=== PATIENT | female | born 1995 | race Caucasian/White ===

== ENCOUNTER 2016-07-05 01:04 | Emergency (ER) | payer BC, OTHER ==
[~2016-07-05] VITALS: Ht 160 cm; Wt 64.4 kg
[~2016-07-05 01:04] MED LIST: AMOX-355 PO; AZIT-21 PO; NITR-65 PO; PHEN-639 PO; VALA10004 PO
--- OUTSIDE RECORDS SUMMARY | 2016-07-05 01:12 | XMS REPORT | Continuity of Care Document ---
Author Author [facility] Organization [facility] Address Unknown Phone Unavailable Care Team Providers Care Testing Manager Name Role Phone No Pcp, Na PCP Unavailable Source Comments Some departments are not documenting in the electronic medical record. 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 Failed. Subtotal left Most Recent Encounters Date Type Specialty Providers Description 07/01/2016 Telephone Otolaryngology Newton Ramos MD Appointment Request Social History Tobacco Use Types Packs/Day Years Used Date Never Smoker Smokeless Tobacco: Never Used Alcohol Use Drinks/Week oz/Week Comments No Last Filed Vital Signs Vital Sign Reading Time Taken Blood Pressure 118/68 02/26/2016 8:59 AM CDT Pulse 69 02/26/2016 8:59 AM CDT Temperature 36.8 C (98.2 F) 10/04/2015 4:30 PM CDT Respiratory Rate - - Height 1.588 m (5' 2.5") 02/26/2016 8:59 AM CDT Weight 67.223 kg (148 lb 3.2 oz) 02/26/2016 8:59 AM CDT Body Mass Index 26.66 02/26/2016 8:59 AM CDT Oxygen Saturation 97% 10/04/2015 4:30 PM CDT Plan of Care Date Type Specialty Providers Description 07/08/2016 Appointment Otolaryngology Newton Ramos MD [address] [facility] [address] [place] [address] [phone] (Fax) Health Maintenance Due Date Last Done Comments Physical (Comprehensive) 12/09/2002 Exam Hpv Vaccines (#1) 12/09/2006 Pertussis Vaccine 12/09/2006 Tetanus Vaccine 12/09/2012 Influenza Vaccine 01/10/2016 Results from Last 3 Months Not on file
[2016-07-05] MEDS ORDERED: DEXAMETHASONE PF 10 MG/ML (DECADRON) VIAL IM STA (02:37)
[2016-07-05] MEDS ORDERED: OXYMETAZOLINE (AFRIN) 0.05% NA 15 ML BTL SCH (02:45)
--- NOTE | 2016-07-05 02:46 | ED Cough/URI ---
General Chief Complaint: Cough/Cold/Flu Symptoms Stated Complaint: SOB Nursing Triage Note: PT TO ED 5 W/ C/O TROUBLE BREATHING X1 WK. NO DISTRESS NOTED AT THIS TIME. PT REPORTS SHE IS "FORGETTING HOW TO LEARN HOW TO BREATHE". PT STATES HER MOUTH IS REALLY DRY WHEN SHE SLEEPS AND WAS UNABLE TO GO TO WORK TONIGHT BECAUSE OF HER BREATHING. Source: patient Exam Limitations: no limitations History of Present Illness Time seen by provider: 02:05 Initial Comments Here with cough and congestion with stuffy nose and ear fullness for the last week. Worse tonight. Feels like she is having difficulty breathing when trying to go to sleep. Presents for persistence of symptoms. Denies current fever, vomiting or diarrhea. Denies rashes. Does have mild dry throat. Timing/Duration: constant, week Severity/Quality: moderate, dry cough Prior Episodes/Possible Cause: occasional episodes Associated Symptoms: cough, earache, nasal congestion, nasal drainage, shortness of breath, sore throat Allergies and Home Medications Allergies Coded Allergies: No Known Drug Allergies (Unverified , 01/19/16) Home Medications Nitrofurantoin Monohyd/M-Cryst 100 Mg Capsule #14 1 TAB PO BID Prescribed by: ALINE RIVERA on 01/19/16 2221 Phenazopyridine HCl 100 Mg Tablet #14 100 MG PO Q8H PRN PRN PAIN Prescribed by: ALINE RIVERA on 01/19/16 2221 Valacyclovir HCl 1,000 Mg Tablet #20 1,000 MG PO BID Prescribed by: ALINE RIVERA on 01/19/167 Constitutional: see HPINo chills, No fever EENTM: see HPI Respiratory: see HPI Cardiovascular: no symptoms reported Gastrointestinal: no symptoms reportedNo nausea, No vomiting Genitourinary: no symptoms reportedNo dysuria, No pain Musculoskeletal: no symptoms reported Skin: see HPINo lesions, No rash Past Mhqnbrn-Ueehxh-Nhkhse Hx Patient Social History Alcohol Use: Denies Use Recreational Drug Use: No Smoking Status: Current Everyday Smoker Type Used: Cigarettes Recent Foreign Travel: No Contact w/Someone Who Travel: No Recent Infectious Disease Expo: No Recent Hopitalizations: No Immunizations Up To Date Tetanus Booster (TDap): More than 5yrs PED Vaccines UTD: Yes Seasonal Allergies Seasonal Allergies: Yes Surgeries HX Surgeries: Yes Surgeries: Ear Surgery Respiratory Hx Respiratory Disorders: No Cardiovascular Hx Cardiac Disorders: No Neurological Hx Neurological Disorders: No Reproductive System Hx Reproductive Disorders: No Female Reproductive Disorders: Denies Genitourinary Hx Genitourinary Disorders: No Gastrointestinal Hx Gastrointestinal Disorders: No Musculoskeletal Hx Musculoskeletal Disorders: No Endocrine Hx Endocrine Disorders: No HEENT HX ENT Disorders: No Cancer Hx Cancer: No Psychosocial Hx Psychiatric Problems: No Integumentary HX Skin/Integumentary Disorder: No Blood Transfusions Hx Blood Disorders: No Reviewed Nursing Assessment Reviewed/Agree w Nursing PMH: Yes Family Medical History Significant Family History: No Pertinent Family Hx Physical Exam Vital Signs Vital Sign - Last 12Hours 07/05/16 01:24 Temp 97.1 Pulse 78 Resp 20 B/P 111/73 Pulse Ox 97 O2 Delivery Room Air Capillary Refill : Less Than 3 Seconds General Appearance: WD/WN no apparent distress HEENT: PERRL/EOMI pharynx normal other (moderate bilateral nasal congestion with clear rhinorrhea. Bilateral bulging TMs without purulence or opacity.) Neck: full range of motion supple Respiratory: lungs clear normal breath sounds Cardiovascular: regular rate, rhythm Gastrointestinal: non tender soft Extremities: non-tender normal inspection Neurologic/Psychiatric: alert oriented x 3 Skin: normal color warm/dry Progress/Results/Core Measures Results/Orders My Orders Orders-ELVIN OTERO MD Dexamethasone Pf Injection (Decadron Pf (07/05/16 02:37) Oxymetazoline 0.05% Nasal [place] (Afrin 0. (07/05/16 02:45) Vital Signs/I&O Vital Sign - Last 12Hours 07/05/16 07/05/16 01:24 01:24 Temp 97.1 Pulse 78 Resp 20 B/P 111/73 Pulse Ox 97 O2 Delivery Room Air Room Air Blood Pressure Mean: 86 Progress Note : Progress Note Seen and evaluated. Decadron 10 mg IM. Afrin nasal spray 2 sprays to each nostril. Discharged home with return precautions. Patient verbalize understanding instructions and agreement with plan. Departure Impression Impression: Primary Impression: Upper respiratory infection Qualified Code: J06.9 - Acute upper respiratory infection, unspecified Disposition: 01 HOME, SELF-CARE Condition: Stable Departure-Patient Inst. Decision time for Depature: 02:46 Referrals: [facility] (PCP/Family) Primary Care Physician Patient Instructions: Viral Upper Respiratory Infection, Adult (DC) Add. Discharge Instructions: All discharge instructions reviewed with patient and/or family. Voiced understanding. You may take ibuprofen 600 mg every 8 hours as needed for pain. Use the Afrin nasal spray 2 sprays to each nostril twice daily for 3 days only and then stop. Drink plenty of fluids. Follow-up with your Dr. in a few days for recheck. Return for worse pain, fever, vomiting, breathing problems or other concerns as needed. ELVIN OTERO MD Jul 05, 2016 02:46
[2016-07-05 02:55] VITALS: BP 109/78
== END 2016-07-05 02:55 | disposition home or self-care (01) ==
LOC: EDUNIT# 01:04 → ER 01:08
DX: J06.9 Acute upper respiratory infection, unspecified (principal); F17.210 Nicotine dependence, cigarettes, uncomplicated
CPT/HCPCS: 96372; 99282

== ENCOUNTER 2016-10-10 13:47 | Emergency (ER) | payer BC, OTHER ==
[~2016-10-10] VITALS: Ht 162.6 cm; Wt 59.0 kg
--- NOTE | 2016-10-10 14:10 | ED EENT ---
History of Present Illness General Stated Complaint: SORE THROAT Source: patient Exam Limitations: no limitations History of Present Illness Time seen by provider: 14:06 Initial Comments To ER with 5 day history of sore throat, fever yesterday, absence of cough, tender lymph nodes in her neck. Also states she is late on her menstrual period may be . Timing/Duration: other (5days) Severity: moderate Location: throat Associated Symptoms: No cough, fever, sore throat Allergies and Home Medications Allergies Coded Allergies: No Known Drug Allergies (Unverified , 01/19/16) Home Medications Nitrofurantoin Monohyd/M-Cryst 100 Mg Capsule, 1 TAB PO BID, #14 Ref 0 Prescribed by: ALINE RIVERA on 01/19/16 2221 Phenazopyridine HCl 100 Mg Tablet, 100 MG PO Q8H PRN for PAIN, #14 Ref 1 Prescribed by: ALINE RIVERA on 01/19/16 2221 Valacyclovir HCl 1,000 Mg Tablet, 1,000 MG PO BID, #20 Ref 0 Prescribed by: ALINE RIVERA on 01/19/16 2217 Review of Systems Constitutional: see HPI Eyes: No Symptoms Reported Ears: No Symptoms Reported Nose: no symptoms reported Mouth: no symptoms reported Throat: see HPI Respiratory: no symptoms reported Cardiovascular: no symptoms reported Musculoskeletal: no symptoms reported Skin: no symptoms reported Neurological: No Symptoms Reported Hematologic/Lymphatic: No Symptoms Reported Immunological/Allergic: no symptoms reported Past Gfxozyc-Kfngsk-Xyiyor Hx Patient Social History Type Used: Cigarettes Recent Foreign Travel: No Contact w/Someone Who Travel: No Recent Hopitalizations: No Immunizations Up To Date Tetanus Booster (TDap): More than 5yrs PED Vaccines UTD: Yes Seasonal Allergies Seasonal Allergies: Yes Surgeries HX Surgeries: Yes Surgeries: Ear Surgery Respiratory Hx Respiratory Disorders: No Cardiovascular Hx Cardiac Disorders: No Neurological Hx Neurological Disorders: No Reproductive System Hx Reproductive Disorders: No Female Reproductive Disorders: Denies Genitourinary Hx Genitourinary Disorders: No Gastrointestinal Hx Gastrointestinal Disorders: No Musculoskeletal Hx Musculoskeletal Disorders: No Endocrine Hx Endocrine Disorders: No HEENT HX ENT Disorders: No Cancer Hx Cancer: No Psychosocial Hx Psychiatric Problems: No Integumentary HX Skin/Integumentary Disorder: No Blood Transfusions Hx Blood Disorders: No Family Medical History Significant Family History: No Pertinent Family Hx Physical Exam Vital Signs Vital Sign - Last 12Hours 10/10/16 14:00 Temp 98.9 Pulse 82 Resp 16 B/P (MAP) 110/75 Pulse Ox 98 O2 Delivery Room Air General Appearance: WD/WN, no apparent distress Eyes: bilateral eye EOMI, bilateral eye PERRL, bilateral eye normal inspection Ears: bilateral ear TM normal, bilateral ear auricle normal, bilateral ear canal normal Mouth/Throat: other (pharyngeal erythema, no tonsillar exudate, no uvular deviation or suggestion of peritonsillar abscess. ) Neck: non-tender, full range of motion, lymphadenopathy (R), lymphadenopathy (L ) Respiratory: no respiratory distress, no accessory muscle use Gastrointestinal: normal bowel sounds, non tender, soft Neurologic/Psychiatric: alert, normal mood/affect, oriented x 3 Skin: normal color, warm/dry (I will be here) Progress/Results/Core Measures Results/Orders Lab Results Laboratory Tests Test 10/10/16 14:00 10/10/16 14:15 Range/Units Group A Streptococcus Screen POSITIVE H NEGATIVE White Blood Count 15.6 H 4.3-11.0 10^3/uL Red Blood Count 4.40 4.35-5.85 10^6/uL Hemoglobin 12.8 11.5-16.0 G/DL Hematocrit 40 35-52 % Mean Corpuscular Volume 91 80-99 FL Mean Corpuscular Hemoglobin 29 25-34 PG Mean Corpuscular Hemoglobin Concent 32 32-36 G/DL Red Cell Distribution Width 12.9 10.0-14.5 % Platelet Count 211 130-400 10^3/uL Mean Platelet Volume 10.7 H 7.4-10.4 FL Neutrophils (%) (Auto) 84 H 42-75 % Lymphocytes (%) (Auto) 10 L 12-44 % Monocytes (%) (Auto) 5 0-12 % Eosinophils (%) (Auto) 1 0-10 % Basophils (%) (Auto) 0 0-10 % Neutrophils # (Auto) 13.1 H 1.8-7.8 X 10^3 Lymphocytes # (Auto) 1.5 1.0-4.0 X 10^3 Monocytes # (Auto) 0.8 0.0-1.0 X 10^3 Eosinophils # (Auto) 0.1 0.0-0.3 10^3/uL Basophils # (Auto) 0.0 0.0-0.1 10^3/uL Monoscreen NEGATIVE NEGATIVE My Orders Orders - CHIVO BECKFORD APRN Cbc With Automated Diff (10/10/16 14:05) Monotest (10/10/16 14:05) Hcg,Qualitative Serum (10/10/16 14:06) Manual Differential (10/10/16 14:15) Dexamethasone Pf Injection (Decadron Pf (10/10/16 14:45) Amoxicillin Capsule (Polymox Capsule) (10/10/16 14:45) Amoxicillin Capsule (Polymox Capsule) (10/10/16 14:38) Vital Signs/I&O Vital Sign - Last 12Hours 10/10/16 14:00 Temp 98.9 Pulse 82 Resp 16 B/P (MAP) 110/75 Pulse Ox 98 O2 Delivery Room Air Departure Impression Impression: Primary Impression: Streptococcal sore throat Disposition: 01 HOME, SELF-CARE Condition: Stable Departure-Patient Inst. Decision time for Depature: 14:38 Referrals: [facility] (PCP/Family) Primary Care Physician Patient Instructions: Strep Throat (DC) Add. Discharge Instructions: 1. Return to ER for any concerns 2. See your doctor next week 3. Tylenol and Motrin for pain and fevers Scripts Amoxicillin (Amoxicillin) 500 Mg Capsule 500 MG PO TID, #21 CAP Prov: CHIVO BECKFORD APRN 10/10/16 CHIVO BECKFORD APRN Oct 10, 2016 14:10
[2016-10-10 14:23] LABS: BASOPHILS % (AUTO) 0 % (0-10); EOSINOPHILS # (AUTO) 0.1 10^3/uL (0.0-0.3); EOSINOPHILS % (AUTO) 1 % (0-10); LYMPHOCYTES # (AUTO) 1.5 X 10^3 (1.0-4.0); LYMPHOCYTES % (AUTO) 10 % (12-44); MEAN CORPUSCULAR HEMOGLOBIN 29 PG (25-34); MEAN CORPUSCULAR HGB CONC 32 G/DL (32-36); MEAN CORPUSCULAR VOLUME 91 FL (80-99); MEAN PLATELET VOLUME 10.7 FL (7.4-10.4); MONOCYTES # (AUTO) 0.8 X 10^3 (0.0-1.0); MONOCYTES % (AUTO) 5 % (0-12); NEUTROPHILS # (AUTO) 13.1 X 10^3 (1.8-7.8); NEUTROPHILS % (AUTO) 84 % (42-75); PLATELET COUNT 211 10^3/uL (130-400); RED CELL DISTRIBUTION WIDTH 12.9 % (10.0-14.5); WHITE BLOOD COUNT 15.6 10^3/uL (4.3-11.0)
[2016-10-10] MEDS ORDERED: AMOX500C2 PO (14:45)
[2016-10-10 14:46] LABS: BAND NEUTROPHILS 3 %; BASOPHILS % (MANUAL) 0 %; EOSINOPHILS % (MANUAL) 0 %; LYMPHOCYTES % (MANUAL) 8 %; NEUTROPHILS % (MANUAL) 81 %
[2016-10-10] MEDS: AMOXICILLIN 250 MG (POLYMOX) CAP PO SCH (14:50)
[2016-10-10] MEDS: AMOXICILLIN 500 MG (POLYMOX) CAP PO ONE ×2 (14:50→14:51)
[2016-10-10] MEDS: DEXAMETHASONE PF 10 MG/ML (DECADRON) VIAL IM ONE (14:51)
[2016-10-10 15:00] VITALS: BP 112/72
== END 2016-10-10 14:59 | disposition home or self-care (01) ==
LOC: EDUNIT# 13:47 → ER 13:49
DX: J02.0 Streptococcal pharyngitis (principal)
CPT/HCPCS: 36415; 84703; 85007; 85027; 86308; 87430; 99282

== ENCOUNTER 2017-05-18 17:48 | Emergency (ER) | payer BC ==
[~2017-05-18] VITALS: Ht 160 cm; Wt 63.5 kg
[~2017-05-18 17:48] MED LIST changes: +AMOX500C2 PO
--- OUTSIDE RECORDS SUMMARY | 2017-05-18 17:59 | XMS REPORT ---
Author Author JACKLYN CROWDER Organization [facility] Address [address] [place] [address] Care Team Providers Care Documentation Analyst Name Role Phone JACKLYN CROWDER Unavailable PROBLEMS Type Condition ICD9-CM Code NZG44-HS Code Onset Dates Condition Status SNOMED Code Problem Dysuria 788.1 Active 10905298 Problem Herpes simplex vulvovaginitis A60.04 Active 60654756 Problem Otitis externa of both ears H60.93 Active 5986800 Problem Other chronic serous otitis media 381.19 Active 92769174 Problem Urinary tract infection, site not specified 599.0 Active 23164319 Problem Bipolar disorder, unspecified 296.80 Active 71618679 Problem Acute serous otitis media 381.01 Active [id number] ALLERGIES No Known Allergies SOCIAL HISTORY Never Assessed PLAN OF CARE Activity Details Follow Up prn Reason: VITAL SIGNS Height 64 in 2016-09-25 Weight 143.6 lbs 2016-09-25 Temperature 98.3 degrees Fahrenheit 2016-09-25 Heart Rate 86 bpm 2016-09-25 Respiratory Rate 18 2016-09-25 BMI 24.65 kg/m2 2016-09-25 Blood pressure systolic 116 mmHg 2016-09-25 Blood pressure diastolic 68 mmHg 2016-09-25 MEDICATIONS Medication Instructions Dosage Frequency Start Date End Date Duration Status Acyclovir 400 MG Orally Three times a day 1 tablet 8h September, 10 day(s) Active RESULTS Name Result Date Reference Range TRICHOMONAS (IN HOUSE) 2016-09-25 TRICHOMONAS negative Control + Lot # [id number] Exp date 2016 11 UA LONG DIP (IN HOUSE) 2016-09-25 Lot # [id number] Exp date 2017 09 31 Clarity clear Color yellow Odor none GLU negative NELIDA negative KET negative SG 1.020 BLO trace pH 7.0 Protein negative URO 0.2 NIT negative AUDELIA 1+ Lot # [id number] Exp date 2017 06 BACTERIAL VAGINOSIS (IN HOUSE) 2016-09-25 RESULTS negative Control + Lot # [id number] Exp date 2016 11 CULTURE, VIRAL (HSV W/ TYPING) 2016-09-25 HSV Culture/Type GC/CHLAM PROBE (STATE) 2016-09-25 CHLAMYDIA negative GC negative PROCEDURES Procedure Date Ordered Result Body Site URINALYSIS, AUTO, W/O SCOPE September 25, 2016 MARTÍNEZ VAG, DNA, DIR PROBE September 25, 2016 TRICHOMONAS ASSAY W/OPTIC September 25, 2016 MYA VIRUS ISOLATE, HSV September 25, 2016 No Charge September 25, 2016 IMMUNIZATIONS No Known Immunizations MEDICAL (GENERAL) HISTORY Type Description Date Surgical History right ear surgery x2 2013
--- OUTSIDE RECORDS SUMMARY | 2017-05-18 17:59 | XMS REPORT | Clinical Summary ---
Author Author [facility] Organization [facility] Address Unknown Phone Unavailable Care Team Providers Care Polysomnographic Technician Name Role Phone PCP Unavailable Source Comments Some departments are not documenting in the electronic medical record. If you do not see the information that you expected, contact Release of Information in the Health Information Management department at [phone] for further assistance in locating additional records.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 Failed. Subtotal left Family History Medical History Relation Name Comments Hearing Loss Father High Cholesterol Father Relation Name Status Comments Father Alive Social History Tobacco Use Types Packs/Day Years Used Date Never Smoker Smokeless Tobacco: Never Used Alcohol Use Drinks/Week oz/Week Comments No Sex Assigned at Date Recorded Not on file Last Filed Vital Signs Vital Sign Reading Time Taken Blood Pressure 118/68 02/26/2016 8:59 AM CDT Pulse 69 02/26/2016 8:59 AM CDT Temperature 36.8 C (98.2 F) 10/04/2015 4:30 PM CDT Respiratory Rate - - Oxygen Saturation 97% 10/04/2015 4:30 PM CDT Inhaled Oxygen - - Concentration Weight 67.2 kg (148 lb 3.2 oz) 02/26/2016 8:59 AM CDT Height 158.8 cm (5' 2.5") 02/26/2016 8:59 AM CDT Body Mass Index 26.67 02/26/2016 8:59 AM CDT Plan of Treatment Health Maintenance Due Date Last Done Comments PHYSICAL (COMPREHENSIVE) 12/09/2002 EXAM HPV VACCINES (1 of 3 - 12/09/2006 Female 3 Dose Series) PERTUSSIS VACCINE 12/09/2006 TETANUS VACCINE 12/09/2012 CERVICAL CANCER SCREENING 12/09/2016 INFLUENZA VACCINE 12/09/2016 Results Not on filefrom Last 3 Months
--- OUTSIDE RECORDS SUMMARY | 2017-05-18 18:00 | XMS REPORT | Continuity of Care Document ---
Author Author [facility] Address Unknown Phone Unavailable Allergies There is no data. Medications There is no data. Problems Date Dx Coded Attending Type Code Diagnosis Diagnosed By 02/22/2008 380.10 OTITIS EXTERNA UNSPECIFIED 02/22/2008 382.00 Otitis Media Acute Without Spontaneous Rupture Eardrum 02/22/2008 388.70 Ear Ache 02/22/2008 LOS OH APRN 380.10 OTITIS EXTERNA UNSPECIFIED 02/22/2008 LOS OH APRN 382.00 Otitis Media Acute Without Spontaneous Rupture Eardrum 02/22/2008 LOS OH APRN 388.70 Ear Ache 02/22/2008 CABA DO, SEBASTIÁN K 380.10 OTITIS EXTERNA UNSPECIFIED 02/22/2008 CABA DO, SEBASTIÁN K 382.00 Otitis Media Acute Without Spontaneous Rupture Eardrum 02/22/2008 CABA DO, SEBASTIÁN K 388.70 Ear Ache 02/22/2008 CABA DO, SEBASTIÁN K 380.10 OTITIS EXTERNA UNSPECIFIED 02/22/2008 CABA DO, SEBASTIÁN K 382.00 Otitis Media Acute Without Spontaneous Rupture Eardrum 02/22/2008 CABA DO, SEBASTIÁN K 388.70 Ear Ache 02/22/2008 CABA DO, SEBASTIÁN K 380.10 OTITIS EXTERNA UNSPECIFIED 02/22/2008 CABA DO, SEBASTIÁN K 382.00 Otitis Media Acute Without Spontaneous Rupture Eardrum 02/22/2008 CABA DO, SEBASTIÁN K 388.70 Ear Ache 12/26/2008 V05.8 Need For Prophylactic Vaccination And Inoculation Against Other Specified Disease 12/26/2008 V06.5 Dt, Tetanus- diphtheria [td] ,tdap 12/26/2008 V20.2 Preventive Medicine Establ. Patient Checkup Adolescent 12-17 12/26/2008 LOS OH APRN V05.8 Need For Prophylactic Vaccination And Inoculation Against Other Specified Disease 12/26/2008 LOS [place] APRN V06.5 Dt, Tetanus-diphtheria [td] ,tdap 12/26/2008 ALTHEA BUITRAGO [place] V20.2 Preventive Medicine Establ. Patient Checkup Adolescent 12-17 12/26/2008 CARRI CABA DOA K V05.8 Need For Prophylactic Vaccination And Inoculation Against Other Specified Disease 12/26/2008 ROSALES DIAZ SEBASTIÁN K V06.5 Dt, Tetanus-diphtheria [td] ,tdap 12/26/2008 ROSALES DIAZ SEBASTIÁN K V20.2 Preventive Medicine Establ. Patient Checkup Adolescent 12-17 12/26/2008 ROSALES DIAZ SEBASTIÁN K V05.8 Need For Prophylactic Vaccination And Inoculation Against Other Specified Disease 12/26/2008 CABA DO SEBASTIÁN K V06.5 Dt, Tetanus-diphtheria [td] ,tdap 12/26/2008 ROSALES DIAZ SEBASTIÁN K V20.2 Preventive Medicine Establ. Patient Checkup Adolescent 12-17 12/26/2008 CARRI CABA DOA K V05.8 Need For Prophylactic Vaccination And Inoculation Against Other Specified Disease 12/26/2008 ROSALES DIAZ SEBASTIÁN K V06.5 Dt, Tetanus-diphtheria [td] ,tdap 12/26/2008 ROSALES DIAZ SEBASTIÁN K V20.2 Preventive Medicine Establ. Patient Checkup Adolescent 12-17 03/08/2009 110.4 Dermatophytosis Tinea Pedis 03/08/2009 691.8 ATOPIC DERMATITIS 03/08/2009 845.00 Ankle Sprain Right 03/08/2009 ALTHEA BUITRAGO [place] 110.4 Dermatophytosis Tinea Pedis 03/08/2009 ALTHEA BUITRAGO [place] 691.8 ATOPIC DERMATITIS 03/08/2009 ALTHEA BUITRAGO [place] 845.00 Ankle Sprain Right 03/08/2009 CABA DO SEBASTIÁN K 110.4 Dermatophytosis Tinea Pedis 03/08/2009 CABA DO SEBASTIÁN K 691.8 ATOPIC DERMATITIS 03/08/2009 CABA DO, SEBASTIÁN K 845.00 Ankle Sprain Right 03/08/2009 CABA DO SEBASTIÁN K 110.4 Dermatophytosis Tinea Pedis 03/08/2009 CABA DO SEBASTIÁN K 691.8 ATOPIC DERMATITIS 03/08/2009 CABA DO SEBASTIÁN K 845.00 Ankle Sprain Right 03/08/2009 CABA DO, SEBASTIÁN K 110.4 Dermatophytosis Tinea Pedis 03/08/2009 CABA DO, SEBASTIÁN K 691.8 ATOPIC DERMATITIS 03/08/2009 CABA DO, SEBASTIÁN K 845.00 Ankle Sprain Right 02/01/2010 296.90 MO MOOD DIS NOS 02/01/2010 313.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 02/01/2010 314.01 ADHD COMBINED 02/01/2010 OH IFTIKHAR [place] 296.90 MO MOOD DIS NOS 02/01/2010 OH IFTIKHAR [place] 313.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 02/01/2010 OH IFTIKHAR [place] 314.01 ADHD COMBINED 02/01/2010 CABA DO, SEBASTIÁN K 296.90 MO MOOD DIS NOS 02/01/2010 CABA DO, SEBASTIÁN K 313.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 02/01/2010 CABA DO, SEBASTIÁN K 314.01 ADHD COMBINED 02/01/2010 CABA DO, SEBASTIÁN K 296.90 MO MOOD DIS NOS 02/01/2010 CABA DO, SEBASTIÁN K 313.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 02/01/2010 CABA DO, SEBASTIÁN K 314.01 ADHD COMBINED 02/01/2010 CABA DO, SEBASTIÁN K 296.90 MO MOOD DIS NOS 02/01/2010 CABA DO, SEBASTIÁN K 313.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 02/01/2010 CABA DO, SEBASTIÁN K 314.01 ADHD COMBINED 04/21/2011 V25.9 CONTRACEPTION MANAGEMENT 04/21/2011 ALTHEA BUITRAGO [place] V25.9 CONTRACEPTION MANAGEMENT 04/21/2011 CABA DO, SEBASTIÁN K V25.9 CONTRACEPTION MANAGEMENT 04/21/2011 CABA DO, SEBASTIÁN K V25.9 CONTRACEPTION MANAGEMENT 04/21/2011 CABA DO, SEBASTIÁN K V25.9 CONTRACEPTION MANAGEMENT 12/01/2012 296.80 MO BIPOLAR NOS 12/01/2012 381.19 OTHER CHRONIC SEROUS OTITIS MEDIA 12/01/2012 ALTHEA BUITRAGO [place] 296.80 MO BIPOLAR NOS 12/01/2012 ALTHEA BUITRAGO [place] 381.19 OTHER CHRONIC SEROUS OTITIS MEDIA 12/01/2012 CABA DO SEBASTIÁN K 296.80 MO BIPOLAR NOS 12/01/2012 CABA DO, SEBASTIÁN K 381.19 OTHER CHRONIC SEROUS OTITIS MEDIA 12/01/2012 CABA DO, SEBASTIÁN K 296.80 MO BIPOLAR NOS 12/01/2012 CABA DO, SEBASTIÁN K 381.19 OTHER CHRONIC SEROUS OTITIS MEDIA 12/01/2012 CABA DO, SEBASTIÁN K 296.80 MO BIPOLAR NOS 12/01/2012 CABA DO, SEBASTIÁN K 381.19 OTHER CHRONIC SEROUS OTITIS MEDIA 09/14/2013 CABA DO, SEBASTIÁN K 381.01 ACUTE SEROUS OTITIS MEDIA 09/14/2013 CABA DO, SEBASTIÁN K 599.0 URINARY TRACT INFECTION 09/14/2013 CABA DO, SEBASTIÁN K 788.1 DYSURIA 09/14/2013 CABA DO, SEBASTIÁN K 381.01 ACUTE SEROUS OTITIS MEDIA 09/14/2013 CABA DO, SEBASTIÁN K 599.0 URINARY TRACT INFECTION 09/14/2013 CABA DO, SEBASTIÁN K 788.1 DYSURIA 09/14/2013 CABA DO, SEBASTIÁN K 381.01 ACUTE SEROUS OTITIS MEDIA 09/14/2013 CABA DO, SEBASTIÁN K 599.0 URINARY TRACT INFECTION 09/14/2013 CABA DO, SEBASTIÁN K 788.1 DYSURIA 08/16/2014 CABA DO, SEBASTIÁN K V74.1 TB SCREENING 08/16/2014 CABA DO, SEBASTIÁN K V74.1 TB SCREENING Procedures Code Description [place] [address] CULTURE URINE 09/14/2013 46664 UA W/ CULTURE IF INDICATED 09/14/2013 67098 TB TEST INTRADERMAL 08/16/2014 07147 TB TEST INTRADERMAL 08/25/2014 Results There is no data. Encounters ACCT No. Visit Date/Time Discharge Status Pt. Type Provider Facility Loc./Unit Complaint [id number] 08/25/2014 14:15:00 08/25/2014 23:59:59 CLS Outpatient SEBASTIÁN CABA DO Hernán [id number] 08/16/2014 09:37:00 08/16/2014 23:59:59 CLS Outpatient ROSALES DIAZ [place]BA[place]N K [id number] 09/14/2013 11:53:00 09/14/2013 23:59:59 CLS Outpatient CARRI CABA DOParish Jim [id number] 08/11/2013 18:20:00 08/11/2013 23:59:59 CLS Outpatient ALTHEA KAHNNLOS [id number] 12/01/2012 15:15:00 Document Registration
--- NOTE | 2017-05-18 19:28 | ED General ---
General Stated Complaint: POSS Source of Information: Patient Exam Limitations: No Limitations History of Present Illness Time Seen by Provider: 19:26 Initial Comments To ER with reports of possible . She was late on her menstrual period started having abdominal cramping and bleeding yesterday. She took a test, in fact she took 9 of them and brought them all to ER with her. . A few were positive and a few were negative. Bleeding continues and she is used 4 pads today. Cramping has improved. Timing/Duration: 1-2 Days Severity: Moderate Allergies and Home Medications Allergies Coded Allergies: No Known Drug Allergies (Unverified , 01/19/16) Home Medications Amoxicillin 500 Mg Capsule, 500 MG PO TID, #21 Prescribed by: CHIVO BECKFORD on 10/10/16 1445 Nitrofurantoin Monohyd/M-Cryst 100 Mg Capsule, 1 TAB PO BID, #14 Ref 0 Prescribed by: ALINE RIVERA on 01/19/16 2221 Phenazopyridine HCl 100 Mg Tablet, 100 MG PO Q8H PRN for PAIN, #14 Ref 1 Prescribed by: ALINE RIVERA on 01/19/16 2221 Valacyclovir HCl 1,000 Mg Tablet, 1,000 MG PO BID, #20 Ref 0 Prescribed by: ALINE RIVERA on 01/19/16 2217 Constitutional: see HPI EENTM: see HPI Respiratory: no symptoms reported Cardiovascular: no symptoms reported Genitourinary: no symptoms reported Musculoskeletal: no symptoms reported Skin: no symptoms reported Past Mlmfpoi-Qpkahj-Kjgdoy Hx Patient Social History Type Used: Cigarettes Recent Foreign Travel: No Contact w/Someone Who Travel: No Recent Hopitalizations: No Immunizations Up To Date Tetanus Booster (TDap): More than 5yrs PED Vaccines UTD: Yes Seasonal Allergies Seasonal Allergies: Yes Surgeries History of Surgeries: Yes Surgeries: Ear Surgery Respiratory History of Respiratory Disorde: No Cardiovascular History of Cardiac Disorders: No Neurological History of Neurological Disord: No Reproductive System Hx Reproductive Disorders: No Female Reproductive Disorders: Denies Gastrointestinal History of Gastrointestinal Di: No Musculoskeletal History of Musculoskeletal Dis: No Endocrine History of Endocrine Disorders: No Cancer History of Cancer: No Psychosocial History of Psychiatric Problem: No Integumentary History of Skin or Integumenta: No Blood Transfusions History of Blood Disorders: No Family Medical History Significant Family History: No Pertinent Family Hx Physical Exam Vital Signs Vital Sign - Last 12Hours 05/18/17 19:20 Temp 97.1 Pulse 71 Resp 18 B/P (MAP) 124/71 (88) Pulse Ox 99 O2 Delivery Room Air Capillary Refill : General Appearance: No Apparent Distress, WD/WN Eyes: Bilateral Eye Normal Inspection, Bilateral Eye PERRL, Bilateral Eye EOMI HEENT: PERRL/EOMI, TMs Normal Neck: Full Range of Motion, Normal Inspection Respiratory: No Accessory Muscle Use, No Respiratory Distress Cardiovascular: Regular Rate, Rhythm, Normal Peripheral Pulses Gastrointestinal: Normal Bowel Sounds, Non Tender, Soft Extremity: Normal Capillary Refill, Normal Inspection Neurologic/Psychiatric: Alert, Oriented x3, No Motor/Sensory Deficits Skin: Normal Color, Warm/Dry Progress/Results/Core Measures Suspected Sepsis SIRS Temperature: Pulse: Respiratory Rate: Blood Pressure / Mean: Results/Orders Lab Results Laboratory Tests Test 05/18/17 20:29 Range/Units Human Chorionic Gonadotropin, Quant < 5 <5 MIU/ML My Orders Orders - CHIVO BECKFORD APRN Hcg,Quantitative (05/18/17 19:24) Abo Rh Type (05/18/17 19:24) Us Ob<14 Wks Sngle W/Transvag (05/18/17 19:24) Ua Culture If Indicated (05/18/17 19:37) Vital Signs/I&O Vital Sign - Last 12Hours 05/18/17 19:20 Temp 97.1 Pulse 71 Resp 18 B/P (MAP) 124/71 (88) Pulse Ox 99 O2 Delivery Room Air Capillary Refill : Diagnostic Imaging Diagonstic Imaging: Ultrasound Comments NAME: MIKE MORROW [facility] REC#: [id number] PT STATUS: REG ER : 1995 PHYSICIAN: CHIVO BECKFORD APRN ADMIT DATE: 05/18/17/ER Draft Date of Exam:05/18/17 US OB<14 WKS SNGLE W/TRANSVAG INDICATION: Bleeding. Possible . FINDINGS: There is no sonographic demonstration of a gestational sac within the uterus. The endometrium measures up to 3 mm. There is no fluid in the endometrial canal. The right ovary is normal in size and demonstrates a small simple cyst. The left ovary could not be visualized. There is a small degree of free fluid within the cul-de-sac IMPRESSION: 1. An intrauterine gestation could not be identified. If the patient has a positive quantitative beta hCG, considerations would include early gestation, missed spontaneous or even possibly an ectopic . That cannot be excluded at this time. Continued correlation with beta hCGs is recommended. Sonographic imaging could also be performed, as clinically indicated. Dictated on workstation # [id number] Dict: 05/18/172022 Trans: 05/18/172027 [facility] [id number] Interpreted by: MOIZ SCOTT MD Electronically signed by: Departure Communication (Admissions) Progress Notes As mentioned patient did bring some of the tests to the emergency room with her and a few of them are in fact positive. Impression Impression: Primary Impression: Complete miscarriage Disposition: 01 HOME, SELF-CARE Condition: Stable Departure-Patient Inst. Decision time for Depature: 21:08 Referrals: [facility]/K (PCP/Family) Primary Care Physician Patient Instructions: Miscarriage Add. Discharge Instructions: 1. Cramping and bleeding may persist for another few days. Return to ER for any concerns. Follow-up with your doctor otherwise. CHIVO BECKFORD APRN May 18, 2017 19:28
--- NOTE | 2017-05-18 20:29 | Diagnostic Imaging Report ---
INDICATION: Bleeding. Possible . FINDINGS: There is no sonographic demonstration of a gestational sac within the uterus. The endometrium measures up to 3 mm. There is no fluid in the endometrial canal. The right ovary is normal in size and demonstrates a small simple cyst. The left ovary could not be visualized. There is a small degree of free fluid within the cul-de-sac IMPRESSION: 1. An intrauterine gestation could not be identified. If the patient has a positive quantitative beta hCG, considerations would include early gestation, missed spontaneous or even possibly an ectopic . That cannot be excluded at this time. Continued correlation with beta hCGs is recommended. Sonographic imaging could also be performed, as clinically indicated. Dictated by: Dictated on workstation # [id number]
[2017-05-18 21:17] LABS: BILIRUBIN,URINE NEGATIVE (NEGATIVE); CLARITY,URINE CLEAR; COLOR,URINE YELLOW; GLUCOSE, URINE (UA) NEGATIVE (NEGATIVE); KETONES,URINE NEGATIVE (NEGATIVE); LEUKOCYTE ESTERASE ,URINE NEGATIVE (NEGATIVE); NITRITE,URINE NEGATIVE (NEGATIVE); PH,URINE 7 (5-9); PROTEIN,URINE NEGATIVE (NEGATIVE); UROBILINOGEN,URINE 4 MG/DL (NORMAL)
[2017-05-18 21:29] LABS: RBC,URINE 25-50 /HPF; WBC,URINE 0-2 /HPF
[2017-05-18 21:30] LABS: BACTERIA,URINE TRACE /HPF
[2017-05-18 21:36] VITALS: BP 119/71
== END 2017-05-18 21:36 | disposition home or self-care (01) ==
LOC: EDUNIT# 17:48 → ER 17:52
DX: O03.9 Complete or unspecified spontaneous abortion without complication (principal); Z3A.00 Weeks of gestation of pregnancy not specified
CPT/HCPCS: 36415; 76801; 76817; 81000; 84702; 86900; 86901; 99282

== ENCOUNTER 2017-05-29 22:26 | Emergency (ER) | payer BC ==
[~2017-05-29] VITALS: Ht 160 cm; Wt 63.5 kg
--- OUTSIDE RECORDS SUMMARY | 2017-05-29 22:30 | XMS REPORT | Clinical Summary ---
Author Author [facility] Organization [facility] Address Unknown Phone Unavailable Care Team Providers Care Advertising Dispatch Clerk Name Role Phone PCP Unavailable Source Comments Some departments are not documenting in the electronic medical record. If you do not see the information that you expected, contact Release of Information in the Health Information Management department at [phone] for further assistance in locating additional records.[facility] Allergies No Known Allergies Current Medications [...]
--- OUTSIDE RECORDS SUMMARY | 2017-05-29 22:31 | XMS REPORT | Continuity of Care Document ---
Author Author [facility] Address Unknown Phone Unavailable Allergies There is [...] Procedures Code [place] [address] CULTURE URINE 09/14/2013 00547 UA W/ CULTURE IF INDICATED 09/14/2013 20726 TB TEST INTRADERMAL 08/16/2014 29498 TB TEST INTRADERMAL 08/25/2014 Results There is no data. Encounters ACCT No. Visit Date/Time Discharge Status Pt. Type Provider Facility Loc./Unit Complaint [id number] 08/25/2014 14:15:00 08/25/2014 23:59:59 CLS Outpatient SEBASTIÁN CABA DO Hernán [id number] 08/16/2014 09:37:00 08/16/2014 23:59:59 CLS Outpatient ROSALES DIAZ SEBASTIÁN K [id number] 09/14/2013 11:53:00 09/14/2013 23:59:59 CLS Outpatient CARRI CABA DOParish Jim [id number] 08/11/2013 18:20:00 08/11/2013 23:59:59 CLS Outpatient ALTHEA KAHNNLOS [id number] 12/01/2012 15:15:00 Document Registration
[2017-05-29 23:51] LABS: BILIRUBIN,URINE NEGATIVE (NEGATIVE); COLOR,URINE YELLOW; GLUCOSE, URINE (UA) NEGATIVE (NEGATIVE); KETONES,URINE NEGATIVE (NEGATIVE); LEUKOCYTE ESTERASE ,URINE 1+ (NEGATIVE); NITRITE,URINE NEGATIVE (NEGATIVE); PH,URINE 6.5 (5-9); PROTEIN,URINE 1+ (NEGATIVE); UROBILINOGEN,URINE NORMAL (NORMAL)
[2017-05-29 23:59] LABS: BACTERIA,URINE TRACE /HPF; CLARITY,URINE CLEAR; RBC,URINE RARE /HPF; WBC,URINE RARE /HPF
[2017-05-30 00:03] LABS: BASOPHILS % (AUTO) 0 % (0-10); EOSINOPHILS # (AUTO) 0.3 10^3/uL (0.0-0.3); EOSINOPHILS % (AUTO) 2 % (0-10); HEMATOCRIT 41 % (35-52); HEMOGLOBIN 13.6 G/DL (11.5-16.0); LYMPHOCYTES # (AUTO) 1.5 X 10^3 (1.0-4.0); LYMPHOCYTES % (AUTO) 13 % (12-44); MEAN CORPUSCULAR HEMOGLOBIN 30 PG (25-34); MEAN CORPUSCULAR HGB CONC 34 G/DL (32-36); MEAN CORPUSCULAR VOLUME 88 FL (80-99); MEAN PLATELET VOLUME 10.2 FL (7.4-10.4); MONOCYTES # (AUTO) 0.7 X 10^3 (0.0-1.0); MONOCYTES % (AUTO) 6 % (0-12); NEUTROPHILS # (AUTO) 9.1 X 10^3 (1.8-7.8); NEUTROPHILS % (AUTO) 78 % (42-75); PLATELET COUNT 257 10^3/uL (130-400); RED BLOOD COUNT 4.61 10^6/uL (4.35-5.85); RED CELL DISTRIBUTION WIDTH 12.9 % (10.0-14.5); WHITE BLOOD COUNT 11.6 10^3/uL (4.3-11.0)
--- NOTE | 2017-05-30 00:03 | ED GU-Female ---
General Chief Complaint: -Female Stated Complaint: MISCARRIAGE/ABD PAIN Nursing Triage Note: PT TO ED 9 FOR C/O INTERMITTENT ABD PAIN SINCE BEING TOLD SHE HAD A MISCARRIAGE X2 WKS AGO. REPORTS SHE WAS TO F/U AFTER ED VISIT BUT DOESN'T KNOW WHY. STATES X1WK AGO HAD "LIGHTNING BOLT PAIN" TO LOWER ABD THAT LASTED X7 MINUTES BUT WENT AWAY. ALSO C/O INTERMITTENT PAIN TO HER "OVARIES AND SHIT". PT DENIES VAGINAL BLEEDING AT THIS TIME. Nursing Sepsis Screen: No Definite Risk Source: patient Exam Limitations: no limitations History of Present Illness Date Seen by Provider: May 29, 2017 Time Seen by Provider: 23:20 Initial Comments Here with report of lower abdominal pain and vaginal discharge. Was seen on the eighth for concerns of positive test and vaginal bleeding. Quantitative hCG at that time was less than 5 and ultrasound was negative for intrauterine . She did get miscarriage instructions as she had 9 test with her that had some of them that were positive. She is concerned today about continued miscarriage. Parents arrived and are concerned about the need for D&C. She reports stable partner and the relationship and they do not use condoms or control but she states she is not actively trying to get . Complains of yellow-white discharge. Timing/Duration: other (2 weeks) Severity/Quality: moderate, cramping, sharp Location: suprapubic Radiation: none Activities at Onset: none Sexual [place] History: less than 2 months ago, single partner Associated Symptoms: abdominal pain, No dysuria, No fever/chills, No lower back pain, No nausea/vomiting, No urinary frequency Allergies and Home Medications Allergies Coded Allergies: No Known Drug Allergies (Unverified , 01/19/16) Home Medications Amoxicillin 500 Mg Capsule, 500 MG PO TID, #21 Prescribed by: CHIVO BECKFORD on 10/10/16 1445 Metronidazole 500 Mg Tablet, 500 MG PO BID, #14 Ref 0 Prescribed by: ELVIN OTERO on 05/30/17 0122 Nitrofurantoin Monohyd/M-Cryst 100 Mg Capsule, 1 TAB PO BID, #14 Ref 0 Prescribed by: ALINE RIVERA on 01/19/16 2221 Phenazopyridine HCl 100 Mg Tablet, 100 MG PO Q8H PRN for PAIN, #14 Ref 1 Prescribed by: ALINE RIVERA on 9/10/16 2221 Valacyclovir HCl 1,000 Mg Tablet, 1,000 MG PO BID, #20 Ref 0 Prescribed by: ALINE RIVERA on 01/19/162216 Constitutional: see HPI, No chills, No fever EENTM: ear pain, No nose congestion Respiratory: no symptoms reported Cardiovascular: no symptoms reported Gastrointestinal: see HPI, abdominal pain, No diarrhea, No nausea, No vomiting Genitourinary: discharge, pain : No Musculoskeletal: no symptoms reported Skin: no symptoms reported All Other Systemes Reviewed Negative Unless Noted: Yes Past Cajiiap-Niuxzo-Jziqap Hx Patient Social History Alcohol Use: Denies Use Recreational Drug Use: No Smoking Status: Current Everyday Smoker Type Used: Cigarettes Recent Foreign Travel: No Contact w/Someone Who Travel: No Recent Infectious Disease Expo: No Recent Hopitalizations: No Immunizations Up To Date Tetanus Booster (TDap): More than 5yrs PED Vaccines UTD: Yes Seasonal Allergies Seasonal Allergies: Yes Surgeries History of Surgeries: Yes Surgeries: Ear Surgery Respiratory History of Respiratory Disorde: No Cardiovascular History of Cardiac Disorders: No Neurological History of Neurological Disord: No Reproductive System Hx Reproductive Disorders: No Female Reproductive Disorders: Denies Gastrointestinal History of Gastrointestinal Di: No Musculoskeletal History of Musculoskeletal Dis: No Endocrine History of Endocrine Disorders: No Cancer History of Cancer: No Psychosocial History of Psychiatric Problem: No Integumentary History of Skin or Integumenta: No Blood Transfusions History of Blood Disorders: No Reviewed Nursing Assessment Reviewed/Agree w Nursing PMH: Yes Family Medical History Significant Family History: No Pertinent Family Hx Physical Exam Vital Signs Vital Sign - Last 12Hours 05/29/17 22:55 Temp 99.2 Pulse 88 Resp 20 B/P (MAP) 115/67 (83) Pulse Ox 99 O2 Delivery Room Air Capillary Refill : Less Than 3 Seconds General Appearance: WD/WN, no apparent distress HEENT: PERRL/EOMI, pharynx normal, other (left external ear canal with erythema and some drainage) Neck: full range of motion, supple Cardiovascular: regular rate, rhythm, no murmur Respiratory: lungs clear, normal breath sounds Gastrointestinal: non tender, soft Pelvic: normal external exam, discharge (yellow eye discharge), tender w/ cervical motion, No vaginal bleeding Back: normal inspection, no CVA tenderness, no vertebral tenderness Extremities: non-tender, normal inspection Neurologic/Psychiatric: alert, oriented x 3 Skin: normal color, warm/dry Progress/Results/Core Measures Suspected Sepsis Recent Fever Within 48 Hours: No Infection Criteria Present: None New/Unexplained Altered Menta: No Sepsis Screen: No Definite Risk Sepsis Diagnosis: SIRS Temperature:99.2 Pulse: 88 Respiratory Rate: 20 Laboratory Tests 05/29/17 23:50: White Blood Count 11.6H Blood Pressure 115 /67 Mean: 83 Laboratory Tests 05/29/17 23:50: Creatinine 0.74, Platelet Count 257 Results/Orders Lab Results Laboratory Tests Test 05/29/17 23:39 05/29/17 23:50 05/30/17 00:40 Range/Units Urine Color YELLOW Urine Clarity CLEAR Urine pH 6.5 5-9 Urine Specific [place] 1.020 1.016-1.022 Urine Protein 1+ H NEGATIVE Urine Glucose (UA) NEGATIVE NEGATIVE Urine Ketones NEGATIVE NEGATIVE Urine Nitrite NEGATIVE NEGATIVE Urine Bilirubin NEGATIVE NEGATIVE Urine Urobilinogen NORMAL NORMAL MG/DL Urine Leukocyte Esterase 1+ H NEGATIVE Urine RBC (Auto) NEGATIVE NEGATIVE Urine RBC RARE /HPF Urine WBC RARE /HPF Urine Squamous Epithelial Cells 10-25 H /HPF Urine Crystals NONE /LPF Urine Bacteria TRACE /HPF Urine Casts NONE /LPF Urine Mucus SMALL H /LPF Urine Culture Indicated NO White Blood Count 11.6 H 4.3-11.0 10^3/uL Red Blood Count 4.61 4.35-5.85 10^6/uL Hemoglobin 13.6 11.5-16.0 G/DL Hematocrit 41 35-52 % Mean Corpuscular Volume 88 80-99 FL Mean Corpuscular Hemoglobin 30 25-34 PG Mean Corpuscular Hemoglobin Concent 34 32-36 G/DL Red Cell Distribution Width 12.9 10.0-14.5 % Platelet Count 257 130-400 10^3/uL Mean Platelet Volume 10.2 7.4-10.4 FL Neutrophils (%) (Auto) 78 H 42-75 % Lymphocytes (%) (Auto) 13 12-44 % Monocytes (%) (Auto) 6 0-12 % Eosinophils (%) (Auto) 2 0-10 % Basophils (%) (Auto) 0 0-10 % Neutrophils # (Auto) 9.1 H 1.8-7.8 X 10^3 Lymphocytes # (Auto) 1.5 1.0-4.0 X 10^3 Monocytes # (Auto) 0.7 0.0-1.0 X 10^3 Eosinophils # (Auto) 0.3 0.0-0.3 10^3/uL Basophils # (Auto) 0.0 0.0-0.1 10^3/uL Sodium Level 136 135-145 MMOL/L Potassium Level 4.0 3.6-5.0 MMOL/L Chloride Level 101 98-107 MMOL/L Carbon Dioxide Level 23 21-32 MMOL/L Anion Gap 12 5-14 MMOL/L Blood Urea Nitrogen 14 7-18 MG/DL Creatinine 0.74 0.60-1.30 MG/DL Estimat Glomerular Filtration Rate > 60 BUN/Creatinine Ratio 19 Glucose Level 91 70-105 MG/DL Calcium Level 9.8 8.5-10.1 MG/DL Human Chorionic Gonadotropin, Quant < 5 <5 MIU/ML My Orders Orders - ELVIN OTERO MD Cbc With Automated Diff (05/29/17 23:24) Hcg,Quantitative (05/29/17 23:24) Basic Metabolic Panel (05/29/17 23:40) Ua Culture If Indicated (05/29/17 23:40) Wet Prep (05/30/17 00:05) Neisseria Gonorrhea Dna (05/30/17 00:05) Chlamydia Dna (05/30/17 00:05) Genital Culture (05/30/17 00:05) Rx-Ciprofloxacin Ophth Soln (Rx-Ciloxan (05/30/17 00:52) Ceftriaxone Injection (Rocephin Injectio (05/30/17 01:15) Azithromycin Tablet (Zithromax Tablet) (05/30/17 01:01) Metronidazole Tablet (Flagyl Tablet) (05/30/17 01:01) Lidocaine 1% Injection (Xylocaine 1% Inj (05/30/17 01:15) Lidocaine 1% (Xylocaine 1%) (05/30/17 02:04) Medications Given in ED Current Medications Medications Dose Ordered Sig/Ana Route Start Time Stop Time Status Last Admin Dose Admin Ceftriaxone Sodium 250 mg ONCE ONCE IM 05/30/17 01:15 05/30/17 01:16 DC 05/30/17 02:11 250 MG Lidocaine HCl 50 ml STK-MED ONCE .ROUTE 05/30/17 02:04 05/30/17 02:05 DC 05/30/17 02:11 50 ML Vital Signs/I&O Vital Sign - Last 12Hours 05/29/17 22:55 Temp 99.2 Pulse 88 Resp 20 B/P (MAP) 115/67 (83) Pulse Ox 99 O2 Delivery Room Air Capillary Refill : Less Than 3 Seconds Blood Pressure Mean: 83 Progress Note : Progress Note Seen and evaluated. Labs and UA ordered. We will evaluate hCG quantitative level as recheck from previous visit. Pelvic exam indicated. Patient will decide. 0002: Patient decided that pelvic exam is okay. We will set her up for that. 0045: Pelvic complete. Pelvic labs sent. Monitor patient. 0115: Patient has finding out what prep of bacterial vaginosis. There is also white cells. We will go ahead and subjectively treat for STI. Rocephin 250 mg IM and Zithromax 1 g by mouth. Flagyl 500 mg by mouth ordered. Discharged home after with return precautions. Patient verbalize understanding instructions and agreement with plan. Patient's hCG quantitative level remains negative so i do not believe is a concern. Departure Impression Impression: Primary Impression: Bacterial vaginosis Additional Impressions: Cervicitis Otitis externa, left Qualified Codes: H60.502 - Unspecified acute noninfective otitis externa, left ear Disposition: 01 HOME, SELF-CARE Condition: Improved Departure-Patient Inst. Decision time for Depature: 01:19 Referrals: [facility]/K (PCP/Family) Primary Care Physician Patient Instructions: Bacterial Vaginosis (DC), Sexually-Transmitted Diseases ( DC) Add. Discharge Instructions: All discharge instructions reviewed with patient and/or family. Voiced understanding. Take medications as directed. Follow up with your DrZohra in a few days for recheck. Return for worsening, fever, vomiting, weakness, breathing problems or other concerns as needed. Your quantitative hCG level ( hormone) was negative today and there is no indication of . Scripts Metronidazole (Metronidazole) 500 Mg Tablet 500 MG PO BID, #14 TAB 0 Refills Prov: ELVIN OTERO MD 05/30/17 ELVIN OTERO MD May 30, 2017 00:03
[2017-05-30 00:20] LABS: BUN/CREATININE RATIO 19; CALCIUM 9.8 MG/DL (8.5-10.1); CARBON DIOXIDE 23 MMOL/L (21-32); CHLORIDE 101 MMOL/L (98-107); CREATININE SERUM 0.74 MG/DL (0.60-1.30); GFR ESTIMATED > 60; GLUCOSE 91 MG/DL (70-105); SODIUM 136 MMOL/L (135-145)
[2017-05-30] MEDS ORDERED: RX-CIPROFLOXACIN (CILOXAN) 0.3% OP SOLN 2.5 ML OP STA (00:52)
[2017-05-30] MEDS ORDERED: AZITHROMYCIN 250 MG TAB (ZITHROMAX) PO STA (01:01)
[2017-05-30] MEDS ORDERED: metroNIDAZOLE 500 MG (FLAGYL) TAB PO STA (01:01)
[2017-05-30] MEDS ORDERED: LIDOCAINE 1% INJ 20 ML (XYLOCAINE) VIAL INJ ONE (01:15)
[2017-05-30] MEDS ORDERED: cefTRIAXone 250 MG (ROCEPHIN) VIAL IM ONE (01:15)
[2017-05-30] MEDS ORDERED: METR500T21 PO (01:22)
[2017-05-30] MEDS ORDERED: LIDOCAINE 1% INJ 50 ML (XYLOCAINE) VIAL ONE (02:04)
[2017-05-30 02:39] VITALS: BP 0/0
[2017-05-31] MEDS ORDERED: OSLT75C PO (12:54)
[2017-05-31] MEDS ORDERED: ONDA8TAB9 PO (12:54)
== END 2017-05-30 02:39 | disposition home or self-care (01) ==
LOC: EDUNIT# 22:26 → ER 22:27
DX: N76.0 Acute vaginitis (principal); N72 Inflammatory disease of cervix uteri; H60.92 Unspecified otitis externa, left ear; F17.210 Nicotine dependence, cigarettes, uncomplicated
CPT/HCPCS: 36415; 80048; 81000; 84702; 85025; 96372; 99282; 99284

== ENCOUNTER 2017-05-31 11:14 | Emergency (ER) | payer BC ==
[~2017-05-31] VITALS: Ht 160 cm; Wt 63.5 kg
[~2017-05-31 11:14] MED LIST changes: +METR500T21 PO
--- OUTSIDE RECORDS SUMMARY | 2017-05-31 11:19 | XMS REPORT | Clinical Summary ---
Author Author [facility] Organization [facility] Address Unknown Phone Unavailable Care Team Providers Care Manager Government Name Role Phone PCP Unavailable Source Comments Some departments are not documenting in the electronic medical record. If you do not see the information that you expected, contact Release of Information in the Health Information Management department at [phone] for further assistance in locating additional records.[facility] Allergies No Known Allergies Current Medications No [...]
--- OUTSIDE RECORDS SUMMARY | 2017-05-31 11:19 | XMS REPORT | Continuity of Care Document ---
Author Author [facility] Address Unknown Phone Unavailable Allergies There is [...] Procedures Code Description [place] [address] CULTURE URINE 09/14/2013 05823 UA W/ CULTURE IF INDICATED 09/14/2013 47425 TB TEST INTRADERMAL 08/16/2014 90338 TB TEST INTRADERMAL 08/25/2014 Results There is no data. Encounters ACCT No. Visit Date/Time Discharge Status Pt. Type Provider Facility Loc./Unit Complaint [id number] 08/25/2014 14:15:00 08/25/2014 23:59:59 CLS Outpatient SEBASTIÁN CABA DO Hernán [id number] 08/16/2014 09:37:00 08/16/2014 23:59:59 CLS Outpatient ROSALES DIAZ SEBASTIÁN K [id number] 09/14/2013 11:53:00 09/14/2013 23:59:59 CLS Outpatient CARRI CABA DOParish Jim [id number] 08/11/2013 18:20:00 08/11/2013 23:59:59 CLS Outpatient ALTHEA KAHNNLOS [id number] 12/01/2012 15:15:00 Document Registration
--- NOTE | 2017-05-31 12:53 | ED Cough/URI ---
General Chief Complaint: Cough/Cold/Flu Symptoms Stated Complaint: NOT TAKING RX/COLD CHILLS/VOMITING Nursing Triage Note: c/o cough/fever/vomiting. Onset 2 days ago. Source: patient Exam Limitations: no limitations History of Present Illness Date Seen by Provider: May 31, 2017 Time Seen by Provider: 12:48 Initial Comments To ER with reports of cough, fever, vomiting, chills. She was seen here 2 days ago with chills and complaints of vaginal discharge. test was negative , pelvic exam revealed white cells and clue cells. She was treated empirically for STI with Rocephin and Zithromax as she did have some cervical motion tenderness. Culture showed Gardnerella vaginalis from cervix. She is on Flagyl but has been unable to take this because of the nausea. She slept all day yesterday. Timing/Duration: just prior to arrival Severity/Quality: moderate Associated Symptoms: cough, fever/chills, nasal congestion Allergies and Home Medications Allergies Coded Allergies: No Known Drug Allergies (Unverified , 01/19/16) Home Medications Amoxicillin 500 Mg Capsule, 500 MG PO TID, #21 Prescribed by: CHIVO BECKFORD on 10/10/16 1445 Metronidazole 500 Mg Tablet, 500 MG PO BID, #14 Ref 0 Prescribed by: ELVIN OTERO on 05/30/17 0122 Nitrofurantoin Monohyd/M-Cryst 100 Mg Capsule, 1 TAB PO BID, #14 Ref 0 Prescribed by: ALINE RIVERA on 01/19/16 2221 Phenazopyridine HCl 100 Mg Tablet, 100 MG PO Q8H PRN for PAIN, #14 Ref 1 Prescribed by: ALINE RIVERA on 01/19/16 2221 Valacyclovir HCl 1,000 Mg Tablet, 1,000 MG PO BID, #20 Ref 0 Prescribed by: ALINE RIVERA on 01/19/16 2217 Constitutional: see HPI, chills, fever, malaise, weakness EENTM: see HPI, ear pain Respiratory: see HPI, cough Cardiovascular: no symptoms reported Genitourinary: no symptoms reported Musculoskeletal: no symptoms reported Skin: no symptoms reported Psychiatric/Neurological: No Symptoms Reported Hematologic/Lymphatic: No Symptoms Reported Immunological/Allergic: no symptoms reported Past Fgznlmj-Rtmsbs-Eqnzux Hx Patient Social History Alcohol Use: Denies Use Recreational Drug Use: No Smoking Status: Unknown if Ever Smoked Type Used: Cigarettes Recent Foreign Travel: No Contact w/Someone Who Travel: No Recent Infectious Disease Expo: No Recent Hopitalizations: No Immunizations Up To Date Tetanus Booster (TDap): More than 5yrs PED Vaccines UTD: Yes Seasonal Allergies Seasonal Allergies: Yes Surgeries History of Surgeries: Yes Surgeries: Ear Surgery Respiratory History of Respiratory Disorde: No Cardiovascular History of Cardiac Disorders: No Neurological History of Neurological Disord: No Reproductive System Hx Reproductive Disorders: No Female Reproductive Disorders: Denies Gastrointestinal History of Gastrointestinal Di: No Musculoskeletal History of Musculoskeletal Dis: No Endocrine History of Endocrine Disorders: No Cancer History of Cancer: No Psychosocial History of Psychiatric Problem: No Integumentary History of Skin or Integumenta: No Blood Transfusions History of Blood Disorders: No Family Medical History Significant Family History: No Pertinent Family Hx Physical Exam Vital Signs Vital Sign - Last 12Hours 05/31/17 12:32 Temp 103.1 Pulse 101 Resp 18 B/P (MAP) 115/69 (84) Pulse Ox 98 O2 Delivery Room Air Capillary Refill : Less Than 3 Seconds General Appearance: WD/WN, no apparent distress Eyes: Bilateral Eye Normal Inspection, Bilateral Eye PERRL, Bilateral Eye EOMI HEENT: PERRL/EOMI, normal ENT inspection, pharynx normal, other (left external ear canal is erythematous with some purulent drainage in it. She denies pain in the ear and has been using her prescribed eardrops from her visit 2 days ago as directed.) Neck: non-tender Respiratory: lungs clear, normal breath sounds, no respiratory distress, no accessory muscle use Cardiovascular: regular rate, rhythm, no murmur Gastrointestinal: normal bowel sounds, non tender, soft Extremities: normal range of motion, non-tender Neurologic/Psychiatric: alert, normal mood/affect, oriented x 3 Skin: normal color, warm/dry Progress/Results/Core Measures Suspected Sepsis Recent Fever Within 48 Hours: Yes Infection Criteria Present: None New/Unexplained Altered Menta: No Sepsis Screen: No Definite Risk Sepsis Diagnosis: SIRS Temperature:103.1 Pulse: 101 Respiratory Rate: 18 Blood Pressure 115 /69 Mean: 84 Results/Orders Micro Results Microbiology 05/31/17 Influenza Types A,B Antigen (ELIO) - Final, Complete My Orders Orders - CHIVO BECKFORD APRN Ua Culture If Indicated (05/31/17 12:28) Cbc With Automated Diff (05/31/17 12:28) Comprehensive Metabolic Panel (05/31/17 12:28) Hcg,Quantitative (05/31/17 12:28) Influenza A And B Antigens (05/31/17 12:28) Vital Signs/I&O Vital Sign - Last 12Hours 05/31/17 12:32 Temp 103.1 Pulse 101 Resp 18 B/P (MAP) 115/69 (84) Pulse Ox 98 O2 Delivery Room Air Capillary Refill : Less Than 3 Seconds Blood Pressure Mean: 84 Departure Impression Impression: Primary Impression: Influenza A Disposition: HOME, SELF-CARE Condition: Stable Departure-Patient Inst. Decision time for Depature: 12:52 Referrals: [facility] (PCP/Family) Primary Care Physician Patient Instructions: Flu, Adult (DC) Add. Discharge Instructions: 1. Drink plenty of fluids 2. Tylenol and Motrin for fevers or chills which will persist for 2-3 days. If the Tamiflu makes her nauseous then stopped taking it and simply just use the Zofran to control nausea. You will feel poorly for about the next 5 days. Continue using the eardrops. Continue using the metronidazole prescribed during her last visit as this will help with the vaginal discharge. All discharge instructions reviewed with patient and/or family. Voiced understanding. Scripts Oseltamivir Phosphate (Tamiflu) 75 Mg Cap 75 MG PO BID, #10 CAP Prov: CHIVO BECKFORD [employer] 05/31/17 Ondansetron (Zofran Odt) 8 Mg Tab.rapdis 8 MG PO Q6H Y for NAUSEA/VOMITING-1ST LINE, #10 TAB Prov: CHIVO BECKFORD [employer] 05/31/17 CHIVO BECKFORD [employer] May 31, 2017 12:53
[2017-05-31] MEDS ORDERED: OSLT75C PO (12:54)
[2017-05-31] MEDS ORDERED: ONDA8TAB9 PO (12:54)
[2017-05-31] MEDS ORDERED: ONDANSETRON 4 MG (ZOFRAN) ORAL DISSOLVE TAB ONE (13:04)
[2017-05-31] MEDS ORDERED: ONDANSETRON 4 MG (ZOFRAN) ORAL DISSOLVE TAB PO ONE (13:15)
[2017-05-31] MEDS ORDERED: IBUPROFEN 800 MG (MOTRIN) TAB PO ONE (13:15)
[2017-05-31 13:50] VITALS: BP 115/69
== END 2017-05-31 13:50 | disposition home or self-care (01) ==
LOC: EDUNIT# 11:14 → ER 11:15
DX: J10.1 Influenza due to other identified influenza virus with other respiratory manifestations (principal); Z87.891 Personal history of nicotine dependence
CPT/HCPCS: 87804; 99282

== ENCOUNTER 2017-07-05 18:48 | Emergency (ER) | payer BC ==
[~2017-07-05] VITALS: Ht 160 cm; Wt 63.5 kg
[~2017-07-05 18:48] MED LIST changes: +ONDA8TAB9 PO; +OSLT75C PO
--- OUTSIDE RECORDS SUMMARY | 2017-07-05 18:53 | XMS REPORT | Continuity of Care Document ---
Author Author [facility] Address Unknown Phone Unavailable Allergies There [...] 03/08/2009 845.00 Ankle Sprain Right 03/08/2009 ALTHEA BUITRAOG LOS JOSEY 110.4 Dermatophytosis Tinea Pedis 03/08/2009 [...] K 691.8 ATOPIC DERMATITIS 03/08/2009 CABA DO, SEBSATIÁN K 845.00 Ankle Sprain Right 02/01/2010 296.90 MO MOOD DIS NOS 02/01/2010 313.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 02/01/2010 314.01 ADHD COMBINED 02/01/2010 [place] IFTIKHAR [place]OWL[place] 296.90 MO MOOD DIS NOS 02/01/2010 OH IFTIKHAR [place] 313.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 02/01/2010 OH IFTIKHAR LSO DOWLING 314.01 ADHD COMBINED 02/01/2010 CABA DO, [...] 296.80 MO BIPOLAR NOS 12/01/2012 CABA DO, SEBASTINÁ K 381.19 OTHER CHRONIC SEROUS OTITIS MEDIA [...] Procedures Code [place] [address] CULTURE URINE 09/14/2013 35256 UA W/ CULTURE IF INDICATED 09/14/2013 80735 TB TEST INTRADERMAL 08/16/2014 29624 TB TEST INTRADERMAL 08/25/2014 Results There is no data. Encounters ACCT No. Visit Date/Time Discharge Status Pt. Type Provider Facility Loc./Unit Complaint [id number] 08/25/2014 14:15:00 08/25/2014 23:59:59 CLS Outpatient SEBASTIÁN CABA DO Hernán [id number] 08/16/2014 09:37:00 08/16/2014 23:59:59 CLS Outpatient ROSALES DIAZ SEBASTIÁN K [id number] 09/14/2013 11:53:00 09/14/2013 23:59:59 CLS Outpatient CARRI CABA DOParish Jim [id number] 08/11/2013 18:20:00 08/11/2013 23:59:59 CLS Outpatient ALTHEA KAHNNLOS [id number] 12/01/2012 15:15:00 Document Registration
--- OUTSIDE RECORDS SUMMARY | 2017-07-05 18:53 | XMS REPORT | Clinical Summary ---
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 If you do not see the information that you expected, contact Release of Information in the Health Information Management department at [phone] for further assistance in locating additional records.[facility] Allergies No Known Allergies Current Medications [...]
--- NOTE | 2017-07-05 19:11 | ED EENT ---
History of Present Illness General Chief Complaint: Ear Problems Stated Complaint: L EAR DRAINAGE/PAIN Nursing Triage Note: C/O pain to left ear with drainage-yeloow to dark green. States she was seen for same issue at beginning of May and was given Cipro drops- has used them all but the ear has never improved Source: patient, family Exam Limitations: no limitations History of Present Illness Date Seen by Provider: Jul 05, 2017 Time Seen by Provider: 19:11 Initial Comments 21-year-old female patient presents to the emergency department with complaints of intermittent yellow to dark green drainage from the left ear. Reports waking up this a.m. with drainage on the pillow. Patient was given Cipro otic drops in May and has been using them intermittently without improvement in symptoms. Denies following up with her PCP. 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 States she has not seen Dr. Ty at in approximately 2 years. Denies pain or fever. Denies known injury. Timing/Duration: intermittent, other (2 month onset) Location: ear (L) Prearrival Treatment: prescription meds (intermittent use of Cipro otic drops) Modifying Factors: Worse With Other (no improvement with Cipro otic drops) Allergies and Home Medications Allergies Coded Allergies: No Known Drug Allergies (Unverified , 07/05/17) Home Medications Amoxicillin 500 Mg Capsule, 500 MG PO TID Prescribed by: CHIVO BECKFORD on 10/10/16 1445 Cefdinir 300 Mg Capsule, 300 MG PO BID Prescribed by: ALINE RIVERA on 07/05/171953 Metronidazole 500 Mg Tablet, 500 MG PO BID Prescribed by: ELVIN OTERO on 05/30/17 0122 Nitrofurantoin Monohyd/M-Cryst 100 Mg Capsule, 1 TAB PO BID Prescribed by: ALINE RIVERA on 01/19/16 2221 Ofloxacin 5 Ml Drops, 10 DROPS OT BID Prescribed by: ALINE RIVERA on 07/05/171953 Ondansetron 8 Mg Tab.rapdis, 8 MG PO Q6H PRN for NAUSEA/VOMITING-1ST LINE Prescribed by: CHIVO BECKFORD on 05/31/17 1254 Oseltamivir Phosphate 75 Mg Cap, 75 MG PO BID Prescribed by: CHIOV BECKFORD on 05/31/17 1254 Phenazopyridine HCl 100 Mg Tablet, 100 MG PO Q8H PRN for PAIN Prescribed by: ALINE RIVERA on 01/19/162220 Valacyclovir HCl 1,000 Mg Tablet, 1,000 MG PO BID Prescribed by: ALINE RIVERA on 01/19/162216 Review of Systems Constitutional: No dizziness, No fever, No malaise Eyes: No Symptoms Reported Ears: See HPI, Denies Dizziness, Denies Pain, Denies Tinnitus, Denies Bloody Discharge, Denies Clear Discharge, Purulent Discharge Nose: no symptoms reported Mouth: no symptoms reported Throat: no symptoms reported Respiratory: no symptoms reported Cardiovascular: no symptoms reported Gastrointestinal: no symptoms reported Musculoskeletal: no symptoms reported Skin: no symptoms reported Neurological: No Symptoms Reported All Other Systems Reviewed Negative Unless Noted: Yes (Negative excepted noted.) Past Mzfimjt-Ajzsfx-Zahruw Hx Patient Social History Alcohol Use: Rarely Uses Recreational Drug Use: No Type Used: Cigarettes Recent Foreign Travel: No Contact w/Someone Who Travel: No Recent Infectious Disease Expo: No Recent Hopitalizations: No Physical Abuse: No Sexual Abuse: No Mistreated: No Fear: No Immunizations Up To Date Tetanus Booster (TDap): More than 5yrs PED Vaccines UTD: Yes Seasonal Allergies Seasonal Allergies: Yes Surgeries History of Surgeries: Yes Surgeries: Ear Surgery (right mastoidectomy) Respiratory History of Respiratory Disorde: No Cardiovascular History of Cardiac Disorders: No Neurological History of Neurological Disord: No Reproductive System Hx Reproductive Disorders: No Female Reproductive Disorders: Denies Gastrointestinal History of Gastrointestinal Di: No Musculoskeletal History of Musculoskeletal Dis: No Endocrine History of Endocrine Disorders: No HEENT History of HEENT Disorders: Yes (right mastoiditis as a teenager) HEENT Disorders: Chronic Ear Infection Cancer History of Cancer: No Psychosocial History of Psychiatric Problem: No Suicide Risk Score: 0 Integumentary History of Skin or Integumenta: No Blood Transfusions History of Blood Disorders: No Reviewed Nursing Assessment Reviewed/Agree w Nursing PMH: Yes Family Medical History Significant Family History: No Pertinent Family Hx Physical Exam Vital Signs Vital Signs - First Documented 07/05/17 18:53 Temp 97.8 Pulse 74 Resp 18 B/P (MAP) 124/86 (99) General Appearance: WD/WN, no apparent distress Eyes: bilateral eye normal inspection, bilateral eye PERRL, bilateral eye EOMI Ears: right ear TM normal, left ear TM red, left ear TM bulging, left ear other (no evidence of left TM perforation appreciated on exam. No drainage noted in the external ear canal.), bilateral ear auricle normal, bilateral ear canal normal Nose: normal inspection Mouth/Throat: normal mouth inspection, pharynx normal Neck: non-tender, full range of motion, supple, No lymphadenopathy (R), lymphadenopathy (L) Cardiovascular: normal peripheral pulses, regular rate, rhythm, no murmur Respiratory: lungs clear, normal breath sounds, no respiratory distress, no accessory muscle use Neurologic/Psychiatric: alert, normal mood/affect, oriented x 3 Skin: normal color, warm/dry Progress/Results/Core Measures Results/Orders My Orders Orders - ALINE RIVERA Acetaminophen Tablet (Tylenol Tablet) (07/05/17 19:38) Ceftriaxone Injection (Rocephin Injectio (07/05/17 19:45) Lidocaine 1% Injection (Xylocaine 1% Inj (07/05/17 19:45) Lidocaine 1% (Xylocaine 1%) (07/05/17 20:01) Medications Given in ED Current Medications Medications Dose Ordered Sig/Ana Route Start Time Stop Time Status Last Admin Dose Admin Ceftriaxone Sodium 1,000 mg ONCE ONCE IM 07/05/17 19:45 07/05/17 19:46 DC 07/05/17 20:06 1,000 MG Lidocaine HCl 50 ml STK-MED ONCE .ROUTE 07/05/17 20:01 07/05/17 20:05 DC 07/05/17 20:06 50 ML Vital Signs/I&O Vital Sign - Last 12Hours 07/05/17 18:53 Temp 97.8 Pulse 74 Resp 18 B/P (MAP) 124/86 (99) Blood Pressure Mean: 99 Departure Communication (Admissions) Progress Notes Patient seen and evaluated. We'll give patient 1 g Rocephin IM 1 dose and 1 g of Tylenol by mouth 1 dose. Plan for discharge to home with patient to follow- up as an outpatient with her PCP at [facility], Dr. gonzalez, or Dr. Ramos at [facility]. Impression Impression: Primary Impression: Otitis media of left ear Qualified Codes: H65.05 - Acute serous otitis media, recurrent, left ear Disposition: HOME, SELF-CARE Condition: Improved Departure-Patient Inst. Decision time for Depature: 19:47 Referrals: RITA GONZALEZ MD [facility] (PCP/Family) Primary Care Physician Patient Instructions: Ear Infections (Otitis Media) (DC) Add. Discharge Instructions: All discharge instructions reviewed with patient and/or family. Voiced understanding. Medications as instructed. Tylenol Extra Strength over-the- counter as directed for pain. Ibuprofen 600 mg by mouth every 6-8 hours as needed for pain. Avoid water in the left ear. Do not use Q-tips or foreign objects in the left ear. Follow-up with your primary care provider, Dr. Gonzalez, or your specialist at for recheck as an outpatient. Call for appointment time. Return to the emergency department for worsened symptoms or any other concerns. Scripts Ofloxacin (Ofloxacin) 5 Ml Drops 10 DROPS OT BID for 10 Days, #1 DROPS 0 Refills Prov: ALINE RIVERA 07/05/17 Cefdinir (Cefdinir) 300 Mg Capsule 300 MG PO BID, #20 CAP 0 Refills Prov: ALINE RIVERA 07/05/17 Work/School Note: Work Release Form Date Seen in the Emergency Department: Jul 05, 2017 Return to Work: Jul 07, 2017 Restrictions: No Restrictions ALINE RIVERA Jul 05, 2017 19:11
[2017-07-05] MEDS ORDERED: ACETAMINOPHEN 500 MG TAB (TYLENOL) PO STA (19:38)
[2017-07-05] MEDS ORDERED: LIDOCAINE 1% INJ 20 ML (XYLOCAINE) VIAL INJ ONE (19:45)
[2017-07-05] MEDS ORDERED: cefTRIAXone 1 GM (ROCEPHIN) VIAL IM ONE (19:45)
[2017-07-05] MEDS ORDERED: CEFD300C3 PO (19:54)
[2017-07-05] MEDS ORDERED: OFLO5DRO7 OT (19:54)
[2017-07-05] MEDS ORDERED: LIDOCAINE 1% INJ 50 ML (XYLOCAINE) VIAL ONE (20:01)
[2017-07-05 20:37] VITALS: BP 118/63
== END 2017-07-05 20:25 | disposition home or self-care (01) ==
LOC: EDUNIT# 18:48 → ER 18:50
DX: H66.92 Otitis media, unspecified, left ear (principal); Z90.89 Acquired absence of other organs
CPT/HCPCS: 96372; 99284

== ENCOUNTER 2018-03-02 11:50 | Emergency (ER) | payer BC ==
[~2018-03-02] VITALS: Ht 160 cm; Wt 54.4 kg
[~2018-03-02 11:50] MED LIST changes: +CEFD300C3 PO; +OFLO5DRO7 OT
--- NOTE | 2018-03-02 12:23 | ED GU-Female ---
General Stated Complaint: VAGINAL BLEEDING; Source: patient Exam Limitations: no limitations History of Present Illness Date Seen by Provider: Mar 02, 2018 Time Seen by Provider: 12:11 Initial Comments Here with report of vaginal bleeding today. States it was bright red and a small amount. She is approximately 4 weeks and 4 days . The patient as she had several home positive test and went to the clinic yesterday and had verified by UA there. This is her second . Her in May resulted in miscarriage early on. She states that she was at work and caught a 30 pound bag of dog food and then started having the bleeding afterwards. She has been sexually active over the last few days. No pain with sexual activity. Denies vaginal discharge. Timing/Duration: just prior to arrival Severity/Quality: mild, cramping Location: suprapubic Radiation: none Activities at Onset: none Sexual Lesage History: less than 2 months ago, single partner Modifying Factors: Improves With Resting Associated Symptoms: No dysuria, No fever/chills, No nausea/vomiting, No urinary frequency Allergies and Home Medications Allergies Coded Allergies: No Known Drug Allergies (Unverified , 07/05/17) Home Medications Amoxicillin 500 Mg Capsule, 500 MG PO TID Prescribed by: CHIVO BECKFORD on 10/10/16 1445 Cefdinir 300 Mg Capsule, 300 MG PO BID Prescribed by: ALINE RIVERA on 07/05/171953 Metronidazole 500 Mg Tablet, 500 MG PO BID Prescribed by: ELVIN OTERO on 05/30/17 012 Nitrofurantoin Monohyd/M-Cryst 100 Mg Capsule, 1 TAB PO BID Prescribed by: ALINE RIVERA on 01/19/162220 Ofloxacin 5 Ml Drops, 10 DROPS OT BID Prescribed by: ALINE RIVERA on 07/05/171953 Ondansetron 8 Mg Tab.rapdis, 8 MG PO Q6H PRN for NAUSEA/VOMITING-1ST LINE Prescribed by: CHIVO BECKFORD on 05/31/17 1254 Oseltamivir Phosphate 75 Mg Cap, 75 MG PO BID Prescribed by: CHIVO BECKFORD on 05/31/17 1254 Phenazopyridine HCl 100 Mg Tablet, 100 MG PO Q8H PRN for PAIN Prescribed by: ALINE RIVERA on 01/19/162220 Valacyclovir HCl 1,000 Mg Tablet, 1,000 MG PO BID Prescribed by: ALINE RIVERA on 01/19/16 2217 Patient Home Medication List Home Medication List Reviewed: Yes Review of Systems Review of Systems Constitutional: see HPI; No chills, No fever Respiratory: no symptoms reported Cardiovascular: no symptoms reported Gastrointestinal: no symptoms reported Genitourinary: denies dysuria; hematuria; denies pain Musculoskeletal: no symptoms reported Skin: no symptoms reported Past [place] Hx Past Med/Social Hx: Reviewed Nursing Past Med/Soc Hx Patient Social History Alcohol Use: Denies Use Recreational Drug Use: No Smoking Status: Current Everyday Smoker Type Used: Cigarettes Recent Hopitalizations: No Immunizations Up To Date Tetanus Booster (TDap): More than 5yrs PED Vaccines UTD: Yes Seasonal Allergies Seasonal Allergies: Yes Past Medical History Surgeries: Yes Ear Surgery Respiratory: No Cardiac: No Neurological: No Reproductive Disorders: No Female Reproductive Disorders: Denies Gastrointestinal: No Musculoskeletal: No Endocrine: No HEENT: Yes (right mastoiditis as a teenager) Chronic Ear Infection Cancer: No Psychosocial: No Integumentary: No Blood Disorders: No Family Medical History Reviewed Nursing Family Hx No Pertinent Family Hx Physical Exam Vital Signs Vital Signs - First Documented 03/02/18 12:07 Temp 98.7 Pulse 85 Resp 16 B/P (MAP) 114/86 (95) Pulse Ox 100 O2 Delivery Room Air Capillary Refill : Height, Weight, BMI Height: 5'3.00" Weight: 140lbs. oz. 63.327030sd; BMI Method:Estimated General Appearance: WD/WN, no apparent distress Cardiovascular: regular rate, rhythm, no murmur Respiratory: lungs clear, normal breath sounds Gastrointestinal: normal bowel sounds, non tender, soft Back: normal inspection, no CVA tenderness, no vertebral tenderness Neurologic/Psychiatric: alert, oriented x 3 Skin: normal color, warm/dry Progress/Results/Core Measures Suspected Sepsis SIRS Temperature: Pulse: Respiratory Rate: Laboratory Tests 03/02/18 12:25: White Blood Count 10.9 Blood Pressure / Mean: Laboratory Tests 03/02/18 12:25: Platelet Count 227 Results/Orders Lab Results Laboratory Tests Test 03/02/18 12:25 03/02/18 12:30 Range/Units White Blood Count 10.9 4.3-11.0 10^3/uL Red Blood Count 4.10 L 4.35-5.85 10^6/uL Hemoglobin 11.7 11.5-16.0 G/DL Hematocrit 36 35-52 % Mean Corpuscular Volume 87 80-99 FL Mean Corpuscular Hemoglobin 29 25-34 PG Mean Corpuscular Hemoglobin Concent 33 32-36 G/DL Red Cell Distribution Width 13.0 10.0-14.5 % Platelet Count 227 130-400 10^3/uL Mean Platelet Volume 10.7 H 7.4-10.4 FL Neutrophils (%) (Auto) 71 42-75 % Lymphocytes (%) (Auto) 21 12-44 % Monocytes (%) (Auto) 7 0-12 % Eosinophils (%) (Auto) 2 0-10 % Basophils (%) (Auto) 0 0-10 % Neutrophils # (Auto) 7.7 1.8-7.8 X 10^3 Lymphocytes # (Auto) 2.2 1.0-4.0 X 10^3 Monocytes # (Auto) 0.7 0.0-1.0 X 10^3 Eosinophils # (Auto) 0.2 0.0-0.3 10^3/uL Basophils # (Auto) 0.0 0.0-0.1 10^3/uL Human Chorionic Gonadotropin, Quant 7814 H <5 MIU/ML Urine Color YELLOW Urine Clarity CLEAR Urine pH 6 5-9 Urine Specific [place] 1.015 L 1.016-1.022 Urine Protein NEGATIVE NEGATIVE Urine Glucose (UA) NEGATIVE NEGATIVE Urine Ketones 2+ H NEGATIVE Urine Nitrite NEGATIVE NEGATIVE Urine Bilirubin NEGATIVE NEGATIVE Urine Urobilinogen NORMAL NORMAL MG/DL Urine Leukocyte Esterase 1+ H NEGATIVE Urine RBC (Auto) 5+ H NEGATIVE Urine RBC 5-10 H /HPF Urine WBC 2-5 /HPF Urine Squamous Epithelial Cells 5-10 /HPF Urine Crystals NONE /LPF Urine Bacteria FEW H /HPF Urine Casts NONE /LPF Urine Mucus MODERATE H /LPF Urine Culture Indicated YES My Orders Orders - ELVIN OTERO MD Cbc With Automated Diff (03/02/18 12:18) Hcg,Quantitative (03/02/18 12:18) Ua Culture If Indicated (03/02/18 12:30) Urine Culture (03/02/18 12:30) Us Ob Transvaginal [id number] (03/02/18 13:19) Vital Signs/I&O 03/02/18 12:07 Temp 98.7 Pulse 85 Resp 16 B/P (MAP) 114/86 (95) Pulse Ox 100 O2 Delivery Room Air Capillary Refill : Progress Note : Progress Note Seen and evaluated. Labs, UA ordered. We will consider ultrasound based on Quant level. Patient's blood type is O+. 1350: Ultrasound has been ordered and is pending. 1440: Ultrasound complete and results reviewed with the patient. At this time concerns for threatened miscarriage. She will need repeat beta hCG and her ultrasound and 2-3 days. I will send a copy of the chart about Dr. fox and to the [facility]. Patient was instructed to follow-up with one or the other for recheck. Discharged home with return precautions. Patient verbalize understanding instructions and agreement with plan. Diagnostic Imaging Diagonstic Imaging: Ultrasound Plain Films/CT/US/NM/MRI: pelvis Comments VIA [facility] [place], [place] NAME: MIKE MROROW [facility] REC#: [id number] PT STATUS: REG ER : 1995 PHYSICIAN: ELVIN OTERO MD ADMIT DATE: 03/02/18/ER Draft Date of Exam:03/02/18 US OB TRANSVAGINAL [id number] INDICATION: Vaginal bleeding. FINDINGS: There is a cystic structure in the fundal endometrium resembling a gestational sac. The dimensions are consistent with approximately 5 weeks 4 days. No definite pole is seen at this time. There appears to be a very small yolk sac present. There is a subchorionic hemorrhage measuring 2.5 x 1.2 x 3.3 cm. The right ovary measures 3.3 x 2.4 x 3.1 cm and the left ovary measures 3.9 x 1.7 x 1.7 cm. Both ovaries demonstrate blood flow. A corpus luteal cyst on the right measures approximately 2.3 cm. No other adnexal mass or free fluid is seen. IMPRESSION: Intrauterine gestational sac of approximately 5 weeks 4 days. No definite pole is seen at this time. There is a moderate-sized subchorionic hemorrhage present. No adnexal mass or free fluid is seen. Followup ultrasound and/or correlation with serial beta hCG levels could be performed to confirm viability. Dictated on workstation # [id number] Dict: 03/02/18 1439 Trans: 03/02/18 1443 [id number] Interpreted by: FARHEEN WATSON MD Electronically signed by: Departure Impression Primary Impression: Threatened miscarriage in early Disposition: ADMITTED INPATIENT Condition: Improved Departure-Patient Inst. Decision time for Depature: 14:54 Referrals: [facility] (PCP/Family) Primary Care Physician Patient Instructions: Threatened Miscarriage (DC) ELVIN OTERO MD Mar 02, 2018 12:22
[2018-03-02 12:36] LABS: BILIRUBIN,URINE NEGATIVE (NEGATIVE); CLARITY,URINE CLEAR; COLOR,URINE YELLOW; GLUCOSE, URINE (UA) NEGATIVE (NEGATIVE); KETONES,URINE 2+ (NEGATIVE); LEUKOCYTE ESTERASE ,URINE 1+ (NEGATIVE); NITRITE,URINE NEGATIVE (NEGATIVE); PH,URINE 6 (5-9); PROTEIN,URINE NEGATIVE (NEGATIVE); UROBILINOGEN,URINE NORMAL (NORMAL)
[2018-03-02 12:36] LABS: BASOPHILS % (AUTO) 0 % (0-10); EOSINOPHILS # (AUTO) 0.2 10^3/uL (0.0-0.3); EOSINOPHILS % (AUTO) 2 % (0-10); HEMATOCRIT 36 % (35-52); HEMOGLOBIN 11.7 G/DL (11.5-16.0); LYMPHOCYTES # (AUTO) 2.2 X 10^3 (1.0-4.0); LYMPHOCYTES % (AUTO) 21 % (12-44); MEAN CORPUSCULAR HEMOGLOBIN 29 PG (25-34); MEAN CORPUSCULAR HGB CONC 33 G/DL (32-36); MEAN CORPUSCULAR VOLUME 87 FL (80-99); MEAN PLATELET VOLUME 10.7 FL (7.4-10.4); MONOCYTES # (AUTO) 0.7 X 10^3 (0.0-1.0); MONOCYTES % (AUTO) 7 % (0-12); NEUTROPHILS # (AUTO) 7.7 X 10^3 (1.8-7.8); NEUTROPHILS % (AUTO) 71 % (42-75); PLATELET COUNT 227 10^3/uL (130-400); WHITE BLOOD COUNT 10.9 10^3/uL (4.3-11.0)
[2018-03-02 12:47] LABS: BACTERIA,URINE FEW /HPF
--- NOTE | 2018-03-02 14:44 | Diagnostic Imaging Report ---
INDICATION: Vaginal bleeding. FINDINGS: There is a cystic structure in the fundal endometrium resembling a gestational sac. The dimensions are consistent with approximately 5 weeks 4 days. No definite pole is seen at this time. There appears to be a very small yolk sac present. There is a subchorionic hemorrhage measuring 2.5 x 1.2 x 3.3 cm. The right ovary measures 3.3 x 2.4 x 3.1 cm and the left ovary measures 3.9 x 1.7 x 1.7 cm. Both ovaries demonstrate blood flow. A corpus luteal cyst on the right measures approximately 2.3 cm. No other adnexal mass or free fluid is seen. IMPRESSION: Intrauterine gestational sac of approximately 5 weeks 4 days. No definite pole is seen at this time. There is a moderate-sized subchorionic hemorrhage present. No adnexal mass or free fluid is seen. Followup ultrasound and/or correlation with serial beta hCG levels could be performed to confirm viability. Dictated by: Dictated on workstation # [id number]
[2018-03-02 15:00] VITALS: BP 119/86
== END 2018-03-02 15:00 | disposition other institution (70) ==
LOC: EDUNIT# 11:50 → ER 11:52
DX: O20.0 Threatened abortion (principal); O99.331 Smoking (tobacco) complicating pregnancy, first trimester; F17.210 Nicotine dependence, cigarettes, uncomplicated; Z3A.01 Less than 8 weeks gestation of pregnancy
CPT/HCPCS: 36415; 76817; 81000; 84702; 85025; 87088

== ENCOUNTER 2018-04-30 14:49 | Emergency (ER) | payer BC, MEDICAID ==
[~2018-04-30] VITALS: Ht 160 cm; Wt 59.0 kg
[~2018-04-30 14:49] MED LIST changes: +METR-197 PO; -METR500T21 PO
--- OUTSIDE RECORDS SUMMARY | 2018-04-30 15:02 | XMS REPORT | Clinical Summary ---
Author Author [facility] Organization [facility] Address Unknown Phone Unavailable Care Team Providers Care Terra Cotta Setter Name Role Phone No Pcp, Na PCP Unavailable Salome Roblero Unavailable Unavailable Newton Ramos MD Unavailable Karlee Tirado RN Unavailable Unavailable Deirdre Baker RN Unavailable Unavailable Source Comments Some departments are not documenting in the electronic medical record. 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 Failed. Subtotal left Family History Medical History Relation Name Comments Hearing Loss Father High Cholesterol Father Relation Name Status Comments Father Alive Social History Date Tobacco Use Types Packs/Day Years Used Never Smoker Smokeless Tobacco: Never Used Alcohol Use Drinks/Week oz/Week Comments No Sex Assigned at Date Recorded Not on file Industry Job Start Date Occupation Not on file Not on file Not on file Travel End Travel History Travel Start No recent travel history available. Last Filed Vital Signs Time Taken Vital Sign Reading 02/26/2016 8:59 AM CDT Blood Pressure 118/68 02/26/2016 8:59 AM CDT Pulse 69 10/04/2015 4:30 PM CDT Temperature 36.8 C (98.2 F) - Respiratory Rate - 10/04/2015 4:30 PM CDT Oxygen Saturation 97% - Inhaled Oxygen - Concentration 02/26/2016 8:59 AM CDT Weight 67.2 kg (148 lb 3.2 oz) 02/26/2016 8:59 AM CDT Height 158.8 cm (5' 2.5") 02/26/2016 8:59 AM CDT Body Mass Index 26.67 Plan of Treatment Health Maintenance Due Date Last Done Comments PHYSICAL (COMPREHENSIVE) 12/09/2002 EXAM HPV VACCINES (1 of 3 - 12/09/2006 Female 3-dose series) HIV SCREENING 12/09/2010 DTAP/TDAP VACCINES (1 - 12/09/2013 Tdap) CERVICAL CANCER SCREENING 12/09/2016 INFLUENZA VACCINE 12/09/2017 MENINGOCOCCAL VACCINE Aged Out No longer eligible based (ACWOscar,Lexus) on patient's age to complete this topic Results Not on filefrom Last 3 Months Insurance Payer Benefit Subscriber ID Type Phone Address Plan / Group [facility] x[facility]xxx [facility] Advance Directives Patient has advance care planning documents on file. For more information, please contact: [facility] [address] [place] [address]
--- OUTSIDE RECORDS SUMMARY | 2018-04-30 15:03 | XMS REPORT ---
Author Author SIMONE DUFFY [facility] Address [address] [place] [address] Care Team Providers Care Tugboat Captain Name Role Phone CLIVESIMONE Unavailable PROBLEMS Type Condition ICD9-CM Code [id number] Code Onset Dates Condition Status SNOMED Code Problem Urinary tract infection, site not specified 599.0 Active 03970639 Problem Acute serous otitis media 381.01 Active 181490099 Problem Other chronic serous otitis media 381.19 Active 54255194 Problem Dysuria 788.1 Active 25043826 Problem Unspecified mood [affective] disorder F39 Active 71613466 Problem ADHD (attention deficit hyperactivity disorder), combined type F90.2 Active 23567382 Problem Otitis externa of both ears H60.93 Active 7940586 Problem Bipolar disorder, unspecified 296.80 Active 61750230 Problem Bipolar disorder, current episode mixed, moderate F31.62 Active 578748328 Problem Herpes simplex vulvovaginitis A60.04 Active 08824329 ALLERGIES No Known Allergies ENCOUNTERS Encounter Location Date Diagnosis [facility] [address] [address] Dec, Unspecified mood [affective] disorder F39 and ADHD ( attention deficit hyperactivity disorder), combined type F90.2 [facility] [id number] [place] [address] Nov, Bipolar disorder, current episode mixed, moderate F31.62 [facility] [id number] [place] [address] 17 Aug, 2017 Acute otitis externa of right ear, unspecified type H60.501 and Acute suppurative otitis media of left ear without spontaneous rupture of tympanic membrane, recurrence not specified H66.002 [facility] [id number] [place] [address] Mar, Pharyngitis due to other organism J02.8 [place] [id number] [place] [address] Feb, [facility] [place] [id number] [place] [address] Feb, [facility] [place] [id number] [place] [address] Jan, Vaginal itching L29.8 ; Acute cystitis without hematuria N30.00 and Acute otitis externa of right ear, unspecified type H60.501 [place] [id number] [place] [address] Nov, Acute serous otitis media of left ear, recurrence not specified H65.02 [facility] [place] [id number] [place] [address] Nov, Acute serous otitis media of left ear, recurrence not specified H65.02 [facility] [place] [id number] [place] [address] Oct, [facility] [place] [id number] [place] [address] September, Vaginal itching L29.8 and Herpes simplex vulvovaginitis A60.04 [place] [id number] [place] [address] Aug, [place] [id number] [place] [address] Aug, High-risk sexual behavior Z72.51 [facility] [place] [id number] [place] [address] 15 Jan, 2016 High risk sexual behavior Z72.51 [place] [id number] [place] [address] 07 Jan, 2016 Well woman exam with routine gynecological exam Z01.419 ; Screening for STD sexually transmitted disease Z11.3 ; High risk sexual behavior Z72.51 and Encounter for immunization Z23 [facility] [address] [place] [address] Oct, Nausea and vomiting, unspecified intactability, vomiting of unspecified type R11.2 [facility] [id number] [place] [address]697 [address] May, Recurrent acute suppurative otitis media without spontaneous rupture of tympanic membrane of both sides H66.006 [facility] [id number] [place] [address] May, [facility] [id number] [place] [address] Mar, Otitis media follow-up, infection resolved Z09 [facility] [id number] [place] [address] Mar, Otitis externa of both ears H60.93 [facility] [id number] [place] [address] Feb, Acute swimmers ear of both sides H60.333 [facility] [id number] [place] [address] 39385- [address] Aug, [facility] [id number] [place] [address] Aug, [facility] [id number] [place] [address] 97[address] Mar, [facility] [id number] [place] [address] 48344- [address] Mar, [facility] [id number] [place] [address]11[address] September, [facility] [id number] [place] [address]10[address] September, [facility] [id number] [place] [address]148[address] September, [facility] [address] [id number] [place] [address] Aug, [facility] [place] [facility] [address] [id number] [place] [address] Aug, [facility] [place] [facility] [address] [id number] [place] [address] Jan, [facility] [place] [facility] [address] [id number] [place] [address] Jan, [facility] [place] [facility] [address] [id number] [place] [address] Dec, [facility] [place] [facility] [address] [id number] [place] [address] Nov, [facility] [address] [id number] [place] [address] Nov, [facility] [address] [id number] [place] [address] Apr, [facility] [place] [facility] [address] [id number] [place] [address] Apr, [facility] [place] [facility] [address] [id number] [place] [address] Mar, [facility] [place] [facility] [address] [id number] [place] [address] Feb, [facility] [place] [facility] [address] [id number], [place] [address] Feb, [facility] [place] [facility] [address] [id number] [place] [address] Feb, [facility] [place] [facility] [address] [id number] [place] Feb, [facility] [place] [facility] [address] [id number] [place] [address] Apr, [facility] [place] [facility] [address] [id number][place] [address] Mar, [facility] [address] [facility] [id number] [address] Feb, [facility] [address] [facility] [id number] [address] Feb, [facility] [address] [facility] [id number] [address] Dec, [facility] [address] [facility] [address] [id number] Feb, IMMUNIZATIONS No Known Immunizations SOCIAL HISTORY Never Assessed REASON FOR VISIT intake Rebecca PLAN OF CARE Activity Details Follow Up 4 Weeks Reason: Follow-up VITAL SIGNS Height 64 in 2017-12-21 Weight 133.2 lbs 2017-12-21 Heart Rate 82 bpm 2017-12-21 Respiratory Rate 20 2017-12-21 BMI 22.86 kg/m2 2017-12-21 Blood pressure systolic 110 mmHg 2017-12-21 Blood pressure diastolic 72 mmHg 2017-12-21 MEDICATIONS Medication Instructions Dosage Frequency Start Date End Date Duration Status Ciprodex 0.3-0.1 % Otic Twice a day 4 drops into left ear 12h Nov, 07 days Not-Taking Depo-Provera 150 MG/ML 1 ml Not-Taking Ciprodex 0.3-0.1 % Otic Twice a day 4 drops into affected ear 12h Jan, 7 days Not-Taking Cipro HC 0.2-1 % Otic Twice a day 3 drops into affected ear 12h Jan, 7 day(s) Not-Taking Acyclovir 400 MG Orally Three times a day 1 tablet 8h September, 10 day(s) Not-Taking Abilify 5 mg Orally Once a day 1 tablet 24h Dec, 30 day(s) Active RESULTS Name Result Date Reference Range URINE DRUG SCREEN (IN HOUSE) 2017-12-21 Lot # [id number] Exp date 02/2019 Control + COCAINE Negative AMPH Negative MTD Negative THC Negative OPIATE Negative BENZO Negative PCP Negative BAR Negative OXY Negative MAMP Negative BUP Negative MDMA Negative TCA PROCEDURES Procedure Date Ordered Result Body Site DRUG TEST PRSMV DIR OPT OBS Dec 21, 2017 INSTRUCTIONS MEDICATIONS ADMINISTERED No Known Medications MEDICAL (GENERAL) HISTORY Type Description Date Surgical History right ear surgery x2 2014 Hospitalization History No Hospitalization history information
--- OUTSIDE RECORDS SUMMARY | 2018-04-30 15:03 | XMS REPORT ---
Author Author SEBASTIÁN CABA [facility] Address [address] [place] [address] Care Team Providers Care Under Seal Operator Name Role Phone ROSALES SEBASTIÁN Unavailable PROBLEMS Type Condition ICD9-CM Code XEV30-YE Code Onset Dates Condition Status SNOMED Code Problem Urinary tract infection, site not specified 599.0 Active 99026669 Problem Acute serous otitis media 381.01 Active 688178954 Problem Other chronic serous otitis media 381.19 Active 60316684 Problem Dysuria 788.1 Active 53306841 Problem Unspecified mood [affective] disorder F39 Active 04182750 Problem ADHD (attention deficit hyperactivity disorder), combined type F90.2 Active 35368740 Problem Otitis externa of both ears H60.93 Active 2336893 Problem Bipolar disorder, unspecified 296.80 Active 57231554 Problem Bipolar disorder, current episode mixed, moderate F31.62 Active 430464919 Problem Herpes simplex vulvovaginitis A60.04 Active 17547577 ALLERGIES No Information ENCOUNTERS Encounter Location Date Diagnosis [facility] [id number] [place] [address] 23394- 5551 Feb, [facility] [id number] [place] [address] 27735- 1529 Feb, Encounter for test, result unknown Z32.00 [facility] [id number] [place] [address] 12749- 8140 Dec, Unspecified mood [affective] disorder F39 and ADHD ( attention deficit hyperactivity disorder), combined type F90.2 [facility] [id number] [place] [address] 61496- 1843 Nov, Bipolar disorder, current episode mixed, moderate F31.62 [facility] [id number] [place] [address] 29676 -2613 Aug, Acute otitis externa of right ear, unspecified type H60.501 and Acute suppurative otitis media of left ear without spontaneous rupture of tympanic membrane, recurrence not specified H66.002 [facility] [id number] [place] [address] 97061 -1921 Mar, Pharyngitis due to other organism J02.8 [place] [address] 23712- 3651 Feb, [facility] [address] 88548 -7139 Feb, [facility] [place] [address] 36065 -7315 Jan, Vaginal itching L29.8 ; Acute cystitis without hematuria N30.00 and Acute otitis externa of right ear, unspecified type H60.501 [place] [address] 97532- 1733 Nov, Acute serous otitis media of left ear, recurrence not specified H65.02 [facility] [place] [address] 56701 -0262 Nov, Acute serous otitis media of left ear, recurrence not specified H65.02 [facility] [place] [id number] [place] [address] 84238 -2091 Oct, [facility] [place] [id number] [place] [address] 98537 -0430 September, Vaginal itching L29.8 and Herpes simplex vulvovaginitis A60.04 [place] [address] 80885- 7281 Aug, [place] [address] 28052- 6268 Aug, High-risk sexual behavior Z72.51 [facility] [place] [address] 72294 -9679 15 Jan, 2016 High risk sexual behavior Z72.51 [facility] [id number] [place] [address] 46404- 4749 07 Jan, 2016 Well woman exam with routine gynecological exam Z01.419 ; Screening for STD sexually transmitted disease Z11.3 ; High risk sexual behavior Z72.51 and Encounter for immunization Z23 [facility] [address] 72849- 0442 Oct, Nausea and vomiting, unspecified intactability, vomiting of unspecified type R11.2 [facility] [id number] [place] [address] 89439 -9944 May, Recurrent acute suppurative otitis media without spontaneous rupture of tympanic membrane of both sides H66.006 [place] [address] 00017- 8987 May, [place] [address] 67875- 1264 Mar, Otitis media follow-up, infection resolved Z09 [place] [id number] [place] [address] 11258- 1118 Mar, Otitis externa of both ears H60.93 [place] [id number] [place] [address] 75109- 3983 Feb, Acute swimmers ear of both sides H60.333 [place] [id number] [place] [address] 68032- 0410 Aug, [place] [id number] [place] [address] 94702- 2118 Aug, [place] [address] 87791- 9899 Mar, [facility] [id number] [place] [address] 01341- 2900 Mar, [place] [address] 45441- 3829 September, [facility] [address] [id number] [place] [address]- 5066 September, [facility] [place] [facility] [address] [id number] [place] [address]- 7936 September, [facility] [place] [facility] [address] [id number] [place] [address] 2540 Aug, [facility] [place] [facility] [address] [id number] [place] [address]- 9759 Aug, [facility] [place] [facility] [address] [id number] [place] [address]- 7955 Jan, [facility] [place] [facility] [address] [id number] [place] [address]- 0253 Jan, [facility] [place] [facility] [address] [id number] [place] [address]- 3467 Dec, [facility] [place] [facility] [address] [id number] [place] [address]- 5412 Nov, [facility] [place] [facility] [address] [id number] [place] [address]- 9458 Nov, [facility] [place] [facility] [address] [id number] [place] [address]- 7260 Apr, [facility] [place] [facility] [address] [id number] [place] [address]- 3482 Apr, [facility] [place] [facility] [address] [id number] [place] [address]- 6851 Mar, [facility] [place] [facility] [address] [id number] [place] [address]- 5142 Feb, [facility] [place] [facility] [address] [id number] [place] [address]- 5805 Feb, [facility] [place] [facility] [address] [id number] [place] [address]- 7537 Feb, [facility] [place] [facility] [address] [id number] [place] [address]- 8279 Feb, [facility] [address] [id number] [place] [address]- 1176 Apr, [facility] [address] [place] [address]- 1808 Mar, [facility] [address] [id number] [place] [address]- 6920 Feb, [facility] [address] [id number] [place] [address]- 9170 Feb, [facility] [address] [id number] [place] [address]- 6695 Dec, [facility] [address] [id number] [place] [address]- 1299 Feb, IMMUNIZATIONS No Known Immunizations SOCIAL HISTORY Never Assessed REASON FOR VISIT test (walk-in) PLAN OF CARE VITAL SIGNS MEDICATIONS Unknown Medications RESULTS Name Result Date Reference Range TEST, URINE (IN HOUSE) 2018-02-16 RESULTS POSITIVE Lot # [id number] Control + Exp date 08/2019 PROCEDURES Procedure Date Ordered Result Body Site URINE TEST Feb 16, 2018 INSTRUCTIONS MEDICATIONS ADMINISTERED No Known Medications MEDICAL (GENERAL) HISTORY Type Description Date Surgical History right ear surgery x2 2014 Hospitalization History No Hospitalization history information
--- OUTSIDE RECORDS SUMMARY | 2018-04-30 15:03 | XMS REPORT ---
Author Author CALLIE CASTRO Organization [facility] Address [address] [place] [address] Care Team Providers Care Professor Of History Name Role Phone CALLIE CASTRO Unavailable PROBLEMS Type Condition ICD9-CM Code MBJ14-AA Code Onset Dates Condition Status SNOMED Code Problem Urinary tract infection, site not specified 599.0 Active 94226587 Problem Acute serous otitis media 381.01 Active 129328995 Problem Other chronic serous otitis media 381.19 Active 23736590 Problem Dysuria 788.1 Active 57254261 Problem Unspecified mood [affective] disorder F39 Active 20135250 Problem ADHD (attention deficit hyperactivity disorder), combined type F90.2 Active 40890003 Problem Otitis externa of both ears H60.93 Active 5909826 Problem Bipolar disorder, unspecified 296.80 Active 00906367 Problem Bipolar disorder, current episode mixed, moderate F31.62 Active 921910050 Problem Herpes simplex vulvovaginitis A60.04 Active 42981958 ALLERGIES No Information ENCOUNTERS Encounter Location Date Diagnosis [place] [address] [address] [id number] [place] [address] 50916- 2154 Mar, [facility] [id number] [place] [address] 00805- 2700 Mar, [facility] [id number] [place] [address] 98181- 7297 Mar, Unspecified mood [affective] disorder F39 [facility] [id number] [place] [address] 65356- 1989 Feb, [place] [id number] [place] [address] 57969- 9480 Feb, Encounter for test, result unknown Z32.00 [facility] [address] 92324- 4025 Dec, Unspecified mood [affective] disorder F39 and ADHD ( attention deficit hyperactivity disorder), combined type F90.2 [place] [id number] [place] [address] 59732- 4199 Nov, Bipolar disorder, current episode mixed, moderate F31.62 [facility] [address] 36277 -3059 Aug, Acute otitis externa of right ear, unspecified type H60.501 and Acute suppurative otitis media of left ear without spontaneous rupture of tympanic membrane, recurrence not specified H66.002 [facility] [address] 68330 -9791 Mar, Pharyngitis due to other organism J02.8 [place] [address] 32884- 6028 Feb, [facility] [address] 62128 -9479 Feb, [facility] [address] 29924 -7795 Jan, Vaginal itching L29.8 ; Acute cystitis without hematuria N30.00 and Acute otitis externa of right ear, unspecified type H60.501 [place] [id number] [place] [address] 99043- 6541 Nov, Acute serous otitis media of left ear, recurrence not specified H65.[address] [facility] [id number] [place] [address] 22870 -0096 Nov, Acute serous otitis media of left ear, recurrence not specified H65.[address] [facility] [address] 38621 -8026 Oct, [facility] [address] 13345 -3138 September, Vaginal itching L29.8 and Herpes simplex vulvovaginitis A60.04 [place] [address] [place] [address] 18645- 9850 Aug, [place] [id number] [place] [address] 67555- 8930 Aug, High-risk sexual behavior Z72.51 [facility] [id number] [place] [address] 37667 -1540 15 Jan, 2016 High risk sexual behavior Z72.51 [place] [id number] [place] [address] 44844- 6156 07 Jan, 2016 Well woman exam with routine gynecological exam Z01.419 ; Screening for STD sexually transmitted disease Z11.3 ; High risk sexual behavior Z72.51 and Encounter for immunization Z23 [place] [id number] [place] [address] 79474- 7406 Oct, Nausea and vomiting, unspecified intactability, vomiting of unspecified type R11.2 [facility] [id number] [place] [address] 76809 -2325 May, Recurrent acute suppurative otitis media without spontaneous rupture of tympanic membrane of both sides H66.006 [place] [id number] [place] [address] 12360- 7050 May, [place] [id number] [place] [address] 63527- 6936 Mar, Otitis media follow-up, infection resolved Z09 [place] [id number] [place] [address] 99609- 5845 Mar, Otitis externa of both ears H60.93 [place] [id number] [place] [address] 07443- 7877 Feb, Acute swimmers ear of both sides H60.333 [place] [id number] [place] [address] 15977- 1829 Aug, [place] [address] [place] [address]- 0787 Aug, [facility] [address] [id number] [place] [address]- 4898 Mar, [facility] [place] [facility] [address] [id number] [place] [address]- 7872 Mar, [facility] [place] [facility] [address] [id number] [place] [address]- 0394 September, [facility] [place] [facility] [address] [id number] [place] [address]- 1953 September, [facility] [place] [facility] [address] [id number] [place] 4212 September, [facility] [place] [facility] [address] [id number] [place] [address]- 3375 Aug, [facility] [place] [facility] [address] [id number] [place] [address]- 0555 Aug, [facility] [place] [facility] [address] [id number] [place] [address]- 9061 Jan, [facility] [place] [facility] [address] [id number] [place] [address]- 1096 Jan, [facility] [place] [facility] [address] [id number] [place] [address]- 9133 Dec, [facility] [place] [facility] [address] [id number] [place] [address]- 7556 Nov, [facility] [place] [facility] [address] [id number] [place] [address]- 3984 Nov, [facility] [place] [facility] [address] [id number] [place] [address]- 4952 Apr, [facility] [place] [facility] [address] [id number] [place] 2074 Apr, [facility] [place] [facility] [address] [id number] [place] 7459 Mar, [facility] [place] [facility] [address] [facility] [id number], [place] [address]- 5139 Feb, [facility] [address] [facility] [id number], [place] [address]- 9030 Feb, [facility] [address] [facility] [id number], [place] [address]- 4343 Feb, [facility] [address] [facility] [id number], [place] [address]- 4294 Feb, [facility] [address] [facility] [id number], [place] [address]- 2468 Apr, [facility] [address] [facility] [id number], [place] [address]- 2560 Mar, [facility] [address]65[address], [place] [address]- 8913 Feb, [facility] [address]65[place], [place] [address]- 7165 Feb, [facility] [address]65[address], [place] [address]- 6657 Dec, [facility] [address]65[address], [place] [address]- 8093 Feb, IMMUNIZATIONS No Known Immunizations SOCIAL HISTORY Never Assessed REASON FOR VISIT f/u PLAN OF CARE Activity Details Follow Up Next available Reason:depression VITAL SIGNS MEDICATIONS Unknown Medications RESULTS No Results PROCEDURES Procedure Date Ordered Result Body Site Psychotherapy, patient &/family, 30 minutes, established patient Mar 11, 2018 INSTRUCTIONS MEDICATIONS ADMINISTERED No Known Medications MEDICAL (GENERAL) HISTORY Type Description Date Surgical History right ear surgery x2 2013 Hospitalization History No Hospitalization history information
--- OUTSIDE RECORDS SUMMARY | 2018-04-30 15:03 | XMS REPORT ---
Author Author CALLIE CASTRO Organization [facility] Address [address] [place] [address] Care Team Providers Care Heating Unit Installer Name Role Phone CALLIE CASTRO Unavailable PROBLEMS Type Condition ICD9-CM Code WQJ44-LT Code Onset Dates Condition Status SNOMED Code Problem Urinary tract infection, site not specified 599.0 Active 64521261 Problem Acute serous otitis media 381.01 Active 305565029 Problem Other chronic serous otitis media 381.19 Active 10067017 Problem Dysuria 788.1 Active 78699443 Problem Unspecified mood [affective] disorder F39 Active 34141372 Problem ADHD (attention deficit hyperactivity disorder), combined type F90.2 Active 96735239 Problem Otitis externa of both ears H60.93 Active 7745616 Problem Bipolar disorder, unspecified 296.80 Active 13280510 Problem Bipolar disorder, current episode mixed, moderate F31.62 Active 169320897 Problem Herpes simplex vulvovaginitis A60.04 Active 68840148 ALLERGIES No Information ENCOUNTERS Encounter Location Date Diagnosis [place] [address] [place] [id number] [place] [address] 16310- 2982 Mar, [facility] [id number] [place] [address] 33370- 0977 Feb, [place] [address] 98912- 9367 Feb, Encounter for test, result unknown Z32.00 [place] [address] 00575- 3838 Dec, Unspecified mood [affective] disorder F39 and ADHD ( attention deficit hyperactivity disorder), combined type F90.2 [facility] [id number] [place] [address] 24041- 7816 Nov, Bipolar disorder, current episode mixed, moderate F31.62 [facility] [place] [address] [place] [address] 22895 -9862 Aug, Acute otitis externa of right ear, unspecified type H60.501 and Acute suppurative otitis media of left ear without spontaneous rupture of tympanic membrane, recurrence not specified H66.002 [facility] [place] [id number] [place] [address] 03078 -5271 Mar, Pharyngitis due to other organism J02.8 [place] [id number] [place] [address] 43995- 2952 Feb, [facility] [place] [address] 57005 -2620 Feb, [facility] [place] [address] [id number] [place] [address] 17030 -0571 Jan, Vaginal itching L29.8 ; Acute cystitis without hematuria N30.00 and Acute otitis externa of right ear, unspecified type H60.501 [place] [id number] [place] [address] 20781- 0126 Nov, Acute serous otitis media of left ear, recurrence not specified H65.02 [facility] [place] [id number] [place] [address] 42788 -5250 Nov, Acute serous otitis media of left ear, recurrence not specified H65.02 [facility] [place] [address] [id number] [place] [address] 63178 -6994 Oct, [facility] [place] [address] [id number] [place] [address] 94379 -6260 September, Vaginal itching L29.8 and Herpes simplex vulvovaginitis A60.04 [place] [id number] [place] [address] 68595- 1598 Aug, [place] [address] [id number] [place] [address] 83605- 9299 Aug, High-risk sexual behavior Z72.51 [facility] [id number] [place] [address] 39273 -2590 15 Jan, 2016 High risk sexual behavior Z72.51 [facility] [address] [place] [id number] [place] [address] 08370- 1668 07 Jan, 2016 Well woman exam with routine gynecological exam Z01.419 ; Screening for STD sexually transmitted disease Z11.3 ; High risk sexual behavior Z72.51 and Encounter for immunization Z23 [place] [address] 39107- 5479 Oct, Nausea and vomiting, unspecified intactability, vomiting of unspecified type R11.2 [facility] [address] 58778 -1081 May, Recurrent acute suppurative otitis media without spontaneous rupture of tympanic membrane of both sides H66.006 [place] [address] 00076- 4986 May, [place] [address] 81156- 5031 Mar, Otitis media follow-up, infection resolved Z09 [place] [address] 66561- 0344 Mar, Otitis externa of both ears H60.93 [place] [address] 57752- 4930 Feb, Acute swimmers ear of both sides H60.333 [place] [address] [id number] [place] [address] 32642- 3839 Aug, [place] [address] 88356- 4572 Aug, [place] [address] [place] [id number] [place] [address] 12193- 8672 Mar, [place] [address] 16771- 2259 Mar, [facility] [address] [id number] [place] [address]- 4837 September, [facility] [place] [facility] [address] [id number] [place] [address]- 9306 September, [facility] [place] [facility] [address] [id number] [place] [address]- 6656 September, [facility] [place] [facility] [address] [id number] [place] [address]- 7197 Aug, [facility] [place] [facility] [address] [id number] [place] [address]- 2462 Aug, [facility] [place] [facility] [address] [id number] [place] [address]- 3062 Jan, [facility] [place] [facility] [address] [id number] [place] [address]- 2055 Jan, [facility] [place] [facility] [address] [id number] [address]- 2254 Dec, [facility] [place] [facility] [address] [id number] [place] [address]- 1821 Nov, [facility] [place] [facility] [address] [id number] [place] [address]- 6697 Nov, [facility] [place] [facility] [address] [id number] [address]- 8805 Apr, [facility] [place] [facility] [address] [id number], [place] [address]- 7881 Apr, [facility] [place] [facility] [address] [id number] [place] [address]- 4588 Mar, [facility] [place] [facility] [address] [id number], [place] [address]- 1170 Feb, [facility] [place] [facility] [address] [id number] [place] [address]- 8769 Feb, [facility] [place] [facility] [address]65[address] [address]- 4851 Feb, [facility] [address]65[address], [place] [address]- 8169 Feb, [facility] [address]65[address], [place] [address]- 1745 Apr, [facility] [address]65[address] [address] Mar, [facility] [id number] [address] Feb, [facility] [id number] [address] Feb, [facility] [id number] [address] Dec, [facility] [id number] [address] Feb, IMMUNIZATIONS No Known Immunizations SOCIAL HISTORY Never Assessed REASON FOR VISIT No Show Follow Up PLAN OF CARE VITAL SIGNS MEDICATIONS Unknown Medications RESULTS No Results PROCEDURES No Known procedures INSTRUCTIONS MEDICATIONS ADMINISTERED No Known Medications MEDICAL (GENERAL) HISTORY Type Description Date Surgical History right ear surgery x2 2013 Hospitalization History No Hospitalization history information
--- OUTSIDE RECORDS SUMMARY | 2018-04-30 15:03 | XMS REPORT ---
Author Author CALLIE CASTRO Organization [facility] Address [address] [place] [address] Care Team Providers Care Packaging Machine Operator Name Role Phone CALLIE CASTRO Unavailable PROBLEMS Type Condition ICD9-CM Code [id number] Code Onset Dates Condition Status SNOMED Code Problem Urinary tract infection, site not specified 599.0 Active 26116982 Problem Acute serous otitis media 381.01 Active 457710012 Problem Other chronic serous otitis media 381.19 Active 25179415 Problem Dysuria 788.1 Active 70313170 Problem Unspecified mood [affective] disorder F39 Active 36506662 Problem ADHD (attention deficit hyperactivity disorder), combined type F90.2 Active 08050704 Problem Otitis externa of both ears H60.93 Active 9470248 Problem Bipolar disorder, unspecified 296.80 Active 72214225 Problem Bipolar disorder, current episode mixed, moderate F31.62 Active 293197652 Problem Herpes simplex vulvovaginitis A60.04 Active 67995873 ALLERGIES No Information ENCOUNTERS Encounter Location Date Diagnosis [facility] [id number] [place] [address] 96422- 1248 Dec, Unspecified mood [affective] disorder F39 and ADHD ( attention deficit hyperactivity disorder), combined type F90.2 [facility] [id number] [place] [address] 66376- 1191 Nov, Bipolar disorder, current episode mixed, moderate F31.62 [facility] [id number] [place] [address] 30494 -7800 17 Aug, 2017 Acute otitis externa of right ear, unspecified type H60.501 and Acute suppurative otitis media of left ear without spontaneous rupture of tympanic membrane, recurrence not specified H66.002 [facility] [id number] [place] [address] 14399 -9915 Mar, Pharyngitis due to other organism J02.8 [place] [address] [address] Feb, [facility] [place] [id number] [place] [address] 61094 -3547 Feb, [facility] [place] [id number] [place] [address] 88391 -4016 Jan, Vaginal itching L29.8 ; Acute cystitis without hematuria N30.00 and Acute otitis externa of right ear, unspecified type H60.501 [place] [id number] [place] [address] 22337- 2213 Nov, Acute serous otitis media of left ear, recurrence not specified H65.02 [facility] [place] [id number] [place] [address] 58554 -9516 Nov, Acute serous otitis media of left ear, recurrence not specified H65.02 [facility] [place] [id number] [place] [address] 54305 -2386 Oct, [facility] [place] [id number] [place] [address] 63789 -2296 September, Vaginal itching L29.8 and Herpes simplex vulvovaginitis A60.04 [place] [id number] [place] [address] 99966- 0839 Aug, [place] [id number] [place] [address] 48858- 5301 Aug, High-risk sexual behavior Z72.51 [facility] [place] [id number] [place] [address] 58284 -6332 15 Jan, 2016 High risk sexual behavior Z72.51 [place] [id number] [place] [address] 43311- 3661 07 Jan, 2016 Well woman exam with routine gynecological exam Z01.419 ; Screening for STD sexually transmitted disease Z11.3 ; High risk sexual behavior Z72.51 and Encounter for immunization Z23 [facility] [id number] [place] [address] 91303- 5009 Oct, Nausea and vomiting, unspecified intactability, vomiting of unspecified type R11.2 [facility] [id number] [place] [address] 29061 -8732 May, Recurrent acute suppurative otitis media without spontaneous rupture of tympanic membrane of both sides H66.006 [facility] [id number] [place] [address] 81068- 4344 May, [facility] [id number] [place] [address] 61659- 7573 Mar, Otitis media follow-up, infection resolved Z09 [facility] [id number] [place] [address] 65634- 6990 Mar, Otitis externa of both ears H60.93 [facility] [id number] [place] [address] 75349- 9856 Feb, Acute swimmers ear of both sides H60.333 [facility] [id number] [place] [address] 58235- 0351 Aug, [facility] [id number] [place] [address] 54001- 3109 Aug, [facility] [id number] [place] [address] 70884- 0118 Mar, [facility] [id number] [place] [address] 44627- 2934 Mar, [facility] [id number] [place] [address] 05272- 8468 September, [facility] [id number] [place] [address] 46128- 8602 September, [facility] [id number] [place] [address] 43760- 3119 September, [facility] [place] [facility] [address] [id number] [place] [address] 3237 Aug, [facility] [place] [facility] [address] [id number] [place] [address]- 0453 Aug, [facility] [place] [facility] [address] [id number] [place] [address]- 3286 17 Jan, 2013 [facility] [place] [facility] [address] [id number] [place] [address]- 3498 04 Jan, 2013 [facility] [place] [facility] [address] [id number] [place] [address]- 5133 Dec, [facility] [place] [facility] [address] [id number] [place] [address]- 6692 Nov, [facility] [place] [facility] [address] [id number] [place] [address]- 0833 Nov, [facility] [place] [facility] [address] [id number] [place] [address]- 1775 Apr, [facility] [place] [facility] [address] [id number] [place] [address]- 4333 Apr, [facility] [place] [facility] [address] [id number] [place] [address]- 0425 Mar, [facility] [place] [facility] [address] [id number] [place] [address]- 3341 Feb, [facility] [place] [facility] [address] [id number] [place] [address]- 8072 Feb, [facility] [place] [facility] [address] [id number] [place] [address]- 4016 Feb, [facility] [place] [facility] [address] [id number] [place] [address]- 5893 Feb, [facility] [place] [facility] [address] [id number] [place] [address]- 2009 Apr, [facility] [place] [facility] [address] [id number] [place] [address]- 5854 Mar, [facility] [address] [facility] [id number] [address] 2545 Feb, [facility] [id number] [address]- 7786 Feb, [facility] [id number] [address] 5153 Dec, [facility] [address], [place] [address] 4031 Feb, IMMUNIZATIONS No Known Immunizations SOCIAL HISTORY Never Assessed REASON FOR VISIT intake PLAN OF CARE Activity Details Follow Up next available Reason:mood VITAL SIGNS MEDICATIONS No Known Medications RESULTS No Results PROCEDURES Procedure Date Ordered Result Body Site Psych diagnostic evaluation, established patient November 17, 2017 INSTRUCTIONS MEDICATIONS ADMINISTERED No Known Medications MEDICAL (GENERAL) HISTORY Type Description Date Surgical History right ear surgery x2 2013
--- OUTSIDE RECORDS SUMMARY | 2018-04-30 15:04 | XMS REPORT ---
Author Author MELTONFLORESITA Moore Organization [facility] Address [address] [place] [address] Care Team Providers Care Welt Beater Name Role Phone FLORESITA MELTON Unavailable PROBLEMS Type Condition ICD9-CM Code GKP20-VE Code Onset Dates Condition Status SNOMED Code Problem Dysuria 788.1 Active 40180097 Problem Herpes simplex vulvovaginitis A60.04 Active 16372614 Problem Otitis externa of both ears H60.93 Active 9561791 Problem Other chronic serous otitis media 381.19 Active 99440872 Problem Urinary tract infection, site not specified 599.0 Active 01398513 Problem Bipolar disorder, unspecified 296.80 Active 27267549 Problem Acute serous otitis media 381.01 Active 710557102 ALLERGIES No Known Allergies ENCOUNTERS Encounter Location Date Diagnosis [facility] [id number] [place] [address] 71912 -9031 Mar, Pharyngitis due to other organism J02.8 [facility] [address] [address] 24 Feb, 2017 [facility] [id number] [place] [address] 98423 -3864 Feb, [facility] [address] 70727 -6060 Jan, Vaginal itching L29.8 ; Acute cystitis without hematuria N30.00 and Acute otitis externa of right ear, unspecified type H60.501 [facility] [address] [address]- [address]44 11 Nov, 2016 Acute serous otitis media of left ear, recurrence not specified H65.02 [facility] [id number] [place] [address] 40986 -8170 Nov, Acute serous otitis media of left ear, recurrence not specified H65.02 [facility] [place] [id number] [place] [address] 55813 -1119 Oct, [facility] [place] [id number] [place] [address] 48057 -3670 September, Vaginal itching L29.8 and Herpes simplex vulvovaginitis A60.04 [place] [id number] [place] [address] 58731- 9154 Aug, [place] [id number] [place] [address] 09530- 6738 Aug, High-risk sexual behavior Z72.51 [facility] [place] [id number] [place] [address] 00972 -9378 15 Jan, 2016 High risk sexual behavior Z72.[address] [address]- [address]89 07 Jan, 2016 Well woman exam with routine gynecological exam Z01.419 ; Screening for STD (sexually transmitted disease) Z11.3 ; High risk sexual behavior Z72.51 and Encounter for immunization Z23 [place] [id number] [place] [address] 44346- 6660 Oct, Nausea and vomiting, unspecified intactability, vomiting of unspecified type R11.2 [facility] [address] [place] [id number] [place] [address] 19613 -2268 May, Recurrent acute suppurative otitis media without spontaneous rupture of tympanic membrane of both sides H66.006 [place] [id number] [place] [address] 04037- 1339 May, [place] [id number] [place] [address] 03889- 8864 Mar, Otitis media follow-up, infection resolved Z09 [place] [id number] [place] [address] 06896- 5242 Mar, Otitis externa of both ears H60.93 [facility] [address] [facility] [id number], [place] [address]- 6143 Feb, Acute swimmers ear of both sides H60.333 [facility] [address] [id number] [place] [address]- 5714 Aug, [facility] [address] [facility] [id number] [place] [address] 74300- 9128 Aug, [facility] [id number] [place] [address] 38474- 7898 Mar, [facility] [address] [facility] [id number] [place] [address] 986266- 2878 Mar, [facility] [address] [facility] [id number] [place] [address] 83574- 2129 September, [facility] [id number] [place] [address] 04397- 0418 September, [facility] [address] [facility] [id number] [place] [address] 57368- 9831 September, [facility] [id number] [place] [address] 46147- 7504 Aug, [facility] [address] [facility] [id number], [place] [address]- 0197 Aug, [facility] [id number], [place] [address]- 2911 Jan, [facility] [address] [facility] [id number], [place] [address]- 3451 Jan, [facility] [id number] [place] [address] 882730- 5824 Dec, [facility] [address] [facility] [id number] 1825 Nov, [facility] [id number] [address] Nov, [facility] [address] [facility] [id number], [place] [address]- 3667 Apr, [facility] [address], [place] [address]- 1376 Apr, [facility] [address] [facility] [id number], [place] [address]- 5806 Mar, [facility] [address] [facility] [id number], [place] [address] 2546 Feb, [facility] [address] [facility] [id number], [place] [address]- 6955 Feb, [facility] [address] [facility] [id number], [place] [address]- 3136 Feb, [facility] [address], [place] [address] 2546 Feb, [facility] [address], [place] [address]- 5073 Apr, [facility] [address], [place] [address]- 3991 Mar, [facility] [address], [place] [address]- 5256 Feb, [facility] [id number], [place] [address] 2546 Feb, [facility] [id number], [place] [address] 2546 Dec, [facility] [id number], [place] [address]- 7488 Feb, IMMUNIZATIONS No Known Immunizations SOCIAL HISTORY Never Assessed REASON FOR VISIT left earache for 3 days. started draining a yellow-green tinged liquid thday am also. [email or web address] PLAN OF CARE Activity Details Follow Up prn Reason: VITAL SIGNS Height 64 in 2016-11-15 Weight 136.6 lbs 2016-11-15 Temperature 98.3 degrees Fahrenheit 2016-11-15 Heart Rate 84 bpm 2016-11-15 Respiratory Rate 18 2016-11-15 BMI 23.44 kg/m2 2016-11-15 Blood pressure systolic 116 mmHg 2016-11-15 Blood pressure diastolic 66 mmHg 2016-11-15 MEDICATIONS Medication Instructions Dosage Frequency Start Date End Date Duration Status Ciprodex 0.3-0.1 % Otic Twice a day 4 drops into left ear 12h Nov, 07 days Active Amoxicillin 500 mg Orally every 12 hrs 1 capsule 12Nov, Nov, 10 day(s) Active RESULTS No Results PROCEDURES No Known procedures INSTRUCTIONS MEDICATIONS ADMINISTERED No Known Medications MEDICAL (GENERAL) HISTORY Type Description Date Surgical History right ear surgery x2 2013
--- OUTSIDE RECORDS SUMMARY | 2018-04-30 15:04 | XMS REPORT ---
Author Author SELVIN HILLMAN Organization [facility] Address [address] [place] [address] Care Team Providers Care Drier Helper Name Role Phone SELVIN HILLMAN Unavailable PROBLEMS Type Condition ICD9-CM Code HYY39-FO Code Onset Dates Condition Status SNOMED Code Problem Urinary tract infection, site not specified 599.0 Active 07759472 Problem Dysuria 788.1 Active 33147924 Problem Bipolar disorder, current episode mixed, moderate F31.62 Active 969581477 Problem Herpes simplex vulvovaginitis A60.04 Active 77509806 Problem Acute serous otitis media 381.01 Active 699454720 Problem Other chronic serous otitis media 381.19 Active 63854072 Problem Otitis externa of both ears H60.93 Active 5793571 Problem Bipolar disorder, unspecified 296.80 Active [id number] ALLERGIES No Known Allergies ENCOUNTERS Encounter Location Date Diagnosis [facility] [id number] [place] [address] 60801- 3005 Dec, [facility] [id number] [place] [address] 33299- 4161 Dec, [facility] [id number] [place] [address] 15427- 2120 Nov, Bipolar disorder, current episode mixed, moderate F31.62 [facility] [id number] [place] [address] 84039 -5228 Aug, Acute otitis externa of right ear, unspecified type H60.501 and Acute suppurative otitis media of left ear without spontaneous rupture of tympanic membrane, recurrence not specified H66.002 [facility] [id number] [place] [address] 74645 -2327 08 Mar, 2017 Pharyngitis due to other organism J02.8 [place] [place] [address] [address] 24 Feb, 2017 [facility] [place] [id number] [place] [address] 77979 -6863 Feb, [facility] [place] [id number] [place] [address] 67224 -8720 22 Jan, 2017 Vaginal itching L29.8 ; Acute cystitis without hematuria N30.00 and Acute otitis externa of right ear, unspecified type H60.501 [place] [id number] [place] [address] 63395- 5020 Nov, Acute serous otitis media of left ear, recurrence not specified H65.02 [facility] [place] [id number] [place] [address] 99192 -0633 Nov, Acute serous otitis media of left ear, recurrence not specified H65.02 [facility] [place] [id number] [place] [address] 12858 -4830 Oct, [facility] [place] [id number] [place] [address] 09698 -0894 September, Vaginal itching L29.8 and Herpes simplex vulvovaginitis A60.04 [place] [id number] [place] [address] 31327- 4702 Aug, [place] [id number] [place] [address] 36777- 9650 Aug, High-risk sexual behavior Z72.51 [facility] [place] [id number] [place] [address] 21742 -6355 15 Jan, 2016 High risk sexual behavior Z72.51 [place] [id number] [place] [address] 28440- 9226 07 Jan, 2016 Well woman exam with routine gynecological exam Z01.419 ; Screening for STD sexually transmitted disease Z11.3 ; High risk sexual behavior Z72.51 and Encounter for immunization Z23 [place] [id number] [place] [address] Oct, Nausea and vomiting, unspecified intactability, vomiting of unspecified type R11.2 [facility] [id number] [place] [address] 66808 -8544 May, Recurrent acute suppurative otitis media without spontaneous rupture of tympanic membrane of both sides H66.006 [facility] [id number] [place] [address] 27713- 1023 May, [facility] [id number] [place] [address] 94942- 3962 Mar, Otitis media follow-up, infection resolved Z09 [facility] [id number] [place] [address] 24830- 9339 Mar, Otitis externa of both ears H60.93 [facility] [id number] [place] [address] 24575- 6056 Feb, Acute swimmers ear of both sides H60.333 [facility] [id number] [place] [address] 46343- 0226 Aug, [facility] [id number] [place] [address] 58250- 3374 Aug, [facility] [id number] [place] [address] 22368- 6544 Mar, [facility] [id number] [place] [address] 18160- 1107 Mar, [facility] [id number] [place] [address] 46160- 4763 September, [facility] [id number] [place] [address] 03296- 8441 September, [facility] [id number] [place] [address] 73750- 3863 September, [facility] [id number] [place] [address] 88635- 4868 Aug, [facility] [place] [facility] [address] [id number] [place] [address] 0595 Aug, [facility] [place] [facility] [address] [id number] [place] [address]- 6667 Jan, [facility] [place] [facility] [address] [id number] [place] [address]- 2930 Jan, [facility] [place] [facility] [address] [id number] [place] [address]- 1084 Dec, [facility] [place] [facility] [address] [id number] [place] [address]- 3879 Nov, [facility] [place] [facility] [address] [id number] [place] [address]- 0646 Nov, [facility] [place] [facility] [address] [id number] [place] [address]- 4106 Apr, [facility] [place] [facility] [address] [id number] [place] [address]- 0261 Apr, [facility] [place] [facility] [address] [id number] [place] [address]- 5829 Mar, [facility] [place] [facility] [address] [id number] [place] [address]- 4195 Feb, [facility] [place] [facility] [address] [id number], [place] [address] 5802 Feb, [facility] [place] [facility] [address] [id number], [place] [address] 2454 Feb, [facility] [place] [facility] [address] [id number] [place] [address]- 2594 Feb, [facility] [place] [facility] [address] [id number], [place] [address] 3625 Apr, [facility] [place] [facility] [address] [id number], [place] [address] 0317 Mar, [facility] [place] [facility] [address] [facility] [id number] [place] [address] 1048 13 Feb, 2010 [facility] [address] [facility] [id number], [place] [address] 6131 Feb, [facility] [address] [facility] [id number] Dec, [facility] [address] [facility] [id number] [address] Feb, IMMUNIZATIONS No Known Immunizations SOCIAL HISTORY Never Assessed REASON FOR VISIT ear pain Pt c/o bilateral ear pain and drainage for a while, pt states drainage has a smell, was recently given drops with no relief BRONSON Florez PLAN OF CARE Activity Details Follow Up prn Reason: VITAL SIGNS Height 64 in 2017-08-25 Weight 137.6 lbs 2017-08-25 Temperature 98.1 degrees Fahrenheit 2017-08-25 Heart Rate 78 bpm 2017-08-25 Respiratory Rate 18 2017-08-25 BMI 23.62 kg/m2 2017-08-25 Blood pressure systolic 118 mmHg 2017-08-25 Blood pressure diastolic 64 mmHg 2017-08-25 MEDICATIONS Medication Instructions Dosage Frequency Start Date End Date Duration Status Cipro HC 0.2-1 % Otic Twice a day 3 drops into affected ear 12h Jan, 7 day(s) Not-Taking Ciprodex 0.3-0.1 % Otic Twice a day 4 drops into affected ear 12h Jan, 7 days Not-Taking Depo-Provera 150 MG/ML 1 ml Active Acyclovir 400 MG Orally Three times a day 1 tablet 8h September, 10 day(s) Not-Taking Ciprodex 0.3-0.1 % Otic Twice a day 4 drops into left ear 12h Nov, 07 days Not-Taking Cefdinir 300 MG Orally every 12 hrs 1 capsule 12h Aug, Aug, 10 day(s) Active Ofloxacin 0.3 % Otic Once a day 10 drops into affected ear 24h Aug, Aug, 7 day(s) Active RESULTS No Results PROCEDURES No Known procedures INSTRUCTIONS MEDICATIONS ADMINISTERED No Known Medications MEDICAL (GENERAL) HISTORY Type Description Date Surgical History right ear surgery x2 2013
--- OUTSIDE RECORDS SUMMARY | 2018-04-30 15:04 | XMS REPORT ---
Author Author SELVIN HILLMAN Organization [facility] Address [address] [place] [address] Care Team Providers Care Cupola Tapper Name Role Phone SELVIN HILLMAN Unavailable PROBLEMS Type Condition ICD9-CM Code HJJ86-UT Code Onset Dates Condition Status SNOMED Code Problem Dysuria 788.1 Active 30454441 Problem Herpes simplex vulvovaginitis A60.04 Active 35556509 Problem Otitis externa of both ears H60.93 Active 8789394 Problem Other chronic serous otitis media 381.19 Active 77532380 Problem Urinary tract infection, site not specified 599.0 Active 81433318 Problem Bipolar disorder, unspecified 296.80 Active 37901050 Problem Acute serous otitis media 381.01 Active [id number] ALLERGIES No Known Allergies ENCOUNTERS Encounter Location Date Diagnosis [facility] [id number] [place] [address] 14366- 8668 Oct, [facility] [id number] [place] [address] 49586 -4717 Aug, Acute otitis externa of right ear, unspecified type H60.501 and Acute suppurative otitis media of left ear without spontaneous rupture of tympanic membrane, recurrence not specified H66.002 [facility] [id number] [place] [address] 03625 -2198 08 Mar, 2017 Pharyngitis due to other organism J02.8 [facility] [id number] [place] [address] 62211- 4809 Feb, [facility] [id number] [place] [address] 19272 -7477 Feb, [facility] [id number] [place] [address] 46704 -9018 Jan, Vaginal itching L29.8 ; Acute cystitis without hematuria N30.00 and Acute otitis externa of right ear, unspecified type H60.501 [place] [address] [address]99- 3759 Nov, Acute serous otitis media of left ear, recurrence not specified H65.02 [facility] [place] [address] 79559 -3713 Nov, Acute serous otitis media of left ear, recurrence not specified H65.02 [facility] [place] [address] 61022 -2790 Oct, [facility] [place] [address] 86346 -7115 September, Vaginal itching L29.8 and Herpes simplex vulvovaginitis A60.04 [place] [address] 47601- 7296 Aug, [place] [address] 35304- 2990 Aug, High-risk sexual behavior Z72.51 [facility] [address] 75318 -0319 15 Jan, 2016 High risk sexual behavior Z72.51 [place] [id number] [place] [address] 52843- 6550 07 Jan, 2016 Well woman exam with routine gynecological exam Z01.419 ; Screening for STD sexually transmitted disease Z11.3 ; High risk sexual behavior Z72.51 and Encounter for immunization Z23 [place] [id number] [place] [address] 71565- 3890 20 Oct, 2015 Nausea and vomiting, unspecified intactability, vomiting of unspecified type R11.2 [facility] [place] [id number] [place] [address] 81064 -8190 May, Recurrent acute suppurative otitis media without spontaneous rupture of tympanic membrane of both sides H66.006 [facility] [address] [facility] [id number] [place] [address] 10595- 9179 May, [facility] [id number] [place] [address] 39210- 9020 Mar, Otitis media follow-up, infection resolved Z09 [facility] [id number] [place] [address] 42573- 5750 Mar, Otitis externa of both ears H60.93 [facility] [id number] [place] [address] 90731- 6174 Feb, Acute swimmers ear of both sides H60.333 [facility] [id number] [place] [address] 76520- 9767 Aug, [facility] [id number] [place] [address] 35257- 7310 Aug, [facility] [id number] [place] [address] 35667- 0623 Mar, [facility] [id number] [place] [address] 85461- 7215 Mar, [facility] [id number] [place] [address] 56481- 4815 September, [facility] [id number] [place] [address] 50082- 9417 September, [facility] [id number] [place] [address] 13173- 9786 September, [facility] [id number] [place] [address] 36103- 6622 Aug, [facility] [id number] [place] [address] 93639- 5913 Aug, [facility] [id number] [address]- 5274 Jan, [facility] [id number] [place] [address] 67951- 7574 Jan, [facility] [place] [facility] [address] [id number] [place] [address]- 3223 Dec, [facility] [place] [facility] [address] [id number] [place] [address]- 9974 Nov, [facility] [place] [facility] [address] [id number] [place] [address]- 0967 Nov, [facility] [place] [facility] [address] [id number] [place] [address]- 4914 Apr, [facility] [place] [facility] [address] [id number] [place] [address]- 8124 Apr, [facility] [place] [facility] [address] [id number] [place] [address]- 4265 Mar, [facility] [place] [facility] [address] [id number] [place] [address]- 7119 Feb, [facility] [place] [facility] [address] [id number] [place] [address]- 2831 Feb, [facility] [place] [facility] [address] [id number] [place] [address]- 3895 Feb, [facility] [place] [facility] [address] [id number] [place] [address]- 7239 Feb, [facility] [place] [facility] [address] [id number], [place] [address]- 5389 Apr, [facility] [place] [facility] [address] [id number], [place] [address]- 9814 Mar, [facility] [place] [facility] [address] [id number] [place] [address]- 3248 Feb, [facility] [place] [facility] [address] [id number] [place] [address]- 6281 29 Feb, 2009 [facility] [place] [facility] [address] [id number] [place] [address]- 5548 Dec, [facility] [place] [facility] [address] [facility] [id number] [place] [address]- 7124 14 Feb, 2008 IMMUNIZATIONS No Known Immunizations SOCIAL HISTORY Never Assessed REASON FOR VISIT got too hot at work thursday noc. felt tired but states she has had plenty of sleep. also reports increased appetite. again last noc she felt hot and wanted to be cool. now pt states she has an infection in her vagina. no symptoms...just thinks she has an infection. now stating that her ears feel like they have fluid in them. [email or web address] PLAN OF CARE Activity Details Follow Up prn Reason: VITAL SIGNS Height 64 in 2017-01-30 Weight 142.6 lbs 2017-01-30 Temperature 98.2 degrees Fahrenheit 2017-01-30 Heart Rate 80 bpm 2017-01-30 Respiratory Rate 20 2017-01-30 BMI 24.47 kg/m2 2017-01-30 Blood pressure systolic 120 mmHg 2017-01-30 Blood pressure diastolic 78 mmHg 2017-01-30 MEDICATIONS Medication Instructions Dosage Frequency Start Date End Date Duration Status Cipro HC 0.2-1 % Otic Twice a day 3 drops into affected ear 12h Jan, 7 day(s) Active Ciprodex 0.3-0.1 % Otic Twice a day 4 drops into affected ear 12h Jan, 7 days Active Bactrim DS 800-160 MG Orally twice daily 1 tablet Jan, Jan, 3 days Active RESULTS Name Result Date Reference Range TRICHOMONAS (IN HOUSE) 2017-01-30 TRICHOMONAS Control + Lot # [id number] Exp date 2017 UA LONG DIP (IN HOUSE) 2017-01-30 Lot # [id number] Exp date 2017 Clarity clear Color yellow Odor none GLU negative NELIDA negative KET negative SG 1.015 BLO negative pH 7.5 Protein negative URO 0.2 NIT negative AUDELIA 1+ Lot # [id number] Exp date august 2017 BACTERIAL VAGINOSIS (IN HOUSE) 2017-01-30 RESULTS Control + Lot # [id number] Exp date 2017 05 CULTURE, GENITAL 2017-01-30 Genital Culture, Routine Final report Result 1 GC/CHLAM URINE (STATE) 2017-01-30 CHLAMYDIA GC PROCEDURES Procedure Date Ordered Result Body Site URINALYSIS, AUTO, W/O SCOPE Jan 30, 2017 TRICHOMONAS ASSAY W/OPTIC Jan 30, 2017 CULTURE, BACTERIA, OTHER Jan 30, 2017 Bacterial Vaginosis In House Jan 30, 2017 INSTRUCTIONS MEDICATIONS ADMINISTERED No Known Medications MEDICAL (GENERAL) HISTORY Type Description Date Surgical History right ear surgery x2 2013
--- OUTSIDE RECORDS SUMMARY | 2018-04-30 15:05 | XMS REPORT ---
Author Author JACKLYN Johnson [facility] Address [address] [place] [address] Care Team Providers Care Transfer Clerk Name Role Phone JACKLYN Johnson Unavailable PROBLEMS Type Condition ICD9-CM Code FBR02-RF Code Onset Dates Condition Status SNOMED Code Problem Dysuria 788.1 Active 59360332 Problem Herpes simplex vulvovaginitis A60.04 Active 37523975 Problem Otitis externa of both ears H60.93 Active 9955353 Problem Other chronic serous otitis media 381.19 Active 04776181 Problem Urinary tract infection, site not specified 599.0 Active 27412899 Problem Bipolar disorder, unspecified 296.80 Active 15139488 Problem Acute serous otitis media 381.01 Active [id number] ALLERGIES No Information ENCOUNTERS Encounter Location Date Diagnosis [facility] [id number] [place] [address] Mar, Pharyngitis due to other organism J02.8 [facility] [place] [id number] [place] [address] Feb, [facility] [id number] [place] [address]604 Feb, [facility] [id number] [place] [address]93 Jan, Vaginal itching L29.8 ; Acute cystitis without hematuria N30.00 and Acute otitis externa of right ear, unspecified type H60.501 [facility] [place] [address] [address] Nov, Acute serous otitis media of left ear, recurrence not specified H65.02 [facility] [address] [address] Nov, Acute serous otitis media of left ear, recurrence not specified H65.02 [facility] [place] [id number] [place] [address]90 Oct, [facility] [place] [address] [address] September, Vaginal itching L29.8 and Herpes simplex vulvovaginitis A60.04 [place] [address] [address] Aug, [address] [address] Aug, High-risk sexual behavior Z72.51 [facility] [place] [address] [address] Jan, High risk sexual behavior Z72.[address] [address] 07 Jan, 2016 Well woman exam with routine gynecological exam Z01.419 ; Screening for STD (sexually transmitted disease) Z11.3 ; High risk sexual behavior Z72.51 and Encounter for immunization Z23 [place] [id number] [place] [address] Oct, Nausea and vomiting, unspecified intactability, vomiting of unspecified type R11.2 [facility] [place] [id number] [place] [address] 08677 [address]26 May, Recurrent acute suppurative otitis media without spontaneous rupture of tympanic membrane of both sides H66.006 [place] [address] [address] May, [address] [address] Mar, Otitis media follow-up, infection resolved Z09 [address] [address] Mar, Otitis externa of both ears H60.93 [facility] [address] [facility] [id number] [place] [address]336- 2744 Feb, Acute swimmers ear of both sides H60.333 [facility] [address] [id number] [place] [address] Aug, [facility] [address] [facility] [id number] [place] [address] 911862- 5289 Aug, [facility] [address] [facility] [id number] [place] [address]99- 4233 Mar, [facility] [address] [facility] [id number] [place] [address], [place] [address] Mar, [facility] [id number] [place] [address] 774301- 0951 September, [facility] [id number] [place] [address] 08381- 9993 September, [facility] [id number] [place] [address] 58901- 9541 September, [facility] [id number] [place] [address] 22774- 7958 Aug, [facility] [address] [id number] [address] Aug, [facility] [address] [id number] [address] Jan, [facility] [address] [facility] [id number] [address] Jan, [facility] [address] [id number] [address] Dec, [facility] [address] [facility] [id number], [place] [address] Nov, [facility] [address] [id number] [address] Nov, [facility] [place] [address] [facility] [id number], [place] [address] Apr, [facility] [place] [address] [facility] [id number], [place] [address] Apr, [facility] [place] [address] [facility] [id number], [place] [address] Mar, [facility] [place] [address] [facility] [id number], [place] [address] 0[address] Feb, [facility] [place] [address] [facility] [id number], [place] [address] 8696 Feb, [facility] [place] [address] [facility] [id number], [place] [address]- 7[address] Feb, [facility] [place] [address] [facility] [id number], [place] [address]- 0816 Feb, [facility] [place] [address] [facility] [id number], [place] [address]- [address] Apr, [facility] [place] [address] [facility] [id number][place] [address]- [address]457 Mar, [facility] [place] [address] [id number], [place] [address]- 6636 Feb, [facility] [place] [address] [id number], [place] [address] Feb, [facility] [place] [address] [facility] [id number], [place] [address] 2546 Dec, [facility] [place] [address] [facility] [id number], [place] [address] 95[address] Feb, IMMUNIZATIONS No Known Immunizations SOCIAL HISTORY Never Assessed REASON FOR VISIT PLAN OF CARE VITAL SIGNS MEDICATIONS No Known Medications RESULTS No Results PROCEDURES No Known procedures INSTRUCTIONS MEDICATIONS ADMINISTERED No Known Medications MEDICAL (GENERAL) HISTORY Type Description Date Surgical History right ear surgery x2 2013
--- OUTSIDE RECORDS SUMMARY | 2018-04-30 15:05 | XMS REPORT | Continuity of Care Document ---
Author Author [facility] Address Unknown Phone Unavailable Allergies Active Description Code Type Severity Reaction Onset Reported/Identified Relationship to Patient Clinical Status Yes No Known Drug Allergies [id number] Drug Allergy Unknown N/A 07/05/2017 Medications There is no data. Problems Date [...] APRN V06.5 Dt, Tetanus-diphtheria [td] ,tdap 12/26/2008 [place] APRN V20.2 Preventive Medicine Establ. Patient Checkup Adolescent 12-17 12/26/2008 CABA DO SEBASTIÁN K V05.8 Need For Prophylactic Vaccination And Inoculation Against Other Specified Disease 12/26/2008 CABA DO SEBASTIÁN K V06.5 Dt, Tetanus-diphtheria [td] ,tdap 12/26/2008 CABA DO SEBASTIÁN K V20.2 Preventive Medicine Establ. Patient Checkup Adolescent 12-17 12/26/2008 CABA DO SEBASTIÁN K V05.8 Need For Prophylactic Vaccination And Inoculation Against Other Specified Disease 12/26/2008 CABA DO SEBASTIÁN K V06.5 Dt, Tetanus-diphtheria [td] ,tdap 12/26/2008 CABA DO SEBASTIÁN K V20.2 Preventive Medicine Establ. Patient Checkup Adolescent 12-17 12/26/2008 ROSALES DIAZ SEBASTIÁN K V05.8 Need For Prophylactic Vaccination And Inoculation Against Other Specified Disease 12/26/2008 CABA DO SEBASTIÁN K V06.5 Dt, Tetanus-diphtheria [td] ,tdap 12/26/2008 ROSALES DO SEBASTIÁN K V20.2 Preventive Medicine Establ. Patient Checkup Adolescent 12-17 03/08/2009 110.4 Dermatophytosis Tinea Pedis 03/08/2009 691.8 ATOPIC DERMATITIS 03/08/2009 845.00 Ankle Sprain Right 03/08/2009 ALTHEA BUITRAGO [place] 110.4 Dermatophytosis Tinea Pedis 03/08/2009 [place] NURSE'S ASSISTANT, [place] 691.8 ATOPIC DERMATITIS 03/08/2009 ALTHEA BUITRAGO [place] 845.00 Ankle Sprain Right 03/08/2009 CABA DO SEBASTIÁN K 110.4 Dermatophytosis Tinea Pedis 03/08/2009 CABA DO SEBASTIÁN K 691.8 ATOPIC DERMATITIS 03/08/2009 CABA DO SEBASTIÁN K 845.00 Ankle Sprain Right 03/08/2009 ROSALES DIAZ SEBASTIÁN K 110.4 Dermatophytosis Tinea Pedis 03/08/2009 [...] OPPOSITIONAL DEFIANT 02/01/2010 314.01 ADHD COMBINED 02/01/2010 ALTHEA BUITRAGO [place] 296.90 MO MOOD DIS NOS 02/01/2010 ALTHEA BUITRAGO [place] 313.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 02/01/2010 ALTHEA BUITRAGO [place] 314.01 ADHD COMBINED 02/01/2010 CABA DO, SEBASTIÁN [...] CABA DO, SEBASTIÁN K 314.01 ADHD COMBINED 11/15/2010 Ot 382.9 OTITIS MEDIA NOS 11/15/2010 Ot 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 11/15/2010 Ot 388.69 OTORRHEA NEC 04/21/2011 V25.9 CONTRACEPTION MANAGEMENT 04/21/2011 [place] APRN V25.9 CONTRACEPTION MANAGEMENT 04/21/2011 CABA DO, SEBASTIÁN K V25.9 CONTRACEPTION MANAGEMENT 04/21/2011 CABA DO, SEBASTIÁN K V25.9 CONTRACEPTION MANAGEMENT 04/21/2011 CABA DO, SEBASTIÁN K V25.9 CONTRACEPTION MANAGEMENT 12/01/2012 296.80 MO BIPOLAR NOS 12/01/2012 381.19 OTHER CHRONIC SEROUS OTITIS MEDIA 12/01/2012 [place] APRN 296.80 MO BIPOLAR NOS 12/01/2012 [place] APRN 381.19 OTHER CHRONIC SEROUS OTITIS MEDIA 12/01/2012 [...] CABA DO, SEBASTIÁN K V74.1 TB SCREENING 01/19/2016 ALINE HANCOCK Ot F17.210 NICOTINE DEPENDENCE, CIGARETTES, UNCOMPL 01/19/2016 ALINE HANCOCK Ot N39.0 URINARY TRACT INFECTION, SITE NOT SPECIF 01/19/2016 ALINE HANCOCK Ot N90.89 OTH NONINFLAMMATORY DISORDERS OF VULVA A 01/19/2016 ALINE HANCOCK Ot Z72.51 HIGH RISK HETEROSEXUAL BEHAVIOR 01/22/2016 ALINE HANCOCK Ot F17.210 NICOTINE DEPENDENCE, CIGARETTES, UNCOMPL 01/22/2016 ALINE HANCOCK Ot N39.0 URINARY TRACT INFECTION, SITE NOT SPECIF 01/22/2016 ALINE HANCOCK Ot N90.89 OTH NONINFLAMMATORY DISORDERS OF VULVA A 01/22/2016 ALINE HANCOCK Ot Z72.51 HIGH RISK HETEROSEXUAL BEHAVIOR 01/30/2016 ALINE HANCOCK Ot F17.210 NICOTINE DEPENDENCE, CIGARETTES, UNCOMPL 01/30/2016 ALINE HANCOCK Ot N39.0 URINARY TRACT INFECTION, SITE NOT SPECIF 01/30/2016 ALINE HANCOCK Ot N90.89 OTH NONINFLAMMATORY DISORDERS OF VULVA A 01/30/2016 ALINE HANCOCK Ot Z72.51 HIGH RISK HETEROSEXUAL BEHAVIOR 07/05/2016 ELVIN OTERO MD, Ot F17.210 NICOTINE DEPENDENCE, CIGARETTES, UNCOMPL 07/05/2016 ELVIN OTERO MD, Ot J06.9 ACUTE UPPER RESPIRATORY INFECTION, UNSPE 07/05/2016 ELVIN OTERO MD Ot R09.81 NASAL CONGESTION 10/10/2016 CHIVO BECKFORD APRN Ot J02.0 STREPTOCOCCAL PHARYNGITIS 10/10/2016 CHIVO BECKFORD APRN Ot J02.9 ACUTE PHARYNGITIS, UNSPECIFIED 10/16/2016 CHIVO BECKFORD APRN Ot J02.0 STREPTOCOCCAL PHARYNGITIS 10/16/2016 CHIVO BECKFORD APRN Ot J02.9 ACUTE PHARYNGITIS, UNSPECIFIED 10/16/2016 CHIVO BECKFORD APRN Ot J02.0 STREPTOCOCCAL PHARYNGITIS 10/16/2016 CHIVO BECKFORD APRN Ot J02.9 ACUTE PHARYNGITIS, UNSPECIFIED 05/18/2017 CHIVO BECKFORD APRN Ot N93.9 ABNORMAL UTERINE AND VAGINAL BLEEDING, U 05/18/2017 CHIVO BECKFORD APRN Ot O03.9 COMPLETE OR UNSP SPONTANEOUS WI 05/18/2017 CHIVO BECKFORD APRN Ot Z3A.00 WEEKS OF GESTATION OF NOT SPEC 05/30/2017 ELVIN OTERO MD Ot F17.210 NICOTINE DEPENDENCE, CIGARETTES, UNCOMPL 05/30/2017 ELVIN OTERO MD Ot H60.92 UNSPECIFIED OTITIS EXTERNA, LEFT EAR 05/30/2017 ELVIN OTERO MD Ot N72 INFLAMMATORY DISEASE OF CERVIX UTERI 05/30/2017 ELVIN OTERO MD Ot N76.0 ACUTE VAGINITIS 05/30/2017 ELVIN OTERO MD Ot N89.8 OTHER SPECIFIED NONINFLAMMATORY DISORDER 05/31/2017 CHIVO BECKFORD NURSE'S ASSISTANT Ot J10.1 FLU DUE TO OTH IDENT INFLUENZA VIRUS W O 05/31/2017 CHIVO BECKFORD NURSE'S ASSISTANT Ot R05 COUGH 05/31/2017 CHIVO BECKFORD NURSE'S ASSISTANT Ot Z87.891 PERSONAL HISTORY OF NICOTINE DEPENDENCE 06/01/2017 ELVIN OTERO MD Ot F17.210 NICOTINE DEPENDENCE, CIGARETTES, UNCOMPL 06/01/2017 ELVIN OTERO MD Ot H60.92 UNSPECIFIED OTITIS EXTERNA, LEFT EAR 06/01/2017 ELVIN OTERO MD Ot N72 INFLAMMATORY DISEASE OF CERVIX UTERI 06/01/2017 ELVIN OTERO MD Ot N76.0 ACUTE VAGINITIS 06/01/2017 ELVIN OTERO MD Ot N89.8 OTHER SPECIFIED NONINFLAMMATORY DISORDER 06/02/2017 CHIVO BECKFORD NURSE'S ASSISTANT Ot J10.1 FLU DUE TO OTH IDENT INFLUENZA VIRUS W O 06/02/2017 CHIVO BECKFORD NURSE'S ASSISTANT Ot R05 COUGH 06/02/2017 CHIVO BECKFORD NURSE'S ASSISTANT Ot Z87.891 PERSONAL HISTORY OF NICOTINE DEPENDENCE 06/02/2017 ELVIN OTERO MD Ot F17.210 NICOTINE DEPENDENCE, CIGARETTES, UNCOMPL 06/02/2017 ELVIN OTERO MD Ot H60.92 UNSPECIFIED OTITIS EXTERNA, LEFT EAR 06/02/2017 ELVIN OTERO MD Ot N72 INFLAMMATORY DISEASE OF CERVIX UTERI 06/02/2017 ELVIN OTERO MD Ot N76.0 ACUTE VAGINITIS 06/02/2017 ELVIN OTERO MD Ot N89.8 OTHER SPECIFIED NONINFLAMMATORY DISORDER 06/06/2017 CHIVO BECKFORD NURSE'S ASSISTANT Ot J10.1 FLU DUE TO OTH IDENT INFLUENZA VIRUS W O 06/06/2017 CHIVO BECKFORD NURSE'S ASSISTANT Ot R05 COUGH 06/06/2017 CHIVO BECKFORD NURSE'S ASSISTANT Ot Z87.891 PERSONAL HISTORY OF NICOTINE DEPENDENCE 07/05/2017 ALINE HANCOCK Ot H66.92 OTITIS MEDIA, UNSPECIFIED, LEFT EAR 07/05/2017 ALINE HANCOCK Ot H92.02 OTALGIA, LEFT EAR 07/05/2017 ALINE HANCOCK Ot Z90.89 ACQUIRED ABSENCE OF OTHER ORGANS 07/07/2017 ALINE HANCOCK Ot H66.92 OTITIS MEDIA, UNSPECIFIED, LEFT EAR 07/07/2017 ALINE HANCOCK Ot H92.02 OTALGIA, LEFT EAR 07/07/2017 ALINE HANCOCK Ot Z90.89 ACQUIRED ABSENCE OF OTHER ORGANS 11/23/2017 Ot 383.9 11/23/2017 Ot 041.11 11/23/2017 Ot 383.9 11/23/2017 Ot 383.9 03/02/2018 ELVIN OTERO MD, Ot F17.210 NICOTINE DEPENDENCE, CIGARETTES, UNCOMPL 03/02/2018 ELVIN OTERO MD Ot O20.0 THREATENED 03/02/2018 ELVIN OTERO MD Ot O20.9 HEMORRHAGE IN EARLY , UNSPECIFI 03/02/2018 ELVIN OTERO MD Ot O99.331 SMOKING (TOBACCO) COMPLICATING 03/02/2018 ELVIN OTERO MD Ot Z3A.01 LESS THAN 8 WEEKS GESTATION OF 03/04/2018 ELVIN OTERO MD, Ot F17.210 NICOTINE DEPENDENCE, CIGARETTES, UNCOMPL 03/04/2018 ELVIN OTERO MD Ot O20.0 THREATENED 03/04/2018 ELVIN OTERO MD Ot O20.9 HEMORRHAGE IN EARLY , UNSPECIFI 03/04/2018 ELVIN OTERO MD Ot O99.331 SMOKING (TOBACCO) COMPLICATING 03/04/2018 ELVIN OTERO MD Ot Z3A.01 LESS THAN 8 WEEKS GESTATION OF Procedures Code Description [place] [address] CULTURE URINE 09/14/2013 01152 UA W/ CULTURE IF INDICATED 09/14/2013 64530 TB TEST INTRADERMAL 08/16/2014 61832 TB TEST INTRADERMAL 08/25/2014 Results Test Result Range HCV Antibody - 01/06/18 12:00 Hep C Virus Ab <0.1 s/co ratio 0.0-0.9 Chlamydia/GC Amplification - 01/16/16 16:27 Chlamydia trachomatis, KARLEE Negative Negative Neisseria gonorrhoeae, KARLEE Negative Negative Genital Culture, Routine - 01/16/16 16:27 Genital Culture, Routine Note Complete urinalysis with reflex to culture - 01/19/16 22:03 Urine color determination YELLOW NRG Urine clarity determination CLEAR NRG Urine pH measurement by test strip 6.5 5-9 Specific gravity of urine by test strip 1.015 1.016- 1.022 Urine protein assay by test strip, semi-quantitative 1+ NEGATIVE Urine glucose detection by automated test strip NEGATIVE NEGATIVE Erythrocytes detection in urine sediment by light microscopy 1+ NEGATIVE Urine ketones detection by automated test strip NEGATIVE NEGATIVE Urine nitrite detection by test strip NEGATIVE NEGATIVE Urine total bilirubin detection by test strip NEGATIVE NEGATIVE Urine urobilinogen measurement by automated test strip (mass/volume) NORMAL NORMAL Urine leukocyte esterase detection by dipstick 2+ NEGATIVE Automated urine sediment erythrocyte count by microscopy (number/high power field) [HPF] NRG Automated urine sediment leukocyte count by microscopy (number/high power field ) [HPF] NRG Bacteria detection in urine sediment by light microscopy FEW NRG Squamous epithelial cells detection in urine sediment by light microscopy 0-2 NRG Crystals detection in urine sediment by light microscopy NONE NRG Casts detection in urine sediment by light microscopy NONE NRG Mucus detection in urine sediment by light microscopy SMALL NRG Complete urinalysis with reflex to culture YES NRG Bacterial urine culture - 01/19/16 22:03 Bacterial urine culture [id number] NRG COLONY COUNT <10,000 NRG URINE CULTURE RESULTS <10,000/ML NRG HSV Culture and Typing - 01/24/16 19:16 HSV Culture/Type Comment Genital Culture, Routine - 08/27/16 12:42 Genital Culture, Routine Note HSV Culture and Typing - 09/25/16 13:37 HSV Culture/Type Comment Streptococcus pyogenes antigen detection - 10/10/16 14:00 Streptococcus pyogenes antigen detection POSITIVE NEGATIVE Complete blood count (CBC) with automated white blood cell (WBC) differential - 10/10/16 14:15 Blood leukocytes automated count (number/volume) 15.6 10*3/uL 4.3-11.0 Blood erythrocytes automated count (number/volume) 4.40 10*6/uL 4.35-5.85 Venous blood hemoglobin measurement (mass/volume) 12.8 g/dL 11.5-16.0 Blood hematocrit (volume fraction) 40 % 35-52 Automated erythrocyte mean corpuscular volume 91 [foz_us] 80-99 Automated erythrocyte mean corpuscular hemoglobin (mass per erythrocyte) 29 pg 25-34 Automated erythrocyte mean corpuscular hemoglobin concentration measurement ( mass/volume) 32 g/dL 32-36 Automated erythrocyte distribution width ratio 12.9 % 10.0-14.5 Automated blood platelet count (count/volume) 211 10*3/uL 130-400 Automated blood platelet mean volume measurement 10.7 [foz_us] 7.4-10.4 Automated blood neutrophils/100 leukocytes 84 % 42-75 Automated blood lymphocytes/100 leukocytes 10 % 12-44 Blood monocytes/100 leukocytes 5 % 0-12 Automated blood eosinophils/100 leukocytes 1 % 0-10 Automated blood basophils/100 leukocytes 0 % 0-10 Blood neutrophils automated count (number/volume) 13.1 10*3 1.8-7.8 Blood lymphocytes automated count (number/volume) 1.5 10*3 1.0-4.0 Blood monocytes automated count (number/volume) 0.8 10*3 0.0-1.0 Automated eosinophil count 0.1 10*3/uL 0.0-0.3 Automated blood basophil count (count/volume) 0.0 10*3/uL 0.0-0.1 Serum heterophile antibody titer - 10/10/16 14:15 Serum heterophile antibody titer NEGATIVE NEGATIVE Blood manual differential performed detection - 10/10/16 14:15 Blood monocytes/100 leukocytes 8 % NRG Manual blood segmented neutrophils/100 leukocytes 81 % NRG Blood band neutrophils/100 leukocytes 3 % NRG Manual blood lymphocytes/100 leukocytes 8 % NRG Manual eosinophils/100 leukocytes in nose 0 % NRG Manual blood basophils/100 leukocytes 0 % NRG Blood erythrocyte morphology finding identification NORMAL NRG Serum or plasma choriogonadotropin ( test) detection - 10/10/16 14:15 Serum or plasma choriogonadotropin ( test) detection NEGATIVE NEGATIVE Genital Culture, Routine - 01/30/17 09:35 Genital Culture, Routine Note CULTURE, GENITAL - 01/30/17 09:35 Genital Culture, Routine Final report NRG Result 1 NRG ABO+Rh group - 05/18/17 20:29 ABO+Rh group OP NRG Transfusion band number [id number] NRG Serum or plasma choriogonadotropin measurement (units/volume) - 05/18/17 20:29 Serum or plasma choriogonadotropin measurement (units/volume) < m[iU ]/mL <5 Complete urinalysis with reflex to culture - 05/18/17 21:00 Urine color determination YELLOW NRG Urine clarity determination CLEAR NRG Urine pH measurement by test strip 7 5-9 Specific gravity of urine by test strip 1.010 1.016- 1.022 Urine protein assay by test strip, semi-quantitative NEGATIVE NEGATIVE Urine glucose detection by automated test strip NEGATIVE NEGATIVE Erythrocytes detection in urine sediment by light microscopy 5+ NEGATIVE Urine ketones detection by automated test strip NEGATIVE NEGATIVE Urine nitrite detection by test strip NEGATIVE NEGATIVE Urine total bilirubin detection by test strip NEGATIVE NEGATIVE Urine urobilinogen measurement by automated test strip (mass/volume) 4 mg/dL NORMAL Urine leukocyte esterase detection by dipstick NEGATIVE NEGATIVE Automated urine sediment erythrocyte count by microscopy (number/high power field) [HPF] NRG Automated urine sediment leukocyte count by microscopy (number/high power field ) [HPF] NRG Bacteria detection in urine sediment by light microscopy TRACE NRG Squamous epithelial cells detection in urine sediment by light microscopy 5-10 NRG Crystals detection in urine sediment by light microscopy NONE NRG Casts detection in urine sediment by light microscopy NONE NRG Mucus detection in urine sediment by light microscopy NEGATIVE NRG Complete urinalysis with reflex to culture NO NRG Complete urinalysis with reflex to culture - 05/29/17 23:39 Urine color determination YELLOW NRG Urine clarity determination CLEAR NRG Urine pH measurement by test strip 6.5 5-9 Specific gravity of urine by test strip 1.020 1.016- 1.022 Urine protein assay by test strip, semi-quantitative 1+ NEGATIVE Urine glucose detection by automated test strip NEGATIVE NEGATIVE Erythrocytes detection in urine sediment by light microscopy NEGATIVE NEGATIVE Urine ketones detection by automated test strip NEGATIVE NEGATIVE Urine nitrite detection by test strip NEGATIVE NEGATIVE Urine total bilirubin detection by test strip NEGATIVE NEGATIVE Urine urobilinogen measurement by automated test strip (mass/volume) NORMAL NORMAL Urine leukocyte esterase detection by dipstick 1+ NEGATIVE Automated urine sediment erythrocyte count by microscopy (number/high power field) RARE NRG Automated urine sediment leukocyte count by microscopy (number/high power field ) RARE NRG Bacteria detection in urine sediment by light microscopy TRACE NRG Squamous epithelial cells detection in urine sediment by light microscopy 10-25 NRG Crystals detection in urine sediment by light microscopy NONE NRG Casts detection in urine sediment by light microscopy NONE NRG Mucus detection in urine sediment by light microscopy SMALL NRG Complete urinalysis with reflex to culture NO NRG Complete blood count (CBC) with automated white blood cell (WBC) differential - 05/29/17 23:50 Blood leukocytes automated count (number/volume) 11.6 10*3/uL 4.3-11.0 Blood erythrocytes automated count (number/volume) 4.61 10*6/uL 4.35-5.85 Venous blood hemoglobin measurement (mass/volume) 13.6 g/dL 11.5-16.0 Blood hematocrit (volume fraction) 41 % 35-52 Automated erythrocyte mean corpuscular volume 88 [foz_us] 80-99 Automated erythrocyte mean corpuscular hemoglobin (mass per erythrocyte) 30 pg 25-34 Automated erythrocyte mean corpuscular hemoglobin concentration measurement ( mass/volume) 34 g/dL 32-36 Automated erythrocyte distribution width ratio 12.9 % 10.0-14.5 Automated blood platelet count (count/volume) 257 10*3/uL 130-400 Automated blood platelet mean volume measurement 10.2 [foz_us] 7.4-10.4 Automated blood neutrophils/100 leukocytes 78 % 42-75 Automated blood lymphocytes/100 leukocytes 13 % 12-44 Blood monocytes/100 leukocytes 6 % 0-12 Automated blood eosinophils/100 leukocytes 2 % 0-10 Automated blood basophils/100 leukocytes 0 % 0-10 Blood neutrophils automated count (number/volume) 9.1 10*3 1.8-7.8 Blood lymphocytes automated count (number/volume) 1.5 10*3 1.0-4.0 Blood monocytes automated count (number/volume) 0.7 10*3 0.0-1.0 Automated eosinophil count 0.3 10*3/uL 0.0-0.3 Automated blood basophil count (count/volume) 0.0 10*3/uL 0.0-0.1 Whole blood basic metabolic panel - 05/29/17 23:50 Serum or plasma sodium measurement (moles/volume) 136 mmol/L 135-145 Serum or plasma potassium measurement (moles/volume) 4.0 mmol/L 3.6-5.0 Serum or plasma chloride measurement (moles/volume) 101 mmol/L 98-107 Carbon dioxide 23 mmol/L 21-32 Serum or plasma anion gap determination (moles/volume) 12 mmol/L 5-14 Serum or plasma urea nitrogen measurement (mass/volume) 14 mg/dL 7-18 Serum or plasma creatinine measurement (mass/volume) 0.74 mg/dL 0.60-1.30 Serum or plasma urea nitrogen/creatinine mass ratio 19 NRG Serum or plasma creatinine measurement with calculation of estimated glomerular filtration rate > NRG Serum or plasma glucose measurement (mass/volume) 91 mg/dL 70-105 Serum or plasma calcium measurement (mass/volume) 9.8 mg/dL 8.5-10.1 Serum or plasma choriogonadotropin measurement (units/volume) - 05/29/17 23:50 Serum or plasma choriogonadotropin measurement (units/volume) < m[iU ]/mL <5 Bacteria identification in genital specimen by aerobe culture - 05/30/17 00:40 FREE TEXT EXTERNAL PLUS NORMAL RENETTA NRG QUANTITY OF GROWTH Moderate Growth NRG Bacteria identification in genital specimen by aerobe culture [id number] NR Microscopic examination by wet preparation - 05/30/17 00:40 WET PREP RESULTS 00:58 BY [facility] Neisseria gonorrhoeae DNA detection by probe and signal amplification method - 05/30/17 00:40 Gonorrhea amp DNA-urine Not Detected Not Detected Chlamydia trachomatis DNA detection by probe and signal amplification method - 05/30/17 00:40 Chlamydia trachomatis DNA detection by probe and target amplification method Detected Not Detected Influenza virus A and B antigen detection - 05/31/17 12:30 CALL POSITIVES (F1 HELP) CALLED TO [facility] AT [address] [facility] FLU RESULT POSITIVE FOR INFLUENZA A ANTIGEN, NEG FOR B ANTIGEN, BY IA NR Complete blood count (CBC) with automated white blood cell (WBC) differential - 03/02/18 12:25 Blood leukocytes automated count (number/volume) 10.9 10*3/uL 4.3-11.0 Blood erythrocytes automated count (number/volume) 4.10 10*6/uL 4.35-5.85 Venous blood hemoglobin measurement (mass/volume) 11.7 g/dL 11.5-16.0 Blood hematocrit (volume fraction) 36 % 35-52 Automated erythrocyte mean corpuscular volume 87 [foz_us] 80-99 Automated erythrocyte mean corpuscular hemoglobin (mass per erythrocyte) 29 pg 25-34 Automated erythrocyte mean corpuscular hemoglobin concentration measurement ( mass/volume) 33 g/dL 32-36 Automated erythrocyte distribution width ratio 13.0 % 10.0-14.5 Automated blood platelet count (count/volume) 227 10*3/uL 130-400 Automated blood platelet mean volume measurement 10.7 [foz_us] 7.4-10.4 Automated blood neutrophils/100 leukocytes 71 % 42-75 Automated blood lymphocytes/100 leukocytes 21 % 12-44 Blood monocytes/100 leukocytes 7 % 0-12 Automated blood eosinophils/100 leukocytes 2 % 0-10 Automated blood basophils/100 leukocytes 0 % 0-10 Blood neutrophils automated count (number/volume) 7.7 10*3 1.8-7.8 Blood lymphocytes automated count (number/volume) 2.2 10*3 1.0-4.0 Blood monocytes automated count (number/volume) 0.7 10*3 0.0-1.0 Automated eosinophil count 0.2 10*3/uL 0.0-0.3 Automated blood basophil count (count/volume) 0.0 10*3/uL 0.0-0.1 Complete urinalysis with reflex to culture - 03/02/18 12:30 Urine color determination YELLOW NRG Urine clarity determination CLEAR NRG Urine pH measurement by test strip 6 5-9 Specific gravity of urine by test strip 1.015 1.016- 1.022 Urine protein assay by test strip, semi-quantitative NEGATIVE NEGATIVE Urine glucose detection by automated test strip NEGATIVE NEGATIVE Erythrocytes detection in urine sediment by light microscopy 5+ NEGATIVE Urine ketones detection by automated test strip 2+ NEGATIVE Urine nitrite detection by test strip NEGATIVE NEGATIVE Urine total bilirubin detection by test strip NEGATIVE NEGATIVE Urine urobilinogen measurement by automated test strip (mass/volume) NORMAL NORMAL Urine leukocyte esterase detection by dipstick 1+ NEGATIVE Automated urine sediment erythrocyte count by microscopy (number/high power field) [HPF] NRG Automated urine sediment leukocyte count by microscopy (number/high power field ) [HPF] NRG Bacteria detection in urine sediment by light microscopy FEW NRG Squamous epithelial cells detection in urine sediment by light microscopy 5-10 NRG Crystals detection in urine sediment by light microscopy NONE NRG Casts detection in urine sediment by light microscopy NONE NRG Mucus detection in urine sediment by light microscopy MODERATE NRG Complete urinalysis with reflex to culture YES NRG Bacterial urine culture - 03/02/18 12:30 Bacterial urine culture SEE COMMEN NRG COLONY COUNT . NRG Encounters ACCT No. Visit Date/Time Discharge Status Pt. Type Provider Facility Loc./Unit Complaint [id number] 08/25/2014 14:15:00 08/25/2014 23:59:59 CLS Outpatient SEBASTIÁN CABA DO [id number] 08/16/2014 09:37:00 08/16/2014 23:59:59 CLS Outpatient SEBASTIÁN CABA DO [id number] 09/14/2013 11:53:00 09/14/2013 23:59:59 CLS Outpatient SEBASTIÁN CABA DO [id number] 08/11/2013 18:20:00 08/11/2013 23:59:59 CLS Outpatient ALTHEA IFTIKHARLOS [id number] 12/01/2012 15:15:00 Document Registration [id number] 01/09/2018 12:05:00 Document Registration [id number] 01/09/2017 09:07:00 Document Registration [id number] 01/10/2016 09:07:00 Document Registration [id number] 02/02/2017 11:06:00 Document Registration [id number] 03/02/2018 11:52:00 03/02/2018 15:00:00 DIS Emergency ELVIN OTERO MD [facility] ER VAGINAL BLEEDING; [id number] 07/05/2017 18:50:00 07/05/2017 20:25:00 DIS Emergency ALINE HANCOCK [facility] ER L EAR DRAINAGE/PAIN [id number] 05/31/2017 11:15:00 05/31/2017 13:50:00 DIS Emergency CHIVO BECKFORD APRN [facility] ER NOT TAKING RX/COLD CHILLS/ VOMITING [id number] 05/29/2017 22:27:00 05/30/2017 02:39:00 DIS Emergency ELVIN OTERO MD [facility] ER MISCARRIAGE/ABD PAIN [id number] 05/18/2017 17:52:00 05/18/2017 21:36:00 DIS Emergency CHIVO BECKFORD APRN [facility] ER POSS [id number] 10/10/2016 13:49:00 10/10/2016 14:59:00 DIS Emergency CHIVO BECKFORD APRN [facility] ER SORE THROAT [id number] 07/05/2016 01:08:00 07/05/2016 02:55:00 DIS Emergency BRANDEN GOMEZ, ELVIN Hernandez [facility] ER SOB [id number] 01/19/2016 19:47:00 01/19/2016 22:35:00 DIS Emergency ALINE HANCOCK [facility] ER VAGINAL SWOLLEN/PAIN, HURTS TO URINATE [id number] 04/30/2018 14:51:00 ACT Emergency NISHI GOMEZ, ESTELA Jacobson [facility] ER 14WKS PREG;CRAMPING [id number] 11/23/2017 06:53:00 Document Registration [id number] 07/05/2016 01:08:00 Document Registration [id number] 11/15/2010 02:59:00 Document Registration [id number] 03/11/2006 15:17:00 Document Registration [id number] 03/04/2006 14:52:00 Document Registration [id number] 02/25/2006 15:27:00 Document Registration [id number] 11/17/2017 16:30:00 11/17/2017 23:59:59 [facility] Outpatient JOHN BIANKA [facility] [id number] 01/30/2017 08:45:00 Document Registration [id number] 09/29/2016 18:08:00 Document Registration [id number] 01/29/2016 05:06:00 Document Registration [id number] 01/19/2016 13:05:00 Document Registration [id number] 08/30/2016 10:07:00 Document Registration
[2018-04-30 15:59] LABS: BILIRUBIN,URINE NEGATIVE (NEGATIVE); CLARITY,URINE SLIGHTLY CLOUDY; COLOR,URINE YELLOW; GLUCOSE, URINE (UA) NEGATIVE (NEGATIVE); KETONES,URINE NEGATIVE (NEGATIVE); LEUKOCYTE ESTERASE ,URINE 2+ (NEGATIVE); NITRITE,URINE NEGATIVE (NEGATIVE); PH,URINE 6 (5-9); PROTEIN,URINE NEGATIVE (NEGATIVE); UROBILINOGEN,URINE NORMAL (NORMAL)
[2018-04-30 16:06] LABS: BACTERIA,URINE MODERATE /HPF
[2018-04-30] MEDS ORDERED: ACETAMINOPHEN 500 MG TAB (TYLENOL) PO ONE (18:00)
--- NOTE | 2018-04-30 18:00 | ED Abdominal Pain ---
General Chief Complaint: General Problems/Pain Stated Complaint: 14WKS PREG;CRAMPING Nursing Triage Note: Has one ultrasound already. states she has been really stressed out lately but does not want to talk about it. No desire to harm self or others. Multiple complaints. States that she was nauseated worse last night but has been present for 10 days when stress started. Watched some kids and does not know if she got sick from them. Has had occ cramping with no spotting. Believes she is 14.2 wks gravid. No urinary sx. States that she has been cold but no fevers. Not feeling well. Depressed. States that she almost passed out for some reason at [facility]. States that she is eating and drinking fine. Also believes she might have an ear infection maybe in the rt or maybe both. Is asking to eat crackers while scrolling on cell phone. Sepsis Screen: No Definite Risk Source of Information: Patient, Family (dad) Exam Limitations: No Limitations History of Present Illness Date Seen by Provider: Apr 30, 2018 Time Seen by Provider: 17:46 Initial Comments Patient presents to ER by private conveyance with her dad and chief complaint of past week she's been having some low abdominal pain and cramping sensation when she moves. She says it hurts when she urinates but feels better after she increased her bladder. She's she has had the patient or diarrhea, vomiting, fevers or chills. She does have some nausea occasionally. She said she ate some crackers earlier and that helped her nausea significantly but is starting to come back. , 14W3 days by stated EMILY of October 26, 2018. Dates by ultrasound from Dr. ZHOU, unknown date. Allergies and Home Medications Allergies Coded Allergies: No Known Drug Allergies (Unverified , 04/30/18) Patient Home Medication List Home Medication List Reviewed: Yes Review of Systems Review of Systems Constitutional: No chills, No fever, No malaise EENTM: No Blurred Vision, No Double Vision Respiratory: Denies Cough, Denies Orthopnea Cardiovascular: Denies Chest Pain, Denies Edema Gastrointestinal: See HPI; Denies Abdomen Distended; Abdominal Pain Genitourinary: Denies Burning, Denies Discharge Musculoskeletal: No back pain, No joint pain Skin: No pruritus, No rash Psychiatric/Neurological: Denies Headache, Denies Numbness, Denies Paresthesia Past Olhbgcd-Rjarth-Mcrsbz Hx Patient Social History Alcohol Use: Denies Use Recreational Drug Use: No Type Used: Cigarettes 2nd Hand Smoke Exposure: Yes Recent Foreign Travel: No Contact w/Someone Who Travel: No Recent Infectious Disease Expo: No Recent Hopitalizations: No Physical Abuse: No Sexual Abuse: No Mistreated: No Fear: No Immunizations Up To Date Tetanus Booster (TDap): More than 5yrs PED Vaccines UTD: Yes Seasonal Allergies Seasonal Allergies: Yes Past Medical History Surgeries: Yes Ear Surgery Respiratory: No Cardiac: No Neurological: No Reproductive Disorders: No Female Reproductive Disorders: Denies Gastrointestinal: No Musculoskeletal: No Endocrine: No HEENT: Yes (right mastoiditis as a teenager) Chronic Ear Infection Cancer: No Psychosocial: No Integumentary: No Blood Disorders: No Family Medical History No Pertinent Family Hx Physical Exam Vital Signs Vital Signs - First Documented 04/30/18 15:16 Temp 97.5 Pulse 85 Resp 16 B/P (MAP) 97/63 (74) Pulse Ox 99 Capillary Refill : Less Than 3 Seconds Height/Weight/BMI Height: 5'3.00" Weight: 130lbs. oz. 58.223575mj; BMI Method:Estimated General Appearance: WD/WN, mild distress HEENT: PERRL/EOMI, pharynx normal Neck: non-tender, full range of motion, normal inspection Respiratory: chest non-tender, lungs clear, normal breath sounds, no respiratory distress, no accessory muscle use Cardiovascular: normal peripheral pulses, regular rate, rhythm, no edema Peripheral Pulses: 2+ Radial Pulses (R), 2+ Radial Pulses (L) Gastrointestinal: normal bowel sounds, guarding, tenderness (suprapubic region) Extremities: normal range of motion, non-tender, normal inspection, normal capillary refill Progress/Results/Core Measures Results/Orders Lab Results Laboratory Tests Test 04/30/18 15:40 Range/Units Urine Color YELLOW Urine Clarity SLIGHTLY CLOUDY Urine pH 6 5-9 Urine Specific [place] 1.015 L 1.016-1.022 Urine Protein NEGATIVE NEGATIVE Urine Glucose (UA) NEGATIVE NEGATIVE Urine Ketones NEGATIVE NEGATIVE Urine Nitrite NEGATIVE NEGATIVE Urine Bilirubin NEGATIVE NEGATIVE Urine Urobilinogen NORMAL NORMAL MG/DL Urine Leukocyte Esterase 2+ H NEGATIVE Urine RBC (Auto) NEGATIVE NEGATIVE Urine RBC NONE /HPF Urine WBC 5-10 H /HPF Urine Squamous Epithelial Cells 5-10 /HPF Urine Crystals NONE /LPF Urine Bacteria MODERATE H /HPF Urine Casts NONE /LPF Urine Mucus NEGATIVE /LPF Urine Culture Indicated YES My Orders Orders - ESTELA ALMODOVAR Ua Culture If Indicated (04/30/18 15:12) Urine Bedside (04/30/18 15:12) Urine Culture (04/30/18 15:40) Acetaminophen Tablet (Tylenol Tablet) (04/30/18 18:00) Vital Signs/I&O 04/30/18 15:16 Temp 97.5 Pulse 85 Resp 16 B/P (MAP) 97/63 (74) Pulse Ox 99 Blood Pressure Mean: 74 Urine -Bedside: Positive Progress Progress Note : Time: 17:56 Progress Note The patient's urinary tract infection seems to explain all of her symptoms. She a lot of anxiety about a lot of life issues as well as whether or not she is gaining appropriate weight. She has not address these issues with her primary care or WINTER SPORTS MANAGER appropriately apparently. We have encouraged her to talk about her weight concerns with her WINTER SPORTS MANAGER. Encourage her to drink plenty fluids and use the antibiotics. We'll provide her with some Zofran in case she needs it. Her vital signs are aseptic and unconcerning. Departure Impression Primary Impression: Urinary tract infection Qualified Codes: N30.00 - Acute cystitis without hematuria Additional Impression: Qualified Codes: Z3A.14 - 14 weeks gestation of Disposition: 01 HOME, SELF-CARE Condition: Stable Departure-Patient Inst. Decision time for Depature: 18:00 Referrals: [facility] (PCP/Family) Primary Care Physician Patient Instructions: Urinary Tract Infection, Adult (DC) Add. Discharge Instructions: Drink plenty of fluids especially water. pleating supervisor the antibiotics and take one capsule twice a day with food for the next week. If symptoms do not improve then you should follow-up with primary care or with your WINTER SPORTS MANAGER for reevaluation. Tylenol and heat as needed for abdominal pain. Zofran 1 tablet every 6 hours under the tongue as needed for nausea and vomiting. All discharge instructions reviewed with patient and/or family. Voiced understanding. Scripts Ondansetron (Ondansetron Odt) 4 Mg Tab.rapdis 4 MG PO Q6H PRN for NAUSEA/VOMITING, #8 TAB 0 Refills Prov: ESTELA ALMODOVAR 04/30/18 Cephalexin (Cephalexin) 500 Mg Tablet 500 MG PO BID for 7 Days, #14 TAB 0 Refills Prov: ESTELA ALMODOVAR 04/30/18 Work/School Note: Work Release Form Date Seen in the Emergency Department: Apr 30, 2018 Return to Work: May 01, 2018 Restrictions: Need Release from Doctor Other Restrictions Listed Below: Drink lots of water. Allow frequent bathroom breaks until 05/08/18. ESTELA ALMODOVAR Apr 30, 2018 18:00
[2018-04-30] MEDS ORDERED: ONDA4TAB11 PO (18:02)
[2018-04-30] MEDS ORDERED: CEPH500T PO (18:02)
[2018-04-30 18:10] VITALS: BP 101/71
== END 2018-04-30 18:11 | disposition home or self-care (01) ==
LOC: EDUNIT# 14:49 → ER 14:51
DX: O23.42 Unspecified infection of urinary tract in pregnancy, second trimester (principal); Z77.22 Contact with and (suspected) exposure to environmental tobacco smoke (acute) (chronic); Z3A.14 14 weeks gestation of pregnancy
CPT/HCPCS: 81000; 84703; 87088; 99283

== ENCOUNTER → 2018-06-01 | Outpatient (CLI) | payer MEDICAID ==
[~2018-06-01] MED LIST changes: +CEPH500T PO; +METR-145 PO; -METR-197 PO; +ONDA4TAB11 PO
--- NOTE | 2018-06-01 13:57 | Diagnostic Imaging Report ---
INDICATION: survey. TECHNIQUE: Multiple real-time grayscale images were obtained over the gravid uterus. COMPARISON: 03/02/2018. FINDINGS: There is a single live fetus in a breech presentation. heart rate was recorded at 132 beats per minute. The placenta is posterior and low lying. The placental tip is approximately 2 cm from the internal cervical os. Amniotic fluid volume is normal. survey demonstrates kidneys, bladder and stomach to be unremarkable. The brain is unremarkable. There is a four-chamber heart. There is a three-vessel cord with normal insertion. spine is somewhat limited due to position. Biometrical measurements are as follows: Biparietal 4.20 cm, age 18 weeks 6 days. Head circumference 15.68 cm, age 18 weeks 5 days. Abdominal circumference 13.04 cm, age 18 weeks 4 days. Femur length 2.79 cm, age 18 weeks 4 days. Sonographic estimate age: 18 weeks 5 days. Sonographic estimated date of delivery: 10/28/2018. Estimated Weight: 246 gm (+/- 36 gm). LMP percentile: 22%. heart rate: 132 beats per minute. number: 1 of 1. IMPRESSION: Single live IUP approximately 18 weeks 5 days gestational age. Estimated date of confinement sonographically is 10/28/2018. survey is unremarkable although spine is somewhat limited due to lie. Followup could be performed. Dictated by: Dictated on workstation # [id number]
== END ==
LOC: RAD 05-17 10:32
PROVIDERS: ATTEND Obstetrics & Gynecology
DX: Z36.89 Encounter for other specified antenatal screening (principal); Z3A.18 18 weeks gestation of pregnancy
CPT/HCPCS: 76805

== ENCOUNTER 2018-08-14 03:01 | Outpatient (CLI) | payer MEDICAID ==
[~2018-08-14] VITALS: Ht 162.6 cm; Wt 67.3 kg
--- NOTE | 2018-08-14 02:48 | NUR ---
MIKE MORROW presented to unit via AMBULATORY from ED, with c/o SHARP PAINS. MIKE MORROW weighed, gowned, voided, and to bed. EFHM and TOCO applied, VS taken. MIKE MORROW oriented to bed controls, call light, TV, heat, and A/C controls.
[2018-08-14 03:00] VITALS: BP 117/72
--- NOTE | 2018-08-14 03:05 | NUR ---
This RN hooked pt. up to monitor and began assessment. Once pt. heard the FHR she began to ask how long she would have to stay. Once informed of the outpatient process she became irritated at requested to go home. This RN informed the pt that if she left she would be leaving without being cleared by a dr and she would have to have to sign an AMA form. This RN also informed the pt. of the benefits of staying. Pt. persisted to leave AMA. Form was signed at 0310. Pt. left unit ambulatory.
== END 2018-08-14 03:10 | disposition left against medical advice (07) ==
LOC: WSo 03:01 → LDRP 03:02 → WSo 03:10
PROVIDERS: ATTEND Obstetrics & Gynecology
DX: O99.89 Other specified diseases and conditions complicating pregnancy, childbirth and the puerperium (principal); R10.9 Unspecified abdominal pain; Z3A.29 29 weeks gestation of pregnancy
CPT/HCPCS: 99212

== ENCOUNTER 2018-10-27 06:45 | Inpatient (IN) | payer MEDICAID ==
[~2018-10-27] VITALS: Ht 162.6 cm; Wt 70.9 kg
[2018-10-27] VITALS (27 sets, daily range): BP systolic 102–167; BP diastolic 52–81
--- NOTE | 2018-10-27 06:45 | NUR ---
MIKE MORROW presented to unit via ambulation from home, accompanied by family , with c/o INDUCTION. MIKE MORROW weighed, gowned, voided, and to bed. EFHM and TOCO applied, VS taken. MIKE MORROW oriented to bed controls, call light, TV, heat, and A/C controls.
--- OUTSIDE RECORDS SUMMARY | 2018-10-27 06:49 | XMS REPORT | Clinical Summary ---
Author Author [facility] Organization [facility] Address Unknown Phone Unavailable Care Team Providers Care Bridge Worker Apprentice Name Role Phone No Pcp, Na PCP Unavailable Salome Roblero Unavailable Unavailable Netwon Ramos MD Unavailable Karlee Tirado RN Unavailable Unavailable Deirdre Baker RN Unavailable Unavailable Source Comments Some departments are not documenting in the electronic medical record. If you d o not see the information that you expected, contact Release of Information in [facility] [employer] Information Management department at [phone] for further assistan ce in locating additional records.[facility] Allergies No Known Allergies Medications No known [...] Used Never Smoker Smokeless Tobacco: Never Used Drinks/Week oz/Week Comments Alcohol Use No Sex Assigned at Date Recorded Not on file Industry Job Start Date Occupation Not on file Not on file Not on file Travel End Travel History Travel Start No recent travel history available. Last Filed Vital Signs Reading Time Taken Comments Vital Sign 118/68 02/26/2016 8:59 AM CDT Blood Pressure 69 02/26/2016 8:59 AM CDT Pulse 36.8 C (98.2 F) 10/04/2015 4:30 PM CDT Temperature - - Respiratory Rate 97% 10/04/2015 4:30 PM CDT Oxygen Saturation - - Inhaled Oxygen Concentration 67.2 kg (148 lb 3.2 oz) 02/26/2016 8:59 AM CDT Weight 158.8 cm (5' 2.5") 02/26/2016 8:59 AM CDT Height 26.67 02/26/2016 8:59 AM CDT Body Mass Index Plan of Treatment Health Maintenance Due Date Last Done Comments PHYSICAL (COMPREHENSIVE) 12/09/2002 EXAM HIV SCREENING 12/09/2010 HPV VACCINES (1 - Female 12/09/2010 3-dose series) DTAP/TDAP VACCINES (1 - 12/09/2013 Tdap) CERVICAL CANCER SCREENING 12/09/2016 INFLUENZA VACCINE 02/08/2019 MENINGOCOCCAL VACCINE Aged Out No longer eligible based (ACWOscar,Menactra) on patient's age to complete this topic Results Not on filefrom Last 3 Months Insurance Type Payer Benefit Subscriber ID Effective Phone Address Plan / Dates Group PPO BCBS [facility] xxxxxxxxxxxx 2015-P [facility] resent BLUE Advance Directives 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
--- OUTSIDE RECORDS SUMMARY | 2018-10-27 06:49 | XMS REPORT | Encounter Summary ---
Author Author [facility] Organization [facility] Address Unknown Phone Unavailable Care Team Providers Care Spiritual Counselor Name Role Phone No Pcp, Na PCP Unavailable AnnikaJuanitay AUD Unavailable Unavailable Newton Ramos MD Unavailable Karlee Tirado RN Unavailable Unavailable Deirdre Baker RN Unavailable Unavailable Reason for Visit * Reason Comments Appointment Request Encounter Details Care Team Description Date Type Department Newton Ramos MD [address] [facility] Orth[facility] [address] [place] [address] Appointment Request 07/01/[address] [facility] [address] [facility] MED OFF[address] [place] [address] Social History Date Tobacco Use Types Packs/Day Years Used Never Smoker Smokeless Tobacco: Never Used Drinks/Week oz/Week Comments Alcohol Use No Sex Assigned at Date Recorded Not on file Industry Job Start Date Occupation Not on file Not on file Not on file Travel End Travel History Travel Start No recent travel history available. documented as of this encounter Miscellaneous Notes * Telephone Encounter - Elvia Forde, HUE - 07/01/2016 10:24 AM TRANSFER AGENT Called patient asking her to make an appointment with Dr. Ramos. She had tympano plasty Sep, 2015 and needs to be seen; she was a no show at her last appointment on June 24, 2016. Patient stated she would have to call me back because she would have to plan transportation. Reminded patient that Dr. Ramos said it was very important for her to follow up. Patient voiced understanding and direct p ramsey number provided. SFER AGENT documented in this encounter Plan of Treatment Not on filedocumented as of this encounter Visit Diagnoses Not on filedocumented in this encounter
--- OUTSIDE RECORDS SUMMARY | 2018-10-27 06:49 | XMS REPORT | Encounter Summary ---
Author Author [facility] Organization [facility] Address Unknown Phone Unavailable Care Team Providers Care Nutrition Educator Name Role Phone No Pcp, Na PCP Unavailable Annika Salome AUD Unavailable Unavailable Newton Ramos MD Unavailable Karlee Tirado RN Unavailable Unavailable Deirdre Baker RN Unavailable Unavailable Reason for Visit * Reason Comments Ear Evaluation Encounter Details Care Team Description Date Type Department Newton Ramos MD [address] [facility] Ortho/[facility] [address] [place] [address] [phone] Bilateral tympanic membrane perforation (Primary Dx); 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 documented as of this encounter Last Filed Vital Signs Reading Time Taken Comments Vital Sign 118/68 02/26/2016 8:59 AM CDT Blood Pressure 69 02/26/2016 8:59 AM CDT Pulse - - Temperature - - Respiratory Rate - - Oxygen Saturation - - Inhaled Oxygen Concentration 67.2 kg (148 lb 3.2 oz) 02/26/2016 8:59 AM CDT Weight 158.8 cm (5' 2.5") 02/26/2016 8:59 AM CDT Height 26.67 02/26/2016 8:59 AM CDT Body Mass Index documented in this encounter Progress Notes * Newton Ramos MD - 02/26/2016 9:00 AM CDT Date of Service: 02/26/2016 Subjective: Janine Goddard is a 20 y.o. female. History of Present Illness FU cholesteatoma resection right. Popping on and off. Needs second look. Hearing about same both sides. Review of Systems Constitutional: Negative. HENT: Negative. Eyes: Negative. Respiratory: Negative. Cardiovascular: Negative. Gastrointestinal: Negative. Endocrine: Negative. Genitourinary: Negative. Musculoskeletal: Negative. Skin: Negative. Allergic/Immunologic: Negative. Neurological: Negative. Hematological: Negative. Psychiatric/Behavioral: Negative. Objective: No current outpatient prescriptions on file. Filed Vitals: 02/26/16 0859 BP: 118/68 Pulse: 69 Height: 158.8 cm (62.5") Weight: 67.223 kg (148 lb 3.2 oz) Body mass index is 26.66 kg/(m^2). Physical Exam On microscopic examination of the both ear she has an intact TM without retracti on on the right. Good graft present. Left large perforation with clean middle ear. Assessment and Plan: My impression is status post resection cholesteatoma on right ear with second lo ok due. Plan that in July of 2016. Needs complete resection in left ear. 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
--- OUTSIDE RECORDS SUMMARY | 2018-10-27 06:50 | XMS REPORT | Encounter Summary ---
Author Author [facility] Organization [facility] Address Unknown Phone Unavailable Care Team Providers Care Hadoop Admin Name Role Phone No Pcp, Na PCP Unavailable Salome Roblero Unavailable Unavailable Newton Roche MD Unavailable Karlee Tirado RN Unavailable Unavailable Deirdre Baker RN Unavailable Unavailable Reason for Visit * Auth/Cert Referred By Contact Referred To Contact Status Reason Specialty Diagnoses / Procedures [facility] Or [address] [address] General Surgery Diagnoses Dysfunction of both eustachian tubes Dysfunction of both eustachian tubes [H69.83] P rocedures TYMPANOPLASTY Encounter Details Care Team Description Date Type Department Newton Roche MD [address] Orth[facility] Pavilion [address] [address] Dysfunction of both eustachian tubes 10/04/2015 [facility] OR [address] [id number] Social History Date Tobacco Use Types Packs/Day [...] Signs Reading Time Taken Comments Vital Sign 134/71 10/04/2015 4:30 PM CDT Blood Pressure 102 10/04/2015 4:30 PM CDT Pulse 36.8 C (98.2 F) 10/04/2015 4:30 PM CDT Temperature - - Respiratory Rate 97% 10/04/2015 4:30 PM CDT Oxygen Saturation - - Inhaled Oxygen Concentration 72.6 kg (160 lb) 09/24/2015 12:39 PM CDT Weight 160 cm (5' 3") 09/24/2015 12:39 PM CDT Height 28.34 09/24/2015 12:39 PM CDT Body Mass Index documented in this encounter Discharge Instructions * Pre-Anesthesia Patient Instructions* Karlee Tirado, HUE - 09/24/2015 12:54 PM CDT GENERAL INFORMATION Before you come to the hospital Make arrangements for a responsible adult to drive you home and stay with you for 24 hours following surgery. Bath/Shower Instructions Take a bath or shower using the special soap given to you in PAC. Use half th e bottle the night before, and the other half the morning of your procedure. Use clean towels with each bath or shower. Put on clean clothes after bath or shower. Avoid using lotion and oils. Leave money, credit cards, jewelry, and any other valuables at home. The [facility] is not responsible for the loss or breakage of persona l items. Remove nail mexican, makeup and all jewelry (including piercings) before comin g to the hospital. The morning of your procedure: brush your teeth and tongue do not smoke do not shave the area where you will have surgery What to bring to the hospital ID/ Insurance Card Insurance Salesman card Official documents for legal guardianship Copy of your Living Will, Advanced Directives, and/or Durable Power of Attorn ey Small bag with a few personal belongings Dress in clean, loose, comfortable clothing Eating or drinking before surgery Do not eat or drink anything after midnight the day before your procedure (in cluding gum, mints, candy, or chewing tobacco). Other instructions Notify your surgeon if: there is a possibility that you are you become ill with a cough, fever, sore throat, nausea, vomiting or flu-like symptoms you have any open wounds/sores that are red, painful, draining, or are new si nce you last saw the doctor you need to cancel your procedure Notify us at [facility]: if you need to cancel your procedure if you are going to be late Arrival at the hospital [facility] [place]: Park in the [place] [facility] located directly across from the [facility] to the hospital. [place] [employer] parking is available Thursday through Thursday from 7 AM to 4 PM. Have your parking ticket validated at the Information Desk in the [facility]. Go to Admissions, located [facility] the Information Desk. * Pre-Anesthesia Medication Instructions* Karlee Tirado RN - 09/24/2015 12:55 PM CDT YOUR MEDICATIONS: ESTRADIOL CYPIONATE (DEPO-ESTRADIOL IM) Inject to area(s) as directed. YOUR MEDICATION INSTRUCTIONS FOR SURGERY: Before surgery Stop vitamins, herbals, and natural supplements as of today Stop the following medications 7 days before surgery: Anti-inflammatory medications such as ibuprofen (Advil, Motrin) and naproxen (Aleve) You may use acetaminophen (Tylenol) Morning of surgery On the morning of surgery, do NOT take these medications: Remaining vitamins/supplements Ointments/creams/lotions On the morning of surgery, take ONLY these medications with a sip (1-2 ounces) o f water: None Other information Before surgery, please contact the clinic pharmacist with any medicine updates o r questions. E-mail: [email or web address] Before going home from the hospital, please ask your doctor when you should re-s tart your medicines that were stopped before surgery. documented in this encounter Medications at Time of Discharge Start Date End Date Medication Sig Dispensed Refills 10/04/2015 10/09/2015 cephalexin (KEFLEX) 500 Take 1 Cap by 20 Cap 0 mg capsule mouth four times daily for 5 days. 11/20/2015 ESTRADIOL CYPIONATE Inject to 0 (DEPO-ESTRADIOL IM) area(s) as directed. 10/04/2015 11/20/2015 HYDROcodone/acetaminophen Take 1-2 Tabs 25 Tab 0 (NORCO) 5-325 mg tablet by mouth every 4 hours as needed for Pain documented as of this encounter Progress Notes * Karlee Tirado RN - 09/24/2015 12:57 PM CDT PAC phone triage completed with pt for surgery 10.04.2015. Allergies, medication s and health history reviewed with pt and profile updated in O2. Pt denies hx of chest pain and cardiorespiratory symptoms. Pt does not exercise on a regular ba sis but denies any complications with climbing (2) flights of stairs. No PAC lakhwinder ointment scheduled. Pre-op instructions reviewed with pt including NPO after midnight the night befo re surgery. May brush teeth/tongue the morning of surgery. Shower with CHG. Dres s in comfortable clothing. No makeup, fingernail mexican, jewelry, lotions. Pt in structed to avoid vitamins, supplements and herbals as of today and NSAIDs and b lood thinners (7) days prior to surgery. Pt will not take any medications the mo rning of surgery. Pt verbalizes understanding of instructions and denies questio ns. Pre-procedure instructions mailed to the patient as requested. documented in this encounter H&P Notes * Amy Navarrete MD - 10/04/2015 10:34 AM CDT History and Physical Update Note Allergies: Review of patient's allergies indicates no known allergies. Lab/Radiology/Other Diagnostic Tests: 24-hour labs: Results for orders placed or performed during the hospital encounter of 10/04/15 (from the past 24 hour(s)) TEST-URINE Collection Time: 10/04/15 9:45 AM Result Value Ref Range Urine-HCG NEG Specific [place] 1.016 Point of Care Testing: (Last 24 hours): I have examined the patient, and there are no significant changes in their condi tion, from the previous H&P performed on previous exam. . Right small perforation with worst hearing ear. 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 female. History of Present Illness Recurrent ear infection. Feb to Jul on and off. Ears drops and antibiotics. Last drainage several month or so ago. Both ear. Review of Systems Constitutional: Positive for fatigue. HENT: Positive for ear pain and tinnitus. Eyes: Negative. Respiratory: Positive for shortness of breath. Cardiovascular: Negative. Gastrointestinal: Negative. Endocrine: Negative. Genitourinary: Negative. Musculoskeletal: Positive for neck pain. Skin: Negative. Allergic/Immunologic: Negative. Neurological: Positive for headaches. Hematological: Negative. Psychiatric/Behavioral: Negative. Objective: ESTRADIOL CYPIONATE (DEPO-ESTRADIOL IM) Inject to area(s) as directed. Vitals Filed Vitals: 09/18/15 1421 BP: 116/77 Pulse: 69 Height: 158.8 cm (62.5") Weight: 74.844 kg (165 lb) Body mass index is 29.68 kg/(m^2). Physical Exam On microscopic examination of the both ear she has 20% perforation with clean mi ddle ear. The left ear has a subtotal perforation but is clean. Assessment and Plan: Right small perforation with worst hearing ear. 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 Will use this as a gauge of eustachian tube dysfunction d egree for much more difficult left ear. documented in this encounter Miscellaneous Notes * Operative Report (Direct Entry) - Newton Roche MD - 10/05/2015 12:49 PM CDT OPERATIVE REPORT Name: Janine Goddard is a 19 y.o. female : 1995 DATE OF OPERATION: 10/04/2015 Surgeon(s) and Role: * Newton Roche MD - Primary * Amy Navarrete MD - Resident - Assisting Preoperative Diagnosis: Dysfunction of both eustachian tubes [H69.83] Post-op Diagnosis * Dysfunction of both eustachian tubes [H69.83] Procedure(s) and Anesthesia Type: 1. Right TYMPANOPLASTY 2. Right Operative microscopic surgical procedure 3. Right Middle ear exploration 4. Right Facial nerve monitoring 5. Right Fascial grafting harvest Indications for Operative Procedure: Right small perforation with worst hearing ear. 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 Discussed operative intervention, patient decided to proc eed, informed consent obtained prior to the procedure. Findings: Patient with ~30 percent anterior perforation. Posterior to perforatio n was a large cholesteatoma filling the middle ear cavity, with extensive tympan osclerosis near the stapes and complete fixation of the stapes. Erosion of round window niche leaving round window and inferior membranous sac exposed, fascial graft placed over round window. Type 1 tympanoplasty performed once cholesteatom a removed. Description and Findings of Operative Procedure: With the patient under general anesthesia and the oral endotracheal tube in plac e, the left ear was prepped and draped sterilely. The post auricular area was in jected with 1% Xylocaine with epinephrine 1:100,000 as well as the external selma l. The ear was examined under microscope and noted have a 30% perforation in the anterior portion of the tympanic membrane. It was felt that it was best handled through a postauricular incision. Intercanal incision was made and then a posta uricular incision was made and the two were connected through the ear canal and the auricle retracted anteriorly. A temporalis fascia graft was then harvested and satisfactorily used. The perfor ation was then well visualized and the edges of the perforation were de-epitheli alized. Tympanomeatal flap was then elevated from 12 oclock to 6 oclock. A s the flap was elevated anteriorly, it became obvious that there was a large cho lesteatoma emanating from the posterior portion of the perforation. The choleste atoma mass was carefully elevated from the middle ear space. The round window ni jarrod was completely eroded and the remaining round window membrane was exposed. T he malleus was mostly intact and the incus was eroded, but the stapes was comple tely fixed and there was extensive tympanosclerosis of the bone around the stape s. The mass as removed entirely, taking care to peel it from the [place] drum. Th e middle ear space was irrigated copiously. A small portion of fascia graft was harvested and placed over the exposed round window membrane. The middle ear was then filled with Gelfoam soaked in floxin drops, and the previously set aside te mporalis fascia graft was then placed underneath the tympanomeatal flap. Then, t he tympanomeatal flap was returned to its original position. The graft was then meticulously tucked under all edges with perforation under the operating microsc ope. Once this was in proper location, the external canal was filled with Gelfoa m. The subcutaneous tissue was closed with 3-0 vicryl and skin was closed with a ru nning 5-0 fast. A mastoid dressing was applied. The patient tolerated the proced ure well. Estimated blood loss was 10 mL. The patient was brought to the recover y room in good condition. Estimated Blood Loss: 20 ml Specimen(s) Removed/Disposition: ID Type Source Tests Collected by Time Destination 1 : 1. MIDDLE EAR TISSUE Tissue Ear Middle SURGICAL PATHOLOGY Newton bonilla MD 10/04/2015 5123 Attestation: Dr. Roche was present during all max portions of the procedure. Amy Navarrete MD Pager [phone] documented in this encounter Plan of Treatment Order Schedule Name Type Priority Associated Diagnoses ONCE for 1 Occurrences starting 10/04/2015 SURGICAL PATHOLOGY Pathology Routine Dysfunction of both eustachian tubes documented as of this encounter Procedures Comments Procedure Name Priority Date/Time Associated Diagnosis PROCEDURES-SCAN 10/09/2015 11:52 AM CDT TYMPANOPLASTY WITHOUT 10/04/2015 Dysfunction of both MASTOIDECTOMY/ OSSICULAR 11:11 AM CDT eustachian tubes CHAIN RECONSTRUCTION TEST-URINE 10/04/2015 9:45 AM CDT SURGICAL PATHOLOGY 10/04/2015 8:15 AM CDT documented in this encounter Results * PROCEDURES-SCAN (10/09/2015 11:52 AM CDT) Narrative Performed At Ordered by an unspecified provider. * TEST-URINE (10/04/2015 9:45 AM CDT) Urine-HCG NEG MAIN LAB Specific 1.016 MAIN LAB [place] Specimen Performing Organization Address City/State/Zipcode Phone Number MAIN LAB [address] [place] [address] * SURGICAL PATHOLOGY (10/04/2015 8:15 AM CDT) PATHOLOGY [facility] [email or web address] Kirill Meza MD, PhD, Director Anatomic Pathology Department of Pathology and Laboratory Medicine [address] [place] [id number] Surgical Pathology Office:[phone] :[phone] SURGICAL PATHOLOGY REPORT NAME: JANINE GODDARD SURG PATH #: [id number] MR #: [id number] SPECIMEN CLASS: SR BILLING #: [id number] ALT ID #:LOCATION: [facility] DATE OF PROCEDURE: 10/04/2015 AGE:19 SEX: F DATE RECEIVED: 10/05/2015 : 1995TIME RECEIVED:08:15 PHYSICIAN: NEWTON ROCHE DATE OF REPORT: 10/09/2015 COPY TO:DATE OF PRINTIN10/09/2015 ############################## ############################## ############ Final Diagnosis: A. Squamous epithelium, keratin, and bone fragments, "middle ear tissue", excision: Cholesteatoma. Attestation: By this signature, I attest that I have personally formulated the final interpretation expressed in this report and that the above diagnosis is based upon my examination of the slides and/or other material indicated in this report. +++Electronically Signed Out By+++ mo/10/09/2015 Interpreted by: Marixa Fernández MD, Attending Physician 10/09/2015 ############################## ############################## ############ Material Received: A: middle ear tissue History: 19-year-old female with a clinical history of dysfunction of both eustachian tubes. Gross Description: A. Received in formalin, labeled with the patient's name and "middle ear tissue" is a 0.8 x 0.8 x 0.4 cm aggregate of sarmiento-brown soft tissue. The specimen is submitted entirely in cassette A1. (tn) tn/10/05/2015 Specimen Performing Organization Address City/State/Zipcode Phone Number [facility] RESULTS documented in this encounter Visit Diagnoses Diagnosis Dysfunction of both eustachian tubes Dysfunction of Eustachian tube documented in this encounter Administered Medications Action Date Dose Rate Site Medication Order MAR Action 10/04/2015 2:48 PM CDT 50 mcg fentaNYL citrate PF (SUBLIMAZE) Given injection 25-50 mcg 25-50 mcg, Intravenous, NEEDED, Starting Ximena 10/04/15 at 1359, Until Ximena 10/04/15 at 1924, Pain, Post anesthesia orders. PRN, may repeat up to 200 mcg. Notify anesthesia for inadequate analgesia. NOTE: This is a HIGH ALERT Medication., PACU (only) 50 mcg Given 10/04/2015 2:18 PM CDT HYDROCODONE-ACETAMINOPHEN 5-325 MG PO TAB (Cabinet Override) NOW, 1 dose, Ximena 10/04/15 at 1530, Katie Torres: cabinet override NOTE: This is a HIGH ALERT Medication., Katie Torres: cabinet override, 10/04/2015 3:23 PM CDT 2 tablets HYDROcodone/acetaminophen (NORCO; Given VICODIN) 5-325 mg tablet 1-2 Tab 1-2 tablet, Oral, ONCE, 1 dose, Ximena 10/04/15 at 1530, TOTAL ACETAMINOPHEN DOSE NOT TO EXCEED 4GM DAILY NOTE: This is a HIGH ALERT Medication., PACU (only) 10/04/2015 12:50 PM CDT lactated ringers infusion Given - New 1,000 mL, 1,000 mL, Intravenous, at 20 Bag mL/hr, CONTINUOUS, Starting Ximena 10/04/15 at 0945, Until Ximena 10/04/15 at 1924, Pre-Op 1,000 mL 20 mL/hr Given - New Bag 10/04/2015 10:31 AM CDT 10/04/2015 3:53 PM CDT 10 mg metoclopramide HCl (REGLAN) injection 10 Given mg 10 mg, Intravenous, ONCE PRN, 1 dose, Starting Ximena 10/04/15 at 1359, Until Ximena 10/04/15 at 1553, Nausea, Vomiting, If not given in last six hours., PACU (only) documented in this encounter
--- OUTSIDE RECORDS SUMMARY | 2018-10-27 06:50 | XMS REPORT | Encounter Summary ---
Author Author [facility] Organization [facility] Address Unknown Phone Unavailable Care Team Providers Care Kiln Mechanic Name Role Phone No Pcp, Na PCP Unavailable Salome Roblero AUD Unavailable Unavailable Newton Ramos MD Unavailable Reason for Visit * Reason Comments Hearing Testing Encounter Details Care Team Description Date Type Department Salome Roblero AUD Conductive hearing loss of both ears (Primary Dx) 09/18/2015 Clinical [facility] Support Physicians - ENT Clinic [address] [facility] MED OFF[facility] [address] [place] [address] Social History Date Tobacco Use Types Packs/Day Years Used Never Smoker Drinks/Week oz/Week Comments Alcohol Use No Sex Assigned at Date Recorded Not on file Industry Job Start Date Occupation Not on file Not on file Not on file Travel End Travel History Travel Start No recent travel history available. documented as of this encounter Plan of Treatment Not on filedocumented as of this encounter Procedures Comments Procedure Name Priority Date/Time Associated Diagnosis AUDIOMETRY WITH Routine 09/18/2015 TYMPANOMETRY documented in this encounter Visit Diagnoses Diagnosis Conductive hearing loss of both ears - Primary Conductive hearing loss, bilateral documented in this encounter
--- OUTSIDE RECORDS SUMMARY | 2018-10-27 06:50 | XMS REPORT | Encounter Summary ---
Author Author [facility] Organization [facility] Address Unknown Phone Unavailable Care Team Providers Care Flat Lock Machine Operator Name Role Phone No Pcp, Na PCP Unavailable Salome Roblero Unavailable Unavailable Newton Roche MD Unavailable Karlee Tirado RN Unavailable Unavailable Deirdre Baker RN Unavailable Unavailable Reason for Visit * Auth/Cert Referred By Contact Referred To Contact Status Reason Specialty Diagnoses / Procedures [facility] Or [address] [address] General Surgery Diagnoses Dysfunction of both eustachian tubes Dysfunction of both eustachian tubes [H69.83] P rocedures TYMPANOPLASTY Encounter Details Care Team Description Date Type Department Newton Roche MD [address] Ortho[facility]Med Pavilion [address] [place] [address] TYMPANOPLASTY 10/04/2015 Surgery [facility] OR [address] [id number] Social History Date Tobacco Use Types Packs/Day [...] Discharge Instructions * Pre-Anesthesia Patient Instructions* Karlee Tirado RN - 09/24/2015 12:54 PM CDT GENERAL INFORMATION [...] and any other valuables at home. [facility] is not responsible for the loss or breakage of persona Dennoo items. Remove nail albanian, makeup and all jewelry (including piercings) before comin g to the hospital. The morning of your procedure: brush your teeth and tongue do not smoke do not shave the area where you will have surgery What to bring to the hospital ID/ Insurance Card Insurance Producer card Official documents for legal guardianship Copy [...] to cancel your procedure Notify us at [facility]: if you need to cancel your procedure if you are going to be late Arrival at the hospital [facility]: Park in the [place] Parking Garage located directly across from the [facility] to the hospital. Dental Chair [employer] parking is available Thursday through Thursday from 7 AM to 4 PM. Have your parking ticket validated at the Information Desk in the [facility]. Go to [facility]. * Pre-Anesthesia Medication [...] any medicine updates o r questions. E-mail: [email or web address] Before going home from the hospital, please [...] of this encounter Progress Notes * Karlee Tiardo RN - 09/24/2015 12:57 PM CDT PAC [...] s in comfortable clothing. No makeup, fingernail albanian, jewelry, lotions. Pt in structed to avoid [...] Result Value Ref Range Urine-HCG NEG Specific [place] 1.016 Point of Care Testing: (Last 24 [...] a right hander Amy Navarrete MD Pager [phone] Subjective: Janine Goddard is a 19 y.o. [...] taking care to peel it from the [place] drum. Th e middle ear space was [...] Middle SURGICAL PATHOLOGY Newton bonilla MD 10/04/2015 0631 Attestation: Dr. Roche was present during all max portions of the procedure. Amy Navarrete MD Pager [phone] documented in this encounter Plan of Treatment [...] NEG MAIN LAB Specific 1.016 MAIN LAB [place] Specimen Performing Organization Address City/State/Zipcode Phone Number MAIN LAB [address] [place] [address] * SURGICAL PATHOLOGY (10/04/2015 8:15 AM CDT) PATHOLOGY [facility] LAB RESULTS REPORT HOSP[facility] [email or web address] Kirill Meza MD, PhD, Director Anatomic Pathology Department of Pathology and Laboratory Medicine [address] [place] [phone] Surgical Pathology Office:[phone] :[phone] SURGICAL PATHOLOGY REPORT NAME: JANINE GODDARD SURG PATH #: [id number] MR #: [id number] SPECIMEN CLASS: SR BILLING #: [id number] ALT ID #:LOCATION: [facility] DATE OF PROCEDURE: [...] specimen is submitted entirely in cassette A1. (ri) ri/10/05/2015 Specimen Performing Organization Address City/State/Zipcode Phone Number [facility] RESULTS documented in this encounter Visit Diagnoses Diagnosis Dysfunction of both eustachian tubes Dysfunction of Eustachian tube documented in this encounter Administered Medications Action Date Dose Rate Site Medication Order MAR Action 10/04/2015 1:38 PM CDT 1 Dose Face bacitracin topical ointment Given INTRA-PROCEDURE MED, Starting Ximena 10/04/15 at 1338, Until Ximena 10/04/15 at 1924, Intra-op 10/04/2015 11:49 AM CDT 2 mL Face EPINEPHrine (ADRENALIN) injection Given INTRA-PROCEDURE MED, Starting [facility] 10/04/15 at 1149, Until Ximena 10/04/15 at 1924, Intra-op 10/04/2015 2:48 PM CDT 50 mcg fentaNYL [...] PO TAB (Cabinet Override) NOW, 1 dose, [facility] 10/04/15 at 1530, Katie Torres: cabinet override [...] New Bag 10/04/2015 10:31 AM CDT 10/04/2015 11:56 AM CDT 5.5 mL Face lidocaine 1%/EPINEPHrine 1:100,000 Given injection INTRA-PROCEDURE MED, Starting Ximena 10/04/15 at 1156, Until Ximena 10/04/15 at 1924, Intra-op 10/04/2015 3:53 PM CDT 10 mg metoclopramide HCl (REGLAN) injection 10 Given mg 10 mg, Intravenous, ONCE PRN, 1 dose, Starting Ximena 10/04/15 at 1359, Until Ximena 10/04/15 at 1553, Nausea, Vomiting, If not given in last six hours., PACU (only) 10/04/2015 1:03 PM CDT 5 drops ofloxacin(+) (FLOXIN) 0.3 % ophthalmic Given solution INTRA-PROCEDURE MED, Starting Ximena 10/04/15 at 1303, Until Ximena 10/04/15 at 1924, Intra-op documented in this encounter
--- OUTSIDE RECORDS SUMMARY | 2018-10-27 06:50 | XMS REPORT | Encounter Summary ---
Author Author [facility] Organization [facility] Address Unknown Phone Unavailable Care Team Providers Care Collar Starcher Name Role Phone No Pcp, Na PCP Unavailable Annika Salome AUD Unavailable Unavailable Newton Ramos MD Unavailable Karlee Tirado RN Unavailable Unavailable Deirdre Baker RN Unavailable Unavailable Reason for Visit * Reason Comments Post Operative Visit Encounter Details Care Team Description Date Type Department Newton Ramos MD [address] [facility] Ortho/Med [place] [address] [place] [address] [phone] Cholesteatoma of middle ear, right (Primary Dx); Bilateral tympanic membrane perforation 10/09/2015 Office Visit [facility] Physicians - ENT Clinic [address] [facility] [place] [address] Social History Date Tobacco Use [...] Signs Reading Time Taken Comments Vital Sign 119/72 10/09/2015 11:43 AM CDT Blood Pressure 93 10/09/2015 11:43 AM CDT Pulse - - Temperature - - Respiratory Rate - - Oxygen Saturation - - Inhaled Oxygen Concentration 71.8 kg (158 lb 3.2 oz) 10/09/2015 11:43 AM CDT Weight 158.8 cm (5' 2.5") 10/09/2015 11:43 AM CDT Height 28.47 10/09/2015 11:43 AM CDT Body Mass Index documented in this encounter Patient Instructions * Patient Instructions* Newton Ramos MD - 10/09/2015 11:55 AM CDT Please keep the ears dry with vaseline and cotton. (Use vaseline on the inner mckinnon rface or a small clean cotton ball and insert in to the external ear. Remove af ter water exposure) documented in this encounter Progress Notes * Newton Ramos MD - 10/09/2015 11:44 AM CDT Date of Service: 10/09/2015 Subjective: Janine Goddard is a 19 y.o. female. History of Present Illness FU. antibiotics and pain pill. Review of Systems Constitutional: Negative. HENT: Negative. Eyes: Negative. Respiratory: Negative. Cardiovascular: Negative. Gastrointestinal: Negative. Endocrine: Negative. Genitourinary: Negative. Musculoskeletal: Negative. Skin: Negative. Allergic/Immunologic: Negative. Neurological: Negative. Hematological: Negative. Psychiatric/Behavioral: Negative. Objective: cephalexin (KEFLEX) 500 mg capsule Take 1 Cap by mouth four times daily for 5 days. ESTRADIOL CYPIONATE (DEPO-ESTRADIOL IM) Inject to area(s) as directed. HYDROcodone/acetaminophen (NORCO) 5-325 mg tablet Take 1-2 Tabs by mouth rupesh ry 4 hours as needed for Pain Filed Vitals: 10/09/15 1143 BP: 119/72 Pulse: 93 Height: 158.8 cm (62.5") Weight: 71.759 kg (158 lb 3.2 oz) Body mass index is 28.46 kg/(m^2). Physical Exam On microscopic examination of the right ear she has packing removed. post auric ular is clear. Assessment and Plan: Doing well. documented in this encounter Plan of Treatment Not on filedocumented as of this encounter Visit Diagnoses Diagnosis Cholesteatoma of middle ear, right - Primary Bilateral tympanic membrane perforation Perforation of tympanic membrane, unspecified documented in this encounter
--- OUTSIDE RECORDS SUMMARY | 2018-10-27 06:50 | XMS REPORT | Encounter Summary ---
Author Author [facility] Organization [facility] Address Unknown Phone Unavailable Care Team Providers Care Die Cast Supervisor Name Role Phone No Pcp, Na PCP Unavailable Annika Salome AUD Unavailable Unavailable Newton Ramos MD Unavailable Karlee Tirado RN Unavailable Unavailable Deirdre Baker RN Unavailable Unavailable Reason for Visit * Reason Comments Post Operative Visit Encounter Details Care Team Description Date Type Department Newton Ramos MD [address] [facility] Ortho/Med Pavilion Lvl [address] [place] [address] [phone] Bilateral tympanic membrane perforation (Primary Dx); 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 Physicians - ENT Clinic [address] [facility] MED OFFICE [address]LDG 3RD [place] [phone] Social History Date Tobacco Use Types Packs/Day [...] Signs Reading Time Taken Comments Vital Sign 114/74 11/20/2015 9:14 AM CDT Blood Pressure 69 11/20/2015 9:14 AM CDT Pulse - - Temperature - - Respiratory Rate - - Oxygen Saturation - - Inhaled Oxygen Concentration 68.9 kg (152 lb) 11/20/2015 9:14 AM CDT Weight 158.8 cm (5' 2.5") 11/20/2015 9:14 AM CDT Height 27.36 11/20/2015 9:14 AM CDT Body Mass Index documented in this encounter Patient Instructions * Patient Instructions* Newton Ramos MD - 11/20/2015 9:50 AM CDT Increase valsalva (pop) to 10-20x per day. documented in this encounter Progress Notes * Newton Ramos MD - 11/20/2015 9:17 AM CDT Date of Service: 11/20/2015 Subjective: Janine Goddard is a 19 y.o. female. History of Present Illness 2nd POV. 6 weeks. Doing well. Right surgery. Wondering about surgery on other ear. Review of Systems Constitutional: Negative. HENT: Negative. Eyes: Negative. Respiratory: Negative. Cardiovascular: Negative. Gastrointestinal: Negative. Endocrine: Negative. Genitourinary: Negative. Musculoskeletal: Negative. Skin: Negative. Allergic/Immunologic: Negative. Neurological: Negative. Hematological: Negative. Psychiatric/Behavioral: Negative. Objective: No current outpatient prescriptions on file. Filed Vitals: 11/20/15 0914 BP: 114/74 Pulse: 69 Height: 158.8 cm (62.5") Weight: 68.947 kg (152 lb) Body mass index is 27.34 kg/(m^2). Physical Exam On microscopic examination of the both ear she has on the right side a nicely he aled tympanic membrane with Cartilage graft. Left ear with subtotal perforation with clean middle ear. Assessment and Plan: Doing well. Plan for evaluation in 2 months and schedule other - left - ear so on thereafter if doing well. Important to do valsalva on regular basis. 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
--- OUTSIDE RECORDS SUMMARY | 2018-10-27 06:50 | XMS REPORT | Encounter Summary ---
Author Author [facility] Organization [facility] Address Unknown Phone Unavailable Care Team Providers Care Commissioning Editor Name Role Phone No Pcp, Na PCP Unavailable Reason for Visit * Reason Comments Ear Drainage Pt reports b/l ear drainage for a few months Encounter Details Care Team Description Date Type Department Tristan[facility] [address] [place], [place] [id number] 06/11/[address] [address] Social History Date Tobacco Use Types Packs/Day Years Used Never Assessed Sex Assigned at Date Recorded Not on file Industry Job Start Date Occupation Not on file Not on file Not on file Travel End Travel History Travel Start No recent travel history available. documented as of this encounter Last Filed Vital Signs Reading Time Taken Comments Vital Sign 120/72 06/11/2015 1:42 PM [employer]UR[employer] RE[employer] Blood Pressure - - Pulse 36.9 C (98.4 F) 06/11/2015 1:42 PM [employer] Temperature - - Respiratory Rate 100% 06/11/2015 1:42 PM [employer]AUR[employer] RECRU[employer] Oxygen Saturation - - Inhaled Oxygen Concentration 72.6 kg (160 lb) 06/11/2015 1:42 PM [employer]AUR[employer] RE[employer] Weight - - Height - - Body Mass Index documented in this encounter Discharge Instructions * Instructions* Day Luna APRN-NP - 06/11/2015 Continue to take the Cefdinir that you were prescribed until completed. Call EN T for an appointment and return to your PCP as needed if your symptoms worsen or you develop increased ear pain. You can take Benadryl at night time as well to help decrease pressure. Claritin was provided today to take during the daytime as well. * Attachments The following attachments cannot be sent through Care Everywhere.* EAR INFECTIONS, MIDDLE, REDUCING THE RISK OF (TAMAZIGHT) * OTITIS MEDIA, ABX TX (ADULT) (TAMAZIGHT) documented in this encounter Medications at Time of Discharge Start Date End Date Medication Sig Dispensed Refills 06/11/2015 09/18/2015 diphenhydrAMINE Take 1 Cap by 30 Cap 0 (BENADRYL) 25 mg capsule mouth every 6 hours as needed. 06/11/2015 09/18/2015 loratadine (CLARITIN) 10 Take 1 Tab by 30 Tab 0 mg tablet mouth daily. documented as of this encounter ED Notes * Jenny Luther RN - 06/11/2015 3:29 PM RESTAURANT RECRUITER Discharge instructions and prescriptions discussed with pt. Pt states teja mueller. Pt ambulatory with steady gait. AURANT RECRUITER * Jorge Hudson - 06/11/2015 3:01 PM RESTAURANT RECRUITER Janine Goddard is a 19 y.o. female. Chief Complaint: Chief Complaint Patient presents with Ear Drainage Pt reports b/l ear drainage for a few months History of Present Illness: HPI Comments: Janine Goddard is a 19 y.o. female who comes to the ED today with a complaint of bilateral ear pain. She reports experiencing bilateral ear pain that has been going on for two months. She was given Augmenting in February and has taken two rounds of this with relief for a short time and then her symptoms return. Pt states she has a history of emergency right ear surgery in 2005 due to mastoiditis. Janine remarks that she follows with Dr. Gonzalez since her mast oiditis Dx, and adds that she has an appointment to see him next month. She rep orts that she then went to see her PCP due to return of symptoms and they gave h er a script for Cefdinir which she has been taking for two days. Janine report s she does not want ear drops because they cause pain and do not improve her sym ptoms. Patient says she had a temperature of 101 degrees Farenheit and felt off balance this past Thursday. History provided by: Patient educational interpreter used: No Review of Systems: Review of Systems Constitutional: Positive for fever. HENT: Positive for ear discharge and ear pain. Eyes: Negative. Cardiovascular: Negative. Gastrointestinal: Negative. Genitourinary: Negative. Musculoskeletal: Negative. Skin: Negative. Neurological: Positive for dizziness. Psychiatric/Behavioral: Negative. All other systems reviewed and are negative. Allergies: Review of patient's allergies indicates no known allergies. Past Medical History: No past medical history on file. Past Surgical History: No past surgical history on file. Pertinent medical/surgical history reviewed No past medical history on file. No past surgical history on file. Social History: History Substance Use Topics Smoking status: Not on file Smokeless tobacco: Not on file Alcohol Use: Not on file History Drug Use Not on file Family History: No family history on file. Vitals: ED Vitals Date and Time T BP P RR SPO2P SPO2 [facility] 06/11/15 1342 36.9 C (98.4 F) 120/72 mmHg -- 18 PER MINUTE 76 100 % AM Physical Exam: Physical Exam Constitutional: She is oriented to person, place, and time. Vital signs are norm al. She appears well-developed and well-nourished. She is cooperative. No distre ss. HENT: Head: Normocephalic and atraumatic. Right Ear: Hearing and external ear normal. No drainage. No mastoid tenderness. Tympanic membrane is scarred, erythematous and bulging. Tympanic membrane is not injected and not perforated. No hemotympanum. Left Ear: Hearing and external ear normal. No mastoid tenderness. Tympanic membr ane is erythematous (slightly) and retracted (posterior portion). Tympanic membr ane is not injected and not perforated. A middle ear effusion is present. No hem otympanum. Nose: Nose normal. Mouth/Throat: Uvula is midline and oropharynx is clear and moist. Eyes: Conjunctivae and EOM are normal. Neck: Trachea normal, normal range of motion and full passive range of motion wi thout pain. Cardiovascular: Normal rate, regular rhythm, normal heart sounds and normal puls es. Pulses: Radial pulses are 2+ on the right side, and 2+ on the left side. Pulmonary/Chest: Effort normal and breath sounds normal. Abdominal: Normal appearance and bowel sounds are normal. There is no tenderness . Musculoskeletal: Normal range of motion. Neurological: She is alert and oriented to person, place, and time. She has norm al strength. Skin: Skin is warm and dry. No rash noted. She is not diaphoretic. Psychiatric: She has a normal mood and affect. Nursing note and vitals reviewed. Laboratory Results: No results found for this visit on 06/11/15 (from the past 24 hour(s)). Radiology Interpretation: EKG: ED Course: Pt was seen and evaluated in the ED by Parish Luna APRN and Indira Hudson DO. Previous record reviewed Patient presents with bilateral ear pain that has been on and off for some time She has been seen several times by different providers and placed on different a nitbiotics Physical exam significant for TM changes in both ears with AOM noted in the left Patient is currently on Cefdinir which is appropriate treatment Patient is stable for discharge Rx provided for Benadryl and Claritin Patient will follow up with PCP and ENT at [facility] Return precautions explained MDM Reviewed: previous chart, nursing note and vitals Facility Administered Meds: No current facility-administered medications on file as of 06/11/2015. Clinical Impression: Final diagnoses: Acute otitis media, unspecified laterality, unspecified otitis media type (Prima ry) Ear pain, bilateral Disposition/Follow up Ent Dpt [facility] [address] [facility] [address] [facility] [id number] Call today Na No Pcp Medications: Discharge Medication List as of 06/11/2015 3:27 PM START taking these medications Details diphenhydrAMINE (BENADRYL) 25 mg capsule 25 mg, Oral, EVERY 6 HOURS PRN, Starti ng 06/11/2015, Until Discontinued, Disp-30 Cap, R-0, Normal loratadine (CLARITIN) 10 mg tablet 10 mg, Oral, DAILY, Starting 06/11/2015, Until Discontinued, Disp-30 Tab, R-0, Normal Procedure Notes: Procedures Resident Supervision: I personally performed the max portions of the E/M visit, discussed case with AR TYPE SOLDERING MACHINE TENDER and concur with documentation of history, physical exam, assessment, and joseph tment plan unless otherwise noted. and I have seen and examined the patient and the above documentation is as I have dictated it to the scribe. Day Luna APRN-TYPE SOLDERING MACHINE TENDER Resident Supervision Note concerning Janine Goddard: I personally performed the max portions of the E/M visit, discussed case with [employer] LINE BACK FEEDER and concur with documen tation of history, physical exam, assessment, and treatment plan unless otherwis e noted. Jorge Hudson DO AURANT RECRUITER documented in this encounter Plan of Treatment Not on filedocumented as of this encounter Visit Diagnoses Diagnosis Acute otitis media, unspecified laterality, unspecified otitis media type - Primary Ear pain, bilateral Bilateral otitis media, unspecified chronicity, unspecified otitis media type Erythematous condition Unspecified erythematous condition Dizziness and giddiness documented in this encounter
--- OUTSIDE RECORDS SUMMARY | 2018-10-27 06:50 | XMS REPORT | Encounter Summary ---
Author Author [facility] Organization [facility] Address Unknown Phone Unavailable Care Team Providers Care Monitoring And Evaluation Advisor Name Role Phone No Pcp, Na PCP Unavailable Salome Roblero AUD Unavailable Unavailable Newton Ramos MD Unavailable Reason for Visit * Reason Comments Ear Evaluation pt.states having ear infections/aches/ constant pain. ear drainage. smell's bad/pussy. Encounter Details Care Team Description Date Type Department Newton Ramos MD [address] [facility] Ortho/Med Pavilion [address]vl [address] [place] [address] Bilateral tympanic membrane perforation (Primary Dx) 09/18/[address] [facility] Physicians - ENT Clinic [address] [facility] MED OFFICE BLDG 3RD [place] [address] Social History Date Tobacco Use [...] Signs Reading Time Taken Comments Vital Sign 116/77 09/18/2015 2:21 PM CDT Blood Pressure 69 09/18/2015 2:21 PM CDT Pulse - - Temperature - - Respiratory Rate - - Oxygen Saturation - - Inhaled Oxygen Concentration 74.8 kg (165 lb) 09/18/2015 2:21 PM CDT Weight 158.8 cm (5' 2.5") 09/18/2015 2:21 PM CDT Height 29.7 09/18/2015 2:21 PM CDT Body Mass Index documented in this encounter Progress Notes * Newton Ramos MD - 09/18/2015 2:27 PM CDT Date of Service: 09/18/2015 Subjective: Janine Goddard is a 19 y.o. [...] (DEPO-ESTRADIOL IM) Inject to area(s) as directed. Filed Vitals: 09/18/15 1421 BP: 116/77 Pulse: [...] hearing ear. 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 Will use this as a gauge of eustachian tube dysfunction degree for much more difficult left ear. documented in this encounter Plan of Treatment Not on filedocumented as of this encounter Visit Diagnoses Diagnosis Bilateral tympanic membrane perforation - Primary Perforation of tympanic membrane, unspecified documented in this encounter
--- OUTSIDE RECORDS SUMMARY | 2018-10-27 06:50 | XMS REPORT | Encounter Summary ---
Author Author [facility] Organization [facility] Address Unknown Phone Unavailable Care Team Providers Care Insecticide Mixer Name Role Phone No Pcp, Na PCP Unavailable Salome Roblero AUD Unavailable Unavailable Newton Ramos MD Unavailable Karlee Tirado RN Unavailable Unavailable Deirdre Baker RN Unavailable Unavailable Encounter Details Care Team Description Date Type Department Newton Ramos MD [address] Ortho/Med Pavilion [address] [place] [address] 09/18/2015 Prep for Case [facility] Physicians - ENT Clinic [address] MED OFFICE [address]LD[address] [place] [address] Social History Date Tobacco Use [...]
--- OUTSIDE RECORDS SUMMARY | 2018-10-27 06:50 | XMS REPORT | Encounter Summary ---
Author Author [facility] Organization [facility] Address Unknown Phone Unavailable Care Team Providers Care Work Order Detailer Name Role Phone No Pcp, Na PCP Unavailable Salome Roblero Unavailable Unavailable Newton Ramos MD Unavailable Karlee Tirado RN Unavailable Unavailable Deirdre Baker RN Unavailable Unavailable Reason for Visit * Auth/Cert Referred By Contact Referred To Contact Status Reason Specialty Diagnoses / Procedures [facility] [place] [address] [address] General Surgery Diagnoses Dysfunction of both eustachian tubes Dysfunction of both eustachian tubes [H69.83] P rocedures TYMPANOPLASTY Encounter Details Care Team Description Date Type Department Khadra Kaiser SRNA 10/04/[address] [facility] [place] [address] [id number] Anesthesia Record Responsible Anesthesiologist Anesthesia Start Time Anesthesia Stop Time Procedure Name Jian Escalera MD 10/04/15 1111 10/04/15 1401 TYMPANOPLASTY (Right Ear) Date Time Event Comment 1056 AN Equip Check 2015 1057 1111 Anes Start 1113 An Start Data 1119 An Induction The patient was reevaluated immediately before moderate or deep sedation use and before anesthesia induction. 1122 An Intubation 1123 Anesthesia Ready 1131 Antibiotic Given 1346 An Extubation Deep extubation. Pt suctioned. SV w adequate tv. Ett removed w Dr. Escalera present. SV w jaw thrust. OA inserted. SV without assistance. Taken to PACU w 100% O2. Report to RN. 1353 an stop data 1401 Handoff to RN I completed my SBAR handoff to the receiving nurse. 1401 An Stop Meds Name Total midazolam (VERSED) 1 mg/mL injection 2 mg fentaNYL PF (SUBLIMAZE) injection 125 mcg lidocaine (2%) 200 mg/10mL Injection 80 mg syringe propofol (DIPRIVAN) 200 mg/ 20 mL 200 mg injection (VIAL) succinylcholine (ANECTINE) inj 100mg/5ml 80 mg (SYRINGE) ondansetron (ZOFRAN) injection 4 mg dexamethasone (DECADRON) 10 mg/mL 10 mg injection phenylephrine (JANICE-SYNEPHRINE) 0.1 mg/mL 500 mcg injection (SYRINGE) ePHEDrine 10 mg/mL syringe 20 mg haloperidol (HALDOL) injection 2 mg ceFAZolin (ANCEF) injection 1 g remifentanil (ULTIVA) 1 mg/3 mL 1,000 397.12 mcg mcg in sodium chloride 0.9% (NS) 20 mL Injection lactated ringers infusion 1,000 mL * Name O2 N2O Air Sevoflurane Isoflurane Inspired Isoflurane Inspired Sevoflurane * No blood administrations on file. Removal Type Details Placement Wounds 10/04/15; 1336; RT; Ear; Surgical 10/04/15 1336 by Amos, (NOT for Incision; [employer]ESSING HUE [employer] Pressure Injuries) 10/04/15 1705 by Ashanti Arriaga RN Peripheral 10/04/15; 1030; L; Forearm; 20 G; 10/04/15 1030 by Baker, IV 10/04/15; 1705 HUE i[employer]more 10/04/15 1346 by Khadra Kaiser SRNA ETT 10/04/15; 1122; Ventilated by mask with 10/04/15 1122 by Awilda oral airway (2); Direct laryngoscopy, JENNIFER Gaviria Stylet; Cuffed, Single-Lumen; 7mm; Mac; 3; Oral; 1-Full view of the glottis; 2 insertion attempts; Auscultation, ETCO2 Detector; 23 centimeters; x1 attempt jennifer. x1 attempt mdZohra Atraumatic. no change in dentition. ; 10/04/15; 1346 10/04/15 1355 by Jose Valentine RN Wounds 10/04/15; 1336; RT; Face; Surgical 10/04/15 1336 by Amos, (NOT for Incision; 10/04/15; 1355 (in OR) HUE [employer] Pressure Injuries) documented in this encounter Social History Date Tobacco Use Types Packs/Day Years Used Never Smoker Smokeless Tobacco: Never Used Drinks/Week oz/Week Comments Alcohol Use No Sex Assigned at Date Recorded Not on file Industry Job Start Date Occupation Not on file Not on file Not on file Travel End Travel History Travel Start No recent travel history available. documented as of this encounter OR Notes * Anesthesia Postprocedure Evaluation - Carleen Yang MD - 10/04/2015 5:23 PM CDT Post-Anesthesia Evaluation Name: Janine Goddard : 1995 Age: 19 y.o. Sex: female Procedure Date: 10/04/2015 Procedure: Procedure(s) with comments: TYMPANOPLASTY - CASE LENGTH 2 HOURS Surgeon: Surgeon(s): MD Amy Galeano MD Post-Anesthesia Vitals BP: 134/71 mmHg (10/03 1630) Temp: 36.8 C (98.2 F) (10/03 1630) Pulse: 102 (10/03 1630) Respirations: 18 PER MINUTE (10/03 1630) SpO2: 97 % (10/03 1630) O2 Delivery: None (Room Air) (10/03 1630) SpO2 Pulse: 102 (10/03 1630) Post Anesthesia Evaluation Note Evaluation location: pre/post Patient participation: recovered; patient participated in evaluation Level of consciousness: alert Pain score: 2 Pain management: adequate Hydration: normovolemia Temperature: 36.0C - 38.4C Airway patency: adequate Perioperative Events Perioperative events: no Post-op nausea and vomiting: resolved Postoperative Status Cardiovascular status: hemodynamically stable Respiratory status: spontaneous ventilation * Anesthesia Postprocedure Evaluation - Carleen Yang MD - 10/04/2015 4:31 PM CDT Post-Anesthesia Evaluation Name: Janine Goddard : 1995 Age: 19 y.o. Sex: female Procedure Date: 10/04/2015 Procedure: Procedure(s) with comments: TYMPANOPLASTY - CASE LENGTH 2 HOURS Surgeon: Surgeon(s): MD Amy Galeano MD Post-Anesthesia Vitals BP: 130/86 mmHg (10/03 1615) Temp: 36.9 C (98.4 F) (10/03 1358) Pulse: 94 (10/03 1615) Respirations: 14 PER MINUTE (10/03 1615) SpO2: 98 % (10/03 1615) O2 Delivery: None (Room Air) (10/03 161) SpO2 Pulse: 97 (10/03 1615) Post Anesthesia Evaluation Note Evaluation location: pre/post Patient participation: recovered; patient participated in evaluation Level of consciousness: alert Pain score: 2 Pain management: adequate Hydration: normovolemia Temperature: 36.0C - 38.4C Airway patency: adequate Perioperative Events Perioperative events: no Postoperative Status Cardiovascular status: hemodynamically stable and tachycardic Respiratory status: spontaneous ventilation * Anesthesia Preprocedure Evaluation - Jian Escalera MD - 10/04/2015 10:57 AM CDT Anesthesia Pre-Procedure Evaluation Name: Janine Goddard : 1995 Age: 19 y.o. Sex: female Procedure Date: 10/04/2015 Procedure: Procedure(s) with comments: TYMPANOPLASTY - CASE LENGTH 2 HOURS Physical Assessment Vital Signs (last filed in past 24 hours): Patient History No Known Allergies Current Medications Medication Directions ESTRADIOL CYPIONATE (DEPO-ESTRADIOL IM) Inject to area(s) as directed. Scheduled Meds: Continuous Infusions: lactated ringers infusion 1,000 mL (10/04/15 1031) PRN and Respiratory Meds:lidocaine PF PRN Review of Systems/Medical History Pulmonary: Negative Neuro/Psych: Negative Cardiovascular: Exercise tolerance: >4 METS On Beta Ely Therapy: no Beta blockers within 24 hours: No Musculoskeletal: Negative GI/Hepatic/Renal: Negative Endocrine/Other: Negative Physical Exam Airway Findings Mallampati: II TM distance: >3 FB Neck ROM: full Mouth opening: good Airway patency: adequate Dental Findings: Negative Cardiovascular Findings: Negative Pulmonary Findings: Negative Abdominal Findings: Negative Neurological Findings: Negative Diagnostic Tests Hematology: Lab Results Component Value Date HGB 11.2 02/16/2006 HCT 33.1 02/16/2006 PLTCT 347 02/16/2006 WBC 6.90 02/16/2006 NEUT 48 02/16/2006 ANC 3.39 02/16/2006 LYMPH 5 02/13/2006 ALC 2.21 02/16/2006 ABBEY 10 02/16/2006 AMC 0.68 02/16/2006 EOSA 9 02/16/2006 ABC 0.05 02/16/2006 MCV 84.0 02/16/2006 MCH 29.0 02/16/2006 MCHC 34.0 02/16/2006 MPV 8.0 02/16/2006 RDW 12.5 02/16/2006 General Chemistry: Lab Results Component Value Date NA 136 02/13/2006 K 3.7 02/13/2006 CL 105 02/13/2006 CO2 24 02/13/2006 GAP 7 02/13/2006 BUN 9 02/13/2006 CR 0.7 02/13/2006 GLU 121 02/13/2006 CA 9.2 02/13/2006 ALBUMIN 3.7 02/13/2006 TOTBILI 0.6 02/13/2006 Coagulation: No results found for: PT, PTT, INR Anesthesia Plan ASA score: 1 Plan: general Induction method: intravenous Informed Consent Anesthetic plan and risks discussed with patient, father and mother. Plan discussed with: SRNA and anesthesiologist. documented in this encounter Plan of Treatment Not on filedocumented as of this encounter Visit Diagnoses Not on filedocumented in this encounter Administered Medications Action Date Dose Rate Site Medication Order MAR Action 10/04/2015 11:31 AM CDT 1 g ceFAZolin (ANCEF) injection Given INTRA-PROCEDURE MED, Starting Ximena 10/04/15 at 1131, Until Ximena 10/04/15 at 1401, Anesthesia Intra-op 10/04/2015 11:35 AM CDT 10 mg dexamethasone (DECADRON) injection Given INTRA-PROCEDURE MED, Starting Ximena 10/04/15 at 1135, Until Ximena 10/04/15 at 1401, Nausea, Anesthesia Intra-op 10/04/2015 12:05 PM CDT 10 mg ePHEDrine sulfate in NS (PF) syringe Given INTRA-PROCEDURE MED, Starting Ximena 10/04/15 at 1201, Until Ximena 10/04/15 at 1401, Anesthesia Intra-op 10 mg Given 10/04/2015 12:01 PM CDT 10/04/2015 1:41 PM CDT 25 mcg fentaNYL citrate PF (SUBLIMAZE) Given injection INTRA-PROCEDURE MED, Starting Ximena 10/04/15 at 1117, Until Ximena 10/04/15 at 1401, Pain, Anesthesia Intra-op 25 mcg Given 10/04/2015 1:13 PM CDT 25 mcg Given 10/04/2015 12:32 PM CDT 10/04/2015 11:37 AM CDT 2 mg haloperidol (HALDOL) injection Given INTRA-PROCEDURE MED, Starting Ximena 10/04/15 at 1137, Until Ximena 10/04/15 at 1401, Agitation, Anxiety, Anesthesia Intra-op 10/04/2015 12:50 PM CDT lactated ringers infusion Given - New 1,000 mL, 1,000 mL, Intravenous, at 20 Bag mL/hr, CONTINUOUS, Starting Ximena 10/04/15 at 0945, Until Ximena 10/04/15 at 1924, Pre-Op 1,000 mL 20 mL/hr Given - New Bag 10/04/2015 10:31 AM CDT 10/04/2015 11:19 AM CDT 80 mg lidocaine (PF) injection Given INTRA-PROCEDURE MED, Starting Ximena 10/04/15 at 1119, Until Ximena 10/04/15 at 1401, Anesthesia Intra-op 10/04/2015 11:11 AM CDT 2 mg midazolam (VERSED) injection Given Intravenous, INTRA-PROCEDURE MED, Starting Ximena 10/04/15 at 1111, Until Ximena 10/04/15 at 1401, Agitation, Anxiety, Anesthesia Intra-op 10/04/2015 1:21 PM CDT 4 mg ondansetron (ZOFRAN) injection Given Intravenous, INTRA-PROCEDURE MED, Starting Ximena 10/04/15 at 1321, Until Ximena 10/04/15 at 1401, Nausea, Anesthesia Intra-op 10/04/2015 12:02 PM CDT 100 mcg Phenylephrine HCl in NS Injection Given Intravenous, INTRA-PROCEDURE MED, Starting Ximena 10/04/15 at 1138, Until Ximena 10/04/15 at 1401, Symptomatic Hypotension, Anesthesia Intra-op 100 mcg Given 10/04/2015 11:58 AM CDT 100 mcg Given 10/04/2015 11:52 AM CDT 10/04/2015 11:26 AM CDT 50 mg propofol (DIPRIVAN) injection Given INTRA-PROCEDURE MED, Starting Ximena 10/04/15 at 1119, Until Ximena 10/04/15 at 1401, Anesthesia Intra-op 150 mg Given 10/04/2015 11:19 AM CDT 10/04/2015 1:20 PM CDT 0.04 mcg/kg/min 3.5 mL/hr remifentanil (ULTIVA) 1 mg/3 mL 1,000 Dose/Rate mcg in sodium chloride 0.9% (NS) 20 mL Change Injection INTRA-PROCEDURE MED(CONT), Starting Ximena 10/04/15 at 1134, Until Ximena 10/04/15 at 1401, Anesthesia Intra-op 0.07 mcg/kg/min 6.1 mL/hr Dose/Rate Change 10/04/2015 12:29 PM CDT 0.05 mcg/kg/min 4.4 mL/hr Dose/Rate Change 10/04/2015 12:23 PM CDT 10/04/2015 11:22 AM CDT 80 mg succinylcholine chloride (ANECTINE) Given injection Intravenous, INTRA-PROCEDURE MED, Starting Ximena 10/04/15 at 1122, Until Ximena 10/04/15 at 1401, Anesthesia Intra-op documented in this encounter
--- OUTSIDE RECORDS SUMMARY | 2018-10-27 06:51 | XMS REPORT | Encounter Summary ---
Author Author [facility] Organization [facility] Address Unknown Phone Unavailable Care Team Providers Care Inspector Assemblies And Installations Name Role Phone PCP Unavailable Encounter Details Care Team Description Date Type Department 11/08/2005 Orders Only [facility] [address] [address] Social History Date Tobacco Use Types Packs/Day Years Used Never Assessed Sex Assigned at Date Recorded Not on file Industry Job Start Date Occupation Not on file Not on file Not on file Travel End Travel History Travel Start No recent travel history available. documented as of this encounter Progress Notes * Interface, Model Engine Mechanic - 04/28/2007 9:31 PM [facility] [address] 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 POSTOPERATIVE DIAGNOSIS: Same. OPERATION: Incision and drainage of postauricular abscess with filling of mastoid bone and placement of pressure equalization tube. ANESTHESIA: General. INDICATIONS FOR PROCEDURE: The patient is a 10-year-old female who has had a history of chronic draining ears bilaterally, who underwent a tympanomastoidectomy in April 2005. She recently developed upper URI symptoms and began to have a draining ear again. She was evaluated by an ENT in her hometown who transferred her to . DESCRIPTION OF PROCEDURE: After obtaining written informed consent, the patient was taken to the operating room. She was placed in supine position and general endotracheal anesthesia was administered. The head of the table was rotated 90 degrees and a head wrap was applied with . A 15 blade was used to make an incision over the scar and the flap was elevated until the mastoid bone was visible. The purulent exudate was taken for culture and this was also suctioned from the cavity. A drill was used to remove the small layer of granulation tissue and bone. After this was complete, attention was turned to the ear canal. Granulation tissue surrounding the tympanic membrane was cauterized using silver nitrate. After this was completed, pressure equalization tube was placed within the eardrum. After this was complete, the incision was sutured using a running locked 4-0 nylon suture. The patient tolerated the procedure well without complications. She was transferred to the recovery room in stable condition for observation. Complications - None. Specimens - Purulent exudate which was submitted to microbiology. Blood loss - None. Staff Physician Signature (This report will become an official part of the medical record when reviewed and SIGNED by the staff physician.) Mukesh Ram MD / IBRAHIMA [id number] cc: Newton Ramos MD OPERATIVE REPORT SINGER * Interface, Model Engine Mechanic - 04/19/2007 9:30 PM [facility] [address] [facility] [place], [place] [address] PATIENT NAME: JANINE GODDARD MR#/PT#: [id number] ADMITTED: 02/13/2006 DISCHARGED: ATTENDING PHYSICIAN: Deirdre Montemayor MD DICTATING PROVIDER: David Macedo MD Attending Physician Signature (This report will become an official part of the medical record when reviewed and SIGNED by the staff physician.) David Macedo MD / IBRAHIMA [id number] cc: Deirdre Montemayor MD DISCHARGE SUMMARY SINGER * Interface, Model Engine Mechanic - 04/19/2007 9:30 PM [facility] [address] [place], [place] [address] PATIENT NAME: JANINE GODDARD MR#/PT#: [id number] ADMITTED: 02/13/2006 DISCHARGED: 02/17/2006 ATTENDING PHYSICIAN: Deirdre Montemayor MD DICTATING PROVIDER: David Macedo MD REASON FOR ADMISSION: Fever and right ear discharge. HISTORY OF PRESENT ILLNESS: This is an 11-year-old white female who presented after having fever. The patient had previously had a sore throat on February 11, 2006. Mom had given some analgesics to reduce the fever. A day before presentation, Mom said that the patient developed a high fever and complained of serosanginous drainage from her right ear with tenderness to mild touch. Mom also noticed a large red, tender bump behind the right ear. She subsequently took her to the primary care physician who transferred her here to . She was seen at the ER by ENT and subsequently transferred to the floor. PAST MEDICAL HISTORY: The patient has been known to have recurrent chronic ear infections. She had undergone a mastoidectomy last year, May 22, 2005. PHYSICAL EXAMINATION: Vital signs: Temperature 37.9 degrees, pulse 95, blood pressure 112/61, respiratory rate 24, oxygen saturation 99% on room air. Patient weighed 31 kg on admission. General: The patient was alert, well-hydrated. HEENT: Serosanguineous fluid was seen to be draining from the right ear. The right mastoid region behind the right ear was noted to be warm, tender, and mildly elevated. Neck: Supple. Pulmonary: Lungs were clear to auscultation bilaterally. No wheezes. No rales or retractions. Cardiovascular: Regular rate and rhythm. A 2/6 systolic murmur was heard, said to be present since . Abdomen: Abdomen was soft, nontender,. Nondistended. No hepatosplenomegaly was felt. Bowel sounds were present. Extremities: Good peripheral pulses. No clubbing, cyanosis, or edema noted. Neurologic: Cranial nerves II through XII intact. Motor and sensation intact. Normal tone. Skin: No rashes were seen. Musculoskeletal: No deformities noted. LABORATORY AND X-RAY: On admission, CBC reveals a hemoglobin of 12.3, hematocrit of 36.2, platelet count of 216, WBC 14.0, 923, bands 23, lymphocytes 5, monocytes 4, eosinophils 1. Right ear discharge grew heavy Staphylococcus aureus and light growth of Corynebacterium species. Tissue culture of right middle ear showed moderate growth of corynebacterium. Blood cultures showed no growth for five days. A chest x-ray done on February 16, 2006, showed no acute abnormalities identified. A CT of the external auditory canal without contrast showed opacification of the right middle ear cavity and mastoid air cells with adjacent bony defect of the lateral aspect of the mastoid bone. These changes were said to be secondary to cholesteatomas and also mastoiditis and less likely eosinophilic granuloma or rhabdomyosarcoma. Opacification of multiple mastoid air cells on the right was consistent with inflammatory changes. HOSPITAL COURSE: The patient was admitted to unit 55 under the general pediatric service. The patient was started on intravenous fluids. Antibiotics were also started with Zosyn and vancomycin because of the history of prior mastoiditis via a PICC line for intermediate project manager treatment. An Infectious Disease consult was also placed on the day of admission. On February 13, 2006, the patient was taken to the OR by the ENT surgeons. The patient had a revision mastoidectomy and incision and drainage of post auricular abscess and cautery of granulation tissue was done. Ear tubes were also put in place. The patient tolerated the procedure well. There were no complaints post procedure. The patient was seen to gradually improve during the course of this admission. The patient continued to have daily debridements. With culture results, vancomycin and Zosyn were discontinued and Rocephin was started with a plan to continue therapy for four full weeks to continue as an outpatient. The patient was seen to clinically improve. The ear discharge was seen to have stopped. Arrangements were made to discharge the patient with home health to provide the home IV antibiotic therapy. Arrangements were made with the patient to get weekly labs, CBC with differentials, chem-12, BAND CUTTING MACHINE OPERATOR, erythrocyte sedimentation rate, and chem-12, and the reports were to be sent to the Pediatric Infectious Disease clinic by fax. FINAL DIAGNOSIS: Recurrent mastoiditis with recurrent otitis media. OPERATIONS AND PROCEDURES: Mastoidectomy with drainage and culture. INSTRUCTIONS AND DISPOSITION: Activity - none dictated. Diet - none dictated. Medications - The patient was discharged on clindamycin 300 mg IV every day, every eight hours and ceftriaxone 1500 mg intravenously every 24 hours for four weeks. The patient was subsequently discharged home. Followup - The patient is to follow up with the Pediatrics Infectious Disease Clinic on February 24, 2006. Arrangements were also made for ENT to review, and to see her on the same day. Instructions were given for weekly labs to be drawn as previously stated. Disposition - Patient was discharged home. Attending Physician Signature (This report will become an official part of the medical record when reviewed and SIGNED by the staff physician.) David Macedo MD / MEDQ (-R-) [id number] cc: Deirdre Montemayor MD DISCHARGE SUMMARY SINGER documented in this encounter Plan of Treatment Not on filedocumented as of this encounter Procedures Comments Procedure Name Priority Date/Time Associated Diagnosis OTHER HEMATOLOGY 02/16/2006 8:25 PM CDT BLOOD COUNTS 02/16/2006 8:25 PM CDT DIAGNOSTIC HISTORICAL 02/16/2006 REPORT 10:15 AM CDT DIAGNOSTIC HISTORICAL 02/16/2006 REPORT 12:00 AM CDT DRUG & TOXIN LEVELS 02/14/2006 1:00 PM CDT MICRO RESULTS 02/13/2006 5:23 PM CDT MICRO RESULTS 02/13/2006 5:22 PM CDT MICRO RESULTS 02/13/2006 5:22 PM CDT MICRO RESULTS 02/13/2006 5:22 PM CDT MICRO RESULTS 02/13/2006 5:22 PM CDT SURGICAL PATHOLOGY HX 02/13/2006 5:00 PM CDT ENZYMES 02/13/2006 8:22 AM CDT OTHER HEMATOLOGY 02/13/2006 8:22 AM CDT GENERAL CHEMISTRY 02/13/2006 8:22 AM CDT BLOOD COUNTS 02/13/2006 8:22 AM CDT MICRO RESULTS 02/13/2006 2:30 AM CDT ENZYMES 02/13/2006 2:30 AM CDT OTHER HEMATOLOGY 02/13/2006 2:30 AM CDT GENERAL CHEMISTRY 02/13/2006 2:30 AM CDT BLOOD COUNTS 02/13/2006 2:[address] HISTORICAL REPORT 02/13/2006 1:[address] HISTORICAL REPORT 02/13/2006 1:10 AM CDT MICRO RESULTS 02/12/2006 11:15 PM CDT MICRO RESULTS 02/12/2006 11:15 PM CDT MICRO RESULTS 02/12/2006 11:15 PM CDT documented in this encounter Results * BLOOD COUNTS (02/16/2006 8:25 PM CDT) White Blood 6.90 4.5 - 13.0 K/UL [facility] Cells CONVERSION RBC 3.90 3.3 - 5.2 M/UL [facility] CONVERSION Hemoglobin 11.2 (L) 11.6 - 14.8 GM/DL [facility] CONVERSION Hematocrit 33.1 (L) 35 - 46 % [facility] CONVERSION MCV 84.0 80 - 100 FL [facility] CONVERSION MCH 29.0 26 - 34 PG [facility] CONVERSION MCHC 34.0 32.0 - 36.0 G/DL [facility] CONVERSION RDW 12.5 11 - 15 % [facility] CONVERSION Platelet Count 347 150 - 400 K/UL [facility] CONVERSION MPV 8.0 7 - 11 FL [facility] CONVERSION Neutrophils 48 41 - 77 % [facility] CONVERSION Absolute 3.39 K/UL [facility] Neutrophil CONVERSION Count Lymphocytes 32 24 - 44 % [facility] CONVERSION Monocytes 10 4 - 12 % [facility] CONVERSION Eosinophils 9 (H) 0 - 5 % [facility] CONVERSION Basophils 1 0 - 2 % [facility] CONVERSION Absolute Lymph 2.21 K/UL [facility] Count CONVERSION Absolute 0.68 K/UL [facility] Monocyte Count CONVERSION Absolute 0.61 K/UL [facility] Eosinophil CONVERSION Count Absolute 0.05 K/UL [facility] Basophil Count CONVERSION Specimen Performing Organization Address City/State/Zipcode Phone Number [facility] CONVERSION * OTHER HEMATOLOGY (02/16/2006 8:25 PM CDT) C-Reactive 0.83 <1.0 MG/DL [facility] Protein CONVERSION Specimen Performing Organization Address City/State/Zipcode Phone Number [facility] CONVERSION * DIAGNOSTIC HISTORICAL REPORT (02/16/2006 10:15 AM CDT) Exam Status LCR Conversion [facility] CONVERSION Exam SIGNED REPORT [facility] CONVERSION EXAM: EXAM: Portable upright film of the chest. CLINICAL HISTORY: Ear infection. Mastoiditis. PICC line placement. FINDINGS: The patient's heart size is normal. The lungs are clear. The left sided PICC line is extending cephalad into the jugular system. There is no pneumothorax. The patient's primary care team will be notified. IMPRESSION: HEART SIZE IS NORMAL. THE LEFT PICC LINE IS ASCENDING CEPHALAD INTO THE JUGULAR SYSTEM. THE FILM HAS JUST BECOME AVAILABLE FOR EVALUATION, HOWEVER THE PATIENT'S PRIMARY CARE TEAM WILL BE NOTIFIED. Impression IMPRESSION: [facility] HEART SIZE IS NORMAL. THE LEFT CONVERSION PICC LINE IS ASCENDING CEPHALAD INTO THE JUGULAR SYSTEM. THE FILM HAS JUST BECOME AVAILABLE FOR EVALUATION, HOWEVER THE PATIENT'S PRIMARY CARE TEAM WILL BE NOTIFIED. PACS [facility] CONVERSION Specimen Performing Organization Address [facility] Phone Number [facility] CONVERSION * DIAGNOSTIC HISTORICAL REPORT (02/16/2006 12:00 AM CDT) Exam Status LCR Conversion [facility] CONVERSION Exam SIGNED REPORT [facility] CONVERSION EXAM: SINGLE VIEW OF THE CHEST. CLINICAL HISTORY: 10-year-old female with ear infection and PICC line placement. FINDINGS: Dr. Escobedo has personally reviewed these images and formulated the interpretations and opinions expressed in this report. Comparison: None The heart size and pulmonary vessels are unremarkable. The mediastinal and hilar contours are within normal limits. There is no evidence of acute consolidation, pneumothorax, or pleural effusion. The osseous structures are grossly unremarkable. A left-sided PICC line is seen with tip near the right atrial/SVC junction. IMPRESSION: NO ACUTE ABNORMALITIES ARE IDENTIFIED. LEFT-SIDED PICC LINE, DESCRIBED. Impression IMPRESSION: [facility] NO ACUTE ABNORMALITIES ARE CONVERSION IDENTIFIED. LEFT-SIDED PICC LINE, DESCRIBED. PACS [facility] CONVERSION Specimen Performing Organization Address [facility] Phone Number [facility] CONVERSION * DRUG & TOXIN LEVELS (02/14/2006 1:00 PM CDT) Vancomycin 10.3 5 - 15 MCG/ML [facility] Trough CONVERSION Specimen Performing Organization Address [facility] Phone Number [facility] CONVERSION * MICRO RESULTS (02/13/2006 5:23 PM CDT) Battery Name AFB CULTURE [facility] CONVERSION Specimen CULTURETTE RIGHT MIDDLE EAR [facility] Description CONVERSION Special SPECIMEN WAS RECEIVED ON A [facility] Requests SWAB.A NEGATIVE RESULT FROM CONVERSION THIS SPECIMEN IS NOT CONSIDERED RELIABLE FOR ACID FAST CULTURE. Culture NO GROWTH OF MYCOBACTERIA AT 6 [facility] WEEKS CONVERSION Report Status FINAL [id number] [facility] CONVERSION Specimen Performing Organization Address City/State/Zipcode Phone Number [facility] CONVERSION * MICRO RESULTS (02/13/2006 5:22 PM CDT) Battery Name FUNGUS CULTURE [facility] CONVERSION Specimen TISSUE RT MIDDLE EAR [facility] Description CONVERSION Special NONE [facility] Requests CONVERSION Culture NO GROWTH OF FUNGUS AT 4 WEEKS [facility] CONVERSION Report Status FINAL [id number] [facility] CONVERSION Specimen Performing Organization Address City/[facility]/Zipcode Phone Number [facility] CONVERSION * MICRO RESULTS (02/13/2006 5:22 PM CDT) Battery Name ANAEROBE CULTURE [facility] CONVERSION Specimen TISSUE RT MIDDLE EAR [facility] Description CONVERSION Special NONE [facility] Requests CONVERSION Culture MODERATE GROWTH FUSOBACTERIUM [facility] NECROPHORUM BETA LACTAMASE CONVERSION NEGATIVE Report Status FINAL 02/18/2006 [facility] CONVERSION Specimen Performing Organization Address City/State/Zipcode Phone Number [facility] CONVERSION * MICRO RESULTS (02/13/2006 5:22 PM CDT) Battery Name ROUTINE CULTURE [facility] CONVERSION Specimen TISSUE RT MIDDLE EAR [facility] Description CONVERSION Special NONE [facility] Requests CONVERSION Direct Gram FEW NEUTROPHILS [facility] Stain NO ORGANISMS SEEN CONVERSION Culture NO GROWTH 3 DAYS [facility] CONVERSION Report Status FINAL 02/17/2006 [facility] CONVERSION Specimen Performing Organization Address City/State/Zipcode Phone Number [facility] CONVERSION * MICRO RESULTS (02/13/2006 5:22 PM CDT) Specimen TISSUE RT MIDDLE EAR [facility] Description CONVERSION Special NONE [facility] Requests CONVERSION Gram Stain FEW NEUTROPHILS [facility] NO ORGANISMS SEEN CONVERSION Report Status FINAL 02/14/2006 [facility] CONVERSION Specimen Performing Organization Address City/State/Zipcode Phone Number [facility] CONVERSION * SURGICAL PATHOLOGY HX (02/13/2006 5:00 PM CDT) PATHOLOGY (NOTE) [facility] REPORT [facility] CONVERSION Department of Pathology and Laboratory Medicine Surgical Pathology Kirill Meza MD, PhD, Director [address] [place] [address] Surgical Pathology Office:[phone] [phone] SURGICAL PATHOLOGY REPORT NAME: JANINE GODDARD SURG PATH #: [id number] MR #: [id number] ALT ID #: LOCATION: ENT DATE OF PROCEDURE: 02/13/2006 AGE:10 SEX: F DATE RECEIVED: 02/14/2006 : 1995TIME RECEIVED:11:24 PHYSICIAN: RAJANI AL ENT DATE OF REPORT: 02/17/2006 COPY TO: FARHEEN HERNANDEZ [facility] E[facility] DATE OF PRINTIN02/18/2006 Final Diagnosis: A.Soft tissue, "Right mastoid", biopsy: Acute and chronic inflammation. There is no evidence of malignancy. Electronically Signed Out ks/02/16/2006 KAREL MELGAR(Path. Res.) Material Received: A: Right mastoid History: 10 year old female with a history of right mastoiditis. Gross Description: A.Received in formalin labeled "right mastoid" is a 0.3 x 0.1 x 0.1 cm aggregate of sarmiento tissue.The specimen is wrapped in filter paper and entirely submitted in A1. vap/02/16/2006 JOSIANE MELGAR(Path. Res.) Attestation: By this signature, I attest that I have personally formulated the final interpretation expressed in this report and that the above diagnosis is based upon my examination of the slides and/or other material indicated in this report. Specimen Performing Organization Address City/State/Zipcode Phone Number [facility] CONVERSION * BLOOD COUNTS (02/13/2006 8:22 AM CDT) White Blood 14.40 (H) 4.5 - 13.0 K/UL [facility] Cells CONVERSION RBC 4.10 3.3 - 5.2 M/UL [facility] CONVERSION Hemoglobin 11.5 (L) 11.6 - 14.8 GM/DL [facility] CONVERSION Hematocrit 33.7 (L) 35 - 46 % [facility] CONVERSION MCV 83.0 80 - 100 FL [facility] CONVERSION MCH 29.0 26 - 34 PG [facility] CONVERSION MCHC 34.0 32.0 - 36.0 G/DL [facility] CONVERSION RDW 13.0 11 - 15 % [facility] CONVERSION Platelet Count 229 150 - 400 K/UL [facility] CONVERSION MPV 8.0 7 - 11 FL [facility] CONVERSION Neutrophils 85 (H) 41 - 77 % [facility] CONVERSION Absolute 12.11 K/UL [facility] Neutrophil CONVERSION Count Lymphocytes 7 (L) 24 - 44 % [facility] CONVERSION Monocytes 8 4 - 12 % [facility] CONVERSION Eosinophils 0 0 - 5 % [facility] CONVERSION Basophils 0 0 - 2 % [facility] CONVERSION Absolute Lymph 1.02 K/UL [facility] Count CONVERSION Absolute 1.16 K/UL [facility] Monocyte Count CONVERSION Absolute 0.05 K/UL [facility] Eosinophil CONVERSION Count Absolute 0.02 K/UL [facility] Basophil Count CONVERSION Specimen Performing Organization Address [facility] Phone Number [facility] CONVERSION * GENERAL CHEMISTRY (02/13/2006 8:22 AM CDT) Sodium 136 (L) 137 - 147 MMOL/L [facility] CONVERSION Potassium 3.7 3.5 - 5.1 MMOL/L [facility] CONVERSION Chloride 105 98 - 110 MMOL/L [facility] CONVERSION Glucose 121 (H) 60 - 100 MG/DL [facility] CONVERSION Blood Urea 9 5 - 18 MG/DL [facility] Nitrogen CONVERSION Creatinine 0.7 0.3 - 1.0 MG/DL [facility] CONVERSION Calcium 9.2 9.0 - 11.0 MG/DL [facility] CONVERSION Total Protein 7.2 6.0 - 8.0 G/DL [facility] CONVERSION Total Bilirubin 0.6 0.3 - 1.2 MG/DL [facility] CONVERSION Albumin 3.7 3.5 - 5.0 G/DL [facility] CONVERSION CO2 24 20 - 28 MMOL/L [facility] CONVERSION Anion Gap 7 (L) 8 - 12 [facility] CONVERSION Specimen Performing Organization Address [facility] Phone Number [facility] CONVERSION * OTHER HEMATOLOGY (02/13/2006 8:22 AM CDT) C-Reactive 11.86 (H) <1.0 MG/DL [facility] Protein CONVERSION Specimen Performing Organization Address [facility] Phone Number [facility] CONVERSION * ENZYMES (02/13/2006 8:22 AM CDT) Alk Phosphatase 190 (H) 25 - 110 U/L [facility] CONVERSION AST (SGOT) 25 7 - 40 U/L [facility] CONVERSION ALT (SGPT) 16 7 - 56 U/L [facility] CONVERSION Specimen Performing Organization Address [facility] Phone Number [facility] CONVERSION * MICRO RESULTS (02/13/2006 2:30 AM CDT) Battery Name BLOOD CULTURE [facility] CONVERSION Specimen BLOOD [facility] Description CONVERSION Special PEDS FAN BOTTLE [facility] Requests CONVERSION Culture NO GROWTH 5 DAYS [facility] CONVERSION Report Status FINAL [id number] [facility] CONVERSION Specimen Performing Organization Address [facility] Phone Number [facility] CONVERSION * BLOOD COUNTS (02/13/2006 2:30 AM CDT) White Blood 14.00 (H) 4.5 - 13.0 K/UL [facility] Cells CONVERSION RBC 4.30 3.3 - 5.2 M/UL [facility] CONVERSION Hemoglobin 12.3 11.6 - 14.8 GM/DL [facility] CONVERSION Hematocrit 36.2 35 - 46 % [facility] CONVERSION MCV 84.0 80 - 100 FL [facility] CONVERSION MCH 29.0 26 - 34 PG [facility] CONVERSION MCHC 34.0 32.0 - 36.0 G/DL [facility] CONVERSION RDW 13.0 11 - 15 % [facility] CONVERSION Platelet Count 216 150 - 400 K/UL [facility] CONVERSION MPV 8.0 7 - 11 FL [facility] CONVERSION Segmented 67 41 - 77 % [facility] Neutrophils CONVERSION Bands 23 (H) 0 - 10 % [facility] CONVERSION Lymphocytes 5 (L) 24 - 44 % [facility] CONVERSION Monocytes 4 4 - 12 % [facility] CONVERSION Eosinophil 1 0 - 5 % [facility] CONVERSION Normal RBC NORMAL [facility] Morph CONVERSION Platelet NORMAL [facility] Estimate CONVERSION Specimen Performing Organization Address [facility] Phone Number [facility] CONVERSION * GENERAL CHEMISTRY (02/13/2006 2:30 AM CDT) Sodium 135 (L) 137 - 147 MMOL/L [facility] CONVERSION Potassium 3.7 3.5 - 5.1 MMOL/L [facility] CONVERSION Chloride 101 98 - 110 MMOL/L [facility] CONVERSION Glucose 117 (H) 60 - 100 MG/DL [facility] CONVERSION Blood Urea 15 5 - 18 MG/DL [facility] Nitrogen CONVERSION Creatinine 0.7 0.3 - 1.0 MG/DL [facility] CONVERSION Calcium 9.1 9.0 - 11.0 MG/DL [facility] CONVERSION Total Protein 7.6 6.0 - 8.0 G/DL [facility] CONVERSION Total Bilirubin 0.6 0.3 - 1.2 MG/DL [facility] CONVERSION Albumin 3.8 3.5 - 5.0 G/DL [facility] CONVERSION CO2 26 20 - 28 MMOL/L [facility] CONVERSION Anion Gap 8 8 - 12 [facility] CONVERSION Specimen Performing Organization Address City/[facility] Phone Number [facility] CONVERSION * OTHER HEMATOLOGY (02/13/2006 2:30 AM CDT) C-Reactive 10.81 (H) <1.0 MG/DL [facility] Protein CONVERSION Specimen Performing Organization Address [facility] Phone Number [facility] CONVERSION * ENZYMES (02/13/2006 2:30 AM CDT) Alk Phosphatase 198 (H) 25 - 110 U/L [facility] CONVERSION AST (SGOT) 20 7 - 40 U/L [facility] CONVERSION ALT (SGPT) 13 7 - 56 U/L [facility] CONVERSION Specimen Performing Organization Address [facility] Phone Number [facility] CONVERSION * CT HISTORICAL REPORT (02/13/2006 1:10 AM CDT) Exam Status LCR Conversion [facility] CONVERSION Exam SIGNED REPORT [facility] CONVERSION EXAM: CT INTERNAL AUDITORY CANAL WITHOUT CONTRAST CLINICAL HISTORY: 10-YEAR-OLD FEMALE WITH RECURRENT EAR INFECTIONS. TECHNIQUE: Multiple contiguous axial images were obtained through the internal auditory canal with 3-D coronal and sagittal reconstructions FINDINGS: Dr. Becerril has personally reviewed these images and formulated the interpretations and opinions expressed in this report. On the left side:The external auditory canal is patent. The middle ear cavity is clear.There is opacification of the mastoid air cells. The tympanic membrane is thickened. There is no definite bony erosion. The internal auditory canal is unremarkable and the ossicles are intact. There is soft tissue swelling in the skin and subcutaneous tissue adjacent to the right mastoid air cells. The external auditory canal is not well visualized. There is opacification of the middle ear cavity and mastoid air cells. There is a bony defect in the lateral aspect of the mastoid bone. These change may be secondary to cholesteatoma or coalescing otomastoiditis. The ossicles are intact. IMPRESSION: OPACIFICATION OF THE RIGHT MIDDLE EAR CAVITY AND MASTOID AIR CELLS WITH ADJACENT BONY DEFECT OF THE LATERAL ASPECT OF THE MASTOID BONE. THESE CHANGES MAY BE SECONDARY TO CHOLESTEATOMA, OR COALESCING OTOMASTOIDITIS, AND LESS LIKELY EOSINOPHILIC GRANULOMA OR RHABDOMYOSARCOMA. OPACIFICATION OF MULTIPLE MASTOID AIR CELLS ON THE RIGHT CONSISTENT WITH INFLAMMATORY CHANGES. Impression IMPRESSION: [facility] OPACIFICATION OF THE RIGHT CONVERSION MIDDLE EAR CAVITY AND MASTOID AIR CELLS WITH ADJACENT BONY DEFECT OF THE LATERAL ASPECT OF THE MASTOID BONE. THESE CHANGES MAY BE SECONDARY TO CHOLESTEATOMA, OR COALESCING OTOMASTOIDITIS, AND LESS LIKELY EOSINOPHILIC GRANULOMA OR RHABDOMYOSARCOMA. OPACIFICATION OF MULTIPLE MASTOID AIR CELLS ON THE RIGHT CONSISTENT WITH INFLAMMATORY CHANGES. PACS [facility] CONVERSION Specimen Performing Organization Address City/State/Zipcode Phone Number [facility] CONVERSION * CT HISTORICAL REPORT (02/13/2006 1:10 AM CDT) Exam Status LCR Conversion [facility] CONVERSION Exam SIGNED REPORT [facility] CONVERSION EXAM: CT INTERNAL AUDITORY CANAL WITHOUT CONTRAST CLINICAL HISTORY: 10-YEAR-OLD FEMALE WITH RECURRENT EAR INFECTIONS. TECHNIQUE: Multiple contiguous axial images were obtained through the internal auditory canal with 3-D coronal and sagittal reconstructions FINDINGS: Dr. Becerril has personally reviewed these images and formulated the interpretations and opinions expressed in this report. On the left side:The external auditory canal is patent. The middle ear cavity is clear.There is opacification of the mastoid air cells. The tympanic membrane is thickened. There is no definite bony erosion. The internal auditory canal is unremarkable and the ossicles are intact. There is soft tissue swelling in the skin and subcutaneous tissue adjacent to the right mastoid air cells. The external auditory canal is not well visualized. There is opacification of the middle ear cavity and mastoid air cells. There is a bony defect in the lateral aspect of the mastoid bone. These change may be secondary to cholesteatoma or coalescing otomastoiditis. The ossicles are intact. IMPRESSION: OPACIFICATION OF THE RIGHT MIDDLE EAR CAVITY AND MASTOID AIR CELLS WITH ADJACENT BONY DEFECT OF THE LATERAL ASPECT OF THE MASTOID BONE. THESE CHANGES MAY BE SECONDARY TO CHOLESTEATOMA, OR COALESCING OTOMASTOIDITIS, AND LESS LIKELY EOSINOPHILIC GRANULOMA OR RHABDOMYOSARCOMA. OPACIFICATION OF MULTIPLE MASTOID AIR CELLS ON THE RIGHT CONSISTENT WITH INFLAMMATORY CHANGES. Impression IMPRESSION: [facility] OPACIFICATION OF THE RIGHT CONVERSION MIDDLE EAR CAVITY AND MASTOID AIR CELLS WITH ADJACENT BONY DEFECT OF THE LATERAL ASPECT OF THE MASTOID BONE. THESE CHANGES MAY BE SECONDARY TO CHOLESTEATOMA, OR COALESCING OTOMASTOIDITIS, AND LESS LIKELY EOSINOPHILIC GRANULOMA OR RHABDOMYOSARCOMA. OPACIFICATION OF MULTIPLE MASTOID AIR CELLS ON THE RIGHT CONSISTENT WITH INFLAMMATORY CHANGES. [facility]ACS [facility] CONVERSION Specimen Performing Organization Address [facility] Phone Number [facility] * MICRO RESULTS (02/12/2006 11:15 PM CDT) Battery Name ANAEROBE CULTURE [facility] CONVERSION Specimen CULTURETTE WOUND RIGHT EAR [facility] Description CONVERSION Special NONE [facility] Requests CONVERSION Culture HEAVY GROWTH FUSOBACTERIUM [facility] NECROPHORUM BETA LACTAMASE CONVERSION NEGATIVE Report Status FINAL 02/18/2006 [facility] CONVERSION Specimen Performing Organization Address City[facility] Phone Number [facility] * MICRO RESULTS (02/12/2006 11:15 PM CDT) Battery Name ROUTINE CULTURE [facility] CONVERSION Specimen CULTURETTE WOUND RIGHT EAR [facility] Description CONVERSION Special NONE [facility] Requests CONVERSION Direct Gram MANY NEUTROPHILS [facility] Stain MANY GRAM NEGATIVE RODS CONVERSION FEW GRAM POSITIVE COCCI Culture MODERATE GROWTH STAPHYLOCOCCUS [facility] AUREUS CONVERSION LIGHT GROWTH CORYNEBACTERIUM SPECIES (A) Report Status FINAL 02/15/2006 [facility] CONVERSION Specimen Antibiotic Method Susceptibility Organism Trimethsulfa STUBBS BILLS SUSCPTBL Moderate growth staphylococcus aureus Method STUBBS BILLS STUBBS BILLS Moderate growth staphylococcus aureus Clindamycin VITEK SUSCPTBL Moderate growth staphylococcus aureus Erythromycin VITEK SUSCPTBL Moderate growth staphylococcus aureus Levofloxacin VITEK SUSCPTBL Moderate growth staphylococcus aureus Oxacillin VITEK SUSCPTBL Moderate growth staphylococcus aureus Tetracycline VITEK SUSCPTBL Moderate growth staphylococcus aureus Vancomycin VITEK SUSCPTBL Moderate growth staphylococcus aureus Method VITEK VITEK Moderate growth staphylococcus aureus Performing Organization Address [facility] Phone Number [facility] * MICRO RESULTS (02/12/2006 11:15 PM CDT) Specimen CULTURETTE WOUND RIGHT EAR [facility] Description CONVERSION Special NONE [facility] Requests CONVERSION Gram Stain MANY NEUTROPHILS [facility] MANY GRAM NEGATIVE RODS CONVERSION FEW GRAM POSITIVE COCCI Report Status FINAL 02/13/2006 [facility] CONVERSION Specimen Performing Organization Address City/[facility] Phone Number [facility] CONVERSION documented in this encounter Visit Diagnoses Not on filedocumented in this encounter
--- OUTSIDE RECORDS SUMMARY | 2018-10-27 06:51 | XMS REPORT ---
Author Author Migration, Doctor Organization [facility] Address Unknown Phone Unavailable Care Team Providers Care [employer] Exploration Technician Name Role Phone Migration, Doctor Unavailable Unavailable PROBLEMS Type Condition ICD9-CM Code XCR19-WP Code Onset Dates Condition Status SNOMED Code Problem Urinary tract infection, site not specified 599.0 Active 58198459 Problem Other chronic serous otitis media 381.19 Active 40335951 Problem Acute serous otitis media 381.01 Active 768077821 Problem ADHD (attention deficit hyperactivity disorder), combined type F90.2 Active 07961922 Problem Dysuria 788.1 Active 41021931 Problem Unspecified mood [affective] disorder F39 Active 13780582 Problem Bipolar disorder, unspecified 296.80 Active 27082928 Problem Otitis externa of both ears H60.93 Active 7759302 Problem Herpes simplex vulvovaginitis A60.04 Active 94629973 Problem Bipolar disorder, current episode mixed, moderate F31.62 Active 859603728 ALLERGIES No Information ENCOUNTERS Encounter Location Date Diagnosis [facility] [address] [address] September, [facility] [id number] [place] [address] September, [facility] [address] [address] September, [facility] [id number] [place] [address] Aug, [facility] [address] [address] Aug, Dental examination Z01.20 [facility] [id number] [place] [address] Aug, [facility] [id number] [place] [address] Aug, Dental infection K04.7 [facility] [address] [address] Aug, [facility] [id number] [place] [address] Aug, [facility] [id number] [place] [address] Aug, Caries K02.9 and Dental examination Z01.20 [facility] [id number] [place] [address] Jul, Caries K02.9 [facility] [address] [address] Jul, Caries K02.9 [facility] [id number] [place] [address] Jul, [facility] [id number] [place] [address] Jun, [facility] [id number] [place] [id number] May, Caries K02.9 ; Oral health maintenance status requiring routine preventive dental care K08.9 and Dental examination Z01.20 [facility] [address], [place] [address] May, Sore throat J02.9 [facility] [address] [place] [address] May, Dental examination Z01.20 [facility] [id number] [place] [address] May, [facility] [id number] [place] [address] Mar, Unspecified mood [affective] disorder F39 [facility] [id number] [place] [address] Feb, [place] [id number] [place] [address] Feb, Encounter for test, result unknown Z32.00 [place] [address] [address] Dec, Unspecified mood [affective] disorder F39 and ADHD (attention deficit hyperactivity disorder), combined type F90.2 [place] [address] [address] Nov, Bipolar disorder, current episode mixed, moderate F31.62 [facility] [address] [address] Aug, Acute otitis externa of right ear, unspecified type H60.501 and Acute suppurative otitis media of left ear without spontaneous rupture of tympanic membrane, recurrence not specified H66.002 [facility] [place] [address] [address] Mar, Pharyngitis due to other organism J02.8 [place] [address] [address] Feb, [facility] [place] [address] [address] Feb, [facility] [place] [id number] [place] [address] Jan, Vaginal itching L29.8 ; Acute cystitis without hematuria N30.00 and Acute otitis externa of right ear, unspecified type H60.501 [place] [id number] [place] [address] Nov, Acute serous otitis media of left ear, recurrence not specified H65.02 [facility] [place] [id number] [place] [address] Nov, Acute serous otitis media of left ear, recurrence not specified H65.02 [facility] [place] [address] [address] Oct, [facility] [address] [place] [address] September, Vaginal itching L29.8 and Herpes simplex vulvovaginitis A60.04 [place] [id number] [place] [address] Aug, [place] [id number] [place] [address] Aug, High-risk sexual behavior Z72.51 [facility] [place] [id number] [place] [address] 15 Jan, 2016 High risk sexual behavior Z72.51 [place] [id number] [place] [address] 07 Jan, 2016 Well woman exam with routine gynecological exam Z01.419 ; Screening for STD sexually transmitted disease Z11.3 ; High risk sexual behavior Z72.51 and Encounter for immunization Z23 [place] [address] [place] [address] Oct, Nausea and vomiting, unspecified intactability, vomiting of unspecified type R11.2 [facility] [place] [address] [place] [address] May, Recurrent acute suppurative otitis media without spontaneous rupture of tympanic membrane of both sides H66.006 [place] [id number] [place] [address] May, [place] [id number] [place] [address] Mar, Otitis media follow-up, infection resolved Z09 [place] [id number] [place] [address] Mar, Otitis externa of both ears H60.93 [place] [id number] [place] [address] Feb, Acute swimmers ear of both sides H60.333 [facility] [address] [id number] [place] [address] Aug, [facility] [place] [facility] [address] [facility] [id number] [place] [address] Aug, [facility] [place] [facility] [address] [facility] [id number], [place] [address] Mar, [facility] [place] [facility] [address] [id number] [place] [address] Mar, [facility] [place] [facility] [id number] [place] [address], [place] [address] September, [facility] [place] [facility] [address] [facility] [id number] [place] [address] September, [facility] [id number] [place] [address] September, [facility] [place] [facility] [address] [facility] [id number], [place] [address] Aug, [facility] [place] [facility] [id number] [place] [address] Aug, [facility] [place] [facility] [id number] [address] Jan, [facility] [place] [facility] [address] [facility] [id number], [place] [address] Jan, [facility] [place] [facility] [address] [facility] [id number], [place] [address] Dec, [facility] [place] [facility] [address] [facility] [id number], [place] [address] Nov, [facility] [place] [facility] [address] [facility] [id number], [place] [address] Nov, [facility] [place] [facility] [id number], [place] [address] Apr, [facility] [place] [facility] [address] [facility] [id number], [place] [address] Apr, [facility] [address] [facility] [id number], [place] [address] Mar, [facility] [address] [facility] [id number], [place] [address] Feb, [facility] [address] [facility] [id number], [place] [address] Feb, [facility] [address] [facility] [id number], [place] [address] Feb, [facility] [address], [place] [address] Feb, [facility] [address] [facility] [id number], [place] [address] Apr, [facility] [address], [place] [address] Mar, [facility] [id number], [place] [address] Feb, [facility] [address], [place] [address] Feb, [facility] [address], [place] [address] Dec, [facility] [address], [place] [address] Feb, IMMUNIZATIONS No Known Immunizations SOCIAL HISTORY Never Assessed REASON FOR VISIT EMR-[facility] PLAN OF CARE VITAL SIGNS MEDICATIONS Unknown Medications RESULTS No Results PROCEDURES No Known procedures INSTRUCTIONS MEDICATIONS ADMINISTERED No Known Medications MEDICAL (GENERAL) HISTORY Type Description Date Surgical History right ear surgery x2 mastoiditis around 4th grade 2014 Hospitalization History see above surgery
--- OUTSIDE RECORDS SUMMARY | 2018-10-27 06:51 | XMS REPORT ---
Author Author Migration, Doctor Organization [facility] Address Unknown Phone Unavailable Care Team Providers Care Church Secretary Name Role Phone Migration, Doctor Unavailable Unavailable PROBLEMS Type Condition ICD9-CM Code WDR62-OG Code Onset Dates Condition Status SNOMED Code Problem Urinary tract infection, site not specified 599.0 Active 04143300 Problem Other chronic serous otitis media 381.19 Active 49737074 Problem Acute serous otitis media 381.01 Active 615521478 Problem ADHD (attention deficit hyperactivity disorder), combined type F90.2 Active 32933937 Problem Dysuria 788.1 Active 10789052 Problem Unspecified mood [affective] disorder F39 Active 83035499 Problem Bipolar disorder, unspecified 296.80 Active 69529530 Problem Otitis externa of both ears H60.93 Active 0771115 Problem Herpes simplex vulvovaginitis A60.04 Active 63797325 Problem Bipolar disorder, current episode mixed, moderate F31.62 Active 363918466 ALLERGIES No Information ENCOUNTERS Encounter Location Date Diagnosis [facility] [id number] [place] [address] September, Caries K02.9 [facility] [id number] [place] [address] September, [facility] [id number] [place] [address] September, [facility] [id number] [place] [address] September, [facility] [address] [address] September, [facility] [id number] [place] [address] Aug, [facility] [id number] [place] [address] Aug, Dental examination Z01.20 [facility] [address] [id number], [place] [address] Aug, [facility] [address] [facility] [id number], [place] [address] Aug, Dental infection K04.7 [facility] [address] [facility] [id number], [place] [address] Aug, [facility] [address] [facility] [id number] [place] [address] Aug, [facility] [address] [facility] [id number] [place] [address] Aug, Caries K02.9 and Dental examination Z01.20 [facility] [address] [facility] [id number] [place] [address] Jul, Caries K02.9 [facility] [address] [facility] [id number] [place] [address] Jul, Caries K02.9 [facility] [address] [facility] [id number] [place] [address] Jul, [facility] [id number] [place] [address] Jun, [facility] [address] [id number] May, Caries K02.9 ; Oral health maintenance status requiring routine preventive dental care K08.9 and Dental examination Z01.20 [facility] [address] [facility] [id number], [place] [address] 15 May, 2018 Sore throat J02.9 [facility] [address] [facility] [id number], [place] [address] May, Dental examination Z01.20 [facility] [address] [facility] [id number], [place] [address] May, [facility] [id number] [place] [address] Mar, Unspecified mood [affective] disorder F39 [place] [address] [address] Feb, [place] [address] [address] Feb, Encounter for test, result unknown Z32.00 [place] [address] [address] Dec, Unspecified mood [affective] disorder F39 and ADHD (attention deficit hyperactivity disorder), combined type F90.2 [place] [address] [address] Nov, Bipolar disorder, current episode mixed, moderate F31.62 [facility] [place] [address] [address] Aug, Acute otitis externa of right ear, unspecified type H60.501 and Acute suppurative otitis media of left ear without spontaneous rupture of tympanic membrane, recurrence not specified H66.002 [facility] [place] [id number] [place] [address] Mar, Pharyngitis due to other organism J02.8 [place] [id number] [place] [address] Feb, [facility] [place] [id number] [place] [address] Feb, [facility] [place] [id number] [place] [address] Jan, Vaginal itching L29.8 ; Acute cystitis without hematuria N30.00 and Acute otitis externa of right ear, unspecified type H60.501 [place] [id number] [place] [address] Nov, Acute serous otitis media of left ear, recurrence not specified H65.02 [facility] [place] [id number] [place] [address] Nov, Acute serous otitis media of left ear, recurrence not specified H65.02 [facility] [place] [id number] [place] [address] Oct, [facility] [place] [address] [address] September, Vaginal itching L29.8 and Herpes simplex vulvovaginitis A60.04 [place] [id number] [place] [address] Aug, [place] [id number] [place] [address] Aug, High-risk sexual behavior Z72.51 [facility] [address] [address] 15 Jan, 2016 High risk sexual behavior Z72.51 [place] [id number] [place] [address] 07 Jan, 2016 Well woman exam with routine gynecological exam Z01.419 ; Screening for STD sexually transmitted disease Z11.3 ; High risk sexual behavior Z72.51 and Encounter for immunization Z23 [place] [id number] [place] [address] Oct, Nausea and vomiting, unspecified intactability, vomiting of unspecified type R11.2 [facility] [place] [id number] [place] [address] May, Recurrent acute suppurative otitis media without spontaneous rupture of tympanic membrane of both sides H66.006 [place] [id number] [place] [address] May, [place] [id number] [place] [address] Mar, Otitis media follow-up, infection resolved Z09 [place] [address] [facility] [id number], [place] [address] Mar, Otitis externa of both ears H60.93 [facility] [id number] [place] [address] Feb, Acute swimmers ear of both sides H60.333 [facility] [address] [id number] [address] Aug, [facility] [address] [facility] [id number] [place] [address] Aug, [facility] [id number] [place] [address] Mar, [facility] [id number] [place] [address] Mar, [facility] [id number] [place] [address] September, [facility] [address] [id number], [place] [address] September, [facility] [id number] [place] [address] September, [facility] [address], [place] [address] Aug, [facility] [address], [place] [address] Aug, [facility] [address] [facility] [id number], [place] [address] Jan, [facility] [address] [id number], [place] [address] Jan, [facility] [address] [facility] [id number], [place] [address] Dec, [facility] [address], [place] [address] Nov, [facility] [address] [facility] [id number], [place] [address] Nov, [facility] [address] [facility] [id number], [place] [address] Apr, [facility] [address] [facility] [id number], [place] [address] Apr, [facility] [address] [facility] [id number], [place] [address] Mar, [facility] [address] [id number], [place] [address] Feb, [facility] [address] [facility] [id number], [place] [address] Feb, [facility] [id number], [place] [address] Feb, [facility] [address], [place] [address] Feb, [facility] [address] [id number], [place] [address] Apr, [facility] [address], [place] [address] Mar, [facility] [address], [place] [address] Feb, [facility] [address], [place] [address] Feb, [facility] [id number], [place] [address] Dec, [facility] [address], [place] [address] Feb, IMMUNIZATIONS No Known Immunizations SOCIAL HISTORY Never Assessed REASON FOR VISIT EMR-[facility] PLAN OF CARE VITAL SIGNS MEDICATIONS Unknown Medications RESULTS No Results PROCEDURES No Known procedures INSTRUCTIONS MEDICATIONS ADMINISTERED No Known Medications MEDICAL (GENERAL) HISTORY Type Description Date Surgical History right ear surgery x2 mastoiditis around 4th grade 2014 Hospitalization History see above surgery
--- OUTSIDE RECORDS SUMMARY | 2018-10-27 06:52 | XMS REPORT ---
Author Author SEBASTIÁN CABA [facility] Address [address] [place] [address] Care Team Providers Care Ob/Gyn Physician Name Role Phone SEBASTIÁN CABA Unavailable PROBLEMS Type Condition ICD9-CM Code YZV07-LP Code Onset Dates Condition Status SNOMED Code Problem Urinary tract infection, site not specified 599.0 Active 64805580 Problem Other chronic serous otitis media 381.19 Active 18332960 Problem Acute serous otitis media 381.01 Active 212863093 Problem ADHD (attention deficit hyperactivity disorder), combined type F90.2 Active 69304749 Problem Dysuria 788.1 Active 18536620 Problem Unspecified mood [affective] disorder F39 Active 66417323 Problem Bipolar disorder, unspecified 296.80 Active 86117065 Problem Otitis externa of both ears H60.93 Active 2199211 Problem Herpes simplex vulvovaginitis A60.04 Active 61120835 Problem Bipolar disorder, current episode mixed, moderate F31.62 Active 646337750 ALLERGIES No Information ENCOUNTERS Encounter Location Date Diagnosis [facility] [address] [place] [address] Aug, [facility] [id number] [place] [address] Jul, Caries K02.9 [facility] [id number] [place] [address] Jul, Caries K02.9 [facility] [id number] [place] [address] Jul, [facility] [id number] [place] [id number] May, Caries K02.9 ; Oral health maintenance status requiring routine preventive dental care K08.9 and Dental examination Z01.20 [facility] [id number] [place] [address] May, Sore throat J02.9 [place] [id number] [place] [address] May, Dental examination Z01.20 [place] [address] [address] May, [place] [address] [address] Mar, Unspecified mood [affective] disorder F39 [place] [address] [address] Feb, [place] [address] [address] Feb, Encounter for test, result unknown Z32.00 [place] [address] [address] Dec, Unspecified mood [affective] disorder F39 and ADHD (attention deficit hyperactivity disorder), combined type F90.2 [place] [address] [address] Nov, Bipolar disorder, current episode mixed, moderate F31.62 [facility] [id number] [place] [address] Aug, Acute otitis externa of right ear, unspecified type H60.501 and Acute suppurative otitis media of left ear without spontaneous rupture of tympanic membrane, recurrence not specified H66.002 [facility] [id number] [place] [address] Mar, Pharyngitis due to other organism J02.8 [place] [id number] [place] [address] Feb, [facility] [id number] [place] [address] Feb, [facility] [id number] [place] [address] Jan, Vaginal itching L29.8 ; Acute cystitis without hematuria N30.00 and Acute otitis externa of right ear, unspecified type H60.501 [place] [id number] [place] [address] Nov, Acute serous otitis media of left ear, recurrence not specified H65.02 [facility] [place] [address] [address] Nov, Acute serous otitis media of left ear, recurrence not specified H65.02 [facility] [place] [address] [address] Oct, [facility] [place] [address] [address] September, Vaginal itching L29.8 and Herpes simplex vulvovaginitis A60.04 [place] [id number] [place] [address] Aug, [place] [address] [address] Aug, High-risk sexual behavior Z72.51 [facility] [place] [id number] [place] [address] 15 Jan, 2016 High risk sexual behavior Z72.51 [place] [address] [address] 07 Jan, 2016 Well woman exam with routine gynecological exam Z01.419 ; Screening for STD sexually transmitted disease Z11.3 ; High risk sexual behavior Z72.51 and Encounter for immunization Z23 [place] [address] [address] 20 Oct, 2015 Nausea and vomiting, unspecified intactability, vomiting of unspecified type R11.2 [facility] [place] [address] [address] May, Recurrent acute suppurative otitis media without spontaneous rupture of tympanic membrane of both sides H66.006 [facility] [id number] [place] [address] May, [facility] [id number] [place] [address] Mar, Otitis media follow-up, infection resolved Z09 [facility] [id number] [place] [address] Mar, Otitis externa of both ears H60.93 [facility] [id number] [place] [address] Feb, Acute swimmers ear of both sides H60.333 [facility] [id number] [place] [address] Aug, [facility] [id number] [place] [address] Aug, [facility] [address] [place] [address] Mar, [facility] [id number] [place] [address] Mar, [facility] [address] [place] [address] September, [facility] [id number] [place] [address] September, [facility] [address] [place] [address] September, [facility] [id number] [place] [address] Aug, [facility] [address] [place] [address] Aug, [facility] [id number] [place] [address] Jan, [facility] [place] [facility] [address] [id number] [place] [address] 04 Jan, 2013 [facility] [place] [facility] [address] [id number] [place] [address] Dec, [facility] [place] [facility] [address] [id number] [place] [address] Nov, [facility] [place] [facility] [address] [id number] [place] [address] Nov, [facility] [place] [facility] [address] [id number] [place] [address] Apr, [facility] [place] [facility] [address] [id number] [place] [address] Apr, [facility] [place] [facility] [address] [id number] [place] [address] Mar, [facility] [place] [facility] [address] [id number] [place] [address] Feb, [facility] [place] [facility] [address] [id number] [place] [address] Feb, [facility] [place] [facility] [address] [id number] [address] Feb, [facility] [place] [facility] [address] [id number] [address] Feb, [facility] [place] [facility] [address] [id number] [address] Apr, [facility] [place] [facility] [address] [id number] [place] [address] Mar, [facility] [place] [facility] [address] [id number] [address] Feb, [facility] [place] [facility] [address] [id number] [address] 29 Feb, 2009 [facility] [place] [facility] [address] [facility] [id number] [place] [address] Dec, [facility] [address] [facility] [id number] [place] [address] Feb, IMMUNIZATIONS No Known Immunizations SOCIAL HISTORY Never Assessed REASON FOR VISIT Eye Exam PLAN OF CARE VITAL SIGNS MEDICATIONS Unknown Medications RESULTS No Results PROCEDURES No Known procedures INSTRUCTIONS MEDICATIONS ADMINISTERED No Known Medications MEDICAL (GENERAL) HISTORY Type Description Date Surgical History right ear surgery x2 mastoiditis around 4th grade 2014 Hospitalization History see above surgery
--- OUTSIDE RECORDS SUMMARY | 2018-10-27 06:52 | XMS REPORT ---
Author Author Migration, Doctor Organization [facility] Address Unknown Phone Unavailable Care Team Providers Care Veneer Glue Spreader Name Role Phone Migration, Doctor Unavailable Unavailable PROBLEMS Type Condition ICD9-CM Code WPY19-UV Code Onset Dates Condition Status SNOMED Code Problem Urinary tract infection, site not specified 599.0 Active 71887156 Problem Other chronic serous otitis media 381.19 Active 12774038 Problem Acute serous otitis media 381.01 Active 239720520 Problem ADHD (attention deficit hyperactivity disorder), combined type F90.2 Active 61156392 Problem Dysuria 788.1 Active 59036404 Problem Unspecified mood [affective] disorder F39 Active 29441076 Problem Bipolar disorder, unspecified 296.80 Active 59665204 Problem Otitis externa of both ears H60.93 Active 5815092 Problem Herpes simplex vulvovaginitis A60.04 Active 13301211 Problem Bipolar disorder, current episode mixed, moderate F31.62 Active 316434689 ALLERGIES No Information ENCOUNTERS Encounter Location Date Diagnosis [facility] [address] [place] [address] Aug, [facility] [address] [address] Jul, Caries K02.9 [facility] [address] [address] Jul, Caries K02.9 [facility] [address] [address] Jul, [facility] [address] [id number] May, Caries K02.9 ; Oral health maintenance status requiring routine preventive dental care K08.9 and Dental examination Z01.20 [facility] [address] [address] 15 May, 2018 Sore throat J02.9 [place] [address] [place] [id number] [place] [address] May, Dental examination Z01.20 [place] [address] [address] May, [place] [address] [address] Mar, Unspecified mood [affective] disorder F39 [place] [address] [address] Feb, [place] [address] [address] Feb, Encounter for test, result unknown Z32.00 [place] [address] [address] Dec, Unspecified mood [affective] disorder F39 and ADHD (attention deficit hyperactivity disorder), combined type F90.2 [place] [address] [place] [id number] [place] [address] Nov, Bipolar disorder, current episode mixed, moderate F31.62 [facility] [address] [address] Aug, Acute otitis externa of right ear, unspecified type H60.501 and Acute suppurative otitis media of left ear without spontaneous rupture of tympanic membrane, recurrence not specified H66.002 [facility] [address] [place] [id number] [place] [address] Mar, Pharyngitis due to other organism J02.8 [place] [address] [address] Feb, [facility] [address] [place] [id number] [place] [address] Feb, [facility] [address] [address] Jan, Vaginal itching L29.8 ; Acute cystitis without hematuria N30.00 and Acute otitis externa of right ear, unspecified type H60.501 [place] [address] [place] [id number] [place] [address] Nov, Acute serous otitis media of left ear, recurrence not specified H65.02 [facility] [place] [address] [address] [id number] [place] [address] Nov, Acute serous otitis media of left ear, recurrence not specified H65.02 [facility] [place] [address] [place] [address] [id number] [place] [address] Oct, [facility] [place] [address] [address] September, Vaginal itching L29.8 and Herpes simplex vulvovaginitis A60.04 [place] [address] [address] Aug, [place] [address] [place] [id number] [place] [address] Aug, High-risk sexual behavior Z72.51 [facility] [place] [address] [id number] [place] [address] 15 Jan, 2016 High risk sexual behavior Z72.51 [place] [address] [place] [id number] [place] [address] 07 Jan, 2016 Well woman exam with routine gynecological exam Z01.419 ; Screening for STD sexually transmitted disease Z11.3 ; High risk sexual behavior Z72.51 and Encounter for immunization Z23 [place] [address] [place] [id number] [place] [address] 20 Oct, 2015 Nausea and vomiting, unspecified intactability, vomiting of unspecified type R11.2 [facility] [place] [address] [place] [address] [id number] [place] [address] May, Recurrent acute suppurative otitis media without spontaneous rupture of tympanic membrane of both sides H66.006 [facility] [address] [facility] [id number] [place] [address] May, [facility] [address] [place] [id number] [place] [address] Mar, Otitis media follow-up, infection resolved Z09 [facility] [address] [place] [id number] [place] [address] Mar, Otitis externa of both ears H60.93 [facility] [address] [facility] [id number] [place] [address] Feb, Acute swimmers ear of both sides H60.333 [facility] [address] [id number] [place] [address] Aug, [facility] [address] [place] [id number] [place] [address] Aug, [facility] [address] [place] [id number] [place] [address] Mar, [facility] [address] [place] [id number] [place] [address] Mar, [facility] [address] [id number] [place] [address] September, [facility] [id number] [address] September, [facility] [address] [place] [id number] [place] [address] September, [facility] [address] [facility] [id number] [place] [address] Aug, [facility] [address] [facility] [id number] [place] [address] Aug, [facility] [address] [place] [id number] [address] Jan, [facility] [address] [place] [id number] [place] [address] Jan, [facility] [place] [facility] [address] [id number] [place] [address] Dec, [facility] [place] [facility] [address] [id number] [place] [address] Nov, [facility] [place] [facility] [address] [id number] [place] [address] Nov, [facility] [place] [facility] [address] [id number] [place] [address] Apr, [facility] [place] [facility] [address] [id number] [place] [address] Apr, [facility] [place] [facility] [address] [id number] [place] [address] Mar, [facility] [place] [facility] [address] [id number] [place] [address] Feb, [facility] [place] [facility] [address] [id number] [place] [address] Feb, [facility] [place] [facility] [address] [id number] [place] [address] Feb, [facility] [place] [facility] [address] [id number] [place] [address] Feb, [facility] [place] [facility] [address] [id number] [address] Apr, [facility] [place] [facility] [address] [id number] [address] Mar, [facility] [place] [facility] [address] [id number] [place] [address] Feb, [facility] [place] [facility] [address] [id number] [place] [address] 29 Feb, 2009 [facility] [place] [facility] [address] [id number] [place] [address] Dec, [facility] [place] [facility] [address] [facility] [id number] [place] [address] 14 Feb, 2008 IMMUNIZATIONS No Known Immunizations SOCIAL HISTORY Never Assessed REASON FOR VISIT [facility] [place] VITAL SIGNS MEDICATIONS Medication Instructions Dosage Frequency Start Date End Date Duration Status Keflex 500 mg take 1 capsule (500 mg) by oral route every 6 hours September, Active Ofloxacin 0.3 % 3 drop by Otic route 2 times per day for 10 day(s) generic equiv has pef ear drum September, Active Ciprodex 0.3-0.1 % 3 drop by Otic route 2 times per day for 7 day(s) put into right ear Nov, Active RESULTS No Results PROCEDURES No Known procedures INSTRUCTIONS MEDICATIONS ADMINISTERED No Known Medications MEDICAL (GENERAL) HISTORY Type Description Date Surgical History right ear surgery x2 mastoiditis around 4th grade 2014 Hospitalization History see above surgery
--- OUTSIDE RECORDS SUMMARY | 2018-10-27 06:54 | XMS REPORT | Continuity of Care Document ---
Author Organization Unknown Address Unknown Allergies There is no data. Medications There [...] Against Other Specified Disease 12/26/2008 V06.5 Dt, Tetanus-diphtheria [td] ,tdap 12/26/2008 V20.2 Preventive Medicine Establ. Patient Checkup Adolescent 12-17 12/26/2008 LOS OH APRN V05.8 Need For Prophylactic Vaccination And Inoculation Against Other Specified Disease 12/26/2008 [place] APRN V06.5 Dt, Tetanus-diphtheria [td] ,tdap 12/26/2008 ALTHEA BUITRAGO [place] V20.2 Preventive Medicine Establ. Patient Checkup Adolescent 12-17 12/26/2008 ROSALES DO SEBASTIÁN K V05.8 Need For Prophylactic [...] Inoculation Against Other Specified Disease 12/26/2008 ROSALES DO SEBASTIÁN K V06.5 Dt, Tetanus-diphtheria [td] ,tdap 12/26/2008 CABA DO SEBASTIÁN K V20.2 Preventive Medicine Establ. Patient Checkup Adolescent 12-17 03/08/2009 110.4 Dermatophytosis Tinea Pedis 03/08/2009 691.8 ATOPIC DERMATITIS 03/08/2009 845.00 Ankle Sprain Right 03/08/2009 ALTHEA BUITRAGO [place] 110.4 Dermatophytosis Tinea Pedis 03/08/2009 ALTHEA BUITRAGO [place] 691.8 ATOPIC DERMATITIS 03/08/2009 ALTHEA BUITRAGO [place] 845.00 Ankle Sprain Right 03/08/2009 CABA DO, [...] DEFIANT 02/01/2010 314.01 ADHD COMBINED 02/01/2010 [place] NEW BUSINESS CLERK, [place] 296.90 MO MOOD DIS NOS 02/01/2010 [place] NEW BUSINESS CLERK, [place] 313.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 02/01/2010 [place] NEW BUSINESS CLERK, [place] 314.01 ADHD COMBINED 02/01/2010 CABA DO, SEABSTIÁN K 296.90 MO MOOD DIS NOS 02/01/2010 [...] ADHD COMBINED 04/21/2011 V25.9 CONTRACEPTION MANAGEMENT 04/21/2011 [place] IFTIKHAR [place] V25.9 CONTRACEPTION MANAGEMENT 04/21/2011 CABA DO, SEBASTIÁN K V25.9 CONTRACEPTION MANAGEMENT 04/21/2011 CABA DO, SEBASTIÁN K V25.9 CONTRACEPTION MANAGEMENT 04/21/2011 CABA DO, SEBASTIÁN K V25.9 CONTRACEPTION MANAGEMENT 12/01/2012 296.80 MO BIPOLAR NOS 12/01/2012 381.19 OTHER CHRONIC SEROUS OTITIS MEDIA 12/01/2012 [place] IFTIKHAR [place]ORTESH 296.80 MO BIPOLAR NOS 12/01/2012 [place] NEW BUSINESS CLERK, [place] 381.19 OTHER CHRONIC SEROUS OTITIS MEDIA 12/01/2012 CABA DO, SEBASTIÁN K 296.80 MO BIPOLAR NOS 12/01/2012 CABA DO, SEBASTIÁN K 381.19 OTHER CHRONIC SEROUS OTITIS MEDIA 12/01/2012 CABA DO, SEBASTIÁN K 296.80 MO BIPOLAR NOS 12/01/2012 CABA DOCARRIA K 381.19 OTHER CHRONIC SEROUS OTITIS MEDIA 12/01/2012 CABA DOCARRIA K 296.80 MO BIPOLAR NOS 12/01/2012 CABA DOCARRIA K 381.19 OTHER CHRONIC SEROUS OTITIS MEDIA 09/14/2013 CABA DOCARRIA K 381.01 ACUTE SEROUS OTITIS MEDIA 09/14/2013 CABA DOCARRIA K 599.0 URINARY TRACT INFECTION 09/14/2013 CABA DO, SEBASTIÁN K 788.1 DYSURIA 09/14/2013 CABA DO, SEBASTIÁN K 381.01 ACUTE SEROUS OTITIS MEDIA 09/14/2013 CABA DO, SEBASTIÁN K 599.0 URINARY TRACT INFECTION 09/14/2013 CABA DO, SEBASTIÁN K 788.1 DYSURIA 09/14/2013 CABA DO, SEBASTIÁN K 381.01 ACUTE SEROUS OTITIS MEDIA 09/14/2013 CABA DOCARRIA K 599.0 URINARY TRACT INFECTION 09/14/2013 CABA DOCARRIA K 788.1 DYSURIA 08/16/2014 SEBASTIÁN CABA DO K V74.1 TB SCREENING 08/16/2014 SEBASTIÁN CABA DO K V74.1 TB SCREENING Procedures Code [place] [address] CULTURE URINE 09/14/2013 19937 UA W/ CULTURE IF INDICATED 09/14/2013 96202 TB TEST INTRADERMAL 08/16/2014 05535 TB TEST INTRADERMAL 08/25/2014 Results Test Result Range CULTURE, GENITAL - 01/30/17 09:35 Genital Culture, Routine Final report NRG Result 1 NRG Encounters ACCT No. Visit Date/Time Discharge Status Pt. Type Provider Facility Loc./Unit Complaint [id number] 09/30/2018 10:00:00 09/30/2018 23:59:59 [facility] [id number] 01/30/2017 08:45:00 Document Registration [id number] 08/25/2014 14:15:00 08/25/2014 23:59:59 CLS Outpatient SEBASTIÁN CABA DO [id number] 08/16/2014 09:37:00 08/16/2014 23:59:59 CLS Outpatient SEBASTIÁN CABA DO [id number] 09/14/2013 11:53:00 09/14/2013 23:59:59 CLS Outpatient SEBASTIÁN CABA DO [id number] 08/11/2013 18:20:00 08/11/2013 23:59:59 [facility] Outpatient LOS [place] APRN [id number] 12/01/2012 15:15:00 Document Registration
[2018-10-27] MEDS ORDERED: D5 LR IV SOLUTION 1,000 ML IV ONE ×2 (07:26→14:05)
[2018-10-27] MEDS ORDERED: WATER (STERILE) FOR INJECTION 20 ML ONE (08:56)
[2018-10-27] MEDS ORDERED: AMPICILLIN FOR IV USE 2,000 MG VIAL ONE (08:56)
[2018-10-27] MEDS ORDERED: SUFENTA 0.6MCG/ML BUPIVA 0.125 100 ML ONE (09:29)
[2018-10-27] MEDS ORDERED: fentaNYL INJECTION 100 MCG/2 ML AMP ONE (10:48)
[2018-10-27] MEDS ORDERED: SUFENTA 0.6MCG/ML BUPIVA 0.125 100 ML INJ PRN (12:30)
[2018-10-27] MEDS ORDERED: [UNRECOGNIZED DRUG - OTHER] IV ONE ×2 (12:30)
[2018-10-27] MEDS ORDERED: AMPICILLIN IV ONE ×2 (12:30)
[2018-10-27] MEDS: [UNRECOGNIZED DRUG - OTHER] IV SCH ×4 (13:05→16:53)
[2018-10-27] MEDS: AMPICILLIN IV SCH ×4 (13:05→16:53)
--- NOTE | 2018-10-27 13:05 | History & Physical-OB ---
OB - Chief Complaint & HPI Date/Time Date of Admission: Date of Admission: Oct 27, 2018 at 6:45 am Date seen by a Provider: Oct 27, 2018 Time Seen by a Provider: 07:45 Chief Complaint/History OB-Reason for Admission/Chief: Induction of Labor Hx : 1 Hx Para: 0 Expected Date of Delivery: Oct 26, 2018 Gestational Age in Weeks: 40 Gestational Age in Days: 1 Indication for induction: post dates Admission Nurse Assessment Rev: Yes History of Labs O pos Antibody neg RI RPR NR HBsAg NR HIV NR GC neg GBS + Allergies and Home Medications Allergies Coded Allergies: No Known Drug Allergies (Unverified , 04/30/18) Home Medications Cephalexin 500 Mg Tablet, 500 MG PO BID Prescribed by: ESTELA ALMODOVAR on 04/30/181801 Ondansetron 4 Mg Tab.rapdis, 4 MG PO Q6H PRN for NAUSEA/VOMITING Prescribed by: ESTELA ALMODOVAR on 04/30/181801 Patient Home Medication List Home Medication List Reviewed: Yes OB - History Hx of Present Care: Yes Ultrasounds: Normal mid trimester US Obstetrical Complications: None Medical Complications: None Delivery History Hx Blood Disorders: No Patient Past Medical History N/A Social History/Family History 2nd Hand Smoke Exposure: Yes Immunizations Tetanus Booster (TDap): More than 5yrs OB - Admission Exam Physical Exam HEENT: NCAT Heart: Rhythm Normal Lungs: Clear Abdomen: Gravid Extremities: Normal Reflexes: Normal Cervical Dilatation: 4cm Effacement: 75% Station: -1 Membranes: Intact Amniotic Fluid: Clear Heart Rate: 130's Accelerations: Accelerations Present Decelerations: No Decelerations Short Term Variability: Present Correction Variability: Average (6-25) Contractions on Admission: 6-10 Minutes Apart Intensity: Mild OB - Assessment/Plan/Diagnosis Assessment Assessment: induction of labor Admission Dx 22 yo @ 40.1 Post dates GBS pos Admission Status: Inpatient Order (span 2 midnights) Reason for Inpatient Admission: Induction of labor post dates Plan Induction Method: RITA JOYA DO Oct 27, 2018 1:05 pm
[2018-10-27 14:14] LABS: BASOPHILS % (AUTO) 0 % (0-10); EOSINOPHILS # (AUTO) 0.1 10^3/uL (0.0-0.3); EOSINOPHILS % (AUTO) 1 % (0-10); HEMATOCRIT 34 % (35-52); LYMPHOCYTES # (AUTO) 1.8 X 10^3 (1.0-4.0); LYMPHOCYTES % (AUTO) 15 % (12-44); MEAN CORPUSCULAR HEMOGLOBIN 28 PG (25-34); MEAN CORPUSCULAR HGB CONC 32 G/DL (32-36); MEAN CORPUSCULAR VOLUME 87 FL (80-99); MEAN PLATELET VOLUME 10.7 FL (7.4-10.4); MONOCYTES # (AUTO) 0.9 X 10^3 (0.0-1.0); MONOCYTES % (AUTO) 8 % (0-12); NEUTROPHILS # (AUTO) 8.8 X 10^3 (1.8-7.8); NEUTROPHILS % (AUTO) 76 % (42-75); PLATELET COUNT 221 10^3/uL (130-400); RED CELL DISTRIBUTION WIDTH 13.8 % (10.0-14.5); WHITE BLOOD COUNT 11.6 10^3/uL (4.3-11.0)
[2018-10-27] MEDS ORDERED: D5 LR IV SOLUTION 1,000 ML IV SCH (14:36)
[2018-10-27] MEDS ORDERED: OXYTOCIN/NORMAL SALINE 500 ML IV ONE ×2 (14:38→18:25)
[2018-10-27] MEDS ORDERED: LIDOCAINE/EPI 2% 1:200,00 (XYLOCAINE) 10 ML VIAL ONE (14:44)
[2018-10-27] MEDS ORDERED: MINERAL OIL CONCENTRATE 99.9% 15 ML UDC TOP PRN (14:45)
[2018-10-27] MEDS ORDERED: PREN1TAB19 PO (14:59)
[2018-10-27] MEDS ORDERED: LIDOCAINE PF 2% 10 ML (XYLOCAINE) AMP INJ ONE (15:00)
--- NOTE | 2018-10-27 18:00 | NUR ---
1800 Recovery started. BP 108/56, p 73. FF @ u/2 with light rubra flow. 1810 Epidural dc'd - bandaid applied. 181 132/45 p 116. FF @ u/2 with light rubra flow. 1830 Temp 98 110/60 p 94. FF @ u/2 with light rubra flow. Pitocin infusing. 184 115/62 p 91. FF @ u/2 with light rubra flow. 0 117/56 p 85. FF @ u/1 with light rubra flow. 1914 FF @ u/1 with light rubra flow. 0 Report to 7 pm shift.
[2018-10-27] MEDS ORDERED: OXYTOCIN/NORMAL SALINE 500 ML IV SCH (19:06)
[2018-10-27] MEDS ORDERED: HYDROcodone/APAP 5 MG/325 MG (LORTAB) TAB PO PRN (19:15)
[2018-10-27] MEDS ORDERED: WITCH HAZEL(TUCKS) 40 EA JAR TOP PRN (19:15)
[2018-10-27] MEDS ORDERED: BENZOCAINE/MENTHOL (DERMOPLAST) 56 ML CAN TP PRN (19:15)
[2018-10-27] MEDS ORDERED: DIBUCAINE (NUPERCAINAL) 1% OINT 30 GM TOP PRN (19:15)
[2018-10-27] MEDS ORDERED: MEASLES,MUMPS,RUBELLA 1 EA INJ SQ ONE (19:15)
[2018-10-27] MEDS ORDERED: TETANUS,DIPTH,PERTUSS P/F (BOOSTRIX) 0.5 ML VIAL IM ONE (19:15)
--- NOTE | 2018-10-27 19:17 | OB Labor & Delivery Record ---
L&D History Date of Service Date of Service: Oct 27, 2018 History Expected Date of Delivery: Oct 26, 2018 Gestational Age in Weeks: 40 Hx : 1 Hx Para: 0 Complications Events: Routine care Operative Indications (Cesarea: N/A-Vaginal Delivery Intrapartal Events: None L&D Stage1 Stage One Onset of Labor - Date: Oct 27, 2018 Monitors and Tracing Monitor Mode: External Heart Rate: 140 Monitor Accelerations: Uniform Monitor Decelerations: None Station: -1 Mcc Variability: Average (6-10) Short Term Variability: Present Presentation: Vertex Vital Signs VS - Last 72 Hours, by Label 10/27/18 07:17 Temp 97.9 Pulse 73 Resp 16 B/P (MAP) 118/68 (85) O2 Delivery Room Air Rupture of Membranes Spontaneous Ruture of Membrane: No Amniotic Membrane Rupture Time: 07:55 Amniotic Membrane Fluid Desc.: Clear Vaginal Bleeding Description: Normal Show Induction/Anesthesia Epidural Cath Placement - Time: 11:00 Progress/Notes Patient AROM performed with am, after second dose of Ampicillin, Pitocin augmentation was used to achieve adequate contraction pattern and epidural was obtained. She progressed to complete and +2 station. L&D Stage2 Stage Two Stage II Date: Oct 27, 2018 Monitors and Tracing Monitor Mode: External Heart Rate: 140 Monitor Accelerations: Uniform Monitor Decelerations: Early Meat Service Team Member Variability: Average (6-10) Short Term Variability: Present Position: Right Occiput Anterior Presentation: Vertex Cord Descript/Complications Cord Vessel Description: 3 Vessels Delivery Type Delivery Method: Spontaneous Vaginal Anterior Shoulder: Right Episiotomy/Perineal Laceration Laceraction(s)/Extensions: Yes Episiotomy Description: Midline Degree (describe repair) midline episiotomy repaired using 3-0 and 2-0 vicryl suture in usual fashion Condition of Infant Delivery 1 minute Comment: 9 5 minute Comment: 9 Notes live female weight 6 lbs and 6 oz Condition of Infant Condition of Infant: Living Exam: No Observed Abnormalities Resuscitation Resuscitation: N/A - Spontaneous Resp L&D Stage3 Stage Three Stage III Date: Oct 27, 2018 Pictocin Pitocin Administration Comment: 30 mu wide open after delivery of placenta Placenta Delivery Placenta Delivery: Spontaneous Delivery Summary Summary Estimated blood loss (mL): 300 Attending at delivery: Rita Zhou DO Condition of Delivery Examined: Cervix Examined, Uterus Explored Post Hemorrhage: No Condition of Mother stable Condition of (s) stable RITA ZHOU DO Oct 27, 2018 7:17 pm
--- NOTE | 2018-10-27 19:31 | Discharge Inst-Women's Service ---
Discharge Inst-Women's Serv Depart Medication/Instructions New, Converted or Re-Newed RX: RX on Chart Final Diagnosis PPD 2 NVD Consults/Follow Up Additional Follow Up: Yes Orders/Referrals Dr. Zhou in 6 weeks Activity Activity: Activity as Tolerated Driving Instructions: No Driving for 1 Week NO SMOKING: NO SMOKING Nothing Inside Vagina: No Douching, No Rafael Gonzalez, No Tampons Diet Discharge Diet: No Restrictions Symptoms to Report to : Bleeding Excessive, Pain Increased, Fever Over 101 Degrees F, Vaginal Bleeding Increase, Questions/Concerns For Any Problems or Questions: Contact Your Physician RITA ZHOU DO Oct 27, 2018 7:31 pm
[2018-10-27] MEDS ORDERED: DIBU30OI TOP (19:32)
[2018-10-27] MEDS ORDERED: Benzocaine/Menthol TP (19:32)
[2018-10-27] MEDS ORDERED: DOCU100C37 PO (19:32)
[2018-10-27] MEDS ORDERED: ACHD5005 PO (19:32)
[2018-10-27] MEDS ORDERED: FERR325T18 PO (19:32)
[2018-10-27] MEDS ORDERED: IBUP-844 PO (19:32)
--- NOTE | 2018-10-27 19:41 | NUR ---
FF u/2 scant rubra noted, family at bedside, plan of care reviewed with pt.
--- NOTE | 2018-10-27 20:00 | NUR ---
pt requesting to have paper faxed to court house stating she was here in labor and had baby since she missed her court date today. Will fax info to court house. see chart.
--- NOTE | 2018-10-27 20:10 | NUR ---
FF u/2 small lochia ronald noted, VSS, pt eating at this time, family at bedside.
--- NOTE | 2018-10-27 21:15 | NUR ---
Pt assisted to side of bed and then to WC to bathroom, void noted, pt feeling light headed while on toilet. Pericare done, clean gown in place. Pt to wheelchair and transferred over to PP room 311. cool wash cloth placed behind neck, pt feeling better, info papers explained, oriented to room, fresh ice water given, food tray at bedside and call light within reach. enc pt to call for help before getting up.
[2018-10-27] MEDS ORDERED: CATHETER FLUSH 10 ML SYR IV SCH ×2 (22:00)
[2018-10-27] MEDS: DOCUSATE SODIUM 100 MG (COLACE) CAP PO SCH (22:45)
[2018-10-27] MEDS: IBUPROFEN 600 MG (MOTRIN) TAB PO SCH (23:36)
[2018-10-28 04:00] VITALS: BP 113/56
[2018-10-28 05:34] LABS: BASOPHILS % (AUTO) 0 % (0-10); EOSINOPHILS # (AUTO) 0.1 10^3/uL (0.0-0.3); EOSINOPHILS % (AUTO) 1 % (0-10); HEMATOCRIT 26 % (35-52); HEMOGLOBIN 8.2 G/DL (11.5-16.0); LYMPHOCYTES # (AUTO) 2.3 X 10^3 (1.0-4.0); LYMPHOCYTES % (AUTO) 14 % (12-44); MEAN CORPUSCULAR HEMOGLOBIN 28 PG (25-34); MEAN CORPUSCULAR HGB CONC 32 G/DL (32-36); MEAN CORPUSCULAR VOLUME 87 FL (80-99); MEAN PLATELET VOLUME 10.7 FL (7.4-10.4); MONOCYTES # (AUTO) 1.3 X 10^3 (0.0-1.0); MONOCYTES % (AUTO) 8 % (0-12); NEUTROPHILS # (AUTO) 12.6 X 10^3 (1.8-7.8); NEUTROPHILS % (AUTO) 77 % (42-75); PLATELET COUNT 218 10^3/uL (130-400); RED CELL DISTRIBUTION WIDTH 13.9 % (10.0-14.5); WHITE BLOOD COUNT 16.3 10^3/uL (4.3-11.0)
[2018-10-28] MEDS: IBUPROFEN 600 MG (MOTRIN) TAB PO SCH ×4 (05:34→23:06)
--- NOTE | 2018-10-28 07:34 | Postpartum Progress Note ---
Note Note Day # 1 Subjective: Patient is without complaints. Ambulating, voiding. Tolerating a regular diet without nausea or vomiting. Normal lochia. Pain is well controlled with oral pain medications. Objective: Physical Exam: General - Alert and oriented, no apparent distress Abdomen - Soft, appropriately tender to palpation, non-distended, fundus firm at umbilicus Extremities - no edema, negative Bella's bilaterally Assessment: PPD 1 NVD Acute blood loss anemia Plan: Routine care. Encourage breast feeding. Encourage ambulation. Ferrous sulfate supplementation. Plan for discharge tomorrow Vitals - Labs Vital Signs - I&O Vital Signs Date Time Temp Pulse Resp B/P (MAP) Pulse Ox O2 Delivery O2 Flow Rate FiO2 10/28/18 04:00 97.6 78 18 113/56 (75) 97 Room Air 10/27/18 23:45 98.1 82 18 104/68 (80) 98 Room Air 10/27/18 20:15 90 18 121/58 (79) Room Air 10/27/18 19:41 98.1 90 18 102/71 (81) Room Air 10/27/18 19:26 88 16 106/68 (81) Room Air 10/27/18 19:11 78 18 102/52 (69) Room Air 10/27/18 17:30 77 133/81 (98) 99 Room Air 10/27/18 17:15 78 99 Room Air 10/27/18 17:00 76 167/60 (95) 96 Room Air 10/27/18 16:45 70 108/68 (81) 97 Room Air 10/27/18 16:30 71 136/74 (94) 98 10/27/18 16:15 73 96 10/27/18 16:00 77 115/56 (75) 96 Room Air 10/27/18 15:45 73 124/61 (82) 98 10/27/18 15:30 83 105/52 (69) 98 10/27/18 15:15 82 16 112/56 (74) 97 10/27/18 15:00 98.5 82 109/54 (72) 98 Room Air 10/27/18 14:45 79 110/58 (75) 99 Room Air 10/27/18 14:30 69 16 111/56 (74) 97 Room Air 10/27/18 14:15 81 16 132/76 (94) 97 Room Air 10/27/18 14:00 98.3 83 133/80 (97) 99 10/27/18 13:45 80 16 134/74 (94) 99 10/27/18 13:30 76 16 133/75 (94) 99 10/27/18 13:15 72 16 120/58 (78) 97 10/27/18 13:00 70 16 126/74 (91) 98 Room Air 10/27/18 12:45 73 16 124/79 (94) 100 Room Air 10/27/18 12:30 75 16 125/75 (92) 98 Room Air 10/27/18 12:15 75 99 Room Air 10/27/18 12:00 67 16 117/59 (78) 98 Room Air 10/27/18 11:45 97.4 70 16 117/56 (76) 100 Room Air I & O 10/28/18 07:00 Intake Total 1418 ml Balance 1418 ml Labs Laboratory Tests 10/27/18 08:41: White Blood Count 11.6H, Red Blood Count 3.92L, Hemoglobin 11.0L, Hematocrit 34L , Mean Corpuscular Volume 87, Mean Corpuscular Hemoglobin 28, Mean Corpuscular Hemoglobin Concent 32, Red Cell Distribution Width 13.8, Platelet Count 221, Mean Platelet Volume 10.7H, Neutrophils (%) (Auto) 76H, Lymphocytes (%) (Auto) 15, Monocytes (%) (Auto) 8, Eosinophils (%) (Auto) 1, Basophils (%) (Auto) 0, Neutrophils # (Auto) 8.8H, Lymphocytes # (Auto) 1.8, Monocytes # (Auto) 0.9, Eosinophils # (Auto) 0.1, Basophils # (Auto) 0.0 10/28/18 05:20: White Blood Count 16.3H, Red Blood Count 2.96L, Hemoglobin 8.2#L, Hematocrit 26L , Mean Corpuscular Volume 87, Mean Corpuscular Hemoglobin 28, Mean Corpuscular Hemoglobin Concent 32, Red Cell Distribution Width 13.9, Platelet Count 218, Mean Platelet Volume 10.7H, Neutrophils (%) (Auto) 77H, Lymphocytes (%) (Auto) 14, Monocytes (%) (Auto) 8, Eosinophils (%) (Auto) 1, Basophils (%) (Auto) 0, Neutrophils # (Auto) 12.6H, Lymphocytes # (Auto) 2.3, Monocytes # (Auto) 1.3H, Eosinophils # (Auto) 0.1, Basophils # (Auto) 0.0 RITA ZHOU DO Oct 28, 2018 07:34
[2018-10-28] MEDS ORDERED: DOCUSATE CALCIUM 240 MG (SURFAK) CAP PO SCH (09:00)
[2018-10-28 09:15] VITALS: BP 114/59
[2018-10-28] MEDS: PRENATAL VITAMIN 1 EA TAB PO SCH (09:15)
[2018-10-28] MEDS: FERROUS SULF 325 MG (IRON) TAB PO SCH (09:15)
--- NOTE | 2018-10-28 10:30 | NUR ---
Dr Chapa here to see pt, no new orders rec'd
--- NOTE | 2018-10-28 12:30 | NUR ---
Pt inquiring about paternity testing. Answered all questions to the best of my ability and to pt satisfaction.
[2018-10-28 12:45] VITALS: BP 116/62
[2018-10-28] MEDS: DOCUSATE SODIUM 100 MG (COLACE) CAP PO SCH ×2 (12:45→23:06)
--- NOTE | 2018-10-28 14:44 | Anesthesia-Regional Post-Op ---
Regional Patient Condition Mental Status: Alert, Oriented x3 Circulation: Same as Pre-Op Headache: Absent Sensation: Full Recovery Motor Block: Absent Post Op Complications Complications None Follow Up Care/Instructions Patient Instructions None needed. Anesthesia/Patient Condition Patient is doing well, no complaints, stable vital signs, no apparent adverse anesthesia problems. TONYA TURNER DO Oct 28, 2018 14:44
--- NOTE | 2018-10-28 15:42 | NUR ---
CM/SS responded to consult. Spoke with the patient. She reported that she did miss court for a traffic ticket yesterday and had WS fax over something for the Court to know she is in hospital. AUSTEN is in correction currently over a parole violation, she thinks it will likely just be a 90day correction stay. AUSTEN is Óscar Rm. Patient reports that she is enrolled in [place], [facility], [employer] and completed programs with [facility]. She plans to try to apply at [facility] for food stamps and to start paternity process (to get FOB added to certificate). Janine reported that she had all necessary items to meet baby's needs ie) crib, car seat, diapers, wipes, clothes. She stated she has good family support also. She did not feel she had any other needs for discharge.
[2018-10-28 18:15] VITALS: BP 102/58
[2018-10-28 23:06] VITALS: BP 111/65
[2018-10-29] MEDS: IBUPROFEN 600 MG (MOTRIN) TAB PO SCH ×2 (05:14→12:41)
[2018-10-29 05:15] VITALS: BP 103/57
--- NOTE | 2018-10-29 08:15 | NUR ---
MOM RESTING IN BED. WANTS THIS RN TO RETURN LATER FOR ASSESSMENT COMPLETED. TO NURSERY FOR EXAM VIA OPEN CRIB.
[2018-10-29 09:00] VITALS: BP 118/77
--- NOTE | 2018-10-29 09:18 | Postpartum Progress Note ---
Note Note Day # 2 Subjective: Patient is without complaints. Ambulating, voiding. Tolerating a regular diet without nausea or vomiting. Normal lochia. Pain is well controlled with oral pain medications. Objective: Physical Exam: General - Alert and oriented, no apparent distress Abdomen - Soft, appropriately tender to palpation, non-distended, fundus firm at umbilicus Extremities - no edema, negative Bella's bilaterally Assessment: PPD 2 NVD Plan: Routine care. Encourage breast feeding. Encourage ambulation. Ferrous sulfate supplementation. Plan for discharge today Vitals - Labs Vital Signs - I&O Vital Signs Date Time Temp Pulse Resp B/P (MAP) Pulse Ox O2 Delivery O2 Flow Rate FiO2 10/29/18 05:15 98.1 63 18 103/57 (72) 97 Room Air 10/28/18 23:06 98.7 71 18 111/65 (80) 100 Room Air 10/28/18 18:15 97.0 73 18 102/58 (73) 98 Room Air 10/28/18 12:45 97.7 76 18 116/62 (80) 98 Room Air RITA ZHOU DO Oct 29, 2018 09:18
--- NOTE | 2018-10-29 09:30 | NUR ---
ASSESSMENT COMPLETED. VSS. PLANNING TO GO HOME TODAY. PT HASN'T BEEN ORDERING FOOD PER [id number] BUT HAS HAD FOOD BROUGHT TO HER. CARING FOR INFANT IN ROOM.
[2018-10-29] MEDS: DOCUSATE SODIUM 100 MG (COLACE) CAP PO SCH (10:36)
[2018-10-29] MEDS: FERROUS SULF 325 MG (IRON) TAB PO SCH (10:36)
[2018-10-29] MEDS: PRENATAL VITAMIN 1 EA TAB PO SCH (10:37)
--- NOTE | 2018-10-29 11:00 | NUR ---
DR. CABA IN TO SEE MOM ABOUT INFANT.
[2018-10-29] MEDS ORDERED: TETANUS,DIPTH,PERTUSS P/F (BOOSTRIX) 0.5 ML VIAL IM ONE (11:44)
--- NOTE | 2018-10-29 11:52 | NUR ---
TDAP GIVEN IM IN THE LEFT DELTOID. SITE CLEAR.
--- NOTE | 2018-10-29 12:00 | NUR ---
CONTINUES TO CARE FOR . DISCUSSED BURPING AND FEEDING WITH STATED UNDERSTANDING. AUSTEN'S MOTHER HAS BEEN IN THE ROOM ALL MORNING. OCC TENSION AND SHARP WORDS NOTED TOWARDS PT.
--- NOTE | 2018-10-29 13:00 | NUR ---
DISCHARGE INSTRUCTIONS REVIEWED WITH PT AND COPY GIVEN. STATES UNDERSTANDING OF ALL INSTRUCTIONS AND NEED TO F/U SCHEDULED AND NEEDED. RXS GIVEN.
[2018-10-29 13:30] VITALS: BP 118/77
--- NOTE | 2018-10-29 13:30 | NUR ---
DISMISSED AMB FROM WS WITH INFANT TO FAMILY CAR IN STABLE CONDITION ACC BY [id number] AND PRAVEENA SWANN.
== END 2018-10-29 13:30 | disposition home or self-care (01) | DRG 806 ==
LOC: LDRP 06:45
PROVIDERS: ADMIT Obstetrics & Gynecology; ATTEND Obstetrics & Gynecology
PROC: 10E0XZZ Delivery of Products of Conception, External Approach (ICD-10-PCS; principal; 2018-10-27)
PROC: 0W8NXZZ Division of Female Perineum, External Approach (ICD-10-PCS; 2018-10-27)
PROC: 10907ZC Drainage of Amniotic Fluid, Therapeutic from Products of Conception, Via Natural or Artificial Opening (ICD-10-PCS; 2018-10-27)
DX: O48.0 Post-term pregnancy (principal); O99.824 Streptococcus B carrier state complicating childbirth; O90.81 Anemia of the puerperium; D62 Acute posthemorrhagic anemia; O99.334 Smoking (tobacco) complicating childbirth; F17.290 Nicotine dependence, other tobacco product, uncomplicated; Z3A.40 40 weeks gestation of pregnancy; Z37.0 Single live birth; Z23 Encounter for immunization
CPT/HCPCS: 36415; 85025; 86850; 86900; 86901; 90715

== ENCOUNTER 2019-07-13 15:29 | Emergency (ER) | payer MEDICAID ==
[~2019-07-13] VITALS: Ht 160 cm; Wt 70.0 kg
[~2019-07-13 15:29] MED LIST changes: +ACHD5005 PO; +Benzocaine/Menthol TP; +DIBU30OI TOP; +DOCU100C37 PO; +FERR325T18 PO; +IBUP-844 PO; +OFLO5DRO33 OT; -OFLO5DRO7 OT; +PREN1TAB19 PO
--- NOTE | 2019-07-13 15:45 | NUR ---
TO ROOM NO CHANGE FROM TRAIGE.
--- NOTE | 2019-07-13 16:02 | ED GU-Female ---
General Chief Complaint: General Problems/Pain Stated Complaint: PAIN WITH URINATION Nursing Triage Note: PT STATES HER RECENTLY GOT OUT OF [facility] AND THEY HAVE BEEN HAVING "LOTS OF INTERCOURSE" UNTIL RECENTLY WHEN SHE STARTED HAVING PAIN IN HER VAGINA. LOOKED AND SAW SORES. ALSO HAS A EAR THAT IS DRAINING. Nursing Sepsis Screen: No Definite Risk History of Present Illness Date Seen by Provider: Jul 13, 2019 Time Seen by Provider: 15:45 Initial Comments 23-year-old female reports she has vaginal discomfort and "sores" She is reporting pain with intercourse. No history of STI's. She does report that her has herpes, however he has not having a current outbreak. She denies vaginal discharge at this time. She is not having regular menses, and her last was delivered in May 2018 and she has had intermittent spotting since then. She is not breast-feeding or taking any oral contraceptives. She also reports left ear pain. She has history of recurrent otitis media and rupture of the right TM in the past that required surgery. Timing/Duration: yesterday Severity/Quality: moderate Prior Genitourinary Problems: none Sexual [place] History: less than 2 months ago Allergies and Home Medications Allergies Uncoded Allergies: NKDA (Allergy, Unknown, 10/27/18) Home Medications Acyclovir 400 Mg Tablet, 400 MG PO TID Prescribed by: TALI MARKS on 07/13/191622 Amoxicillin 875 Mg Tablet, 875 MG PO BID Prescribed by: TALI MARKS on 07/13/191622 Dibucaine 30 Gm Oint, 0 GM TOP UD PRN for PAIN- SEE INSTRUCTIONS Prescribed by: RITA ZHOU on 10/27/181931 Docusate Sodium 100 Mg Capsule, 100 MG PO BID PRN for CONSTIPATION-1ST LINE Prescribed by: RITA ZHOU on 10/27/181931 Ferrous Sulfate 325 Mg Tablet, 325 MG PO DAILY Prescribed by: RITA ZHOU on 10/27/181931 Fluconazole 150 Mg Tablet, 150 MG PO DAILY Take one every 3 days Prescribed by: TALI MARKS on 07/13/19 162 Hydrocodone Bit/Acetaminophen 1 Tab Tab, 1 TAB PO Q4H PRN for PAIN-MODERATE Prescribed by: RITA ZHOU on 10/27/181931 Ibuprofen 600 Mg Tablet, 600 MG PO Q6HR Prescribed by: RITA ZHOU on 10/27/181931 Vit/Iron Fumarate/FA 1 Each Tablet, 1 EACH PO DAILY, (Reported) [Benzocaine/Menthol] 56 ML AEROSOL, 56 ML TP UD PRN for PAIN- SEE INSTRUCTIONS EXTERNAL USE ONLY Prescribed by: RITA ZHOU on 10/27/181931 Patient Home Medication List Home Medication List Reviewed: Yes Review of Systems Review of Systems Constitutional: no symptoms reported, see HPI EENTM: see HPI, ear discharge Genitourinary: see HPI, burning; denies discharge; dysuria, pain (with intercourse) : No All Other Systemes Reviewed Negative Unless Noted: Yes Past Eutvfuj-Armvlf-Fytbmt Hx Past Med/Social Hx: Reviewed Nursing Past Med/Soc Hx Patient Social History Alcohol Use: Occasionally Uses Recreational Drug Use: No Smoking Status: Current Everyday Smoker Type Used: Cigarettes 2nd Hand Smoke Exposure: Yes Recent Foreign Travel: No Contact w/Someone Who Travel: No Recent Infectious Disease Expo: No Recent Hopitalizations: No Immunizations Up To Date Tetanus Booster (TDap): More than 5yrs PED Vaccines UTD: Yes Seasonal Allergies Seasonal Allergies: Yes Past Medical History Surgeries: Yes Ear Surgery Respiratory: No Cardiac: No Neurological: No Reproductive Disorders: No Female Reproductive Disorders: Denies Gastrointestinal: No Musculoskeletal: No Endocrine: No HEENT: Yes (right mastoiditis as a teenager) Chronic Ear Infection Cancer: No Psychosocial: No Integumentary: No Blood Disorders: No Family Medical History FH: cancer No Pertinent Family Hx Physical Exam Vital Signs Vital Signs - First Documented 07/13/19 15:37 Temp 36.5 Pulse 94 Resp 16 B/P (MAP) 120/67 (84) Pulse Ox 99 O2 Delivery Room Air Capillary Refill : Less Than 3 Seconds Height, Weight, BMI Height: 5'4.00" Weight: 156lbs. 6.0oz. 70.268101lf; 27.00 BMI Method:Estimated General Appearance: WD/WN, no apparent distress HEENT: pharynx normal; No TM abnormal (R); TM abnormal (L) (Ruptured TM) Cardiovascular: normal peripheral pulses, regular rate, rhythm Respiratory: chest non-tender, lungs clear, normal breath sounds Gastrointestinal: normal bowel sounds, non tender, soft Pelvic: normal external exam, no cerv. motion tender, no masses, discharge (trace purulent); No tender w/ cervical motion, No tender uterus, No vaginal bleeding, No other (at vaginal entrance, excoriation noted bilaterally, patient reports painful. Compatible with HSV) Extremities: normal range of motion, non-tender, normal inspection Neurologic/Psychiatric: no motor/sensory deficits, alert, normal mood/affect Progress/Results/Core Measures Suspected Sepsis Recent Fever Within 48 Hours: No Infection Criteria Present: None New/Unexplained Altered Menta: No Sepsis Screen: No Definite Risk SIRS Temperature: Pulse: 94 Respiratory Rate: 16 Blood Pressure 120 /67 Mean: 84 Results/Orders Lab Results Laboratory Tests Test 07/13/19 15:57 07/13/19 16:09 07/13/19 16:37 Range/Units Urine Color YELLOW Urine Clarity CLEAR Urine pH 7.0 5-9 Urine Specific [place] 1.025 H 1.016-1.022 Urine Protein NEGATIVE NEGATIVE Urine Glucose (UA) NEGATIVE NEGATIVE Urine Ketones NEGATIVE NEGATIVE Urine Nitrite NEGATIVE NEGATIVE Urine Bilirubin NEGATIVE NEGATIVE Urine Urobilinogen 1.0 < = 1.0 MG/DL Urine Leukocyte Esterase 2+ H NEGATIVE Urine RBC (Auto) TRACE-L NEGATIVE Urine RBC 2-5 H /HPF Urine WBC >100 H /HPF Urine Squamous Epithelial Cells 10-25 H /HPF Urine Crystals NONE /LPF Urine Bacteria LARGE H /HPF Urine Casts NONE /LPF Urine Mucus NEGATIVE /LPF Urine Culture Indicated YES Micro Results Microbiology 07/13/19 Genital Culture, Resulted Pending 07/13/19 JAREK Preparation - Final, Resulted 07/13/19 Wet Prep - Final, Resulted My Orders Orders - TALI MARKS Urine Bedside (07/13/19 15:51) Ua Culture If Indicated (07/13/19 15:51) Wet Prep (07/13/19 16:13) Neisseria Gonorrhea Swab (07/13/19 16:13) Genital Culture (07/13/19 16:13) Jarek Prep (07/13/19 16:13) Chlamydia Trachomatis Swab (07/13/19 16:13) Urine Culture (07/13/19 15:57) Acyclovir Capsule/Tablet (Zovirax Caps (07/13/19 16:19) Herpes Simplex Culture (07/13/19 16:27) Herpes Simplex Virus 1&2 G&M (07/13/19 16:13) Syphilis Antibody Screen (07/13/19 16:13) Vital Signs/I&O 07/13/19 07/13/19 15:37 17:16 Temp 36.5 Pulse 94 77 Resp 16 18 B/P (MAP) 120/67 (84) 123/74 Pulse Ox 99 96 O2 Delivery Room Air Room Air Capillary Refill : Less Than 3 Seconds Blood Pressure Mean: 84 Departure Impression Primary Impression: Ruptured tympanic membrane Qualified Codes: H72.92 - Unspecified perforation of tympanic membrane, left ear 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 Decision time for Depature: 16:30 Referrals: RITA ZHOU,LOCAL PHYSICIAN (PCP) Primary Care Physician Patient Instructions: Genital Herpes (DC), Ruptured Eardrum (DC) Add. Discharge Instructions: No intercourse, complete vaginal rest. Take medication, as prescribed. Follow up with Dr. Zhou in 1 week. See your primary care provider, for your left ear. Warm sitz baths. Have your checked by his Primary Care Provider. You may alternate between Tylenol 650 mg and ibuprofen 600 mg every 4 hours for pain or fever. Return to the emergency department for new, urgent health care. All discharge instructions reviewed with patient and/or family. Voiced understanding. Scripts Amoxicillin (Amoxicillin) 875 Mg Tablet 875 MG PO BID, #14 TAB 0 Refills Prov: TALI MARKS 07/13/19 Fluconazole (Diflucan) 150 Mg Tablet 150 MG PO DAILY, #3 TAB 0 Refills Take one every 3 days Prov: TALI MARKS 07/13/19 Acyclovir (Acyclovir) 400 Mg Tablet 400 MG PO TID, #30 TAB 0 Refills Prov: TALI MARKS 07/13/19 Copy Copies To 1: RITA ZHOU AMY ARNP Jul 13, 2019 16:02
[2019-07-13 16:03] LABS: BILIRUBIN,URINE NEGATIVE (NEGATIVE); CLARITY,URINE CLEAR; COLOR,URINE YELLOW; GLUCOSE, URINE (UA) NEGATIVE (NEGATIVE); KETONES,URINE NEGATIVE (NEGATIVE); LEUKOCYTE ESTERASE ,URINE 2+ (NEGATIVE); NITRITE,URINE NEGATIVE (NEGATIVE); PROTEIN,URINE NEGATIVE (NEGATIVE)
[2019-07-13 16:13] LABS: BACTERIA,URINE LARGE /HPF; WBC,URINE >100 /HPF
[2019-07-13] MEDS ORDERED: ACYCLOVIR 400 MG TABLET (ZOVIRAX) PO STA (16:19)
[2019-07-13] MEDS ORDERED: ACYC400T PO (16:23)
[2019-07-13] MEDS ORDERED: AMOX875T2 PO (16:23)
[2019-07-13] MEDS ORDERED: FLUC150T PO (16:23)
[2019-07-13 17:16] VITALS: BP 123/74
== END 2019-07-13 17:16 | disposition home or self-care (01) ==
LOC: EDUNIT# 15:29 → ER 15:31
DX: H72.92 Unspecified perforation of tympanic membrane, left ear (principal); B00.9 Herpesviral infection, unspecified; F17.210 Nicotine dependence, cigarettes, uncomplicated
CPT/HCPCS: 36415; 81000; 84703; 86695; 86696; 86780; 87070; 87077; 87088; 87186; 87205; 87210; 87254; 87491; 87591; 99284

== ENCOUNTER 2019-07-29 17:48 | Emergency (ER) | payer MEDICAID ==
[~2019-07-29] VITALS: Ht 157 cm; Wt 68.0 kg
[~2019-07-29 17:48] MED LIST changes: +ACYC400T PO; +AMOX875T2 PO; +FLUC150T PO
[2019-07-29 18:45] VITALS: BP 121/79
[2019-07-29] MEDS ORDERED: AMOX-358 PO (19:37)
[2019-07-29] MEDS ORDERED: PRD20T PO (19:39)
[2019-07-29] MEDS ORDERED: ACETAMINOPHEN 325 MG TABLET PO STA (19:39)
--- NOTE | 2019-07-29 19:39 | ED EENT ---
History of Present Illness General Chief Complaint: Ear Problems Stated Complaint: EAR PAIN Nursing Triage Note: Pt reports chronic ear infections. Pt reports being prescribed amoxicillin two weeks ago for L ear infection and pain has not improved. Pt c/o pain and yellow/green drainage with an odor. History of Present Illness Date Seen by Provider: Jul 29, 2019 Time Seen by Provider: 19:00 Initial Comments 23 year old female presents for left ear pain. She was started on cefdinir approximately two weeks ago and prednisone. She reports finishing both these medications. Timing/Duration: this afternoon Location: ear (L) Prearrival Treatment: no prearrival treatment Associated Symptoms: denies symptoms; No change in hearing, No cough, No drooling, No ear drainage, No facial pain/swelling, No fever, No malaise, No nasal congestion/drainage, No poor fluid intake, No poor solids intake, No sinus infection, No sore throat, No tooth pain, No voice change Allergies and Home Medications Allergies Uncoded Allergies: NKDA (Allergy, Unknown, 10/27/18) Home Medications Acyclovir 400 Mg Tablet, 400 MG PO TID Prescribed by: TALI MARKS on 07/13/191622 Amoxicillin 875 Mg Tablet, 875 MG PO BID Prescribed by: TALI MARKS on 07/13/191622 Amoxicillin/Potassium Clav 1 Each Tablet, 1 EACH PO BID Prescribed by: TALI MARKS on 07/29/191936 Dibucaine 30 Gm Oint, 0 GM TOP UD PRN for PAIN- SEE INSTRUCTIONS Prescribed by: RITA ZHOU on 10/27/181931 Docusate Sodium 100 Mg Capsule, 100 MG PO BID PRN for CONSTIPATION-1ST LINE Prescribed by: RITA ZHOU on 10/27/181931 Ferrous Sulfate 325 Mg Tablet, 325 MG PO DAILY Prescribed by: RITA ZHOU on 10/27/181931 Fluconazole 150 Mg Tablet, 150 MG PO DAILY Take one every 3 days Prescribed by: TALI MARKS on 07/13/191622 Hydrocodone Bit/Acetaminophen 1 Tab Tab, 1 TAB PO Q4H PRN for PAIN-MODERATE Prescribed by: RITA ZHOU on 10/27/181931 Ibuprofen 600 Mg Tablet, 600 MG PO Q6HR Prescribed by: RITA ZHOU on 10/27/181931 Prednisone 20 Mg Tab, 40 MG PO DAILY Prescribed by: TALI MARKS on 07/29/191938 Vit/Iron Fumarate/FA 1 Each Tablet, 1 EACH PO DAILY, (Reported) [Benzocaine/Menthol] 56 ML AEROSOL, 56 ML TP UD PRN for PAIN- SEE INSTRUCTIONS EXTERNAL USE ONLY Prescribed by: RITA ZHOU on 10/27/181931 Patient Home Medication List Home Medication List Reviewed: Yes Review of Systems Review of Systems Constitutional: no symptoms reported, see HPI Ears: See HPI, Pain (left ear) Respiratory: no symptoms reported, see HPI All Other Systems Reviewed Negative Unless Noted: Yes Past Lvfkdwb-Ikovnx-Pkeaar Hx Past Med/Social Hx: Reviewed Nursing Past Med/Soc Hx Patient Social History Alcohol Use: Occasionally Uses Recreational Drug Use: No Smoking Status: Current Someday Smoker Type Used: Cigarettes 2nd Hand Smoke Exposure: Yes Recent Foreign Travel: No Contact w/Someone Who Travel: No Recent Infectious Disease Expo: No Recent Hopitalizations: No Immunizations Up To Date Tetanus Booster (TDap): More than 5yrs PED Vaccines UTD: Yes Seasonal Allergies Seasonal Allergies: Yes Past Medical History Surgeries: Yes Ear Surgery Respiratory: No Cardiac: No Neurological: No Reproductive Disorders: No Female Reproductive Disorders: Denies Gastrointestinal: No Musculoskeletal: No Endocrine: No HEENT: Yes (right mastoiditis as a teenager) Chronic Ear Infection Cancer: No Psychosocial: No Integumentary: No Blood Disorders: No Family Medical History FH: cancer No Pertinent Family Hx Physical Exam Vital Signs Vital Signs - First Documented 07/29/19 18:45 Temp 36.6 Pulse 73 Resp 15 B/P (MAP) 121/79 (93) Pulse Ox 99 O2 Delivery Room Air Height, Weight, BMI Height: 5'4.00" Weight: 156lbs. 6.0oz. 70.704895yb; 27.00 BMI Method:Estimated General Appearance: WD/WN, no apparent distress Eyes: bilateral eye normal inspection, bilateral eye PERRL, bilateral eye EOMI Ears: right ear TM normal; left ear TM red, left ear TM bulging; bilateral ear auricle normal, bilateral ear canal normal Nose: normal inspection; No discharge Mouth/Throat: normal mouth inspection, pharynx normal Neck: non-tender, full range of motion, supple, normal inspection, lymphadenopathy (L) Cardiovascular: normal peripheral pulses, regular rate, rhythm Respiratory: chest non-tender, lungs clear, normal breath sounds Gastrointestinal: normal bowel sounds, non tender, soft Neurologic/Psychiatric: no motor/sensory deficits, alert, normal mood/affect, oriented x 3 Skin: normal color, warm/dry Progress/Results/Core Measures Results/Orders My Orders Orders - TALI MARKS Acetaminophen Tablet/Caplet (Tylenol T (07/29/19 19:39) Vital Signs/I&O 07/29/19 07/29/19 18:45 19:44 Temp 36.6 36.6 Pulse 73 Resp 15 B/P (MAP) 121/79 (93) Pulse Ox 99 O2 Delivery Room Air Blood Pressure Mean: 93 Departure Impression Primary Impression: Otitis media Qualified Codes: H66.005 - Acute suppurative otitis media without spontaneous rupture of ear drum, recurrent, left ear Disposition: HOME, SELF-CARE Condition: Improved Departure-Patient Inst. Decision time for Depature: 19:30 Referrals: RITA GONZALEZ MD [facility],LOCAL PHYSICIAN (PCP) Primary Care Physician Patient Instructions: Ear Infections (Otitis Media) (DC), Ruptured Eardrum (DC) Add. Discharge Instructions: Alternate between Tylenol 650 mg and ibuprofen 600 mg every 4 hours for pain or fever. Take your Prednisone and Augmentin as prescribed. Follow-up at [facility] or call for an appointment with Dr. Gonzalez for follow-up. Return to the emergency department for new, urgent health care. All discharge instructions reviewed with patient and/or family. Voiced understanding. Scripts Prednisone (Prednisone) 20 Mg Tab 40 MG PO DAILY, #6 TAB 0 Refills Prov: TALI MARKS 07/29/19 Amoxicillin/Potassium Clav (Augmentin 875-125 Tablet) 1 Each Tablet 1 EACH PO BID, #20 TAB 0 Refills Prov: TALI MARKSP 07/29/19 TALI MARKS Jul 29, 2019 19:39
--- OUTSIDE RECORDS SUMMARY | 2019-07-29 22:33 | XMS REPORT | Clinical Summary ---
Author Author [facility] Organization [facility] Address Unknown Phone Unavailable Care Team Providers Care Straw Hat Brim Raiser Operator Name Role Phone No Pcp, Na PCP Unavailable Salome Roblero Unavailable Unavailable Newton Ramos MD Unavailable Karlee Tirado RN Unavailable Unavailable Deirdre Baker RN Unavailable Unavailable Source Comments Some departments are not documenting in the electronic medical record. If you d o not see the information that you expected, contact Release of Information in [facility] [employer] Information Management department at [phone] for further assistan ce in locating additional records.[facility] Allergies No Known Allergies Medications No known medications Active Problems Problem Noted Date Cholesteatoma of right middle ear and mastoid 2015 Bilateral tympanic membrane perforation 09/18/2015 Overview: S/p [...] Health Maintenance Due Date Last Done Comments DTAP/TDAP VACCINES (1 - 12/09/2006 Tdap) HPV VACCINES (1 - Female 12/09/2006 2-dose series) HIV SCREENING 12/09/2010 PHYSICAL (COMPREHENSIVE) 12/09/2013 EXAM CERVICAL CANCER SCREENING 12/09/2016 INFLUENZA VACCINE 12/09/2018 Results Not on filefrom Last 3 Months Insurance Type Payer Benefit Subscriber ID Effective Phone Address Plan / Dates [id number] [facility] resent BLUE Advance Directives Patient Trainer Explanation Type Date Recorded Advance 06/11/2015 2:45 PM Directive/DPOA
--- OUTSIDE RECORDS SUMMARY | 2019-07-29 22:34 | XMS REPORT ---
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 Role Phone LUZ DAVIDSON Unavailable PROBLEMS Type Condition ICD9-CM Code [id number] Code Onset Dates Condition S tatus SNOMED Code Problem Otitis externa of both ears H60.93 Ac tive 5789668 Problem Rhinitis, unspecified type J31.0 Act soraya 45219901 Problem Rhinitis, unspecified type J31.0 Act soraya 39181276 Problem Herpes simplex vulvovaginitis A60.04 Active 87220147 Problem Bipolar disorder, current episode mixed, moderate F31.62 Active 972269934 Problem ADHD (attention deficit hyperactivity disorder), combi jenny type F90.2 Active 42695938 Problem Unspecified mood [affective] disorder F39 Active 53064632 ALLERGIES No Information ENCOUNTERS Encounter Location Date Diagnosis [facility] [address] [facility] [place] [id number] [address] [place] [address] Dec, [facility] [address] [place] [id number] [address] [place] [address] Dec, [facility] [address] [facility] [place] [id number] [address] [place] [address] Dec, [facility] [address] [facility] [place] [id number] [address] [place] [address] Dec, [facility] [address] [facility] [place] [id number] [address] [place] [address] Dec, [facility] [address] [facility] [place] [id number] [address] [place] [address] Dec, Rhinitis, unspecified type J 31.0 and Dysfunction of right eustachian tube H69.81 [facility] [id number] [place] [id number] Dec, 201 9 Caries K02.9 [facility] [address] [id number] [address] [place] [address], [place] [address] Nov, [facility] [address] [id number] [address] [place] [address], [place] [address] Nov, [facility] [address] [id number] [address] [place] [address], [place] [address] Nov, [facility] [address] [id number] [address] [place] [address], [place] [address] Nov, [facility] [address] [id number] [address] [place] [address], [place] [address] Nov, [facility] [address] [id number] [address] [place] [address], [place] [address] Nov, [facility] [address] [id number] [address] [place] [address], [place] [address] Oct, [facility] [address] [id number] [address] [place] [address], [place] [address] Oct, [facility] [address] [id number] [address] [place] [address] Oct, [facility] [address] [id number] [address] [place] [address] Oct, [facility] [address] [id number] [address] [place] [address] September, Caries K02.9 [facility] [address] [id number] [address] [place] [address] September, [facility] [address] [id number] [address] [place] [address] September, [facility] [address] [id number] [address] [place] [address] September, [facility] [address] [id number] [address] [place] [address] September, [facility] [address] [id number] [address] [place] [address] Aug, [facility] [address] [id number] [address] [place] [address] Aug, Dental examination Z01.20 [facility] [address] [id number] [address] [place] [address] Aug, [facility] [address] [id number] [address] [place] [address] Aug, Dental infection K04.7 [facility] [address] [id number] [address] [place] [address] Aug, [facility] [address] [id number] [address] [place] [address] Aug, [facility] [address] [id number] [address] [place] [address] Aug, Caries K02.9 and Dental exam ination Z01.20 [facility] [address] [id number] [address] [place] [address] Jul, Caries K02.9 [facility] [address] [id number] [address] [place] [address] Jul, Caries K02.9 [facility] [address] [id number] [address] [place] [address] Jul, [facility] [address] [id number] [address] [place] [phone] 13 Jun, 2018 [facility] [address] [id number] [address] [place] [id number] May, Caries K02.9 ; Oral health m aintenance status requiring routine preventive dental care K08.9 and Dental examination Z01.20 [facility] [address] [id number] [address] [place] [address] May, Sore throat J02.9 [facility] [address] [place] [id number] [address] [place] [address] May, Dental examination Z01.20 [place] [address] [address] May, [place] [address] [address] Mar, Unspecified mood [affective] disorder F39 [place] [address] [address] Feb, [place] [address] [address] Feb, Encounter for test , result unknown Z32.00 [place] [address] [address] Dec, Unspecified mood [affective] disorder F39 and ADHD (attention deficit hyperactivity disorder), combined type F90.2 [place] [address] [address] Nov, Bipolar disorder, current ep isode mixed, moderate F31.[address] [facility] [address] [place] [address] Aug, Acute otitis externa of righ t ear, unspecified type H60.501 and Acute suppurative otitis media of left ear without spontaneous rupture of tympanic membrane, recurrence not specified H66.[address] [facility] [address] [address] Mar, Pharyngitis due to other org anism J02.8 [place] [address] [address] Feb, [facility] [address] [address] Feb, [facility] [address] [address] Jan, Vaginal itching L29.8 ; Acut e cystitis without hematuria N30.00 and Acute otitis externa of right ear, unspecified type H60.501 [place] [address] [address] Nov, Acute serous otitis media of left ear, recurrence not specified H65.02 [facility] [place] [address] [address] Nov, Acute serous otitis media of left ear, recurrence not specified H65.02 [facility] [place] [address] [address] Oct, [facility] [address] [address] September, Vaginal itching L29.8 and He rpes simplex vulvovaginitis A60.04 [place] [address] [address] Aug, [place] [address] [address] Aug, High-risk sexual behavior Z7 2.51 [facility] [place] [address] [address] 15 Jan, 2016 High risk sexual behavior Z7 2.51 [place] [address] [place] [id number] [address] [place] [address] 07 Jan, 2016 Well woman exam with routine gynecological exam Z01.419 ; Screening for STD sexually transmitted disease Z11.3 ; High risk sexual behavior Z72.51 and Encounter for immunization Z23 [place] [address] [place] [id number] [address] [place] [address] 20 Oct, 2015 Nausea and vomiting, unspeci fied intactability, vomiting of unspecified type R11.2 [facility] [place] [id number] [address] [place] [address] May, Recurrent acute suppurative otitis media without spontaneous rupture of tympanic membrane of both sides H66.006 [facility] [address] [id number] [address] [place] [address] May, [facility] [address] [id number] [address] [place] [address] Mar, Otitis media follow-up, infe ction resolved Z09 [facility] [address] [id number] [address] [place] [address] Mar, Otitis externa of both ears H60.93 [facility] [address] [id number] [address] [place] [address] Feb, Acute swimmers ear of both s ides H60.333 [facility] [address] [id number] [address] [place] [address] Aug, [facility] [address] [id number] [address] [place] [address] Aug, [facility] [address] [id number] [address] [place] [address] Mar, [facility] [address] [id number] [address] [place] [address] Mar, [facility] [address] [id number] [address] [place] [address] September, [facility] [address] [id number] [address] [place] [address] September, [facility] [address] [id number] [address] [place] [address] September, [facility] [address] [id number] [address] [place] [address] Aug, [facility] [address] [id number] [address] [place] [address] Aug, [facility] [address] [id number] [address] [place] [address] Jan, [facility] [address] [id number] [address] [place] [address], [place] [address] 04 Jan, 2013 [facility] [address] [id number] [address] [place] [address], [place] [address] Dec, [facility] [address] [id number] [address] [place] [address], [place] [address] Nov, [facility] [address] [id number] [address] [place] [address], [place] [address] Nov, [facility] [address] [id number] [address] [place] [address], [place] [address] Apr, [facility] [address] [id number] [address] [place] [address], [place] [address] Apr, [facility] [address] [id number] [address] [place] [address], [place] [address] Mar, [facility] [address] [id number] [address] [place] [address], [place] [address] Feb, [facility] [address] [id number] [address] [place] [address], [place] [address] Feb, [facility] [address] [id number] [address] [place] [address], [place] [address] Feb, [facility] [address] [id number] [address] [place] [address], [place] [address] Feb, [facility] [address] [id number] [address] [place] [address], [place] [address] Apr, [facility] [address] [id number] [address] [place] [address], [place] [address] Mar, [facility] [address] [id number] [address] [place] [address], [place] [address] 13 Feb, 2010 [facility] [address] [id number] [address] [place] [address], [place] [address] 29 Feb, 2009 [facility] [address] [id number] [address] [place] [address], [place] [address] Dec, [facility] [address] [facility] [place] [id number] [address] [place] [address] 14 Feb, 2008 IMMUNIZATIONS No Known Immunizations SOCIAL HISTORY Never Assessed REASON FOR VISIT PLAN OF CARE VITAL SIGNS MEDICATIONS Unknown Medications RESULTS No Results PROCEDURES No Known procedures INSTRUCTIONS MEDICATIONS ADMINISTERED No Known Medications MEDICAL (GENERAL) HISTORY Type Description Date Surgical History right ear surgery x2 mastoiditis around 4th grade 2014 Hospitalization History see above surgery
--- OUTSIDE RECORDS SUMMARY | 2019-07-29 22:34 | XMS REPORT ---
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 Name Role Phone Migration, Doctor Unavailable Unavailable PROBLEMS Type Condition ICD9-CM Code [id number] Code Onset Dates Condition S tatus SNOMED Code Problem Otitis externa of both ears H60.93 Ac tive 1394106 Problem Rhinitis, unspecified type J31.0 Act soraya 11347360 Problem Mood disorder F39 Active 182556 05 Problem Herpes simplex vulvovaginitis A60.04 Active 97768167 Problem Bipolar disorder, current episode mixed, moderate F31.62 Active 912290035 Problem ADHD (attention deficit hyperactivity disorder), combi jenny type F90.2 Active 62962278 Problem Rhinitis, unspecified type J31.0 Act soraya [id number] ALLERGIES No Information ENCOUNTERS Encounter Location Date Diagnosis [place] [address] [address] Jul, [place] [address] [address] Jun, [place] [address] [address] Jun, [facility] [address] [address] Jun, [facility] [address] [address] Jun, Dental examination Z01.20 [place] [address] [address] May, ADHD (attention deficit hyperactivity di sorder), combined type F90.2 and Mood disorder F39 [facility] [address] [address] May, [facility] [address] [address] Apr, Mood disorder F39 [facility] [address] [address] Apr, [facility] [address] [address] Apr, [facility] [address] [address] Apr, [facility] [address] [place] [address] Apr, Vaginal irritation N89.8 and Candidal vulvovaginitis B37.3 [facility] [address] [place] [id number] [place] [address] Mar, Left otitis media, unspecifi ed otitis media type H66.92 [facility] [address] [address] Mar, [facility] [address] [address] Mar, [facility] [address] [address] Mar, [facility] [address] [address] Feb, Encounter for immunization Z23 [facility] [address] [address] Feb, [facility] [address] [address] Feb, [facility] [address] [address] Jan, [facility] [address] [address] Jan, [facility] [address] [address] Dec, [facility] [address] [address] Dec, [facility] [address] [id number] [place] [address] Dec, [facility] [address] [id number] [place] [address] Dec, [facility] [address] [id number] [place] [address] Dec, [facility] [address] [facility] [id number] [address] [place] [address] Dec, Rhinitis, unspecified type J 31.0 and Dysfunction of right eustachian tube H69.81 [facility] [address] [place] [address] [facility] [id number] [place] [address] Dec, Caries K02.9 [facility] [address] [id number] [place] [address] Nov, [facility] [address] [place] [id number] [place] [address] Nov, [facility] [address] [id number] [place] [address] Nov, [facility] [address] [place] [id number] [place] [address] Nov, [facility] [address] [id number] [place] [address] Nov, [facility] [address] [place] [id number] [place] [address] Nov, [facility] [address] [id number] [place] [address] Oct, [facility] [address] [id number] [place] [address] Oct, [facility] [address] [place] [id number] [place] [address] Oct, [facility] [address] [id number] [place] [address] Oct, [facility] [address] [place] [id number] [place] [address] September, Caries K02.9 [facility] [address] [place] [id number] [place] [address] September, [facility] [address] [place] [id number] [place] [address] September, [facility] [address] [place] [id number] [place] [address] September, [facility] [address] [place] [id number] [place] [address] September, [facility] [address] [place] [id number] [place] [address] Aug, [facility] [address] [address] Aug, Dental examination Z01.20 [facility] [address] [place] [id number] [place] [address] Aug, [facility] [address] [facility] [id number] [place] [address] Aug, Dental infection K04.7 [facility] [address] [place] [id number] [place] [address] Aug, [facility] [address] [place] [id number] [place] [address] Aug, [facility] [address] [place] [id number] [place] [address] Aug, Caries K02.9 and Dental examination Z01. 20 [facility] [address] [place] [id number] [place] [address] Jul, Caries K02.9 [facility] [address] [place] [id number] [place] [address] Jul, Caries K02.9 [facility] [address] [place] [id number] [place] [address] Jul, [facility] [address] [address] 13 Jun, 2018 [facility] [address] [id number] [place] [id number] May, Caries K02.9 ; Oral health maintenance s tatus requiring routine preventive dental care K08.9 and Dental examination Z01.20 [facility] [address] [facility] [id number] [address] [place] [address] 15 May, 2018 Sore throat J02.9 [place] [address] [place] [id number] [place] [address] 07 May, 2018 Dental examination Z01.20 [place] [address] [address] 07 May, 2018 [place] [address] [place] [id number] [place] [address] Mar, Unspecified mood [affective] disorder F3 9 [place] [address] [address] Feb, [place] [address] [address] Feb, Encounter for test, result unk nown Z32.00 [place] [address] [place] [id number] [place] [address] Dec, Unspecified mood [affective] disorder F3 9 and ADHD (attention deficit hyperactivity disorder), combined type F90.2 [place] [address] [address] Nov, Bipolar disorder, current episode mixed, moderate F31.62 [facility] [address] [place] [id number] [place] [address] Aug, Acute otitis externa of righ t ear, unspecified type H60.501 and Acute suppurative otitis media of left ear without spontaneous rupture of tympanic membrane, recurrence not specified H66.002 [facility] [address] [facility] [id number] [address] [place] [address] Mar, Pharyngitis due to other org anism J02.8 [facility] [address] [place] [id number] [place] [address] Feb, [facility] [address] [address] Feb, [facility] [place] [address] [address] 22 Jan, 2017 Vaginal itching L29.8 ; Acut e cystitis without hematuria N30.00 and Acute otitis externa of right ear, unspecified type H60.501 [place] [address] [address] Nov, Acute serous otitis media of left ear, r ecurrence not specified H65.02 [facility] [place] [address] [address] 08 Nov, 2016 Acute serous otitis media of left ear, recurrence not specified H65.02 [facility] [place] [address] [address] Oct, [facility] [place] [address] [address] September, Vaginal itching L29.8 and He rpes simplex vulvovaginitis A60.04 [place] [address] [address] Aug, [place] [address] [address] Aug, High-risk sexual behavior Z72.51 [facility] [place] [address] [address] 15 Jan, 2016 High risk sexual behavior Z7 2.51 [place] [address] [address] 07 Jan, 2016 Well woman exam with routine gynecologic al exam Z01.419 ; Screening for STD sexually transmitted disease Z11.3 ; High risk sexual behavior Z72.51 and Encounter for immunization Z23 [facility] [address] [address] Oct, Nausea and vomiting, unspecified intacta bility, vomiting of unspecified type R11.2 [facility] [address] [facility] [id number] [address] [place] [address] May, Recurrent acute suppurative otitis media without spontaneous rupture of tympanic membrane of both sides H66.006 [facility] [address] [address] May, [facility] [address] [address] Mar, Otitis media follow-up, infection resolv ed Z09 [facility] [address] [address] Mar, Otitis externa of both ears H60.93 [facility] [address] [address] Feb, Acute swimmers ear of both sides H60.333 [facility] [address] [address] Aug, [facility] [address] [address] Aug, [facility] [address] [address] Mar, [facility] [address] [address] Mar, [facility] [address] [address] September, [facility] [address] [address] September, [facility] [address] [address] September, [facility] [address] [address] Aug, [facility] [address] [id number] [place] [address] Aug, [facility] [address] [id number] [place] [address] 17 Jan, 2013 [facility] [address] [id number] [place] [address] 04 Jan, 2013 [facility] [address] [id number] [place] [address] Dec, [facility] [address] [id number] [place] [address] Nov, [facility] [address] [id number] [place] [address] Nov, [facility] [address] [id number] [place] [address] Apr, [facility] [address] [id number] [place] [address] Apr, [facility] [address] [id number] [place] [address] Mar, [facility] [address] [id number] [place] [address] Feb, [facility] [address] [id number] [place] [address] Feb, [facility] [address] [id number] [place] [address] Feb, [facility] [address] [id number] [place] [address] Feb, [facility] [address] [id number] [place] [address] Apr, [facility] [address] [place] [id number] [place] [address] Mar, [facility] [address] [id number] [place] [address] Feb, [facility] [address] [id number] [place] [address] Feb, [facility] [address] [facility] [id number] [place] [address] Dec, [facility] [address] [facility] [id number] [place] [address] Feb, IMMUNIZATIONS No Known Immunizations SOCIAL HISTORY Never Assessed REASON FOR VISIT PLAN OF CARE VITAL SIGNS Height 62.5 in 2013-08-11 Weight 136.2 lbs 2013-08-11 Heart Rate 120 bpm 2013-08-11 Blood pressure systolic 102 mmHg 2013-08-11 Blood pressure diastolic 68 mmHg 2013-08-11 MEDICATIONS Unknown Medications RESULTS No Results PROCEDURES No Known procedures INSTRUCTIONS MEDICATIONS ADMINISTERED No Known Medications MEDICAL (GENERAL) HISTORY Type Description Date Surgical History right ear surgery x2 mastoiditis around 4th grade 2014 Hospitalization History see above surgery
--- OUTSIDE RECORDS SUMMARY | 2019-07-29 22:34 | XMS REPORT ---
Author Author Janine YOU Organization [facility] Address [address] [place] [address] Care Team Providers Care Tankroom Tender Name Role Phone TOÑITO YOUWNYA Unavailable PROBLEMS Type Condition ICD9-CM Code BUY00-ZZ Code Onset Dates Condition S tatus SNOMED Code Problem Otitis externa of both ears H60.93 Ac tive 1365361 Problem Rhinitis, unspecified type J31.0 Act soraya 02023444 Problem Mood disorder F39 Active 086707 05 Problem Herpes simplex vulvovaginitis A60.04 Active 15749028 Problem Bipolar disorder, current episode mixed, moderate F31.62 Active 201878511 Problem ADHD (attention deficit hyperactivity disorder), combi jenny type F90.2 Active 41525302 Problem Rhinitis, unspecified type J31.0 Act soraya [id number] ALLERGIES No Information ENCOUNTERS Encounter Location Date Diagnosis [place] [address] [address] Jul, [place] [address] [address] Jun, [place] [address] [address] Jun, [place] [address] [address] Jun, [place] [address] [address] Jun, Dental examination Z01.20 [place] [address] [address] May, ADHD (attention deficit hyperactivity di sorder), combined type F90.2 and Mood disorder F39 [place] [address] [address] May, [facility] [address] [place] [id number] [place] [address] Apr, Mood disorder F39 [facility] [address] [address] Apr, [facility] [address] [address] Apr, [facility] [address] [address] Apr, [facility] [address] [place] [id number] [place] [address] Apr, Vaginal irritation N89.8 and Candidal vulvovaginitis B37.3 [facility] [address] [facility] [place] [id number] [address] [place] [address] Mar, Left otitis media, unspecifi ed otitis media type H66.92 [facility] [address] [place] [id number] [place] [address] Mar, [facility] [address] [address] Mar, [facility] [address] [address] Mar, [facility] [address] [address] Feb, Encounter for immunization Z23 [facility] [address] [address] Feb, [facility] [address] [address] Feb, [facility] [address] [address] Jan, [facility] [address] [address] Jan, [facility] [address] [address] Dec, [facility] [address] [id number] [place] [address] Dec, [facility] [address] [id number] [place] [address] Dec, [facility] [address] [id number] [place] [address] Dec, [facility] [address] [id number] [place] [address] Dec, [facility] [address] [facility] [place] [id number] [address] [place] [address] Dec, Rhinitis, unspecified type J 31.0 and Dysfunction of right eustachian tube H69.81 [facility] [address] [place] [address] [facility] [id number] [address] Dec, Car[address] K02.9 [facility] [address] [id number] [place] [address] Nov, [facility] [address] [id number] [place] [address] Nov, [facility] [address] [place] [id number] [place] [address] Nov, [facility] [address] [id number] [place] [address] Nov, [facility] [address] [place] [id number] [place] [address] Nov, [facility] [address] [id number] [place] [address] Nov, [facility] [address] [id number] [place] [address] Oct, [facility] [address] [id number] [place] [address] Oct, [facility] [address] [id number] [place] [address] Oct, [facility] [address] [id number] [place] [address] Oct, [facility] [address] [place] [id number] [place] [address] September, Caries K02.9 [facility] [address] [id number] [place] [address] September, [facility] [address] [place] [id number] [place] [address] September, [facility] [address] [place] [id number] [place] [address] September, [facility] [address] [place] [id number] [place] [address] September, [facility] [address] [place] [id number] [place] [address] Aug, [facility] [address] [place] [id number] [place] [address] Aug, Dental examination Z01.20 [facility] [address] [place] [id number] [place] [address] Aug, [facility] IN [facility] [address] [facility] [place] [id number] [address] [place] [address] Aug, Dental infection K04.7 [facility] [address] [id number] [place] [address] Aug, [facility] [address] [place] [id number] [place] [address] Aug, [facility] [address] [id number] [place] [address] Aug, Caries K02.9 and Dental examination Z01. 20 [facility] [address] [place] [id number] [place] [address] Jul, [address]9 [facility] [address] [id number] [place] [address] Jul, [address]02.9 [facility] [address] [place] [id number] [place] [address] Jul, [facility] [address] [id number] [place] [address] 13 Jun, 2018 [facility] [address] [id number] [place] [id number] May, Caries K02.9 ; Oral health maintenance s tatus requiring routine preventive dental care K08.9 and Dental examination Z01.20 [facility] WALK IN [facility] [address] [place] [id number] [address] [place] [address] 15 May, 2018 Sore throat J02.9 [place] [address] [place] [id number] [place] [address] 07 May, 2018 Dental examination Z01.20 [place] [address] [place] [id number] [place] [address] 07 May, 2018 [place] [address] [place] [id number] [place] [address] Mar, Unspecified mood [affective] disorder F3 9 [facility] [address] [place] [id number] [place] [address] Feb, [place] [address] [address] Feb, Encounter for test, result unk nown Z32.00 [place] [address] [place] [id number] [place] [address] Dec, Unspecified mood [affective] disorder F3 9 and ADHD (attention deficit hyperactivity disorder), combined type F90.2 [facility] [address] [place] [id number] [place] [address] Nov, Bipolar disorder, current episode mixed, moderate F31.62 [facility] IN [facility] [address] [place] [id number] [place] [address] Aug, Acute otitis externa of righ t ear, unspecified type H60.501 and Acute suppurative otitis media of left ear without spontaneous rupture of tympanic membrane, recurrence not specified H66.002 [facility] WALK IN [place] [address] [address] 08 Mar, 2017 Pharyngitis due to other org anism J02.8 [place] [address] [address] 24 Feb, 2017 [facility] WALK IN [place] [address] [address] Feb, [facility] [place] [address] [address] Jan, Vaginal itching L29.8 ; Acut e cystitis without hematuria N30.00 and Acute otitis externa of right ear, unspecified type H60.501 [place] [address] [address] Nov, Acute serous otitis media of left ear, r ecurrence not specified H65.02 [facility] WALK IN [address] [address] Nov, Acute serous otitis media of left ear, recurrence not specified H65.02 [facility] [place] [address] [address] Oct, [facility] IN [place] [address] [address] September, Vaginal itching L29.8 and He rpes simplex vulvovaginitis A60.04 [place] [address] [address] Aug, [place] [address] [address] Aug, High-risk sexual behavior Z72.51 [facility] [place] [address] [address] 15 Jan, 2016 High risk sexual behavior Z7 2.51 [place] [address] [address] 07 Jan, 2016 Well woman exam with routine gynecologic al exam Z01.419 ; Screening for STD sexually transmitted disease Z11.3 ; High risk sexual behavior Z72.51 and Encounter for immunization Z23 [facility] [address] [address] Oct, Nausea and vomiting, unspecified intacta bility, vomiting of unspecified type R11.2 [facility] [address] [facility] [place] [id number] [address] [place] [address] May, Recurrent acute suppurative otitis media without spontaneous rupture of tympanic membrane of both sides H66.006 [facility] [address] [address] May, [facility] [address] [address] Mar, Otitis media follow-up, infection resolv ed Z09 [place] [address] [address] Mar, Otitis externa of both ears H60.93 [facility] [address] [address] Feb, Acute swimmers ear of both sides H60.333 [facility] [address] [address] Aug, [facility] [address] [address] Aug, [facility] [address] [address] Mar, [facility] [address] [address] Mar, [facility] [address] [address] September, [facility] [address] [address] September, [facility] [address] [address] September, [facility] [address] [id number] [place] [address] Aug, [facility] [address] [id number] [place] [address] Aug, [facility] [address] [id number] [place] [address] 17 Jan, 2013 [facility] [address] [id number] [place] [address] Jan, [facility] [address] [id number] [place] [address] Dec, [facility] [address] [id number] [place] [address] Nov, [facility] [address] [id number] [place] [address] Nov, [facility] [address] [id number] [place] [address] Apr, [facility] [address] [id number] [place] [address] Apr, [facility] [address] [id number] [place] [address] Mar, [facility] [address] [id number] [place] [address] Feb, [facility] [address] [id number] [place] [address] Feb, [facility] [address] [id number] [place] [address] Feb, [facility] [address] [id number] [place] [address] Feb, [facility] [address] [place] [id number] [place] [address] Apr, [facility] [address] [id number] [place] [address] Mar, [facility] [address] [id number] [place] [address] Feb, [facility] [address] [id number] [place] [address] Feb, [facility] [address] [id number] [place] [address] Dec, [facility] [address] [id number] [place] [address] Feb, IMMUNIZATIONS No Known Immunizations SOCIAL HISTORY Never Assessed REASON FOR VISIT PLAN OF CARE VITAL SIGNS Height 64 in 2013-09-14 Weight 136 lbs 2013-09-14 Temperature 97.8 degrees Fahrenheit 2013-09-14 Heart Rate 90 bpm 2013-09-14 Respiratory Rate 20 2013-09-14 Blood pressure systolic 98 mmHg 2013-09-14 Blood pressure diastolic 70 mmHg 2013-09-14 MEDICATIONS Unknown Medications RESULTS No Results PROCEDURES Procedure Date Ordered Result Body Site URINE CULTURE/COLONY COUNT September 14, 2013 URINALYSIS, AUTO, W/O SCOPE September 14, 2013 INSTRUCTIONS MEDICATIONS ADMINISTERED No Known Medications MEDICAL (GENERAL) HISTORY Type Description Date Surgical History right ear surgery x2 mastoiditis around 4th grade 2014 Hospitalization History see above surgery
--- OUTSIDE RECORDS SUMMARY | 2019-07-29 22:34 | XMS REPORT ---
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 Machine Operator Name Role Phone BARRY LOBATOA Unavailable PROBLEMS Type Condition ICD9-CM Code HDZ93-HT Code Onset Dates Condition S tatus SNOMED Code Problem Otitis externa of both ears H60.93 Ac tive 2278439 Problem Rhinitis, unspecified type J31.0 Act soraya 70042602 Problem Rhinitis, unspecified type J31.0 Act soraya 85917796 Problem Herpes simplex vulvovaginitis A60.04 Active 04030560 Problem Bipolar disorder, current episode mixed, moderate F31.62 Active 179183285 Problem ADHD (attention deficit hyperactivity disorder), combi jenny type F90.2 Active 28240602 Problem Unspecified mood [affective] disorder F39 Active [id number] ALLERGIES No Known Allergies ENCOUNTERS Encounter Location Date Diagnosis [facility] [address] [facility] [id number] [address] [place] [phone] Feb, [facility] [address] [facility] [id number] [address] [place] [phone] Jan, [facility] [address] [facility] [id number] [address] [place] [phone] Jan, [facility] [address] [facility] [id number] [address] [place] [phone] Dec, [facility] [address] [facility] [id number] [address] [place] [phone] Dec, [facility] [address] [facility] [id number] [address] [place] [phone] Dec, [facility] [address] [facility] [id number] [address] [place] [phone] Dec, [facility] [address] [id number] [address] [place] [phone] Dec, [facility] [address] [facility] [id number] [address] [place] [phone] Dec, Rhinitis, unspecified type J 31.0 and Dysfunction of right eustachian tube H69.81 [facility] [address] [place] [address] [place] [address] Dec, Caries K02.9 [facility] [address] [id number] [address] [place] [phone] Nov, [facility] [address] [id number] [address] [place] [phone] Nov, [facility] [address] [id number] [address] [place] [phone] Nov, [facility] [address] [facility] [id number] [address] [place] [phone] Nov, [facility] [address] [id number] [address] [place] [phone] Nov, [facility] [address] [facility] [id number] [address] [place] [phone] Nov, [facility] [address] [facility] [id number] [address] [place] [phone] Oct, [facility] [address] [id number] [address] [place] [phone] Oct, [facility] [address] [facility] [id number] [address] [place] [id number] Oct, [facility] [address] [facility] [id number] [address] [place] [phone] Oct, [facility] [address] [facility] [id number] [address] [place] [phone] September, Caries K02.9 [facility] [address] [id number] [address] [place] [phone] September, [facility] [address] [id number] [address] [place] [phone] September, [facility] [address] [id number] [address] [place] [phone] September, [facility] [address] [id number] [address] [place] [phone] September, [facility] [address] [id number] [address] [place] [phone] Aug, [facility] [address] [id number] [address] [place] [id number] Aug, Dental examination Z01.20 [facility] [address] [id number] [address] [place] [phone] Aug, [facility] [address] [id number] [address] [place] [phone] Aug, Dental infection K04.7 [facility] [address] [id number] [address] [place] [phone] Aug, [facility] [address] [id number] [address] [place] [phone] Aug, [facility] [address] [id number] [address] [place] [phone] Aug, Caries K02.9 and Dental exam ination Z01.20 [facility] [address] [id number] [address] [place] [phone] Jul, Caries K02.9 [facility] [address] [id number] [address] [place] [phone] Jul, Caries K02.9 [facility] [address] [id number] [address] [place] [phone] Jul, [facility] [address] [id number] [address] [place] [phone] Jun, [facility] [address] [facility] [id number] [address] [place] [id number] 18 May, 2018 Caries K02.9 ; Oral health m aintenance status requiring routine preventive dental care K08.9 and Dental examination Z01.20 [facility] [address] [facility] [id number] [address] [place] [phone] 15 May, 2018 Sore throat J02.9 [place] [address] [id number] 07 May, 2018 Dental examination Z01.20 [place] [address] [id number] 07 May, 2018 [place] [address] [id number] Mar, Unspecified mood [affective] disorder F39 [place] [address] [phone] Feb, [place] [address] [phone] Feb, Encounter for test , result unknown Z32.00 [place] [address] [phone] Dec, Unspecified mood [affective] disorder F39 and ADHD (attention deficit hyperactivity disorder), combined type F90.2 [place] [address] [id number] Nov, Bipolar disorder, current ep isode mixed, moderate F31.62 [facility] [address] [place] [id number] [address] [place] [phone] Aug, Acute otitis externa of righ t ear, unspecified type H60.501 and Acute suppurative otitis media of left ear without spontaneous rupture of tympanic membrane, recurrence not specified H66.002 [facility] [address] [place] [id number] [address] [place] [id number] 08 Mar, 2017 Pharyngitis due to other org anism J02.8 [place] [id number] [facility] [id number] [address] [place] [phone] Feb, [facility] [place] [address] [facility] [id number] [address] [place] [phone] Feb, [facility] [place] [address] [facility] [id number] [address] [place] [id number] 22 Jan, 2017 Vaginal itching L29.8 ; Acut e cystitis without hematuria N30.00 and Acute otitis externa of right ear, unspecified type H60.501 [place] [address] [facility] [id number] [address] [place] [phone] Nov, Acute serous otitis media of left ear, recurrence not specified H65.02 [facility] [place] [address] [facility] [id number] [address] [place] [phone] Nov, Acute serous otitis media of left ear, recurrence not specified H65.02 [facility] [place] [address] [place] [id number] [address] [place] [phone] Oct, [facility] [place] [address] [place] [id number] [address] [place] [id number] September, Vaginal itching L29.8 and He rpes simplex vulvovaginitis A60.04 [place] [address] [place] [id number] [address] [place] [phone] Aug, [place] [address] [place] [id number] [address] [place] [phone] Aug, High-risk sexual behavior Z7 2.51 [facility] [place] [address] [place] [id number] [address] [place] [id number] 15 Jan, 2016 High risk sexual behavior Z7 2.51 [place] [address] [place] [id number] [address] [place] [id number] 07 Jan, 2016 Well woman exam with routine gynecological exam Z01.419 ; Screening for STD sexually transmitted disease Z11.3 ; High risk sexual behavior Z72.51 and Encounter for immunization Z23 [facility] [address] [id number] [address] [place] [id number] Oct, Nausea and vomiting, unspeci fied intactability, vomiting of unspecified type R11.2 [facility] [address] [id number] [address] [place] [phone] May, Recurrent acute suppurative otitis media without spontaneous rupture of tympanic membrane of both sides H66.006 [facility] [address] [facility] [id number] [address] [place] [phone] May, [facility] [address] [facility] [id number] [address] [place] [phone] Mar, Otitis media follow-up, infe ction resolved Z09 [facility] [address] [facility] [id number] [address] [place] [phone] Mar, Otitis externa of both ears H60.93 [facility] [address] [facility] [id number] [address] [place] [phone] Feb, Acute swimmers ear of both s ides H60.333 [facility] [address] [place] [id number] [address] [place] [phone] Aug, [facility] [address] [facility] [id number] [address] [place] [phone] Aug, [facility] [address] [facility] [id number] [address] [place] [phone] Mar, [facility] [address] [id number] [address] [place] [phone] Mar, [facility] [address] [facility] [id number] [address] [place] [phone] September, [facility] [address] [facility] [id number] [address] [place] [phone] September, [facility] [address] [facility] [id number] [address] [place] [phone] September, [facility] [address] [id number] [address] [place] [address], [place] [phone] Aug, [facility] [address] [id number] [address] [place] [address], [place] [phone] Aug, [facility] [address] [id number] [address] [place] [address], [place] [phone] 17 Jan, 2013 [facility] [address] [id number] [address] [place] [address], [place] [phone] 04 Jan, 2013 [facility] [address] [id number] [address] [place] [address], [place] [phone] Dec, [facility] [address] [id number] [address] [place] [address], [place] [phone] Nov, [facility] [address] [id number] [address] [place] [address], [place] [id number] Nov, [facility] [address] [id number] [address] [place] [address], [place] [phone] Apr, [facility] [address] [id number] [address] [place] [address], [place] [phone] Apr, [facility] [address] [id number] [address] [place] [address], [place] [phone] Mar, [facility] [address] [id number] [address] [place] [address], [place] [phone] Feb, [facility] [address] [id number] [address] [place] [address], [place] [phone] Feb, [facility] [address] [id number] [address] [place] [address], [place] [phone] Feb, [facility] [address] [id number] [address] [place] [address], [place] [phone] Feb, [facility] [address] [id number] [address] [place] [address], [place] [phone] Apr, [facility] [address] [id number] [address] [place], [place] [address] [address] Mar, [facility] [address] [id number] [address] [place] [phone] Feb, [facility] [address] [facility] [id number] [address] [place] [phone] Feb, [facility] [address] [facility] [id number] [address] [place] [phone] Dec, [facility] [address] [facility] [id number] [address] [place] [phone] Feb, IMMUNIZATIONS No Known Immunizations SOCIAL HISTORY Never Assessed REASON FOR VISIT ob/restorative 3011 PLAN OF CARE Activity Details Follow Up prn Reason:restorative VITAL SIGNS Height 64 in 2018-07-29 Blood pressure systolic 109 mmHg 2018-07-29 Blood pressure diastolic 60 mmHg 2018-07-29 MEDICATIONS Medication Instructions Dosage Frequency Start Date End Date Duration S tatus Active RESULTS No Results PROCEDURES Procedure Date Ordered Result Body Site RESIN COMPOS - 1 SURFACE POSTERIOR July 29, 2018 RESIN COMPOS - 1 SURFACE POSTERIOR July 29, 2018 INSTRUCTIONS MEDICATIONS ADMINISTERED No Known Medications MEDICAL (GENERAL) HISTORY Type Description Date Surgical History right ear surgery x2 mastoiditis around 4th grade 2014 Hospitalization History see above surgery
--- OUTSIDE RECORDS SUMMARY | 2019-07-29 22:35 | XMS REPORT | Continuity of Care Document ---
Author Organization Unknown Address Unknown Phone Unavailable Allergies Active Description Code Type Severity Reaction Onset Reported/Identified Relationship to Patient Clinical Status Yes No Known Drug Allergies [id number] Drug Allergy Unknown N/A 04/30/2018 Yes NKDA NKDA Unknown N/A 10/27/2018 Medications There is no data. Problems Date Dx Coded Attending Type Code Diagnosis Diagnosed By 02/22/2008 380.10 MARBELLA TIS EXTERNA UNSPECIFIED 02/22/2008 382.00 Marbella tis Media Acute Without Spontaneous Rupture Eardrum 02/22/2008 [...] Dt, Tetanus- diphtheria [td] ,tdap 12/26/2008 V20.2 Prev entive Medicine Establ. Patient Checkup Adolescent 12-17 12/26/2008 [place] APRNH V05.8 Need For Prophylactic Vaccination And In oculation Against Other Specified Disease 12/26/2008 ALTHEA KAHNAddy [place] V06.5 Dt, Tetanus-diphtheria [td] ,tdap 12/26/2008 ALTHEA BUITRAGO [place] V20.2 Preventive Medicine Establ. Patient Checkup Adolescent 12-17 12/26/2008 SEBASTIÁN CABA DO V05.8 Need For Prophylactic Vaccination And Inoculation Against Other Specified Disease 12/26/2008 CARRI CABA DOA K V06.5 Dt, Tetanus-diphtheria [td] ,tdap 12/26/2008 ROSALES DIAZ SEBASTIÁN K V20.2 Preventive Medicine Establ. Patient Checkup Adolescent 12-17 12/26/2008 SEBASTIÁN CABA DO V05.8 Need For Prophylactic Vaccination And Inoculation Against Other Specified Disease 12/26/2008 CARRI CABA DOA K V06.5 Dt, Tetanus-diphtheria [td] ,tdap 12/26/2008 CARRI CABA DOA K V20.2 Preventive Medicine Establ. Patient Checkup Adolescent 12-17 12/26/2008 CARRI CABA DOA Hernán V05.8 Need For Prophylactic Vaccination And Inoculation Against Other Specified Disease 12/26/2008 CARRI CABA DOA K V06.5 Dt, Tetanus-diphtheria [td] ,tdap 12/26/2008 CARRI CABA DOA K V20.2 Preventive Medicine Establ. Patient Checkup Adolescent 12-17 03/08/2009 110.4 Derm atophytosis Tinea Pedis 03/08/2009 691.8 ATOP IC DERMATITIS 03/08/2009 845.00 Ank le Sprain Right 03/08/2009 ALTHEA BUITRAGO [place] 110.4 Dermatophytosis Tinea Pedis 03/08/2009 ALTHEA BUITRAGO [place] 691.8 ATOPIC DERMATITIS 03/08/2009 ALTHEA BUITRAGO [place] 845.00 Ankle Sprain Right 03/08/2009 CARRI CABA DOA K 110.4 Dermatophytosis Tinea Pedis 03/08/2009 CARRI CABA DOA K 691.8 ATOPIC DERMATITIS 03/08/2009 CARRI CABA DOA K 845.00 Ankle Sprain Right 03/08/2009 CABA [...] 02/01/2010 313.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 02/01/2010 314.01 ADH D COMBINED 02/01/2010 ALTHEA BUITRAGO [place] 296.90 MO MOOD DIS NOS 02/01/2010 ALTHEA BUITRAGO [place] 313.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 02/01/2010 ALTHEA BUITRAGO [...] K 314.01 ADHD COMBINED 11/15/2010 Ot 382.9 OTIT IS MEDIA NOS 11/15/2010 Ot 384.01 BUL LOUS MYRINGITIS 11/15/2010 Ot 388.69 JENNYFER RRHEA NEC 04/21/2011 V25.9 CONT RACEPTION MANAGEMENT 04/21/2011 [place] APRN V25.9 CONTRACEPTION MANAGEMENT 04/21/2011 CABA DO, SEBASTIÁN K V25.9 CONTRACEPTION MANAGEMENT 04/21/2011 CABA DO, SEBASTIÁN K V25.9 CONTRACEPTION MANAGEMENT 04/21/2011 CABA DO, SEBASTIÁN K V25.9 CONTRACEPTION MANAGEMENT 12/01/2012 296.80 MO BIPOLAR NOS 12/01/2012 381.19 OTH ER CHRONIC SEROUS OTITIS MEDIA 12/01/2012 [place] [...] NICOTINE DEPENDENCE, CIGARETTES, UNCOMPL 07/05/2016 ELVIN OTERO MD Ot J06.9 ACUTE UPPER RESPIRATORY INFECTION, UNSPE 07/05/2016 ELVIN OTERO MD Ot R09.81 NASAL CONGESTION 10/10/2016 CHIVO BECKFORD APRN Ot J02 .0 STREPTOCOCCAL PHARYNGITIS 10/10/2016 CHIVO BECKFORD APRN Ot J02 .9 ACUTE PHARYNGITIS, UNSPECIFIED 10/16/2016 CHIVO BECKFORD APRN Ot J02 .0 STREPTOCOCCAL PHARYNGITIS 10/16/2016 CHIVO BECKFORD APRN Ot J02 .9 ACUTE PHARYNGITIS, UNSPECIFIED 10/16/2016 CHIVO BECKFORD APRN Ot J02 .0 STREPTOCOCCAL PHARYNGITIS 10/16/2016 CHIVO BECKFORD APRN Ot J02 .9 ACUTE PHARYNGITIS, UNSPECIFIED 05/18/2017 CHIVO BECKFORD APRN Ot N93 .9 ABNORMAL UTERINE AND VAGINAL BLEEDING, U 05/18/2017 CHIVO BECKFORD APRN Ot O03 .9 COMPLETE OR UNSP SPONTANEOUS WI 05/18/2017 CHIVO [...] OTHER SPECIFIED NONINFLAMMATORY DISORDER 05/31/2017 CHIVO BECKFORD APRN Ot J10 .1 FLU DUE TO OTH IDENT INFLUENZA VIRUS W O 05/31/2017 CHIVO BECKFORD APRN Ot R05 COUGH 05/31/2017 CHIVO BECKFORD HAND PLUG SHAPER Ot Z87.891 PERSONAL HISTORY OF NICOTINE DEPENDENCE 06/01/2017 ELVIN OTERO MD Ot F17.210 NICOTINE DEPENDENCE, CIGARETTES, UNCOMPL 06/01/2017 ELVIN OTERO MD Ot H60.92 UNSPECIFIED OTITIS EXTERNA, LEFT EAR 06/01/2017 ELVIN OTERO MD Ot N72 INFLAMMATORY DISEASE OF CERVIX UTERI 06/01/2017 ELVIN OTERO MD Ot N76.0 ACUTE VAGINITIS 06/01/2017 ELVIN OTERO MD Ot N89.8 OTHER SPECIFIED NONINFLAMMATORY DISORDER 06/02/2017 CHIVO BECKFORD APRN Ot J10 .1 FLU DUE TO OTH IDENT INFLUENZA VIRUS W O 06/02/2017 CHIVO BECKFORD APRN Ot R05 COUGH 06/02/2017 CHIVO BECKFORD APRN Ot Z87.891 PERSONAL HISTORY OF NICOTINE DEPENDENCE 06/02/2017 ELVIN OTERO MD Ot F17.210 NICOTINE DEPENDENCE, CIGARETTES, UNCOMPL 06/02/2017 ELVIN OTERO MD Ot H60.92 UNSPECIFIED OTITIS EXTERNA, LEFT EAR 06/02/2017 ELVIN OTERO MD Ot N72 INFLAMMATORY DISEASE OF CERVIX UTERI 06/02/2017 ELVIN OTERO MD Ot N76.0 ACUTE VAGINITIS 06/02/2017 ELVIN OTERO MD Ot N89.8 OTHER SPECIFIED NONINFLAMMATORY DISORDER 06/06/2017 CHIVO BECKFORD HAND PLUG SHAPER Ot J10 .1 FLU DUE TO OTH IDENT INFLUENZA VIRUS W O 06/06/2017 CHIVO BECKFORD HAND PLUG SHAPER Ot R05 COUGH 06/06/2017 CHIVO BECKFORD APRN Ot Z87.891 PERSONAL HISTORY OF NICOTINE DEPENDENCE 07/05/2017 YOSELIN HANCOCKEN L Ot H66.92 OTITIS MEDIA, UNSPECIFIED, LEFT EAR 07/05/2017 MIGUEL CARLAALINE Ot H92.02 OTALGIA, LEFT EAR 07/05/2017 MIGUEL AGUIRREALINE Ot Z90.89 ACQUIRED ABSENCE OF OTHER ORGANS 07/07/2017 MIGUEL CARLAALINE Ot H66.92 OTITIS MEDIA, UNSPECIFIED, LEFT EAR 07/07/2017 MIGUEL CARLAALINE Ot H92.02 OTALGIA, LEFT EAR 07/07/2017 MIGUEL CARLAALINE Ot Z90.89 ACQUIRED ABSENCE OF OTHER ORGANS 11/23/2017 Ot 383.9 11/23/2017 Ot 041.11 11/23/2017 Ot 383.9 11/23/2017 Ot 383.9 03/02/2018 ELVIN OTERO MD Ot F17.210 NICOTINE DEPENDENCE, CIGARETTES, UNCOMPL 03/02/2018 ELVIN OTERO MD Ot O20.0 THREATENED 03/02/2018 ELVIN OTERO MD Ot O20.9 HEMORRHAGE IN EARLY , UNSPECIFI 03/02/2018 ELVIN OTERO MD Ot O99.331 SMOKING (TOBACCO) COMPLICATING 03/02/2018 ELIVN OTERO MD Ot Z3A.01 LESS THAN 8 WEEKS GESTATION OF 03/04/2018 ELVIN OTERO MD Ot F17.210 NICOTINE DEPENDENCE, CIGARETTES, UNCOMPL 03/04/2018 ELVIN OTERO MD Ot O20.0 THREATENED 03/04/2018 ELVIN OTERO MD Ot O20.9 HEMORRHAGE IN EARLY , UNSPECIFI 03/04/2018 ELVIN OTERO MD Ot O99.331 SMOKING (TOBACCO) COMPLICATING 03/04/2018 ELVIN OTERO MD Ot Z3A.01 LESS THAN 8 WEEKS GESTATION OF 04/30/2018 ESTELA ALMODOVAR MD Ot O23. 42 UNSP INFCT OF URINARY TRACT IN 04/30/2018 ESTELA ALMODOVAR MD Ot O26.892 OTH RELATED CONDITIONS, SECOND 04/30/2018 ESTELA ALMODOVAR MD Ot Z3A. 14 14 WEEKS GESTATION OF 04/30/2018 ESTELA ALMODOVAR MD Ot Z77. 22 CNTCT W AND EXPSR TO ENVIRON TOBACCO SMO 05/05/2018 ESTELA ALMODOVAR MD Ot O23. 42 UNSP INFCT OF URINARY TRACT IN 05/05/2018 ESTELA ALMODOVAR MD Ot O26.892 OTH RELATED CONDITIONS, SECOND 05/05/2018 ESTELA ALMODOVAR MD Ot Z3A. 14 14 WEEKS GESTATION OF 05/05/2018 ESTELA ALMODOVAR MD Ot Z77. 22 CNTCT W AND EXPSR TO ENVIRON TOBACCO SMO 05/19/2018 FENECH DO, RITA S Ot Z33.1 STATE, INCIDENTAL 05/19/2018 FENECH DO, RITA S Ot Z53.8 PROCEDURE AND TREATMENT NOT CARRIED OUT 06/02/2018 FENECH DO RITA S Ot Z36.89 ENCOUNTER FOR OTHER SPECIFIED 06/02/2018 FENECH DO, RITA S Ot Z3A.18 18 WEEKS GESTATION OF 06/16/2018 FENECH DO, RITA S Ot Z36.89 ENCOUNTER FOR OTHER SPECIFIED 06/16/2018 FENECH DO, RITA S Ot Z3A.18 18 WEEKS GESTATION OF 06/30/2018 FENECH DO, RITA S Ot Z36.89 ENCOUNTER FOR OTHER SPECIFIED 06/30/2018 FENECH DO, RITA S Ot Z3A.18 18 WEEKS GESTATION OF 07/02/2018 FENECH DO, RITA S Ot Z36.89 ENCOUNTER FOR OTHER SPECIFIED 07/02/2018 FENECH DO, RITA S Ot Z3A.18 18 WEEKS GESTATION OF 07/02/2018 FENECH DO, RITA S Ot Z36.89 ENCOUNTER FOR OTHER SPECIFIED 07/02/2018 FENECH DO, RITA S Ot Z3A.18 18 WEEKS GESTATION OF 07/05/2018 FENECH DO, RITA S Ot Z36.89 ENCOUNTER FOR OTHER SPECIFIED 07/05/2018 FENECH DO, RITA S Ot Z3A.18 18 WEEKS GESTATION OF 08/14/2018 SEALS DO, RACHEL E Ot O99.8 9 OTH DISEASES AND CONDITIONS COMPL PREG/C 08/14/2018 SEALS DO RACHEL E Ot R10.9 UNSPECIFIED ABDOMINAL PAIN 08/14/2018 SEALS DO RACHEL E Ot Z3A.2 9 29 WEEKS GESTATION OF 08/17/2018 SEALS DO RACHEL E Ot O99.8 9 OTH DISEASES AND CONDITIONS COMPL PREG/C 08/17/2018 ZOE DIAZ RACHEL E Ot R10.9 UNSPECIFIED ABDOMINAL PAIN 08/17/2018 RACHEL ENRIQUEZ DO Maria Antonia Ot Z3A.2 9 29 WEEKS GESTATION OF 08/21/2018 RACHEL ENRIQUEZ DO Maria Antonia Ot O99.8 9 OTH DISEASES AND CONDITIONS COMPL PREG/C 08/21/2018 ZOE DIAZ, RACHEL E Ot R10.9 UNSPECIFIED ABDOMINAL PAIN 08/21/2018 ZOE DIAZMARIZARY Maria Antonia Ot Z3A.2 9 29 WEEKS GESTATION OF 10/29/2018 ABELARDO RITA DIAZ Ot D6 2 ACUTE POSTHEMORRHAGIC ANEMIA 10/29/2018 RITA ZHOU DO Ot F17.290 NICOTINE DEPENDENCE, OTHER TOBACCO PRODU 10/29/2018 RITA ZHOU DO Ot O48.0 POST-TERM 10/29/2018 RITA ZHOU DO Ot O90.81 ANEMIA OF THE PUERPERIUM 10/29/2018 RITA ZHOU DO Ot O99.334 SMOKING (TOBACCO) COMPLICATING CHILDBIRT 10/29/2018 RITA ZHOU DO Ot O99.824 STREPTOCOCCUS B CARRIER STATE COMPLICATI 10/29/2018 ANNAMARIARITA URBINA DO Ot Z2 3 ENCOUNTER FOR IMMUNIZATION 10/29/2018 RITA ZHOU DO Ot Z37.0 SINGLE LIVE 10/29/2018 RITA ZHOU DO Ot Z3A.40 40 WEEKS GESTATION OF 11/19/2018 ANNAMARIARITA URBINA DO Ot Z36.89 ENCOUNTER FOR OTHER SPECIFIED 11/19/2018 RITA ZHOU DO Ot Z3A.18 18 WEEKS GESTATION OF 12/01/2018 RITA ZHOU DO Ot Z36.89 ENCOUNTER FOR OTHER SPECIFIED 12/01/2018 RITA ZHOU DO Ot Z3A.18 18 WEEKS GESTATION OF 01/21/2019 RITA ZHOU DO Ot Z34.92 ENCNTR FOR SUPRVSN OF NORMAL PREG, UNSP, 01/21/2019 RITA ZHOU DO Ot Z3A.18 18 WEEKS GESTATION OF 02/23/2019 RITA ZHOU DO Ot Z34.92 ENCNTR FOR SUPRVSN OF NORMAL PREG, UNSP, 02/23/2019 RITA ZHOU DO Ot Z3A.18 18 WEEKS GESTATION OF Procedures Code Description [place] [address] CULT URE URINE 09/14/2013 85140 UA W / CULTURE IF INDICATED 09/14/2013 29757 TB T EST INTRADERMAL 08/16/2014 10796 TB T EST INTRADERMAL 08/25/2014 [id number] DI VISION OF FEMALE PERINEUM, EXTERNAL AP 10/27/[address] DELGADILLO OF [place], THERAP FROM POC 10/27/2018 [id number] DE LIVERY OF PRODUCTS OF CONCEPTION, EXTE 10/27/2018 Results Test Result Range Complete urinalysis with reflex to cultu re - 01/19/16 22:03 Urine color determination YELLOW NRG Urine clarity determination CLEAR NR G Urine pH measurement by test strip 6.5 5-9 Specific gravity of urine by test strip 1.015 1.016-1.022 Urine protein assay by test strip, semi-quantitative 1+ NEGATIVE Urine glucose detection by automated test strip NE GATIVE NEGATIVE Erythrocytes detection in urine sediment by light micr oscopy 1+ NEGATIVE Urine ketones detection by automated test strip NE GATIVE NEGATIVE Urine nitrite detection by test strip NEGATIVE NEGATIVE Urine total bilirubin detection by test strip NEGA TIVE NEGATIVE Urine urobilinogen measurement by automated test strip (mass/volume) NORMAL NORMAL Urine leukocyte esterase detection by dipstick 2+ NEGATIVE Automated urine sediment erythrocyte cou nt by microscopy (number/high power field) [HPF] NRG Automated urine sediment leukocyte count by microscopy (number/high power field) [HPF] NRG Bacteria detection in urine sediment by light microsco py FEW NRG Squamous epithelial cells detection in u rine sediment by light microscopy 0-2 NRG Crystals detection in urine sediment by light microsco py NONE NRG Casts detection in urine sediment by light microscopy NONE NRG Mucus detection in urine sediment by light microscopy SMALL NRG Complete urinalysis with reflex to culture YES NRG Bacterial urine culture - 01/19/16 22:03 Bacterial urine culture [id number] NRG COLONY COUNT <10,000 NRG URINE CULTURE RESULTS <10,000/ML NRG Streptococcus pyogenes antigen detection - 10/10/16 14:00 Streptococcus pyogenes antigen detection POSITIVE NEGATIVE Complete blood count (CBC) with automate d white blood cell (WBC) differential - 10/10/16 14:15 Blood leukocytes automated count (number/volume) 15.6 10*3/uL 4.3-11.0 Blood erythrocytes automated count (number/volume) 4.40 10*6/uL 4.35-5.85 Venous blood hemoglobin measurement (mass/volume) 12.8 g/dL 11.5-16.0 Blood hematocrit (volume fraction) 40 % 35-52 Automated erythrocyte mean corpuscular volume 91 [ foz_us] 80-99 Automated erythrocyte mean corpuscular h emoglobin (mass per erythrocyte) 29 pg 25-34 Automated erythrocyte mean corpuscular h emoglobin concentration measurement (mass/volume) 32 g/dL 32-36 Automated erythrocyte distribution width ratio 12. 9 % 10.0- 14.5 Automated blood platelet count (count/volume) 211 10*3/uL [...] 10*3 1.0-4.0 Blood monocytes automated count (number/volume) 0. 8 10*3 0.0-1.0 Automated eosinophil count 0.1 10*3/uL 0 .0-0.3 Automated blood basophil count (count/volume) 0.0 10*3/uL 0.0-0.1 Serum heterophile antibody titer - 10/10 14:15 Serum heterophile antibody titer NEGATIVE NEGATIVE Blood manual differential performed dete ction - 10/10/16 14:15 Blood monocytes/100 leukocytes 8 % NRG Manual blood segmented neutrophils/100 leukocytes 81 % NRG Blood band neutrophils/100 leukocytes 3 % NRG Manual blood lymphocytes/100 leukocytes 8 % NRG Manual eosinophils/100 leukocytes in nose 0 % NRG Manual blood basophils/100 leukocytes 0 % NRG Blood erythrocyte morphology finding identification NORMAL NRG Serum or plasma choriogonadotropin (preg dorian test) detection - 10/10/16 14:15 Serum or plasma choriogonadotropin ( test) de tection NEGATIVE NEGATIVE CULTURE, GENITAL - 01/30/17 09:35 Genital Culture, Routine Final report N RG Result 1 NRG ABO+Rh group - 05/18/17 20:29 ABO+Rh group OP NRG Transfusion band number [id number] NRG Serum or plasma choriogonadotropin measu rement (units/volume) - 05/18/17 20:29 Serum or plasma choriogonadotropin measurement (units/ volume) < m[iU]/mL <5 Complete urinalysis with reflex to cultu re - 05/18/17 21:00 Urine color determination YELLOW NRG Urine clarity determination CLEAR NR G Urine pH measurement by test strip 7 5-9 Specific gravity of urine by test strip 1.010 1.016-1.022 Urine protein assay by test strip, semi-quantitative NEGATIVE NEGATIVE Urine glucose detection by automated test strip NE GATIVE NEGATIVE Erythrocytes detection in urine sediment by light micr oscopy 5+ NEGATIVE Urine ketones detection by automated test strip NE GATIVE NEGATIVE Urine nitrite detection by test strip NEGATIVE NEGATIVE Urine total bilirubin detection by test strip NEGA TIVE NEGATIVE Urine urobilinogen measurement by automated test strip (mass/volume) 4 mg/dL NORMAL Urine leukocyte esterase detection by dipstick NEG ATIVE NEGATIVE Automated urine sediment erythrocyte cou nt by microscopy (number/high power field) [HPF] NRG Automated urine sediment leukocyte count by microscopy (number/high power field) [HPF] NRG Bacteria detection in urine sediment by light microsco py TRACE NRG Squamous epithelial cells detection in u rine sediment by light microscopy 5-10 NRG Crystals detection in urine sediment by light microsco py NONE NRG Casts detection in urine sediment by light microscopy NONE NRG Mucus detection in urine sediment by light microscopy NEGATIVE NRG Complete urinalysis with reflex to culture NO NRG Complete urinalysis with reflex to cultu re - 05/29/17 23:39 Urine color determination YELLOW NRG Urine clarity determination CLEAR NR G Urine pH measurement by test strip 6.5 5-9 Specific gravity of urine by test strip 1.020 1.016-1.022 Urine protein assay by test strip, semi-quantitative 1+ NEGATIVE Urine glucose detection by automated test strip NE GATIVE NEGATIVE Erythrocytes detection in urine sediment by light micr oscopy NEGATIVE NEGATIVE Urine ketones detection by automated test strip NE GATIVE NEGATIVE Urine nitrite detection by test strip NEGATIVE NEGATIVE Urine total bilirubin detection by test strip NEGA TIVE NEGATIVE Urine urobilinogen measurement by automated test strip (mass/volume) NORMAL NORMAL Urine leukocyte esterase detection by dipstick 1+ NEGATIVE Automated urine sediment erythrocyte cou nt by microscopy (number/high power field) RARE NRG Automated urine sediment leukocyte count by microscopy (number/high power field) RARE NRG Bacteria detection in urine sediment by light microsco py TRACE NRG Squamous epithelial cells detection in u rine sediment by light microscopy 10-25 NRG Crystals detection in urine sediment by light microsco py NONE NRG Casts detection in urine sediment by light microscopy NONE NRG Mucus detection in urine sediment by light microscopy SMALL NRG Complete urinalysis with reflex to culture NO NRG Complete blood count (CBC) with automate d white blood cell (WBC) differential - 05/29/17 23:50 Blood leukocytes automated count (number/volume) 11.6 10*3/uL 4.3-11.0 Blood erythrocytes automated count (number/volume) 4.61 10*6/uL 4.35-5.85 Venous blood hemoglobin measurement (mass/volume) 13.6 g/dL 11.5-16.0 Blood hematocrit (volume fraction) 41 % 35-52 Automated erythrocyte mean corpuscular volume 88 [ foz_us] 80-99 Automated erythrocyte mean corpuscular h emoglobin (mass per erythrocyte) 30 pg 25-34 Automated erythrocyte mean corpuscular h emoglobin concentration measurement (mass/volume) 34 g/dL 32-36 Automated erythrocyte distribution width ratio 12. 9 % 10.0- 14.5 Automated blood platelet count (count/volume) 257 10*3/uL [...] 10*3 1.0-4.0 Blood monocytes automated count (number/volume) 0. 7 10*3 0.0-1.0 Automated eosinophil count 0.3 10*3/uL 0 .0-0.3 Automated blood basophil count (count/volume) 0.0 10*3/uL 0.0-0.1 Whole blood basic metabolic panel - 05/11 01/26 23:50 Serum or plasma sodium measurement (moles/volume) 136 mmol/L 135-145 Serum or plasma potassium measurement (moles/volume) 4.0 mmol/L 3.6-5.0 Serum or plasma chloride measurement (moles/volume) 101 mmol/L 98-107 Carbon dioxide 23 mmol/L 21-32 Serum or plasma anion gap determination (moles/volume) 12 mmol/L 5-14 Serum or plasma urea nitrogen measurement (mass/volume ) 14 mg/dL 7-18 Serum or plasma creatinine measurement (mass/volume) 0.74 mg/dL 0.60-1.30 Serum or plasma urea nitrogen/creatinine mass ratio 19 NRG Serum or plasma creatinine measurement w ith calculation of estimated glomerular filtration rate > NRG Serum or plasma glucose measurement (mass/volume) 91 mg/dL 70-105 Serum or plasma calcium measurement (mass/volume) 9.8 mg/dL 8.5-10.1 Serum or plasma choriogonadotropin measu rement (units/volume) - 05/29/17 23:50 Serum or plasma choriogonadotropin measurement (units/ volume) < m[iU]/mL <5 Bacteria identification in genital speci men by aerobe culture - 05/30/17 00:40 FREE TEXT EXTERNAL PLUS NORMAL RENETTA NR G QUANTITY OF GROWTH Moderate Growth NRG Bacteria identification in genital specimen by aerobe culture [id number] NRG Microscopic examination by wet preparati on - 05/30/17 00:40 WET PREP RESULTS 00:58 BY Gerson PALMER NR Neisseria gonorrhoeae DNA detection by p robe and signal amplification method - 05/30/17 00:40 Gonorrhea amp DNA-urine Not Detected No t Detected Chlamydia trachomatis DNA detection by p robe and signal amplification method - 05/30/17 00:40 Chlamydia trachomatis DNA detection by p robe and target amplification method Detected Not Detected Influenza virus A and B antigen detectio n - 05/31/17 12:30 CALL POSITIVES (F1 HELP) CALLED TO TING AT 1245 NR FLU RESULT POSITIVE FOR INFLUENZA A ANT IGEN, NEG FOR B ANTIGEN, BY IA NRG Complete blood count (CBC) with automate d white blood cell (WBC) differential - 03/02/18 12:25 Blood leukocytes automated count (number/volume) 10.9 10*3/uL 4.3-11.0 Blood erythrocytes automated count (number/volume) 4.10 10*6/uL 4.35-5.85 Venous blood hemoglobin measurement (mass/volume) 11.7 g/dL 11.5-16.0 Blood hematocrit (volume fraction) 36 % 35-52 Automated erythrocyte mean corpuscular volume 87 [ foz_us] 80-99 Automated erythrocyte mean corpuscular h emoglobin (mass per erythrocyte) 29 pg 25-34 Automated erythrocyte mean corpuscular h emoglobin concentration measurement (mass/volume) 33 g/dL 32-36 Automated erythrocyte distribution width ratio 13. 0 % 10.0- 14.5 Automated blood platelet count (count/volume) 227 10*3/uL [...] 10*3 1.0-4.0 Blood monocytes automated count (number/volume) 0. 7 10*3 0.0-1.0 Automated eosinophil count 0.2 10*3/uL 0 .0-0.3 Automated blood basophil count (count/volume) 0.0 10*3/uL 0.0-0.1 Complete urinalysis with reflex to cultu re - 03/02/18 12:30 Urine color determination YELLOW NRG Urine clarity determination CLEAR NR G Urine pH measurement by test strip 6 5-9 Specific gravity of urine by test strip 1.015 1.016-1.022 Urine protein assay by test strip, semi-quantitative NEGATIVE NEGATIVE Urine glucose detection by automated test strip NE GATIVE NEGATIVE Erythrocytes detection in urine sediment by light micr oscopy 5+ NEGATIVE Urine ketones detection by automated test strip 2+ NEGATIVE Urine nitrite detection by test strip NEGATIVE NEGATIVE Urine total bilirubin detection by test strip NEGA TIVE NEGATIVE Urine urobilinogen measurement by automated test strip (mass/volume) NORMAL NORMAL Urine leukocyte esterase detection by dipstick 1+ NEGATIVE Automated urine sediment erythrocyte cou nt by microscopy (number/high power field) [HPF] NRG Automated urine sediment leukocyte count by microscopy (number/high power field) [HPF] NRG Bacteria detection in urine sediment by light microsco py FEW NRG Squamous epithelial cells detection in u rine sediment by light microscopy 5-10 NRG Crystals detection in urine sediment by light microsco py NONE NRG Casts detection in urine sediment by light microscopy NONE NRG Mucus detection in urine sediment by light microscopy MODERATE NRG Complete urinalysis with reflex to culture YES NRG Bacterial urine culture - 03/02/18 12:30 Bacterial urine culture SEE COMMEN NRG COLONY COUNT . NRG Complete urinalysis with reflex to cultu re - 04/30/18 15:40 Urine color determination YELLOW NRG Urine clarity determination SLIGHTLY CLOUDY NRG Urine pH measurement by test strip 6 5-9 Specific gravity of urine by test strip 1.015 1.016-1.022 Urine protein assay by test strip, semi-quantitative NEGATIVE NEGATIVE Urine glucose detection by automated test strip NE GATIVE NEGATIVE Erythrocytes detection in urine sediment by light micr oscopy NEGATIVE NEGATIVE Urine ketones detection by automated test strip NE GATIVE NEGATIVE Urine nitrite detection by test strip NEGATIVE NEGATIVE Urine total bilirubin detection by test strip NEGA TIVE NEGATIVE Urine urobilinogen measurement by automated test strip (mass/volume) NORMAL NORMAL Urine leukocyte esterase detection by dipstick 2+ NEGATIVE Automated urine sediment erythrocyte cou nt by microscopy (number/high power field) NONE NRG Automated urine sediment leukocyte count by microscopy (number/high power field) [HPF] NRG Bacteria detection in urine sediment by light microsco py MODERATE NRG Squamous epithelial cells detection in u rine sediment by light microscopy 5-10 NRG Crystals detection in urine sediment by light microsco py NONE NRG Casts detection in urine sediment by light microscopy NONE NRG Mucus detection in urine sediment by light microscopy NEGATIVE NRG Complete urinalysis with reflex to culture YES NRG Bacterial urine culture - 04/30/18 15:40 Bacterial urine culture NG NRG Blood type T Indirect antibody screen pa sudhakar - 10/27/18 08:41 WRISTBAND NUMBER [id number] NRG ABO+Rh group OP NRG Blood group antibody screen NEGATIVE NR G Complete blood count (CBC) with automate d white blood cell (WBC) differential - 10/27/18 08:41 Blood leukocytes automated count (number/volume) 11.6 10*3/uL 4.3-11.0 Blood erythrocytes automated count (number/volume) 3.92 10*6/uL 4.35-5.85 Venous blood hemoglobin measurement (mass/volume) 11.0 g/dL 11.5-16.0 Blood hematocrit (volume fraction) 34 % 35-52 Automated erythrocyte mean corpuscular volume 87 [ foz_us] 80-99 Automated erythrocyte mean corpuscular h emoglobin (mass per erythrocyte) 28 pg 25-34 Automated erythrocyte mean corpuscular h emoglobin concentration measurement (mass/volume) 32 g/dL 32-36 Automated erythrocyte distribution width ratio 13. 8 % 10.0- 14.5 Automated blood platelet count (count/volume) 221 10*3/uL 130-400 Automated blood platelet mean volume measurement 10.7 [foz_us] 7.4-10.4 Automated blood neutrophils/100 leukocytes 76 % 42-75 Automated blood lymphocytes/100 leukocytes 15 % 12-44 Blood monocytes/100 leukocytes 8 % 0-12 Automated blood eosinophils/100 leukocytes 1 % 0-10 Automated blood basophils/100 leukocytes 0 % 0-10 Blood neutrophils automated count (number/volume) 8.8 10*3 1.8-7.8 Blood lymphocytes automated count (number/volume) 1.8 10*3 1.0-4.0 Blood monocytes automated count (number/volume) 0. 9 10*3 0.0-1.0 Automated eosinophil count 0.1 10*3/uL 0 .0-0.3 Automated blood basophil count (count/volume) 0.0 10*3/uL 0.0-0.1 Complete blood count (CBC) with automate d white blood cell (WBC) differential - 10/28/18 05:20 Blood leukocytes automated count (number/volume) 16.3 10*3/uL 4.3-11.0 Blood erythrocytes automated count (number/volume) 2.96 10*6/uL 4.35-5.85 Venous blood hemoglobin measurement (mass/volume) 8.2 g/dL 11.5-16.0 Blood hematocrit (volume fraction) 26 % 35-52 Automated erythrocyte mean corpuscular volume 87 [ foz_us] 80-99 Automated erythrocyte mean corpuscular h emoglobin (mass per erythrocyte) 28 pg 25-34 Automated erythrocyte mean corpuscular h emoglobin concentration measurement (mass/volume) 32 g/dL 32-36 Automated erythrocyte distribution width ratio 13. 9 % 10.0- 14.5 Automated blood platelet count (count/volume) 218 10*3/uL 130-400 Automated blood platelet mean volume measurement 10.7 [foz_us] 7.4-10.4 Automated blood neutrophils/100 leukocytes 77 % 42-75 Automated blood lymphocytes/100 leukocytes 14 % 12-44 Blood monocytes/100 leukocytes 8 % 0-12 Automated blood eosinophils/100 leukocytes 1 % 0-10 Automated blood basophils/100 leukocytes 0 % 0-10 Blood neutrophils automated count (number/volume) 12.6 10*3 1.8-7.8 Blood lymphocytes automated count (number/volume) 2.3 10*3 1.0-4.0 Blood monocytes automated count (number/volume) 1. 3 10*3 0.0-1.0 Automated eosinophil count 0.1 10*3/uL 0 .0-0.3 Automated blood basophil count (count/volume) 0.0 10*3/uL 0.0-0.1 CULTURE, GENITAL - 04/12/19 12:10 CULTURE, GENITAL SEE NOTE NRG Complete urinalysis with reflex to cultu re - 07/13/19 15:57 Urine color determination YELLOW NRG Urine clarity determination CLEAR NR G Urine pH measurement by test strip 7.0 5-9 Specific gravity of urine by test strip 1.025 1.016-1.022 Urine protein assay by test strip, semi-quantitative NEGATIVE NEGATIVE Urine glucose detection by automated test strip NE GATIVE NEGATIVE Erythrocytes detection in urine sediment by light micr oscopy TRACE-L NEGATIVE Urine ketones detection by automated test strip NE GATIVE NEGATIVE Urine nitrite detection by test strip NEGATIVE NEGATIVE Urine total bilirubin detection by test strip NEGA TIVE NEGATIVE Urine urobilinogen measurement by automated test strip (mass/volume) 1.0 mg/dL < = 1.0 Urine leukocyte esterase detection by dipstick 2+ NEGATIVE Automated urine sediment erythrocyte cou nt by microscopy (number/high power field) [HPF] NRG Automated urine sediment leukocyte count by microscopy (number/high power field) > [HPF] NRG Bacteria detection in urine sediment by light microsco py LARGE NRG Squamous epithelial cells detection in u rine sediment by light microscopy 10-25 NRG Crystals detection in urine sediment by light microsco py NONE NRG Casts detection in urine sediment by light microscopy NONE NRG Mucus detection in urine sediment by light microscopy NEGATIVE NRG Complete urinalysis with reflex to culture YES NRG Bacterial urine culture - 07/13/19 15:57 Bacterial urine culture [id number] NRG COLONY COUNT >100,000/ML NRG FTX;REPORTABLE SUSCEPTIBILITY REPORTED 07/14 09:25 NRG FREE TEXT ENTRY 2 PRELIM RAPID ID BY VCP 07-14-19, 1 057 NRG FREE TEXT ENTRY 3 RML CONFIRMED ID 07/14/19 14:05 NRG Dirithromycin susceptibility test by dis k diffusion - 07/13/19 15:57 Gentamicin susceptibility test by minimum inhibitory c oncentration <= NRG Trimethoprim/sulfamethoxazole susceptibi lity test by minimum inhibitoryconcentration <= NRG Levofloxacin susceptibility test by minimum inhibitory concentration <= NRG Ampicillin susceptibility test by minimum inhibitory c oncentration <= NRG Cefazolin susceptibility test by minimum inhibitory co ncentration <= NRG Ceftriaxone susceptibility test by minimum inhibitory concentration <= NRG Ciprofloxacin susceptibility test by minimum inhibitor y concentration <= NRG Meropenem susceptibility test by minimum inhibitory co ncentration <= NRG Nitrofurantoin susceptibility test by mi nimum inhibitory concentration <= NRG Amoxicillin and clavulanate potassium susc ELIO <= NRG Bacteria identification in genital speci men by aerobe culture - 07/13/19 16:09 QUANTITY OF GROWTH . NRG Bacteria identification in genital specimen by aerobe culture UVF NRG Microscopic examination by JAREK preparati on - 07/13/19 16:09 Microscopic examination by JAREK preparation TNP NRG Microscopic examination by wet preparati on - 07/13/19 16:09 WET PREP RESULTS NO CLUE CELLS OBSERVED NRG Chlamydia trachomatis DNA detection by p robe and signal amplification method - 07/13/19 16:09 Chlamydia trachomatis DNA detection by p robe and target amplification method Not Detected Not Detected Neisseria gonorrhoeae DNA detection by p robe and signal amplification method - 07/13/19 16:09 Gonorrhea amp DNA-urine Not Detected No t Detected Herpes simplex virus (HSV) culture - 08/28 16:09 Herpes simplex virus (HSV) type 1 and 2 antibody panel (IgG, IgM) - 07/13/19 16:37 [id number] Positive Negative Serum herpes simplex virus 1 IgG antibody assay (units /volume) 1.91 % 0.00-0.89 Serum herpes simplex virus 2 IgG antibod y assay by immunoassay (units/volume) 12.10 % 0.00-0.89 Cerebrospinal fluid herpes simplex virus 1+2 IgM antibody assay (units/volume) 1.62 % <=0.89 Serum reagin antibody assay (units/volum e) by RPR - 07/13/19 16:37 Serum reagin antibody assay (units/volume) by RPR Non-Reactive Non-Reactive Encounters ACCT No. Visit Date/Time Discharge Status Pt. Type Provider Facility Loc./Unit Complaint [id number] 07/25/2019 14:20:00 07/25/2019 23:59:5 9 CLS Outpatient JEREMIAS LOPEZ LAC [facility] [place] [id number] 04/12/2019 09:00:00 Document Registration [id number] 01/30/2017 08:45:00 Document Registration [id number] 07/29/2019 17:50:00 19:45:00 DIS Emergency SELINA, TALI CLERICAL SUPPORT [facility] ER EAR PAIN [id number] 07/13/2019 15:31:00 17:16:00 DIS Emergency SELINA, TALI CLERICAL SUPPORT Via [facility] ER PAIN WITH URINATION [id number] 10/27/2018 06:45:00 019 13:30:00 DIS Inpatient RITA ZHOU DO S [facility] LDRP INDUCTION [id number] 08/14/2018 03:01:00 03:10:00 DIS Outpatient SEALS DOMARIZARY E [facility] WSo SHARP PAINS [id number] 07/02/2018 14:49:00 23:59:59 CLS Outpatient FENECH RITA DIAZ S [facility] RAD [id number] 06/01/2018 13:20:00 23:59:59 CLS Outpatient FENECH DO, RITA S [facility] RAD [id number] 04/30/2018 14:51:00 018 18:11:00 DIS Emergency ESTELA ALMODOVAR MD [facility] ER 14WKS PREG;CRAMPING [id number] 03/02/2018 11:52:00 018 15:00:00 DIS Emergency ELVIN OTERO MD [facility] ER VAGINAL BLEEDIN G; [id number] 07/05/2017 18:50:00 018 20:25:00 DIS Emergency ALINE HANCOCK [facility] ER L EAR DRAINAGE/PAIN [id number] 05/31/2017 11:15:00 018 13:50:00 DIS Emergency CHIVO BECKFORD APRN [facility] ER NOT TAKING RX/COLD CHIL LS/VOMITING [id number] 05/29/2017 22:27:00 018 02:39:00 DIS Emergency ELVIN OTERO MD [facility] ER MISCARRIAGE/ABD PAIN [id number] 05/18/2017 17:52:00 018 21:36:00 DIS Emergency CHIVO BECKFORD APRN [facility] ER POSS [id number] 10/10/2016 13:49:00 017 14:59:00 DIS Emergency CHIVO BECKFORD APRN [facility] ER SORE THROAT [id number] 07/05/2016 01:08:00 017 02:55:00 DIS Emergency ELVIN OTERO MD [facility] ER SOB [id number] 01/19/2016 19:47:00 016 22:35:00 DIS Emergency ALINE HANCOCK [facility] ER VAGINAL SWOLLEN/PAIN, HURTS TO URINATE [id number] 11/23/2017 06:53:00 Document Registration [id number] 07/05/2016 01:08:00 Document Registration [id number] 11/15/2010 02:59:00 Document Registration [id number] 03/11/2006 15:17:00 Document Registration [id number] 03/04/2006 14:52:00 Document Registration [id number] 02/25/2006 15:27:00 Document Registration [id number] 08/25/2014 14:15:00 08/25/2014 23:59: 59 CLS Outpatient SEBASTIÁN CABA DO [id number] 08/16/2014 09:37:00 08/16/2014 23:59: 59 CLS Outpatient SEBASTIÁN CABA DO [id number] 09/14/2013 11:53:00 09/14/2013 23:59: 59 CLS Outpatient SEBASTIÁN CABA DO [id number] 08/11/2013 18:20:00 08/11/2013 23:59: 59 CLS Outpatient ALTHEA KAHNAddy [place] DOWLING [id number] 12/01/2012 15:15:00 Document Registration
== END 2019-07-29 19:45 | disposition home or self-care (01) ==
LOC: EDUNIT# 17:48 → ER 17:50
DX: H66.92 Otitis media, unspecified, left ear (principal); F17.210 Nicotine dependence, cigarettes, uncomplicated
CPT/HCPCS: 99283

== ENCOUNTER 2020-05-16 15:40 | Emergency (ER) | payer MEDICAID ==
[~2020-05-16] VITALS: Ht 160 cm; Wt 63.0 kg
[~2020-05-16 15:40] MED LIST changes: +AMOX-358 PO; +PRD20T PO
[2020-05-16 16:11] LABS: BILIRUBIN,URINE NEGATIVE (NEGATIVE); CLARITY,URINE SL CLOUDY; COLOR,URINE YELLOW; GLUCOSE, URINE (UA) NEGATIVE (NEGATIVE); KETONES,URINE TRACE (NEGATIVE); LEUKOCYTE ESTERASE ,URINE 1+ (NEGATIVE); NITRITE,URINE NEGATIVE (NEGATIVE); PROTEIN,URINE NEGATIVE (NEGATIVE)
[2020-05-16 16:36] LABS: AMORPHOUS SEDIMENT,UR MOD AMOR URATES /LPF; BACTERIA,URINE FEW /HPF
[2020-05-16 16:39] LABS: BASOPHILS % (AUTO) 1 % (0-10); EOSINOPHILS # (AUTO) 0.1 10^3/uL (0.0-0.3); EOSINOPHILS % (AUTO) 1 % (0-10); HEMATOCRIT 38 % (35-52); HEMOGLOBIN 12.4 g/dL (11.5-16.0); LYMPHOCYTES % (AUTO) 32 % (12-44); MEAN CORPUSCULAR HEMOGLOBIN 29 pg (25-34); MEAN CORPUSCULAR HGB CONC 33 g/dL (32-36); MEAN CORPUSCULAR VOLUME 89 fL (80-99); MEAN PLATELET VOLUME 10.6 fL (9.0-12.2); MONOCYTES # (AUTO) 0.5 10^3/uL (0.0-1.0); MONOCYTES % (AUTO) 8 % (0-12); NEUTROPHILS # (AUTO) 3.8 10^3/uL (1.8-7.8); NEUTROPHILS % (AUTO) 59 % (42-75); PLATELET COUNT 227 10^3/uL (130-400); WHITE BLOOD COUNT 6.4 10^3/uL (4.3-11.0)
[2020-05-16] MEDS ORDERED: CEFU250T80 PO (17:43)
--- NOTE | 2020-05-16 17:43 | ED GU-Female ---
General Chief Complaint: Abdominal/GI Problems Stated Complaint: LOWER ABDOMINAL PAIN/4 WEEKS Nursing Triage Note: AMB TO ROOM STATES WONDERING IF SHE MAY BE PREG. HAD A MILD PEROID IN NOV NO PEROID IN DEC. TOOK A PREG TEST SHE REPORT THAT LINE WAS FAINT POS Nursing Sepsis Screen: No Definite Risk Allergies and Home Medications Allergies Uncoded Allergies: NKDA (Allergy, Unknown, 10/27/18) Home Medications Acyclovir 400 Mg Tablet, 400 MG PO TID Prescribed by: TALI MARKS on 07/13/191622 Amoxicillin 875 Mg Tablet, 875 MG PO BID Prescribed by: TALI MARKS on 07/13/191622 Amoxicillin/Potassium Clav 1 Each Tablet, 1 EACH PO BID Prescribed by: TALI MARKS on 07/29/191936 Dibucaine 30 Gm Oint, 0 GM TOP UD PRN for PAIN- SEE INSTRUCTIONS Prescribed by: RITA ZHOU on 10/27/181931 Docusate Sodium 100 Mg Capsule, 100 MG PO BID PRN for CONSTIPATION-1ST LINE Prescribed by: RITA ZHOU on 10/27/181931 Ferrous Sulfate 325 Mg Tablet, 325 MG PO DAILY Prescribed by: RITA ZHOU on 10/27/181931 Fluconazole 150 Mg Tablet, 150 MG PO DAILY Take one every 3 days Prescribed by: TALI MARKS on 07/13/191622 Hydrocodone Bit/Acetaminophen 1 Tab Tab, 1 TAB PO Q4H PRN for PAIN-MODERATE Prescribed by: RITA ZHOU on 10/27/181931 Ibuprofen 600 Mg Tablet, 600 MG PO Q6HR Prescribed by: RITA ZHOU on 10/27/181931 Prednisone 20 Mg Tab, 40 MG PO DAILY Prescribed by: TALI MARKS on 07/29/191938 Vit/Iron Fumarate/FA 1 Each Tablet, 1 EACH PO DAILY, (Reported) [Benzocaine/Menthol] 56 ML AEROSOL, 56 ML TP UD PRN for PAIN- SEE INSTRUCTIONS EXTERNAL USE ONLY Prescribed by: RITA ZHOU on 10/27/181931 Past Jurogsj-Zunzov-Qayyke Hx Patient Social History Alcohol Use: Denies Use Recreational Drug Use: No Type Used: Cigarettes 2nd Hand Smoke Exposure: Yes Recent Foreign Travel: No Contact w/Someone Who Travel: No Recent Infectious Disease Expo: No Recent Hopitalizations: No Immunizations Up To Date Tetanus Booster (TDap): More than 5yrs PED Vaccines UTD: Yes Seasonal Allergies Seasonal Allergies: Yes Past Medical History Surgeries: Yes Ear Surgery Respiratory: No Cardiac: No Neurological: No Reproductive Disorders: No Female Reproductive Disorders: Denies Gastrointestinal: No Musculoskeletal: No Endocrine: No 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 6.0oz. [id number]; 24.00 BMI Method:Estimated Progress/Results/Core Measures Suspected Sepsis Recent Fever Within 48 Hours: No Infection Criteria Present: None New/Unexplained Altered Menta: No Sepsis Screen: No Definite Risk SIRS Temperature: Pulse: 74 Respiratory Rate: 18 Laboratory Tests 05/16/20 16:17: White Blood Count 6.4 Blood Pressure 121 /81 Mean: 94 Laboratory Tests 05/16/20 16:17: Platelet Count 227 Results/Orders Lab Results Laboratory Tests Test 05/16/20 15:58 05/16/20 16:17 Range/Units Urine Color YELLOW Urine Clarity SL CLOUDY Urine pH 6.0 5-9 Urine Specific Ericson 1.025 H 1.016-1.022 Urine Protein NEGATIVE NEGATIVE Urine Glucose (UA) NEGATIVE NEGATIVE Urine Ketones TRACE H NEGATIVE Urine Nitrite NEGATIVE NEGATIVE Urine Bilirubin NEGATIVE NEGATIVE Urine Urobilinogen 0.2 < = 1.0 MG/DL Urine Leukocyte Esterase 1+ H NEGATIVE Urine RBC (Auto) 3+ H NEGATIVE Urine RBC 10-25 H /HPF Urine WBC 5-10 H /HPF Urine Crystals PRESENT H /LPF Urine Amorphous Sediment MOD JAHAIRA URATES H /LPF Urine Bacteria FEW H /HPF Urine Casts NONE /LPF Urine Mucus LARGE H /LPF Urine Culture Indicated YES White Blood Count 6.4 4.3-11.0 10^3/uL Red Blood Count 4.28 3.80-5.11 10^6/uL Hemoglobin 12.4 11.5-16.0 g/dL Hematocrit 38 35-52 % Mean Corpuscular Volume 89 80-99 fL Mean Corpuscular Hemoglobin 29 25-34 pg Mean Corpuscular Hemoglobin Concent 33 32-36 g/dL Red Cell Distribution Width 12.9 10.0-14.5 % Platelet Count 227 130-400 10^3/uL Mean Platelet Volume 10.6 9.0-12.2 fL Immature Granulocyte % (Auto) 0 % Neutrophils (%) (Auto) 59 42-75 % Lymphocytes (%) (Auto) 32 12-44 % Monocytes (%) (Auto) 8 0-12 % Eosinophils (%) (Auto) 1 0-10 % Basophils (%) (Auto) 1 0-10 % Neutrophils # (Auto) 3.8 1.8-7.8 10^3/uL Lymphocytes # (Auto) 2.0 1.0-4.0 10^3/uL Monocytes # (Auto) 0.5 0.0-1.0 10^3/uL Eosinophils # (Auto) 0.1 0.0-0.3 10^3/uL Basophils # (Auto) 0.0 0.0-0.1 10^3/uL Immature Granulocyte # (Auto) 0.0 0.0-0.1 10^3/uL Human Chorionic Gonadotropin, Quant < 5 <5 MIU/ML My Orders Orders - JUDI MTZ IT SOFTWARE DEVELOPER Ceftriaxone For Im Use (Rocephin For Im (05/16/20 17:45) Lidocaine 1% Inj 20 Ml (Xylocaine 1% Inj (05/16/20 17:45) Ketorolac Injection (Toradol Injection) (05/16/20 17:45) Vital Signs/I&O 05/16/20 15:55 Temp 36.7 Pulse 74 Resp 18 B/P (MAP) 121/81 (94) Capillary Refill : Less Than 3 Seconds Blood Pressure Mean: 94 Departure Impression Primary Impression: Urinary tract infection Disposition: 01 HOME, SELF-CARE Condition: Improved Departure-Patient Inst. Decision time for Depature: 17:41 Referrals: NO,LOCAL PHYSICIAN (PCP/Family) Primary Care Physician Patient Instructions: Urinary Tract Infection, Adult (DC) Add. Discharge Instructions: Plan: 1. Discharge home. Take antibiotics as directed and complete full course. 2. May take Tylenol or Ibuprofen as needed for pain per package instructions. 3. Follow up with your primary care provider if your symptoms persist. 4. Return for any new or concerning symptoms. All discharge instructions reviewed with patient and/or family. Voiced un derstanding. Scripts Cefuroxime Axetil (Cefuroxime) 250 Mg Tablet 250 MG PO BID for 10 Days, #20 TAB 0 Refills Prov: JUID MTZ IT SOFTWARE DEVELOPER 05/16/20 JUDI MTZ IT SOFTWARE DEVELOPER May 16, 2020 17:43
[2020-05-16] MEDS ORDERED: LIDOCAINE 1% INJ 20 ML 20 ML VIAL INJ ONE (17:45)
[2020-05-16] MEDS ORDERED: KETOROLAC 30 MG/ML VIAL IM ONE (17:45)
[2020-05-16] MEDS ORDERED: cefTRIAXone 1,000 MG/2.86 ml vial (IM ONLY) IM ONE (17:45)
[2020-05-16 18:04] VITALS: BP 108/64
== END 2020-05-16 18:06 | disposition home or self-care (01) ==
LOC: EDUNIT# 15:40 → ER 15:44
DX: N39.0 Urinary tract infection, site not specified (principal); Z79.52 Long term (current) use of systemic steroids; Z77.22 Contact with and (suspected) exposure to environmental tobacco smoke (acute) (chronic); Z80.9 Family history of malignant neoplasm, unspecified
CPT/HCPCS: 36415; 81000; 84702; 85025; 87088

== ENCOUNTER 2020-06-06 15:57 | Emergency (ER) | payer MEDICAID ==
[~2020-06-06] VITALS: Ht 160 cm; Wt 63.6 kg
[~2020-06-06 15:57] MED LIST changes: +CEFU250T80 PO
[2020-06-06 16:28] LABS: BILIRUBIN,URINE NEGATIVE (NEGATIVE); CLARITY,URINE CLEAR; COLOR,URINE YELLOW; GLUCOSE, URINE (UA) NEGATIVE (NEGATIVE); KETONES,URINE NEGATIVE (NEGATIVE); LEUKOCYTE ESTERASE ,URINE TRACE (NEGATIVE); NITRITE,URINE NEGATIVE (NEGATIVE); PROTEIN,URINE NEGATIVE (NEGATIVE)
[2020-06-06 16:37] LABS: BACTERIA,URINE FEW /HPF
[2020-06-06] MEDS ORDERED: NITR-65 PO (16:57)
--- NOTE | 2020-06-06 16:57 | ED GU-Female ---
General Chief Complaint: - Urinary Stated Complaint: PAIN WHILE URINATING, URINE DISCOLORATION Source: patient Exam Limitations: no limitations History of Present Illness Date Seen by Provider: Jun 06, 2020 Time Seen by Provider: 16:40 Initial Comments 24-year-old female who presents to the emergency room with complaints of dysuria and dark-colored urine. She reports that she was seen and evaluated 2 weeks ago and was treated for urinary tract infection. She reports completing all of her medications but reports that she had diarrhea a few days ago and started having urinary tract symptoms again today. Timing/Duration: just prior to arrival Associated Symptoms: dysuria Allergies and Home Medications Allergies Uncoded Allergies: NKDA (Allergy, Unknown, 10/27/18) Home Medications Acyclovir 400 Mg Tablet, 400 MG PO TID Prescribed by: TALI MARKS on 07/13/191622 Amoxicillin 875 Mg Tablet, 875 MG PO BID Prescribed by: TALI MARKS on 07/13/191622 Amoxicillin/Potassium Clav 1 Each Tablet, 1 EACH PO BID Prescribed by: TALI MARKS on 07/29/191936 Cefuroxime Axetil 250 Mg Tablet, 250 MG PO BID Prescribed by: JUDI MTZ on 05/16/20 174 Dibucaine 30 Gm Oint, 0 GM TOP UD PRN for PAIN- SEE INSTRUCTIONS Prescribed by: RITA ZHOU on 10/27/181931 Docusate Sodium 100 Mg Capsule, 100 MG PO BID PRN for CONSTIPATION-1ST LINE Prescribed by: RITA ZHOU on 10/27/181931 Ferrous Sulfate 325 Mg Tablet, 325 MG PO DAILY Prescribed by: RITA ZHOU on 10/27/181931 Fluconazole 150 Mg Tablet, 150 MG PO DAILY Take one every 3 days Prescribed by: TALI MARKS on 07/13/191622 Hydrocodone Bit/Acetaminophen 1 Tab Tab, 1 TAB PO Q4H PRN for PAIN-MODERATE Prescribed by: RITA ZHOU on 10/27/181931 Ibuprofen 600 Mg Tablet, 600 MG PO Q6HR Prescribed by: RITA ZHOU on 10/27/181931 Prednisone 20 Mg Tab, 40 MG PO DAILY Prescribed by: TALI MARKS on 07/29/191938 Vit/Iron Fumarate/FA 1 Each Tablet, 1 EACH PO DAILY, (Reported) [Benzocaine/Menthol] 56 ML AEROSOL, 56 ML TP UD PRN for PAIN- SEE INSTRUCTIONS EXTERNAL USE ONLY Prescribed by: RITA ZHOU on 10/27/18 193 Patient Home Medication List Home Medication List Reviewed: Yes Review of Systems Review of Systems Constitutional: see HPI; No chills, No fever Genitourinary: see HPI, burning, frequency All Other Systemes Reviewed Negative Unless Noted: Yes Past Lavnacv-Xeshlq-Tjkxcf Hx Past Med/Social Hx: Reviewed Nursing Past Med/Soc Hx Patient Social History Type Used: Cigarettes 2nd Hand Smoke Exposure: Yes Recent Hopitalizations: No Immunizations Up To Date Tetanus Booster (TDap): More than 5yrs PED Vaccines UTD: Yes Seasonal Allergies Seasonal Allergies: Yes Past Medical History Surgeries: Yes Ear Surgery Respiratory: No Cardiac: No Neurological: No Reproductive Disorders: No Female Reproductive Disorders: Denies Gastrointestinal: No Musculoskeletal: No Endocrine: No HEENT: Yes (right mastoiditis as a teenager) Chronic Ear Infection Cancer: No Psychosocial: No Integumentary: No Blood Disorders: No Family Medical History Reviewed Nursing Family Hx FH: cancer No Pertinent Family Hx Physical Exam Vital Signs Capillary Refill : Height, Weight, BMI Height: 5'4.00" Weight: 156lbs. 6.0oz. 70.911929cq; 24.00 BMI Method:Estimated General Appearance: WD/WN, no apparent distress Cardiovascular: normal peripheral pulses, regular rate, rhythm, no edema, no gallop, no JVD, no murmur Respiratory: chest non-tender, lungs clear, normal breath sounds, no respiratory distress, no accessory muscle use, respiratory distress Gastrointestinal: normal bowel sounds, non tender, soft, no organomegaly, no pulsatile mass, abnormal bowel sounds Back: normal inspection, no CVA tenderness Neurologic/Psychiatric: alert, normal mood/affect, oriented x 3 Skin: normal color, warm/dry Progress/Results/Core Measures Suspected Sepsis SIRS Temperature: Pulse: Respiratory Rate: Blood Pressure / Mean: Results/Orders Lab Results Laboratory Tests Test 06/06/20 16:22 Range/Units Urine Color YELLOW Urine Clarity CLEAR Urine pH 7.0 5-9 Urine Specific Christoval 1.015 L 1.016-1.022 Urine Protein NEGATIVE NEGATIVE Urine Glucose (UA) NEGATIVE NEGATIVE Urine Ketones NEGATIVE NEGATIVE Urine Nitrite NEGATIVE NEGATIVE Urine Bilirubin NEGATIVE NEGATIVE Urine Urobilinogen 0.2 < = 1.0 MG/DL Urine Leukocyte Esterase TRACE H NEGATIVE Urine RBC (Auto) NEGATIVE NEGATIVE Urine RBC NONE /HPF Urine WBC 5-10 H /HPF Urine Squamous Epithelial Cells 10-25 H /HPF Urine Crystals NONE /LPF Urine Bacteria FEW H /HPF Urine Casts NONE /LPF Urine Mucus NEGATIVE /LPF Urine Culture Indicated YES Urine Test NEGATIVE NEGATIVE My Orders Orders - ANSON CONNER Ua Culture If Indicated (06/06/20 16:01) Hcg,Qualitative Urine (06/06/20 16:01) Urine Culture (06/06/20 16:22) Vital Signs/I&O Capillary Refill : Departure Impression Primary Impression: Urinary tract infection Disposition: HOME, SELF-CARE Condition: Stable/Unchanged Departure-Patient Inst. Decision time for Depature: 16:54 Referrals: NO,LOCAL PHYSICIAN (PCP/Family) Primary Care Physician Patient Instructions: Urinary Tract Infection, Adult (DC) Add. Discharge Instructions: Drink plenty of fluids to stay hydrated. Take medications as directed. Follow- up with your primary care provider within 1 week for recheck. Return back to the emergency room for worsening symptoms or concerns as needed. All discharge instructions reviewed with patient and/or family. Voiced understanding. Scripts Nitrofurantoin Monohyd/M-Cryst (Macrobid 100 mg Capsule) 100 Mg Capsule 100 MG PO BID for 7 Days, #14 TAB Prov: NASON CONNER 06/06/20 ANSON CONNER Jun 06, 2020 16:57
[2020-06-06 17:14] VITALS: BP 128/79
== END 2020-06-06 17:19 | disposition home or self-care (01) ==
LOC: EDUNIT# 15:57 → ER 15:59
DX: N39.0 Urinary tract infection, site not specified (principal); Z77.22 Contact with and (suspected) exposure to environmental tobacco smoke (acute) (chronic); Z79.52 Long term (current) use of systemic steroids
CPT/HCPCS: 81000; 84703; 87088; 99282

== ENCOUNTER 2020-06-28 09:37 | Emergency (ER) | payer MEDICAID ==
[~2020-06-28] VITALS: Ht 160 cm; Wt 64.8 kg
--- NOTE | 2020-06-28 11:26 | Diagnostic Imaging Report ---
Indication: Left arm injury with swelling AP and lateral views of the left forearm are obtained. FINDINGS: There is ulnar minus variation No acute fracture or dislocation is identified. No abnormal lytic or sclerotic focus is seen, and there is no radiopaque foreign body. IMPRESSION: No acute abnormality. Dictated by: Dictated on workstation # [id number]
--- NOTE | 2020-06-28 11:39 | Diagnostic Imaging Report ---
INDICATION: Left hand pain and swelling, smashed in car door yesterday. TECHNIQUE: Three views of the left hand. CORRELATION STUDY: None FINDINGS: There is normal alignment and appearance of the osseous structures of the hand. The joint spaces are maintained. There is no acute fracture. No soft tissue foreign body. IMPRESSION: 1. Negative for acute bony abnormality of the hand. Dictated by: Dictated on workstation # [id number]
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
[2020-06-28 12:16] VITALS: BP 102/66
== END 2020-06-28 12:13 | disposition home or self-care (01) ==
LOC: EDUNIT# 09:37 → ER 09:39
DX: S60.222A Contusion of left hand, initial encounter (principal); J06.9 Acute upper respiratory infection, unspecified; Z20.822 Contact with and (suspected) exposure to COVID-19; Z77.22 Contact with and (suspected) exposure to environmental tobacco smoke (acute) (chronic); Z79.52 Long term (current) use of systemic steroids; W23.0XXA Caught, crushed, jammed, or pinched between moving objects, initial encounter
CPT/HCPCS: 73090; 73130; 87430; 87804; U0002; 87635

== ENCOUNTER 2020-09-13 19:30 | Emergency (ER) | payer MEDICAID ==
[~2020-09-13] VITALS: Ht 157 cm; Wt 62.8 kg
[~2020-09-13 19:30] MED LIST changes: -ACYC400T PO; +ACYC400T21 PO
[2020-09-13 20:02] LABS: BILIRUBIN,URINE NEGATIVE (NEGATIVE); COLOR,URINE YELLOW; GLUCOSE, URINE (UA) NEGATIVE (NEGATIVE); KETONES,URINE NEGATIVE (NEGATIVE); LEUKOCYTE ESTERASE ,URINE 1+ (NEGATIVE); NITRITE,URINE NEGATIVE (NEGATIVE); PROTEIN,URINE NEGATIVE (NEGATIVE)
[2020-09-13 20:07] LABS: CLARITY,URINE SL CLOUDY
[2020-09-13 20:11] LABS: BACTERIA,URINE TRACE /HPF; RBC,URINE RARE /HPF
[2020-09-13 20:12] LABS: AMPHETAMINE SCREEN, URINE NEGATIVE (NEGATIVE); BARBITURATE SCREEN URINE NEGATIVE (NEGATIVE); BENZODIAZEPINES SCREEN URINE NEGATIVE (NEGATIVE); CANNABINOID SCREEN, URINE NEGATIVE (NEGATIVE); COCAINE SCREEN URINE NEGATIVE (NEGATIVE); METHADONE STAT NEGATIVE (NEGATIVE); METHAMPHETAMINE SCREEN URINE S NEGATIVE (NEGATIVE); OPIATE SCREEN URINE NEGATIVE (NEGATIVE); OXYCODONE STAT NEGATIVE (NEGATIVE); PROPOXYPHENE STAT NEGATIVE (NEGATIVE); TRICYCLIC ANTIDEPRESSANTS SCRE NEGATIVE (NEGATIVE)
[2020-09-13 21:15] LABS: BASOPHILS % (AUTO) 1 % (0-10); EOSINOPHILS # (AUTO) 0.1 10^3/uL (0.0-0.3); EOSINOPHILS % (AUTO) 1 % (0-10); HEMATOCRIT 37 % (35-52); HEMOGLOBIN 11.9 g/dL (11.5-16.0); LYMPHOCYTES # (AUTO) 2.3 10^3/uL (1.0-4.0); LYMPHOCYTES % (AUTO) 30 % (12-44); MEAN CORPUSCULAR HEMOGLOBIN 29 pg (25-34); MEAN CORPUSCULAR HGB CONC 32 g/dL (32-36); MEAN CORPUSCULAR VOLUME 89 fL (80-99); MEAN PLATELET VOLUME 10.3 fL (9.0-12.2); MONOCYTES # (AUTO) 0.5 10^3/uL (0.0-1.0); MONOCYTES % (AUTO) 7 % (0-12); NEUTROPHILS # (AUTO) 4.5 10^3/uL (1.8-7.8); NEUTROPHILS % (AUTO) 61 % (42-75); PLATELET COUNT 218 10^3/uL (130-400); WHITE BLOOD COUNT 7.5 10^3/uL (4.3-11.0)
[2020-09-13 21:26] LABS: INR 1.1 (0.8-1.4); PROTHROMBIN TIME PATIENT 15.1 SEC (12.2-14.7)
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
[2020-09-13 22:01] VITALS: BP 112/79
== END 2020-09-13 22:04 | disposition home or self-care (01) ==
LOC: EDUNIT# 19:30 → ER 19:39
DX: N92.6 Irregular menstruation, unspecified (principal); F17.210 Nicotine dependence, cigarettes, uncomplicated; Z79.52 Long term (current) use of systemic steroids
CPT/HCPCS: 36415; 80306; 81000; 84702; 84703; 85025; 85610; 85730

== ENCOUNTER 2020-12-21 18:58 | Emergency (ER) | payer MEDICAID ==
[~2020-12-21] VITALS: Ht 160 cm; Wt 63.5 kg
[~2020-12-21 18:58] MED LIST changes: +CYCL10TA9 PO
[2020-12-21] MEDS ORDERED: KETOROLAC 30 MG/ML VIAL IVP ONE (19:15)
[2020-12-21] MEDS ORDERED: HYOSCYAMINE 0.125 MG (LEVSIN) TAB PO ONE (19:15)
--- NOTE | 2020-12-21 19:15 | ED General ---
General Chief Complaint: Abdominal/GI Problems Stated Complaint: ABD PAIN Source of Information: Patient Exam Limitations: No Limitations History of Present Illness Date Seen by Provider: Dec 21, 2020 Time Seen by Provider: 19:13 Initial Comments To ER with periumbilical abdominal pain for 3 days with nausea but no vomiting. She has had an abnormal increase in the number of bowel movements especially today but the bowel movement consistency is the same as always. No fever Timing/Duration: 1-2 Days Severity: Moderate Associated Systoms: Nausea/Vomiting Allergies and Home Medications Allergies Uncoded Allergies: NKDA (Allergy, Unknown, 10/27/18) Patient Home Medication List Home Medication List Reviewed: Yes Review of Systems Review of Systems Constitutional: see HPI EENTM: see HPI Respiratory: no symptoms reported Cardiovascular: no symptoms reported Gastrointestinal: abdominal pain, nausea Genitourinary: no symptoms reported Musculoskeletal: no symptoms reported Skin: no symptoms reported, change in hair/nails Past Krhwoht-Plzcye-Xbcamz Hx Immunizations Up To Date Tetanus Booster (TDap): More than 5yrs PED Vaccines UTD: Yes Seasonal Allergies Seasonal Allergies: Yes Past Medical History Surgeries: Yes (RIGHT EAR SURGERY FOR MASTOIDITIS) Ear Surgery Respiratory: No Cardiac: No Neurological: No Reproductive Disorders: No Female Reproductive Disorders: Denies Genitourinary: No Gastrointestinal: No Musculoskeletal: No Endocrine: No HEENT: Yes (right mastoiditis as a teenager-S/P SURGERY) Chronic Ear Infection Cancer: No Psychosocial: No Integumentary: No Blood Disorders: No Family Medical History FH: cancer No Pertinent Family Hx Physical Exam Vital Signs Vital Signs - First Documented 12/21/20 19:06 Temp 36.6 Pulse 93 Resp 18 B/P (MAP) 118/80 (93) Pulse Ox 98 O2 Delivery Room Air Capillary Refill : Height, Weight, BMI Height: 5'4.00" Weight: 156lbs. 6.0oz. 70.105294wc; 25.00 BMI Method:Estimated General Appearance: No Apparent Distress, WD/WN Eyes: Bilateral Eye Normal Inspection, Bilateral Eye PERRL, Bilateral Eye EOMI Neck: Full Range of Motion, Normal Inspection Respiratory: No Accessory Muscle Use, No Respiratory Distress Cardiovascular: Regular Rate, Rhythm, Normal Peripheral Pulses Gastrointestinal: Normal Bowel Sounds, Soft, Tenderness Extremity: Normal Capillary Refill, Normal Inspection Neurologic/Psychiatric: Alert, Oriented x3 Skin: Normal Color, Warm/Dry Progress/Results/Core Measures Suspected Sepsis SIRS Temperature: Pulse: Respiratory Rate: Laboratory Tests 12/21/20 19:48: White Blood Count 7.1 Blood Pressure / Mean: Laboratory Tests 12/21/20 19:25: Creatinine 0.82, Total Bilirubin 0.3 12/21/20 19:48: Platelet Count 180 Results/Orders Lab Results Laboratory Tests Test 12/21/20 19:12 12/21/20 19:25 12/21/20 19:48 Range/Units Urine Color YELLOW Urine Clarity CLEAR Urine pH 7.0 5-9 Urine Specific [place] 1.015 L 1.016-1.022 Urine Protein NEGATIVE NEGATIVE Urine Glucose (UA) NEGATIVE NEGATIVE Urine Ketones NEGATIVE NEGATIVE Urine Nitrite NEGATIVE NEGATIVE Urine Bilirubin NEGATIVE NEGATIVE Urine Urobilinogen 0.2 < = 1.0 MG/DL Urine Leukocyte Esterase 1+ H NEGATIVE Urine RBC (Auto) NEGATIVE NEGATIVE Urine RBC NONE /HPF Urine WBC 0-2 /HPF Urine Squamous Epithelial Cells 5-10 /HPF Urine Crystals NONE /LPF Urine Bacteria TRACE /HPF Urine Casts NONE /LPF Urine Mucus NEGATIVE /LPF Urine Culture Indicated NO Sodium Level 138 135-145 MMOL/L Potassium Level 3.9 3.6-5.0 MMOL/L Chloride Level 108 H 98-107 MMOL/L Carbon Dioxide Level 21 21-32 MMOL/L Anion Gap 9 5-14 MMOL/L Blood Urea Nitrogen 14 7-18 MG/DL Creatinine 0.82 0.60-1.30 MG/DL Estimat Glomerular Filtration Rate 85 BUN/Creatinine Ratio 17 Glucose Level 114 H 70-105 MG/DL Calcium Level 9.1 8.5-10.1 MG/DL Corrected Calcium 9.0 8.5-10.1 MG/DL Total Bilirubin 0.3 0.1-1.0 MG/DL Aspartate Amino Transf (AST/SGOT) 18 5-34 U/L Alanine Aminotransferase (ALT/SGPT) 15 0-55 U/L Alkaline Phosphatase 61 40-136 U/L Total Protein 7.4 6.4-8.2 GM/DL Albumin 4.1 3.2-4.5 GM/DL Lipase 15 8-78 U/L Serum Test, Qualitative NEGATIVE NEGATIVE White Blood Count 7.1 4.3-11.0 10^3/uL Red Blood Count 3.81 3.80-5.11 10^6/uL Hemoglobin 11.1 L 11.5-16.0 g/dL Hematocrit 35 35-52 % Mean Corpuscular Volume 91 80-99 fL Mean Corpuscular Hemoglobin 29 25-34 pg Mean Corpuscular Hemoglobin Concent 32 32-36 g/dL Red Cell Distribution Width 12.8 10.0-14.5 % Platelet Count 180 130-400 10^3/uL Mean Platelet Volume 10.6 9.0-12.2 fL Immature Granulocyte % (Auto) 0 % Neutrophils (%) (Auto) 59 42-75 % Lymphocytes (%) (Auto) 32 12-44 % Monocytes (%) (Auto) 7 0-12 % Eosinophils (%) (Auto) 2 0-10 % Basophils (%) (Auto) 1 0-10 % Neutrophils # (Auto) 4.2 1.8-7.8 10^3/uL Lymphocytes # (Auto) 2.2 1.0-4.0 10^3/uL Monocytes # (Auto) 0.5 0.0-1.0 10^3/uL Eosinophils # (Auto) 0.1 0.0-0.3 10^3/uL Basophils # (Auto) 0.0 0.0-0.1 10^3/uL Immature Granulocyte # (Auto) 0.0 0.0-0.1 10^3/uL My Orders Orders - CHIVO BECKFORD GROCERY DELIVERER Cbc With Automated Diff (12/21/20 19:12) Comprehensive Metabolic Panel (12/21/20 19:12) Lipase (12/21/20 19:12) Ua Culture If Indicated (12/21/20 19:12) Hcg,Qualitative Serum (12/21/20 19:12) Ed Iv/Invasive Line Start (12/21/20 19:12) Ketorolac Injection (Toradol Injection) (12/21/20 19:15) Hyoscyamine Sl Tablet (Levsin Sl Tablet) (12/21/20 19:15) Ct Abdomen/Pelvis W (12/21/20 19:16) Iohexol Injection (Omnipaque 350 Mg/Ml 1 (12/21/20 20:00) Received Contrast (Hold Metformin- Contr (12/21/20 20:00) Ns (Ivpb) (Sodium Chloride 0.9% Ivpb Bag (12/21/20 20:00) Medications Given in ED Current Medications Medications Dose Ordered Sig/Ana Route Start Time Stop Time Status Last Admin Dose Admin Hyoscyamine Sulfate 0.25 mg ONCE ONCE PO 12/21/20 19:15 12/21/20 19:16 DC 12/21/20 19:30 0.25 MG Iohexol 100 ml ONCE ONCE IV 12/21/20 20:00 12/21/20 20:01 DC 12/21/20 20:37 80 ML Ketorolac Tromethamine 15 mg ONCE ONCE IVP 12/21/20 19:15 12/21/20 19:16 DC 12/21/20 19:28 15 MG Sodium Chloride 100 ml ONCE ONCE IV 12/21/20 20:00 12/21/20 20:01 DC 12/21/20 20:38 80 ML Vital Signs/I&O 12/21/20 19:06 Temp 36.6 Pulse 93 Resp 18 B/P (MAP) 118/80 (93) Pulse Ox 98 O2 Delivery Room Air Capillary Refill : Departure Impression Primary Impression: Abdominal pain Disposition: HOME, SELF-CARE Condition: Stable Departure-Patient Inst. Decision time for Depature: 21:04 Referrals: [facility] (PCP/Family) Primary Care Physician Patient Instructions: No Instuctions Given CHIVO BECKFORD APRN Dec 21, 2020 19:15
[2020-12-21 19:20] LABS: BILIRUBIN,URINE NEGATIVE (NEGATIVE); CLARITY,URINE CLEAR; COLOR,URINE YELLOW; GLUCOSE, URINE (UA) NEGATIVE (NEGATIVE); KETONES,URINE NEGATIVE (NEGATIVE); LEUKOCYTE ESTERASE ,URINE 1+ (NEGATIVE); NITRITE,URINE NEGATIVE (NEGATIVE); PROTEIN,URINE NEGATIVE (NEGATIVE)
[2020-12-21 19:26] LABS: BACTERIA,URINE TRACE /HPF; WBC,URINE 0-2 /HPF
[2020-12-21 19:54] LABS: BASOPHILS % (AUTO) 1 % (0-10); EOSINOPHILS # (AUTO) 0.1 10^3/uL (0.0-0.3); EOSINOPHILS % (AUTO) 2 % (0-10); HEMATOCRIT 35 % (35-52); HEMOGLOBIN 11.1 g/dL (11.5-16.0); LYMPHOCYTES # (AUTO) 2.2 10^3/uL (1.0-4.0); LYMPHOCYTES % (AUTO) 32 % (12-44); MEAN CORPUSCULAR HEMOGLOBIN 29 pg (25-34); MEAN CORPUSCULAR HGB CONC 32 g/dL (32-36); MEAN CORPUSCULAR VOLUME 91 fL (80-99); MEAN PLATELET VOLUME 10.6 fL (9.0-12.2); MONOCYTES # (AUTO) 0.5 10^3/uL (0.0-1.0); MONOCYTES % (AUTO) 7 % (0-12); NEUTROPHILS # (AUTO) 4.2 10^3/uL (1.8-7.8); NEUTROPHILS % (AUTO) 59 % (42-75); PLATELET COUNT 180 10^3/uL (130-400); WHITE BLOOD COUNT 7.1 10^3/uL (4.3-11.0)
[2020-12-21 19:57] LABS: ALBUMIN 4.1 GM/DL (3.2-4.5); BILIRUBIN,TOTAL 0.3 MG/DL (0.1-1.0); CALCIUM 9.1 MG/DL (8.5-10.1); CREATININE SERUM 0.82 MG/DL (0.60-1.30); POTASSIUM 3.9 MMOL/L (3.6-5.0); TOTAL PROTEIN 7.4 GM/DL (6.4-8.2)
[2020-12-21] MEDS ORDERED: HOLD METFORMIN - RECEIVED CONTRAST 20 ML VIAL IV SCH (20:00)
[2020-12-21] MEDS ORDERED: IOHEXOL 350 MG/ML 100 ML (OMNIPAQUE 350) VIAL IV ONE (20:00)
[2020-12-21] MEDS ORDERED: NS 100 ML (IVPB) BAG IV ONE (20:00)
--- NOTE | 2020-12-21 20:53 | Diagnostic Imaging Report ---
EXAMINATION: CT abdomen and pelvis with intravenous contrast. TECHNIQUE: Multiple contiguous axial images were obtained through the abdomen and pelvis after the uneventful administration of intravenous contrast. All CT scans use one or more of the following dose optimizing techniques: automated exposure control, MA and/or KvP adjustment based on patient size and exam type or iterative reconstruction. HISTORY: Abdominal pain. COMPARISON: None available. FINDINGS: The heart is unremarkable. The included lung bases are clear. The liver, spleen, pancreas, adrenal glands and kidneys have a normal appearance. There is no pathologically enlarged mesenteric or retroperitoneal adenopathy. The bowel loops are nondilated. The appendix is visualized in the right lower quadrant and has a normal appearance. There is no free air. No acute osseous abnormality. Ureters and bladder are grossly normal. Dominant follicle/cyst is seen in the left adnexa measuring 3.9 x 3.7 cm. A small amount of free fluid is seen in the pelvis. There is no free air, loculated collection or adenopathy in the pelvis. IMPRESSION: 1. Dominant follicle/cyst in the left adnexa with a small amount of physiologic free fluid in the pelvis. 2. No bowel obstruction. Normal appendix in the right lower quadrant. Dictated by: Dictated on workstation # [id number]
[2020-12-21 21:15] VITALS: BP 99/78
== END 2020-12-21 21:24 | disposition home or self-care (01) ==
LOC: EDUNIT# 18:58 → ER 19:00
DX: R10.33 Periumbilical pain (principal)
CPT/HCPCS: 36415; 74177; 80053; 81000; 83690; 84703; 85025

== ENCOUNTER 2021-03-17 15:41 | Emergency (ER) | payer MEDICAID ==
[~2021-03-17] VITALS: Ht 160 cm; Wt 64.8 kg
[2021-03-17] MEDS ORDERED: BENZONATATE 100 MG (TESSALON) CAPSULE PO STA (16:04)
[2021-03-17] MEDS ORDERED: ONDANSETRON 4 MG/2 ML (SDV) Z0FRAN IVP ONE (16:15)
[2021-03-17] MEDS ORDERED: LACTATED RINGERS 1,000 ML IV ONE (16:15)
[2021-03-17] MEDS ORDERED: KETOROLAC 30 MG/ML VIAL IVP ONE (16:15)
[2021-03-17 16:52] LABS: BASOPHILS % (AUTO) 0 % (0-10); EOSINOPHILS % (AUTO) 0 % (0-10); HEMATOCRIT 39 % (35-52); HEMOGLOBIN 12.4 g/dL (11.5-16.0); LYMPHOCYTES # (AUTO) 0.5 10^3/uL (1.0-4.0); LYMPHOCYTES % (AUTO) 14 % (12-44); MEAN CORPUSCULAR HEMOGLOBIN 29 pg (25-34); MEAN CORPUSCULAR HGB CONC 32 g/dL (32-36); MEAN CORPUSCULAR VOLUME 89 fL (80-99); MEAN PLATELET VOLUME 10.9 fL (9.0-12.2); MONOCYTES # (AUTO) 0.5 10^3/uL (0.0-1.0); MONOCYTES % (AUTO) 14 % (0-12); NEUTROPHILS # (AUTO) 2.7 10^3/uL (1.8-7.8); NEUTROPHILS % (AUTO) 72 % (42-75); PLATELET COUNT 194 10^3/uL (130-400); WHITE BLOOD COUNT 3.8 10^3/uL (4.3-11.0)
[2021-03-17 16:57] LABS: POTASSIUM 3.5 MMOL/L (3.6-5.0)
[2021-03-17 16:58] LABS: CALCIUM 8.7 MG/DL (8.5-10.1)
--- NOTE | 2021-03-17 16:58 | ED General ---
General Chief Complaint: Cough/Cold/Flu Symptoms Stated Complaint: COVID POSITIVE/VOMITING/FEVER/CHILLS/DIZZY Nursing Triage Note: PT PRESENTS TO ED VIA POV FROM HOME WITH COMPLAINTS OF COUGH, SOA, FEVER, MALAISE STARTING THURSDAY MORNING. PT REPORTS SHE TESTED POSITIVE FOR COVID YESTERDAY AT [facility]. Source of Information: Patient Exam Limitations: No Limitations History of Present Illness Date Seen by Provider: Mar 17, 2021 Time Seen by Provider: 15:55 Initial Comments This 25-year-old young lady presents to the emergency room with symptoms of Covid 19. She went to the [facility] clinic yesterday with backache and headache and was diagnosed with COVID-19. Today she was struggling with cough, fever, myalgia, nausea and vomiting, lightheadedness and fevers. She is febrile with stable vital signs. She has been taking Tylenol for her fever. She was started on Amoxicillin for left ear infection. 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 Allergies and Home Medications Allergies Uncoded Allergies: NKDA (Allergy, Unknown, 10/27/18) Patient Home Medication List Home Medication List Reviewed: Yes Benzonatate (Tessalon Perles) 100 Mg Capsule, 200 MG PO TID PRN for COUGH Prescribed by: ANGIE PINEDA on 03/17/21 172 Ondansetron (Ondansetron Odt) 4 Mg Tab.rapdis, 4 MG SL Q4H PRN for NAUSEA/VOMITING Prescribed by: ANGIE PINEDA on 03/17/21 172 Review of Systems Review of Systems Constitutional: see HPI EENTM: no symptoms reported Respiratory: see HPI Cardiovascular: see HPI Gastrointestinal: see HPI Genitourinary: no symptoms reported : No LMP: Mar 10, 2021 Musculoskeletal: see HPI Skin: no symptoms reported Psychiatric/Neurological: See HPI Immunological/Allergic: no symptoms reported Past Wfjyvbx-Fcouvw-Qmqzkj Hx Patient Social History Tobacco Use?: No Smokeless Tobacco Frequency: Never a User Use of E-Cig and/or Vaping dev: Yes E-Cig or Vaping type used: Nicotine Use of E-Cig and/or Vaping Horacio: Current Everyday User Substance use?: No Alcohol Use?: Yes Alcohol Frequency: Once in a while Pt feels they are or have been: No Immunizations Up To Date Tetanus Booster (TDap): More than 5yrs PED Vaccines UTD: Yes Seasonal Allergies Seasonal Allergies: Yes Past Medical History Surgery/Hospitalization HX: sx: r ear Surgeries: Yes (RIGHT EAR SURGERY FOR MASTOIDITIS) Ear Surgery Respiratory: No Cardiac: No Neurological: No Reproductive Disorders: No Female Reproductive Disorders: Denies Genitourinary: No Gastrointestinal: No Musculoskeletal: No Endocrine: No HEENT: Yes (right mastoiditis as a teenager-S/P SURGERY) Chronic Ear Infection (left) Cancer: No Psychosocial: No Integumentary: No Blood Disorders: No Family Medical History FH: cancer No Pertinent Family Hx Physical Exam Vital Signs Vital Signs - First Documented 03/17/21 16:19 Temp 38.1 Pulse 103 Resp 18 B/P (MAP) 116/71 (86) Pulse Ox 97 Capillary Refill : Less Than 3 Seconds Height, Weight, BMI Height: 5'4.00" Weight: 156lbs. 6.0oz. [id number]; 25.00 BMI Method:Estimated General Appearance: WD/WN, Mild Distress Eyes: Bilateral Eye Normal Inspection HEENT: PERRL/EOMI, Normal ENT Inspection, Pharynx Normal, TM Abnormal (L) (Disfigurement of the left TM which appears chronic. Peripheral hyperemia. Appearance of purulent effusion behind a disfigured tympanic membrane. 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 Skin: Normal Color, Warm/Dry Progress/Results/Core Measures Suspected Sepsis SIRS Temperature: Pulse: 103 Respiratory Rate: 18 Laboratory Tests 03/17/21 16:03: White Blood Count 3.8L Blood Pressure 116 /71 Mean: 86 Laboratory Tests 03/17/21 16:03: Creatinine 0.75, Platelet Count 194 Results/Orders Lab Results Laboratory Tests Test 03/17/21 16:03 Range/Units White Blood Count 3.8 L 4.3-11.0 10^3/uL Red Blood Count 4.34 3.80-5.11 10^6/uL Hemoglobin 12.4 11.5-16.0 g/dL Hematocrit 39 35-52 % Mean Corpuscular Volume 89 80-99 fL Mean Corpuscular Hemoglobin 29 25-34 pg Mean Corpuscular Hemoglobin Concent 32 32-36 g/dL Red Cell Distribution Width 13.2 10.0-14.5 % Platelet Count 194 130-400 10^3/uL Mean Platelet Volume 10.9 9.0-12.2 fL Immature Granulocyte % (Auto) 0 % Neutrophils (%) (Auto) 72 42-75 % Lymphocytes (%) (Auto) 14 12-44 % Monocytes (%) (Auto) 14 H 0-12 % Eosinophils (%) (Auto) 0 0-10 % Basophils (%) (Auto) 0 0-10 % Neutrophils # (Auto) 2.7 1.8-7.8 10^3/uL Lymphocytes # (Auto) 0.5 L 1.0-4.0 10^3/uL Monocytes # (Auto) 0.5 0.0-1.0 10^3/uL Eosinophils # (Auto) 0.0 0.0-0.3 10^3/uL Basophils # (Auto) 0.0 0.0-0.1 10^3/uL Immature Granulocyte # (Auto) 0.0 0.0-0.1 10^3/uL Sodium Level 136 135-145 MMOL/L Potassium Level 3.5 L 3.6-5.0 MMOL/L Chloride Level 105 98-107 MMOL/L Carbon Dioxide Level 19 L 21-32 MMOL/L Anion Gap 12 5-14 MMOL/L Blood Urea Nitrogen 7 7-18 MG/DL Creatinine 0.75 0.60-1.30 MG/DL Estimat Glomerular Filtration Rate 94 BUN/Creatinine Ratio 9 Glucose Level 88 70-105 MG/DL Calcium Level 8.7 8.5-10.1 MG/DL Magnesium Level 1.7 1.6-2.4 MG/DL Serum Test, Qualitative NEGATIVE NEGATIVE My Orders Orders - ANGIE SILVERIO MD Ketorolac Injection (Toradol Injection) (03/17/21 16:15) Ondansetron Injection (Zofran Injectio (03/17/21 16:15) Benzonatate Capsule (Tessalon Perles) (03/17/21 16:04) Lactated Ringers (Lr 1000 Ml Iv Solution (03/17/21 16:15) Basic Metabolic Panel (03/17/21 16:46) Cbc With Automated Diff (03/17/21 16:46) Hcg,Qualitative Serum (03/17/21 16:46) Magnesium (03/17/21 16:46) Medications Given in ED Current Medications Medications Dose Ordered Sig/Ana Route Start Time Stop Time Status Last Admin Dose Admin Ketorolac Tromethamine 30 mg ONCE ONCE IVP 03/17/21 16:15 03/17/21 16:16 DC 03/17/21 16:17 30 MG Lactated Ringer's 1,000 ml @ 0 mls/hr Q0M ONCE IV 03/17/21 16:15 03/17/21 16:16 DC 03/17/21 16:18 0 MLS/HR Ondansetron HCl 8 mg ONCE ONCE IVP 03/17/21 16:15 03/17/21 16:16 DC 03/17/21 16:17 8 MG Vital Signs/I&O 03/17/21 03/17/21 16:19 17:38 Temp 38.1 Pulse 103 90 Resp 18 20 B/P (MAP) 116/71 (86) 116/71 Pulse Ox 97 98 Capillary Refill : Less Than 3 Seconds Blood Pressure Mean: 86 Progress Note #1: Time: 16:59 Progress Note Patient states her most irritating symptoms are lightheadedness and fever. She is being treated with IV fluids, Zofran, Toradol, and Tessalon Perles. Labs are pending. Progress Note #2: Progress Note Labs were unremarkable and symptoms were improving. Patient met criteria for monoclonal antibody therapy based on BMI greater than 25. She was interested in receiving the treatment and committed to reading the fact sheet which was given to her. See discharge instructions. Order for monoclonal antibody therapy was sent to pharmacy. Departure Impression Primary Impression: COVID-19 Disposition: 01 HOME, SELF-CARE Condition: Improved Departure-Patient Inst. Decision time for Depature: 17:14 Referrals: [facility] (PCP/Family) Primary Care Physician Patient Instructions: COVID-19 Overview, REGEN-COV (casirivimab and imdevimab) FDA Fact Sheet Add. Discharge Instructions: Drink plenty of clear liquids to stay well-hydrated. For pain or fever you may take ibuprofen up to 600 mg every 6 hours as needed or Tylenol (acetaminophen) up to 1000 mg every 6 hours as needed. Use of Tessalon Perles as prescribed for cough. Use Zofran (ondansetron) as prescribed for nausea and vomiting. The pharmacy will contact you at the number provided if therapy with monoclonal antibodies is available. They will schedule a time for you to come in for an infusion. Please make sure you have read the entire fact sheet regarding this infusion. See attached. You are encouraged to check your oxygen level with a pulse oximeter a couple of times a day or when experiencing significant shortness of breath. If you have repeated measurements under 92% or any measurements under 90%, return to the emergency room. Call with questions or concerns. Return to the ER if you have other concerning worsening of condition. You should remain in quarantine for at least 10 days from onset of symptoms and until all symptoms have resolved. Supplemental therapies such as a multivitamin, zinc, extra vitamin C, extra vitamin D, elderberry, etc. have been suggested to help boost immune system response during COVID-19. You may use these supplements but do not exceed the total recommended doses on the packaging. All discharge instructions reviewed with patient and/or family. Voiced unders tanding. Scripts Benzonatate (TESSALON PERLES) 100 Mg Capsule 200 MG PO TID PRN for COUGH, #10 CAP Prov: ANGIE SILVERIO MD 03/17/21 Ondansetron (Ondansetron Odt) 4 Mg Tab.rapdis 4 MG SL Q4H PRN for NAUSEA/VOMITING, #10 TAB Prov: ANGIE SILVERIO MD 03/17/21 Copy Copies To 1: SEBASTIÁN CABA JOSHUA T MD Mar 17, 2021 16:57
[2021-03-17 17:02] LABS: CREATININE SERUM 0.75 MG/DL (0.60-1.30)
[2021-03-17 17:05] LABS: MAGNESIUM 1.7 MG/DL (1.6-2.4)
[2021-03-17] MEDS ORDERED: ONDA4TAB11 SL (17:22)
[2021-03-17] MEDS ORDERED: BENZ100C18 PO (17:22)
[2021-03-17 17:38] VITALS: BP 116/71
== END 2021-03-17 17:37 | disposition home or self-care (01) ==
LOC: EDUNIT# 15:41 → ER 15:44
DX: U07.1 COVID-19 (principal); F17.200 Nicotine dependence, unspecified, uncomplicated
CPT/HCPCS: 36415; 80048; 83735; 84703; 85025; 96374; 96375; 99283

== ENCOUNTER 2021-11-06 10:43 | Emergency (ER) | payer MEDICAID ==
[~2021-11-06 10:43] MED LIST changes: +BENZ100C18 PO; +CYCL10TA25 PO; -CYCL10TA9 PO; +ONDA4TAB11 SL
--- NOTE | 2021-11-06 11:20 | ED General ---
General Chief Complaint: Cough/Cold/Flu Symptoms Stated Complaint: SORE THROAT,CONGESTION Nursing Triage Note: PT AMB TO RM 8 WITH C/O SNEEZING, CONGESTIONS, SORE THROAT AND LOW BACK PAIN. PT REQUESTING A COVID SWAB Source of Information: Patient Exam Limitations: No Limitations (PATRICIO CORNELIUS) History of Present Illness Date Seen by Provider: Nov 06, 2021 Time Seen by Provider: 11:18 Initial Comments Patient is a 25-year-old female who presents ED with flulike symptoms. She reports body aches fatigue nasal congestion sore throat and sneezing. Symptoms started 2 days ago. Started having congestion with a scratchy throat. She states she feels tired and fatigued. She reports difficulty sleeping at night secondary to the congestion. Denies of any fever, cough, chest pain shortness of breath vomiting or diarrhea. She also reports some lower back discomfort with slight burning with urination. Not concern for . No abdominal pain, vaginal bleeding, vaginal discharge. She denies taking medication at home. She is wanting to rule out COVID. History of COVID in the past. Denies of any fever, neck pain, headache, visual disturbances, unilateral weakness. (PATRICIO CORNELIUS) Allergies and Home Medications Allergies Uncoded Allergies: NKDA (Allergy, Unknown, 10/27/18) Patient Home Medication List Home Medication List Reviewed: Yes (PATRICIO CORNELIUS) Benzonatate (Tessalon Perles) 100 Mg Capsule, 200 MG PO TID PRN for COUGH Prescribed by: ANGIE PINEDA on 03/17/211721 Ondansetron (Ondansetron Odt) 4 Mg Tab.rapdis, 4 MG SL Q4H PRN for NAUSEA/VOMITING Prescribed by: ANGIE PINEDA on 03/17/211721 Review of Systems Review of Systems Constitutional: No chills; malaise, weakness EENTM: throat pain; No ear discharge, No blurred vision, No double vision, No mouth pain, No mouth swelling Respiratory: No cough, No short of breath Cardiovascular: No chest pain, No edema Gastrointestinal: No abdominal pain, No diarrhea, No nausea, No vomiting Genitourinary: No decreased output, No discharge Musculoskeletal: No back pain, No joint pain (PATRICIO CORNELIUS) All Other Systems Reviewed Negative Unless Noted: Yes (PATRICIO CORNELIUS) Past Hekjwnf-Tfolal-Wqfmow Hx Patient Social History Tobacco Use?: No Smoking Status: Former Smoker Use of E-Cig and/or Vaping dev: No Substance use?: No Alcohol Use?: No Pt feels they are or have been: No (PATRICIO CORNELIUS) Immunizations Up To Date Tetanus Booster (TDap): More than 5yrs PED Vaccines UTD: Yes Influenza Vaccine Up-to-Date: No; Not Current First/Initial COVID19 Vaccinat: SUMMER 2020 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: [employer] (PATRICIO CORNELIUS) Seasonal Allergies Seasonal Allergies: Yes (PATRICIO CORNELIUS) Past Medical History Surgery/Hospitalization HX: sx: r ear Surgeries: Yes (RIGHT EAR SURGERY FOR MASTOIDITIS) Ear Surgery Respiratory: No Cardiac: No Neurological: No Last Menstrual Period: September 25, 2021 Reproductive Disorders: No Female Reproductive Disorders: Denies Genitourinary: No Gastrointestinal: No Musculoskeletal: No Endocrine: No HEENT: Yes (right mastoiditis as a teenager-S/P SURGERY) Chronic Ear Infection Cancer: No Psychosocial: No Integumentary: No Blood Disorders: No (PATRICIO CORNELIUS) Family Medical History FH: cancer No Pertinent Family Hx (PATRICIO CORNELIUS) Physical Exam Vital Signs Vital Signs - First Documented 11/06/21 11:14 Temp 36.8 Pulse 65 Resp 14 B/P (MAP) 118/67 (84) (ANGIE SILVERIO MD) Vital Signs Capillary Refill : (PATRICIO CORNELIUS) Height, Weight, BMI Height: 5'4.00" Weight: 156lbs. 6.0oz. 70.629468nu; 25.00 BMI Method:Estimated General Appearance: No Apparent Distress, WD/WN Eyes: Bilateral Eye Normal Inspection, Bilateral Eye PERRL, Bilateral Eye EOMI HEENT: PERRL/EOMI, TMs Normal, Normal ENT Inspection, Pharynx Normal Neck: Full Range of Motion, Normal Inspection, Non Tender Respiratory: Chest Non Tender, Lungs Clear, Normal Breath Sounds, No Accessory Muscle Use, No Respiratory Distress Cardiovascular: Regular Rate, Rhythm, No Edema, No Gallop, No JVD Gastrointestinal: Normal Bowel Sounds, No Organomegaly Extremity: Normal Capillary Refill, Normal Inspection, Normal Range of Motion Neurologic/Psychiatric: Alert, Oriented x3, No Motor/Sensory Deficits, Normal 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, 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 Skin: Normal Color, Warm/Dry (PATRICIO CORNELIUS) Progress/Results/Core Measures Suspected Sepsis SIRS Temperature: Pulse: 65 Respiratory Rate: 14 Blood Pressure 118 /67 Mean: 84 (PATRICIO CORNELIUS) Results/Orders Lab Results Laboratory Tests Test 11/06/21 11:19 11/06/21 11:29 Range/Units Influenza Type A (RT-PCR) Not Detected Not Detecte Influenza Type B (RT-PCR) Not Detected Not Detecte SARS-CoV-2 RNA (RT-PCR) Not Detected Not Detecte Group A Streptococcus Screen NEGATIVE NEGATIVE Urine Color YELLOW Urine Clarity CLEAR Urine pH 6.0 5-9 Urine Specific [place] >=1.030 1.016-1.022 Urine Protein NEGATIVE NEGATIVE Urine Glucose (UA) NEGATIVE NEGATIVE Urine Ketones NEGATIVE NEGATIVE Urine Nitrite NEGATIVE NEGATIVE Urine Bilirubin NEGATIVE NEGATIVE Urine Urobilinogen 0.2 < = 1.0 MG/DL Urine Leukocyte Esterase NEGATIVE NEGATIVE Urine RBC (Auto) 2+ H NEGATIVE Urine RBC 0-2 /HPF Urine WBC 0-2 /HPF Urine Squamous Epithelial Cells 2-5 /HPF Urine Crystals NONE /LPF Urine Bacteria FEW H /HPF Urine Casts NONE /LPF Urine Mucus NEGATIVE /LPF Urine Culture Indicated NO Urine Test NEGATIVE NEGATIVE (ANGIE SILVERIO MD) Vital Signs/I&O 11/06/21 11/06/21 11:14 12:31 Temp 36.8 36.8 Pulse 65 62 Resp 14 14 B/P (MAP) 118/67 (84) 119/68 (ANGIE SILVERIO MD) Vital Signs/I&O Capillary Refill : (PATRICIO CORNELIUS) Blood Pressure Mean: 84 Departure Communication (PCP) Patient appears in no acute distress. Stable vital signs. Patient on room air. Playing on her phone. COVID influenza and strep was negative. Urinalysis negative for infection and negative for . She denies any trauma to her back. Symptoms appear to be viral in nature. She does not appear of any distress. Recommend conservative treatment. Discussed Flonase, Zyrtec, Sudafed and Tylenol ibuprofen. If any worsening symptoms return back to ED for further evaluation. (PATRICIO CORNELIUS) Impression Primary Impression: Viral syndrome Disposition: HOME, SELF-CARE Condition: Stable Departure-Patient Inst. Decision time for Depature: 12:25 (PATRICIO CORNELIUS) Referrals: [facility] [place] (PCP/Family) Primary Care Physician Patient Instructions: Viral Syndrome (DC) Work/School Note: Work Release Form Date Seen in the Emergency Department: Nov 06, 2021 Return to Work: Nov 09, 2021 ATTENDING PHYSICIAN NOTE: I was physically present as attending physician in the emergency department during the care of this patient, but I was not directly involved in the decision making or delivery of care for this patient. (ANGIE SILVERIO MD) PATRICIO CORNELIUS Nov 06, 2021 11:20 ANGIE SILVERIO MD Nov 07, 2021 06:38
[2021-11-06 11:41] LABS: BILIRUBIN,URINE NEGATIVE (NEGATIVE); CLARITY,URINE CLEAR; COLOR,URINE YELLOW; GLUCOSE, URINE (UA) NEGATIVE (NEGATIVE); KETONES,URINE NEGATIVE (NEGATIVE); LEUKOCYTE ESTERASE ,URINE NEGATIVE (NEGATIVE); NITRITE,URINE NEGATIVE (NEGATIVE); PROTEIN,URINE NEGATIVE (NEGATIVE)
[2021-11-06 12:08] LABS: BACTERIA,URINE FEW /HPF; RBC,URINE 0-2 /HPF; WBC,URINE 0-2 /HPF
[2021-11-06 12:31] VITALS: BP 119/68
== END 2021-11-06 12:31 | disposition home or self-care (01) ==
LOC: EDUNIT# 10:43 → ER 10:45
DX: B34.9 Viral infection, unspecified (principal); Z87.891 Personal history of nicotine dependence; Z20.822 Contact with and (suspected) exposure to COVID-19; Z28.311 Partially vaccinated for COVID-19
CPT/HCPCS: 81000; 84703; 87430; 87636; 99283

== ENCOUNTER 2022-03-12 06:54 | Emergency (ER) | payer MEDICAID ==
[~2022-03-12] VITALS: Ht 157 cm; Wt 74.0 kg
[2022-03-12 07:00] VITALS: BP 125/83
[2022-03-12] MEDS ORDERED: KETOROLAC 30 MG/ML VIAL IVP ONE (08:15)
--- NOTE | 2022-03-12 08:33 | ED General ---
General Chief Complaint: Dental Problems/Pain Stated Complaint: DENTAL PAIN Nursing Triage Note: PT CO OF DENTAL PAIN IN UPPER FRONT TEETH. STATES HAS BEEN GOING ON FOR A FEW DAYS. STATES WAS SEEN BY [facility] YESTERDAY FOR DIZZINESS. PT STATES," I AM NOT GOING TO GO TO [facility] AND WAIT ALL DAY FOR AN APPT!" Source of Information: Patient, Old Records Exam Limitations: No Limitations History of Present Illness Date Seen by Provider: Mar 12, 2022 Time Seen by Provider: 07:50 Initial Comments This 26-year-old young lady presents to the emergency room with 2 primary complaints, and dizziness and dental pain. She has a necrotic left upper incisor causing her pain. She was recently seen at [facility] and started on clindamycin. She has not seen a dentist for this problem yet. She reports escalating pain despite being on clindamycin for 2 days. She has not taken any analgesics. She additionally complains of dizziness intermittently for the past couple of days. She describes this as a disequilibrium almost as if she is intoxicated, and occasionally a vertigo type sensation. She reports a fever last week up to 102. She denies any cough, shortness of breath, nausea, vomiting, diarrhea, or urinary changes. She has had intense headache intermittently for the past few days with temporal throbbing and tenderness bilaterally. She also reports stopping Zoloft about 1 week ago. She was having some intolerable side effects including dry mouth and hot sweats. She is supposed to start on Cymbalta soon but has not started it yet. 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 She denies drug or alcohol use. She denies as she is on injectable control and has not had intercourse in a few years. Allergies and Home Medications Allergies Uncoded Allergies: NKDA (Allergy, Unknown, 10/27/18) Patient Home Medication List Home Medication List Reviewed: Yes Benzonatate (Tessalon Perles) 100 Mg Capsule, 200 MG PO TID PRN for COUGH Prescribed by: ANGIE PINEDA on 03/17/211721 Ondansetron (Ondansetron Odt) 4 Mg Tab.rapdis, 4 MG SL Q4H PRN for NAUSEA/VOMITING Prescribed by: ANGIE PINEDA on 11/7/21 1722 Review of Systems Review of Systems Constitutional: see HPI EENTM: see HPI Respiratory: no symptoms reported Cardiovascular: no symptoms reported Gastrointestinal: no symptoms reported Genitourinary: no symptoms reported : No Musculoskeletal: no symptoms reported Skin: no symptoms reported Psychiatric/Neurological: See HPI Hematologic/Lymphatic: No Symptoms Reported Immunological/Allergic: no symptoms reported Past Mqswrad-Eevahq-Cyejds Hx Patient Social History Tobacco Use?: No Use of E-Cig and/or Vaping dev: Yes E-Cig or Vaping type used: Nicotine Substance use?: No Alcohol Use?: No Pt feels they are or have been: No Immunizations Up To Date Tetanus Booster (TDap): More than 5yrs PED Vaccines UTD: Yes Influenza Vaccine Up-to-Date: No; Not Current First/Initial COVID19 Vaccinat: SUMMER 2020 Second COVID19 Vaccination Bear: SUMMER 2020 Third COVID19 Vaccination Date: SUMMER 2020 Seasonal Allergies Seasonal Allergies: Yes Past Medical History Surgery/Hospitalization HX: sx: r ear Surgeries: Yes (RIGHT EAR SURGERY FOR MASTOIDITIS) Ear Surgery Respiratory: No Cardiac: No Neurological: No Reproductive Disorders: No Female Reproductive Disorders: Denies Genitourinary: No Gastrointestinal: No Musculoskeletal: No Endocrine: No HEENT: Yes (rt mastoiditis as teen-S/P SURGERY, 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 6.0oz. [id number]; 30.00 BMI Method:Estimated General Appearance: WD/WN, Mild Distress Eyes: Bilateral Eye Normal Inspection, Bilateral Eye PERRL, Bilateral Eye EOMI HEENT: PERRL/EOMI, Pharynx Normal, Other (Left upper incisor gibson, presumably necrotic, with wearing through the dentin. 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 Norm as Tested Skin: Normal Color, Warm/Dry Progress/Results/Core Measures Suspected Sepsis SIRS Temperature: Pulse: 73 Respiratory Rate: 18 Laboratory Tests 03/12/22 08:30: White Blood Count 7.6 Blood Pressure 125 /83 Mean: 97 Laboratory Tests 03/12/22 08:30: Creatinine 0.72, Platelet Count 274, Total Bilirubin 0.1 Results/Orders Lab Results Laboratory Tests Test 03/12/22 08:30 Range/Units White Blood Count 7.6 4.3-11.0 10^3/uL Red Blood Count 4.78 3.80-5.11 10^6/uL Hemoglobin 13.5 11.5-16.0 g/dL Hematocrit 42 35-52 % Mean Corpuscular Volume 87 80-99 fL Mean Corpuscular Hemoglobin 28 25-34 pg Mean Corpuscular Hemoglobin Concent 32 32-36 g/dL Red Cell Distribution Width 13.4 10.0-14.5 % Platelet Count 274 130-400 10^3/uL Mean Platelet Volume 10.3 9.0-12.2 fL Immature Granulocyte % (Auto) 0 % Neutrophils (%) (Auto) 65 42-75 % Lymphocytes (%) (Auto) 25 12-44 % Monocytes (%) (Auto) 8 0-12 % Eosinophils (%) (Auto) 2 0-10 % Basophils (%) (Auto) 0 0-10 % Neutrophils # (Auto) 5.0 1.8-7.8 10^3/uL Lymphocytes # (Auto) 1.9 1.0-4.0 10^3/uL Monocytes # (Auto) 0.6 0.0-1.0 10^3/uL Eosinophils # (Auto) 0.2 0.0-0.3 10^3/uL Basophils # (Auto) 0.0 0.0-0.1 10^3/uL Immature Granulocyte # (Auto) 0.0 0.0-0.1 10^3/uL Erythrocyte Sedimentation Rate 5 0-20 MM/HR Urine Color YELLOW Urine Clarity CLEAR Urine pH 5.5 5-9 Urine Specific [place] >=1.030 1.016-1.022 Urine Protein NEGATIVE NEGATIVE Urine Glucose (UA) NEGATIVE NEGATIVE Urine Ketones NEGATIVE NEGATIVE Urine Nitrite NEGATIVE NEGATIVE Urine Bilirubin NEGATIVE NEGATIVE Urine Urobilinogen 0.2 < = 1.0 MG/DL Urine Leukocyte Esterase NEGATIVE NEGATIVE Urine RBC (Auto) NEGATIVE NEGATIVE Urine RBC NONE /HPF Urine WBC 0-2 /HPF Urine Squamous Epithelial Cells 2-5 /HPF Urine Crystals NONE /LPF Urine Bacteria TRACE /HPF Urine Casts NONE /LPF Urine Mucus SMALL H /LPF Urine Culture Indicated NO Sodium Level 138 135-145 MMOL/L Potassium Level 4.1 3.6-5.0 MMOL/L Chloride Level 109 H 98-107 MMOL/L Carbon Dioxide Level 17 L 21-32 MMOL/L Anion Gap 12 5-14 MMOL/L Blood Urea Nitrogen 17 7-18 MG/DL Creatinine 0.72 0.60-1.30 MG/DL Estimat Glomerular Filtration Rate 118 BUN/Creatinine Ratio 24 Glucose Level 114 H 70-105 MG/DL Calcium Level 9.4 8.5-10.1 MG/DL Corrected Calcium 9.2 8.5-10.1 MG/DL Magnesium Level 1.8 1.6-2.4 MG/DL Total Bilirubin 0.1 0.1-1.0 MG/DL Aspartate Amino Transf (AST/SGOT) 16 5-34 U/L Alanine Aminotransferase (ALT/SGPT) 17 0-55 U/L Alkaline Phosphatase 75 40-136 U/L C-Reactive Protein High Sensitivity 0.04 0.00-0.50 MG/DL Total Protein 8.0 6.4-8.2 GM/DL Albumin 4.2 3.2-4.5 GM/DL TSH [place] Testing 0.65 0.35-4.94 UIU/ML Serum Test, Qualitative NEGATIVE NEGATIVE Influenza Type A (RT-PCR) Not Detected Not Detecte Influenza Type B (RT-PCR) Not Detected Not Detecte SARS-CoV-2 RNA (RT-PCR) Not Detected Not Detecte My Orders Orders - ANGIE SILVERIO MD Cbc With Automated Diff (03/12/22 08:09) Comprehensive Metabolic Panel (03/12/22 08:09) Hs C Reactive Protein (03/12/22 08:09) Hcg,Qualitative Serum (03/12/22 08:09) Magnesium (03/12/22 08:09) Thyroid Analyzer (03/12/22 08:09) Ua Culture If Indicated (03/12/22 08:09) Erythrocyte Sedimentation Rate (03/12/22 08:09) Ed Iv/Invasive Line Start (03/12/22 08:09) Ketorolac Injection (Toradol Injection) (03/12/22 08:15) Covid 19 Inhouse Test (03/12/22 08:12) Influenza A And B By Pcr (03/12/22 08:12) Medications Given in ED Vital Signs/I&O 03/12/22 07:00 Temp 36.6 Pulse 73 Resp 18 B/P (MAP) 125/83 (97) Pulse Ox 97 Capillary Refill : Less Than 3 Seconds Blood Pressure Mean: 97 Progress Note #1: Time: 08:46 Progress Note No drainable abscess was identified on exam. From a dental perspective, I can treat her pain but otherwise am deferring to a dentist for further evaluation and treatment. Patient would like her dizziness worked up. Labs have been ordered. Toradol was ordered for pain. Progress Note #2: Time: 09:46 Progress Note Work-up was unremarkable. Headache and dizziness resolved with Toradol. See discharge instructions for further discussion. Patient reports she has enough clindamycin to cover 4 times daily dosing for 10 days. Departure Impression Primary Impression: Pain, dental Additional Impressions: Dizziness Acute headache Qualified Codes: R51.9 - Headache, unspecified Disposition: 01 HOME, SELF-CARE Condition: Improved Departure-Patient Inst. Decision time for Depature: 09:47 Referrals: [facility] (PCP/Family) Primary Care Physician Patient Instructions: Dental Pain ED Add. Discharge Instructions: Increase your clindamycin to 300 mg every 6 hours (4 times a day) and continue for 10 days. [place] your teeth twice daily gently with a soft bristle toothbrush. See a dentist as soon as possible regarding extraction of your tooth. For pain you may take ibuprofen up to 600 mg every 6 hours or 800 mg every 8 hours. Add Tylenol (acetaminophen) up to 1000 mg every 6 hours as needed for additional pain relief. Return to care if you have worsening symptoms despite following these instructions. All discharge instructions reviewed with patient and/or family. Voiced understanding. Copy Copies To 1: [facility]/ANGIE MENDOZA MD Mar 12, 2022 08:33
[2022-03-12 08:39] LABS: BASOPHILS % (AUTO) 0 % (0-10); EOSINOPHILS # (AUTO) 0.2 10^3/uL (0.0-0.3); EOSINOPHILS % (AUTO) 2 % (0-10); HEMATOCRIT 42 % (35-52); HEMOGLOBIN 13.5 g/dL (11.5-16.0); LYMPHOCYTES # (AUTO) 1.9 10^3/uL (1.0-4.0); LYMPHOCYTES % (AUTO) 25 % (12-44); MEAN CORPUSCULAR HEMOGLOBIN 28 pg (25-34); MEAN CORPUSCULAR HGB CONC 32 g/dL (32-36); MEAN CORPUSCULAR VOLUME 87 fL (80-99); MEAN PLATELET VOLUME 10.3 fL (9.0-12.2); MONOCYTES # (AUTO) 0.6 10^3/uL (0.0-1.0); MONOCYTES % (AUTO) 8 % (0-12); NEUTROPHILS % (AUTO) 65 % (42-75); PLATELET COUNT 274 10^3/uL (130-400); WHITE BLOOD COUNT 7.6 10^3/uL (4.3-11.0)
[2022-03-12 08:40] LABS: BILIRUBIN,URINE NEGATIVE (NEGATIVE); CLARITY,URINE CLEAR; COLOR,URINE YELLOW; GLUCOSE, URINE (UA) NEGATIVE (NEGATIVE); KETONES,URINE NEGATIVE (NEGATIVE); LEUKOCYTE ESTERASE ,URINE NEGATIVE (NEGATIVE); NITRITE,URINE NEGATIVE (NEGATIVE); PH,URINE 5.5 (5-9); PROTEIN,URINE NEGATIVE (NEGATIVE)
[2022-03-12 08:52] LABS: BACTERIA,URINE TRACE /HPF; WBC,URINE 0-2 /HPF
[2022-03-12 09:04] LABS: ALBUMIN 4.2 GM/DL (3.2-4.5); BILIRUBIN,TOTAL 0.1 MG/DL (0.1-1.0); CALCIUM 9.4 MG/DL (8.5-10.1); CREATININE SERUM 0.72 MG/DL (0.60-1.30); MAGNESIUM 1.8 MG/DL (1.6-2.4); POTASSIUM 4.1 MMOL/L (3.6-5.0)
[2022-03-12 09:11] LABS: ERYTHROCYTE SEDIMENTATION RATE 5 MM/HR (0-20)
[2022-03-12 09:24] LABS: TSH (THYROID ANALYZER) 0.65 UIU/ML (0.35-4.94)
== END 2022-03-12 10:02 | disposition home or self-care (01) ==
LOC: EDUNIT# 06:54 → ER 06:57
DX: K08.89 Other specified disorders of teeth and supporting structures (principal); R42 Dizziness and giddiness; R51.9 Headache, unspecified; F17.290 Nicotine dependence, other tobacco product, uncomplicated; Z20.822 Contact with and (suspected) exposure to COVID-19
CPT/HCPCS: 36415; 80053; 81000; 83735; 84443; 84703; 85025; 85652; 86141; 87636; 99283

== ENCOUNTER 2022-11-12 15:13 | Emergency (ER) | payer MEDICAID ==
[~2022-11-12] VITALS: Ht 160 cm; Wt 48.0 kg
--- NOTE | 2022-11-12 15:51 | ED Cough/URI ---
General Chief Complaint: Cough/Cold/Flu Symptoms Stated Complaint: COUGH Nursing Triage Note: COUGH X2 MONTHS. SWOLLEN THROAT AND WORSE COUGH STARTING 4 DAYS AGO. HAD A STEROID. WAS NOT ABLE TO GET ABX BECAUSE OF [facility]. COMPLAINS OF A SEVERE HEADACHE. Source: patient Exam Limitations: no limitations History of Present Illness Date Seen by Provider: Nov 12, 2022 Time Seen by Provider: 15:48 Initial Comments Patient is a 26-year-old female who presents to the ED for evaluation after a cough. She reports a cough since late October. She states she was traveling to [place] to see her friends. She continue having this wet productive cough when she returned late last month. Patient reports body aches chills temperature of 103 at home. She reports fluid and pain behind her ears. She reports sinus pressure and head pressure. She states she has been seen 2 or 3 times for this in discharge with Beryl Dias for her cough, 1 dose of a steroid, and was ordered antibiotics but since she was in [place] at the time was not able to get the medication. She states she has been having continuous fevers as high as 103. Has been taking Tylenol ibuprofen. She reports chest congestion cough without wheezing or chest pain. Denies any vomiting, diarrhea, neck pain, visual changes. She also reports sore throat hurts with swallowing. She states she did get checked for strep which was negative. Allergies and Home Medications Allergies Coded Allergies: No Known Drug Allergies (Unverified , 11/12/22) Patient Home Medication List Home Medication List Reviewed: Yes Amoxicillin (Amoxicillin) 875 Mg Tablet, 875 MG PO BID Prescribed by: CARLA ZHANG on 11/12/22 1621 Benzonatate (Tessalon Perles) 100 Mg Capsule, 200 MG PO TID PRN for COUGH Prescribed by: ANGIE PINEDA on 03/17/21 172 Ondansetron (Ondansetron Odt) 4 Mg Tab.rapdis, 4 MG SL Q4H PRN for NAUSEA/VOMITING Prescribed by: ANGIE PINEDA on 03/17/21 172 Review of Systems Review of Systems Constitutional: chills; No diaphoresis; fever, malaise, weakness EENTM: No hearing loss, No blurred vision, No double vision Respiratory: cough Cardiovascular: No chest pain Gastrointestinal: No abdominal pain, No diarrhea, No nausea, No vomiting Genitourinary: No decreased output, No discharge Musculoskeletal: No back pain, No joint pain Skin: No change in color All Other Systems Reviewed Negative Unless Noted: Yes Past Mduppcr-Cgsmir-Onsgri Hx Patient Social History Tobacco Use?: No Substance use?: No Alcohol Frequency: Once in a while Immunizations Up To Date Tetanus Booster (TDap): More than 5yrs PED Vaccines UTD: Yes First/Initial COVID19 Vaccinat: SUMMER 2020 Second COVID19 Vaccination Bear: SUMMER 2020 Third COVID19 Vaccination Date: SUMMER 2020 Seasonal Allergies Seasonal Allergies: Yes Past Medical History Surgery/Hospitalization HX: sx: r ear Surgeries: Yes (RIGHT EAR SURGERY FOR MASTOIDITIS) Ear Surgery Respiratory: No Cardiac: No Neurological: No Last Menstrual Period: Nov 12, 2022 Reproductive Disorders: No Female Reproductive Disorders: Denies Genitourinary: No Gastrointestinal: No Musculoskeletal: No Endocrine: No HEENT: Yes (rt mastoiditis as teen-S/P SURGERY, 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 6.0oz. [id number]; 18.00 BMI Method:Estimated General Appearance: WD/WN, no apparent distress Eyes: Bilateral Eye Normal Inspection, Bilateral Eye PERRL, Bilateral Eye EOMI HEENT: PERRL/EOMI, TMs normal, pharynx normal, other (Bilateral TMs with erythema, exudate. Maxillary sinus tenderness. Oropharynx with mild erythematous tonsils without exudate. No uvula deviation. No cervical adenopathy) Neck: non-tender, full range of motion, supple Respiratory: chest non-tender, lungs clear, normal breath sounds, no respiratory distress, no accessory muscle use Cardiovascular: regular rate, rhythm, no edema, no gallop, no JVD Extremities: normal range of motion, non-tender, normal inspection, no pedal edema Neurologic/Psychiatric: wood borer II-XII nml as tested, no motor/sensory deficits, alert, normal mood/affect, oriented x 3 Skin: normal color Progress/Results/Core Measures Suspected Sepsis SIRS Temperature: Pulse: 87 Respiratory Rate: 16 Blood Pressure 110 /68 Mean: 82 Results/Orders Lab Results Laboratory Tests Test 11/12/22 15:44 Range/Units Influenza Type A (RT-PCR) Not Detected Not Detecte Influenza Type B (RT-PCR) Not Detected Not Detecte SARS-CoV-2 RNA (RT-PCR) Not Detected Not Detecte My Orders Orders - PATRICIO CORNELIUS Covid 19 Inhouse Test (11/12/22 15:36) Influenza A And B By Pcr (11/12/22 15:36) Chest 1 View, Ap/Pa Only (11/12/22 15:47) Vital Signs/I&O 11/12/22 11/12/22 15:32 16:21 Temp 36.8 36.8 Pulse 87 87 Resp 16 16 B/P (MAP) 110/68 (82) 110/68 Pulse Ox 96 96 O2 Delivery Room Air Room Air Capillary Refill : Less Than 3 Seconds Blood Pressure Mean: 82 Departure Communication (PCP) Patient is a 26-year-old female presents ED with URI symptoms. She reports sinus pressure, chest congestion, cough, ear fullness. Symptoms over the past few weeks. Differential diagnosis,sinusitis, pneumonia, viral syndrome. COVID influenza was ordered which was negative. Chest x-ray due to the continuous cough which was negative for pneumonia. She does have maxillary and frontal sinus tenderness. Bilateral TMs with mild exudate and fullness. Oropharynx patent without swelling or exudate. No uvula deviation. Patient will be discharged with Augmentin. Recommend anti-inflammatories. Continue with your Beryl Dias. Follow-up with PCP in 2 to 3 days for reevaluation. If any worsening symptoms return back to ED for further evaluation. Concern for sinusitis. Vital signs stable. She does not appear toxic or septic. Soft abdomen. Not concern for Impression Primary Impression: Upper respiratory infection Disposition: HOME, SELF-CARE Condition: Stable Departure-Patient Inst. Decision time for Depature: 16:15 Referrals: [facility] (PCP/Family) Primary Care Physician Patient Instructions: Acute Bronchitis, Adult (DC) Scripts Amoxicillin (Amoxicillin) 875 Mg Tablet 875 MG PO BID for 7 Days, #14 TAB Prov: PATRICIO CORNELIUS 11/12/22 Work/School Note: Work Release Form Date Seen in the Emergency Department: Nov 12, 2022 Return to Work: Nov 15, 2022 PATRICIO CORNELIUS Nov 12, 2022 15:51
[2022-11-12] MEDS ORDERED: DOXY100T31 PO (16:16)
[2022-11-12 16:21] VITALS: BP 110/68
[2022-11-12] MEDS ORDERED: AMOX875T2 PO (16:21)
--- NOTE | 2022-11-12 16:23 | Diagnostic Imaging Report ---
PATIENT HISTORY: Cough. TECHNIQUE: Single frontal view of the chest. COMPARISON: None. FINDINGS: The lung volumes are normal. No focal consolidation is seen. No large pleural effusion or pneumothorax is seen. The cardiomediastinal silhouette is normal in size and contour. No acute osseous abnormality is seen. IMPRESSION: No acute pulmonary abnormality seen. Dictated by: Dictated on workstation # [id number]
== END 2022-11-12 16:20 | disposition home or self-care (01) ==
LOC: EDUNIT# 15:13 → ER 15:14
DX: J06.9 Acute upper respiratory infection, unspecified (principal); Z20.822 Contact with and (suspected) exposure to COVID-19
CPT/HCPCS: 71045; 87636

== ENCOUNTER 2023-01-12 18:11 | Emergency (ER) | payer MEDICAID ==
[~2023-01-12] VITALS: Ht 160 cm; Wt 79.8 kg
[~2023-01-12 18:11] MED LIST changes: +DOXY100T31 PO
--- NOTE | 2023-01-12 18:38 | ED Lower Extremity ---
General Chief Complaint: Lower Extremity Stated Complaint: LEFT FOOT NUMBNESS/PAIN/SWELLING Nursing Triage Note: PT AMB TO [facility] WITH CC OF LEFT FOOT PAIN AND NUMBNESS. PT STATES THAT A BED FRAME FELL ON LEFT FOOT AND CUT FOOT AT 6AM. PT REPORTS THAT THE CUT ON FOOT WON'T STOP BLEEDING AND THAT SHE DEVELOPED DIARRHEA AND NAUSEA IN THE WAITING ROOM. Source: patient Exam Limitations: no limitations History of Present Illness Date Seen by Provider: Jan 12, 2023 Time Seen by Provider: 18:29 Initial Comments This 27-year-old young lady presents to the emergency room with a left foot injury. She dropped to the corner of a bed frame on her left foot early this morning while moving it. She has a puncture like wound on the top of her foot with bleeding that she has had trouble controlling. She also has significant pain and swelling including pain with weightbearing. She does not know when her last tetanus immunization was. Bleeding seems to be controlled at this time. Allergies and Home Medications Allergies Coded Allergies: No Known Drug Allergies (Unverified , 11/12/22) Patient Home Medication List Home Medication List Reviewed: Yes Amoxicillin (Amoxicillin) 875 Mg Tablet, 875 MG PO BID Prescribed by: CARLA ZHANG on 11/12/22 162 Benzonatate (Tessalon Perles) 100 Mg Capsule, 200 MG PO TID PRN for COUGH Prescribed by: ANGIE PINEDA on 03/17/211721 Hydrocodone/Acetaminophen (Hydrocodone-Acetamin 5-325 mg) 5 Mg-325 Mg Tablet, 1 TAB PO Q4H PRN for PAIN-MODERATE (5-7) Prescribed by: ANGIE PINEDA on 01/12/231938 Ondansetron (Ondansetron Odt) 4 Mg Tab.rapdis, 4 MG SL Q4H PRN for NAUSEA/VOMITING Prescribed by: ANGIE PINEDA on 03/17/211721 Sulfamethoxazole/Trimethoprim (Bactrim Ds Tablet) 1 Each Tablet, 1 EACH PO BID Prescribed by: ANGIE PINEDA on 01/12/231931 Review of Systems Constitutional: no symptoms reported EENTM: no symptoms reported Respiratory: no symptoms reported Cardiovascular: no symptoms reported Gastrointestinal: no symptoms reported Genitourinary: no symptoms reported : No LMP: Dec 09, 2022 Musculoskeletal: see HPI Skin: see HPI Psychiatric/Neurological: See HPI Past Cmzdxjs-Avlgoe-Enojje Hx Patient Social History Tobacco Use?: No Substance use?: No Alcohol Use?: No Immunizations Up To Date Tetanus Booster (TDap): More than 5yrs PED Vaccines UTD: Yes First/Initial COVID19 Vaccinat: SUMMER 2020 Second COVID19 Vaccination Bear: SUMMER 2020 Third COVID19 Vaccination Date: SUMMER 2020 Seasonal Allergies Seasonal Allergies: Yes Past Medical History Surgery/Hospitalization HX: sx: r ear Surgeries: Yes (RIGHT EAR SURGERY FOR MASTOIDITIS) Ear Surgery Respiratory: No Cardiac: No Neurological: No Reproductive Disorders: No Female Reproductive Disorders: Denies Genitourinary: No Gastrointestinal: No Musculoskeletal: No Endocrine: No HEENT: Yes (rt mastoiditis as teen-S/P SURGERY, 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 6.0oz. [id number]; 31.00 BMI Method:Estimated General Appearance: WD/WN, mild distress HEENT: normal ENT inspection Neck: normal inspection Cardiovascular: regular rate, rhythm, no murmur Respiratory: lungs clear, normal breath sounds, no respiratory distress Legs: left leg non-tender, left leg normal inspection, left leg normal range of motion, left leg no evidence of injury Ankles: left ankle non-tender, left ankle normal inspection, left ankle normal range of motion, left ankle no evidence of injury Feet: left foot bone tenderness, left foot limited range of motion, left foot pain, left foot soft tissue tenderness, left foot swelling, left foot other (minor laceration over dorsum of distal foot) Neurologic/Tendon: normal sensation, normal motor functions Neurologic/Psychiatric: no motor/sensory deficits, alert, normal mood/affect Skin: warm/dry, ecchymosis Progress/Results/Core Measures Results/Orders My Orders Orders - ANGIE SILVERIO MD Foot, Left, 3 Views (01/12/23 18:36) Dipht/Pertuss(Acell)/Tet Adult (Dipht/Pe (01/12/23 18:45) Sulfamethoxazole/Tmp Ds Tablet (Sulfamet (01/12/23 19:30) Hydrocodone/Apap 5/325 Tablet (Hydrocod (01/12/23 19:30) Crutches (01/12/23 19:27) Steplite (01/12/23 19:27) Medications Given in ED Current Medications Medications Dose Ordered Sig/Ana Route Start Time Stop Time Status Last Admin Dose Admin Acetaminophen/ Hydrocodone Bitart 1 ea ONCE ONCE PO 01/12/23 19:30 01/12/23 19:31 DC 01/12/23 19:38 1 EA Trimethoprim/ Sulfamethoxazole 1 ea ONCE ONCE PO 01/12/23 19:30 01/12/23 19:31 DC 01/12/23 19:37 1 EA Vital Signs/I&O 01/12/23 01/12/23 18:25 19:48 Pulse 77 B/P (MAP) 120/76 (91) 117/71 Pulse Ox 97 O2 Delivery Room Air Blood Pressure Mean: 91 Diagnostic Imaging Diagonstic Imaging: Xray (foot) Comments 3 views of the left foot were obtained. Images were reviewed by me and report reviewed. There was lucency over the dorsum of the navicular suspicious for fracture. Patient was reexamined and found to have point tenderness over this area. She was placed in a boot and dispensed crutches to use while awaiting follow-up with orthopedics. Hydrocodone was given for pain. He step lite boot and crutches were administered to use until follow-up with orthopedics. The depth of the puncture like wound on her foot is uncertain. For this reason antibiotic prophylaxis with Bactrim was initiated. See discharge instructions for further discussion. Departure Impression Primary Impression: Closed navicular fracture of left ankle Qualified Codes: S92.255A - Nondisplaced fracture of navicular [scaphoid] of left foot, initial encounter for closed fracture Additional Impression: Puncture wound of foot Qualified Codes: S91.332A - Puncture wound without foreign body, left foot, initial encounter Disposition: 01 HOME, SELF-CARE Condition: Stable Departure-Patient Inst. Decision time for Depature: 19:29 Referrals: [facility] ([place]/Family) Primary Care Physician TWILA MONTOYA MD, CORIN Q DPM ZAFUTA, MICHAEL P MD Patient Instructions: Foot Fracture (DC), Taking care of cuts, scrapes, and puncture wounds Add. Discharge Instructions: Complete your antibiotics as prescribed to prevent infection of this potential puncture wound. Elevate your foot to the level of your heart or higher is much as possible to reduce pain and swelling. You may also ice in 20-minute intervals. Keep the boot on whenever you are active. You should also consider keeping the boot on while you sleep to avoid accidentally disrupting the fracture in your sleep and to prevent you from accidentally bearing weight on your foot when you wake up. You may toe-touch weight-bear on the left foot but do not fully weight-bear or walk until you are cleared by an orthopedic provider or slate cutter. Follow-up with a slate cutter or orthopedic provider later this week. Please call tomorrow to schedule an appointment. A list of providers is below for your convenience. You may use hydrocodone for moderate to severe pain. Hydrocodone may cause drowsiness so do not drive, operate machinery, or make important decisions while on hydrocodone. Hydrocodone may also cause constipation, you may wish to use a stool softener such as Colace while on hydrocodone. You may use Tylenol (acetaminophen) up to 1000 mg every 6 hours as needed for more minor pain. Avoid use of NSAID medications such as ibuprofen as they may delay bone healing. All discharge instructions reviewed with patient and/or family. Voiced understanding. Scripts Hydrocodone/Acetaminophen (Hydrocodone-Acetamin 5-325 mg) 5 Mg-325 Mg Tablet 1 TAB PO Q4H PRN for PAIN-MODERATE (5-7), #20 TAB Prov: ANGIE SILVERIO MD 01/12/23 Sulfamethoxazole/Trimethoprim (Bactrim Ds Tablet) 1 Each Tablet 1 EACH PO BID, #10 TAB Prov: ANGIE SILVERIO MD 01/12/23 Work/School Note: Work Release Form Date Seen in the Emergency Department: Jan 12, 2023 Return to Work: Jan 13, 2023 Other Restrictions Listed Below: Needs boot, crutches, and elevation until released. Copy Copies To 1: [facility]/ANGIE MENDOZA MD Jan 12, 2023 18:38
[2023-01-12] MEDS ORDERED: Tetanus/Diphtheria/Pertussis (Acell) ADULT Vaccine 0.5 ML IM ONE (18:45)
--- NOTE | 2023-01-12 19:14 | Diagnostic Imaging Report ---
INDICATION: Foot pain COMPARISON: None. FINDINGS: 3 radiographic views of the left foot were obtained. There is focal lucency involving the proximal dorsal margins of the navicular bone. This however may be a chronic finding. Remaining osseous structures are intact. Joint spaces are maintained. No unexpected radiopaque foreign bodies are seen. IMPRESSION: 1. Focal lucency involving the dorsum of the navicular. Correlation with point tenderness is advised. No other acute fracture or dislocation of the left foot is seen. Dictated by: Dictated on workstation # [id number]
[2023-01-12] MEDS ORDERED: Sulfamethoxazole/Trimethoprim DS TABLET PO ONE (19:30)
[2023-01-12] MEDS ORDERED: HYDROcodone/ACETAMINOPHEN 5 MG/325 MG TABLET PO ONE (19:30)
[2023-01-12] MEDS ORDERED: ACHD5005 PO (19:32)
[2023-01-12] MEDS ORDERED: SULF1TAB38 PO (19:32)
[2023-01-12 19:48] VITALS: BP 117/71
== END 2023-01-12 19:50 | disposition home or self-care (01) ==
LOC: EDUNIT# 18:11 → ER 18:15
DX: S82.892A Other fracture of left lower leg, initial encounter for closed fracture (principal); S91.332A Puncture wound without foreign body, left foot, initial encounter; W20.8XXA Other cause of strike by thrown, projected or falling object, initial encounter
CPT/HCPCS: 73630; 99282; L2114; 90715

== ENCOUNTER 2023-03-06 20:23 | Emergency (ER) | payer MEDICAID ==
[~2023-03-06] VITALS: Ht 157.5 cm; Wt 81.6 kg
[~2023-03-06 20:23] MED LIST changes: +SULF1TAB38 PO
[2023-03-06] MEDS ORDERED: LIDOCAINE 1% INJ 20 ML VIAL INJ ONE (20:45)
--- NOTE | 2023-03-06 20:45 | ED Integumentary General ---
General Chief Complaint: Skin/Wound Problems Stated Complaint: LEFT KNEE PAIN/SWELLING/REDNESS Source: patient Exam Limitations: no limitations (PATRICIO CORNELIUS) History of Present Illness Date Seen by Provider: Mar 06, 2023 Time Seen by Provider: 20:42 Initial Comments Patient is a 27-year-old female presents ED with a infection to her left anterior knee. She noted on Thursday a small purulent head. She drained this small "pimple" that contained greenish purulent discharge. She states she had some localized redness and pain. She went to the clinic on they made an incision and drainage and started on Bactrim. She has taken 1 dose of her Bactrim. She has noted some increased pain swelling and redness. She is able to ambulate. She denies fever, chills, nausea vomiting, diarrhea. Has been taking anti-inflammatories for pain. She denies diabetes. No specific injury. No redness or swelling around the calf or posterior knee. Appears to be fairly localized below the left knee. (PATRICIO CORNELIUS) Allergies and Home Medications Allergies Coded Allergies: No Known Drug Allergies (Unverified , 11/12/22) Patient Home Medication List Home Medication List Reviewed: Yes (PATRICIO CORNELIUS) Amoxicillin (Amoxicillin) 875 Mg Tablet, 875 MG PO BID Prescribed by: CARLA ZHANG on 11/12/22 162 Benzonatate (Tessalon Perles) 100 Mg Capsule, 200 MG PO TID PRN for COUGH Prescribed by: ANGIE PINEDA on 03/17/211721 Hydrocodone/Acetaminophen (Hydrocodone-Acetamin 5-325 mg) 5 Mg-325 Mg Tablet, 1 TAB PO Q4H PRN for PAIN-MODERATE (5-7) Prescribed by: ANGIE PINEDA on 01/12/231938 Ondansetron (Ondansetron Odt) 4 Mg Tab.rapdis, 4 MG SL Q4H PRN for NAUSEA/VOMITING Prescribed by: ANGIE PINEDA on 03/17/211721 Sulfamethoxazole/Trimethoprim (Bactrim Ds Tablet) 1 Each Tablet, 1 EACH PO BID Prescribed by: ANGIE PINEDA on 01/12/231931 Review of Systems Review of Systems Constitutional: No chills, No diaphoresis, No malaise, No weakness EENTM: No hearing loss, No ear pain, No blurred vision Respiratory: No cough, No dyspnea on exertion Cardiovascular: No chest pain Gastrointestinal: No abdominal pain, No diarrhea, No nausea, No vomiting Genitourinary: No decreased output, No discharge Musculoskeletal: No back pain, No joint pain; muscle pain; No muscle stiffness Skin: change in color (PATRICIO CORNELIUS) All Other Systems Reviewed Negative Unless Noted: Yes (PATRICIO CORNELIUS) Past Eayjdus-Xerrpt-Ikuarq Hx Immunizations Up To Date Tetanus Booster (TDap): More than 5yrs PED Vaccines UTD: Yes First/Initial COVID19 Vaccinat: SUMMER 2020 Second COVID19 Vaccination Bear: SUMMER 2020 Third COVID19 Vaccination Date: SUMMER 2020 (PATRICIO CORNELIUS) Seasonal Allergies Seasonal Allergies: Yes (PATRICIO CORNELIUS) Past Medical History Surgery/Hospitalization HX: sx: r ear Surgeries: Yes (RIGHT EAR SURGERY FOR MASTOIDITIS) Ear Surgery Respiratory: No Cardiac: No Neurological: No Reproductive Disorders: No Female Reproductive Disorders: Denies Genitourinary: No Gastrointestinal: No Musculoskeletal: No Endocrine: No HEENT: Yes (rt mastoiditis as teen-S/P SURGERY, 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 Cancer: No Psychosocial: Yes Anxiety, Depression Integumentary: No Blood Disorders: No (PATRICIO CORNELIUS) Family Medical History FH: cancer No Pertinent Family Hx (PATRICIO CORNELIUS) Physical Exam Vital Signs Vital Signs - First Documented 03/06/23 20:28 Temp 37.0 Pulse 96 Resp 16 B/P (MAP) 130/85 (100) Pulse Ox 96 O2 Delivery Room Air (CODYSYED K DO) Vital Signs Capillary Refill : (PATRICIO CORNELIUS) General Appearance: WD/WN, no apparent distress HEENT: PERRL/EOMI, normal ENT inspection, TMs normal, pharynx normal Neck: non-tender, full range of motion, supple Cardiovascular: regular rate, rhythm, no edema, no gallop, no JVD Respiratory: chest non-tender, lungs clear, normal breath sounds, no respiratory distress, no accessory muscle use Gastrointestinal: normal bowel sounds, non tender, soft, no organomegaly Back: normal inspection, no CVA tenderness Extremities: other (Patient has a small 1 x 1 cm potential abscess left anterior lower knee. Localized redness. No circumferential swelling or redness. Normal active range of motion left knee. Neurovascular intact. No calf tenderness swelling or redness distally or proximal.) Neurologic/Psychiatric: automatic screwmaker II-XII nml as tested, no motor/sensory deficits, alert, normal mood/affect, oriented x 3 Skin: other (Localized redness below the left anterior knee. Small fluctuant mass 1 x 1 cm area with localized induration.) (PATRICIO CORNELIUS) Procedures/Interventions I&D : Blade Size: 11 I & D Procedure: betadine prep, sterile drapes applied, sterile dressing applied Progress Small amount of purulent bloody drainage from the wound to the left lower anterior knee (PATRICIO CORNELIUS) Progress/Results/Core Measures Results/Orders Vital Signs/I&O 03/06/23 03/06/23 20:28 21:03 Temp 37.0 37.0 Pulse 96 91 Resp 16 16 B/P (MAP) 130/85 (100) 129/52 Pulse Ox 96 99 O2 Delivery Room Air Room Air (SYED ROSS DO) Departure Communication (PCP) Patient appears to have a abscess below her left anterior knee. Localized redness. size is around one by one cm area. She had incision and drainage on at the clinic. Does still appear to be fluctuant on exam. No erythematous streaking. She does report some pain that radiates from the wound. She is afebrile. No flulike symptoms. Started Bactrim has only taken 1 dose. Discussed with patient I recommend incision and drainage as this area still feels fluctuant. Made a small incision. Marked small amount of bloody purulent drainage. Area was left open. Irrigated with normal saline and Shur cleans. Procedure documented note. discussed wound care. Continue with your Bactrim. There is no evidence of septic joint at this time. No evidence of erythematous streaking on exam. No calf pain or tenderness. Vital signs stable. If increased redness or swelling to return back to ED. Follow-up your PCP in 2 to 3 days for reevaluation. (PATRICIO CORNELIUS) Impression Primary Impression: Abscess Disposition: 01 HOME, SELF-CARE Condition: Stable Departure-Patient Inst. Decision time for Depature: 20:45 (PATRICIO CORNELIUS) [facility]errals: [facility] [place] Primary Care Physician Patient Instructions: Skin Abscess Add. Discharge Instructions: Continue with her Bactrim. If increased redness or swelling to return back to ED. All discharge instructions reviewed with patient and/or family. Voiced understanding. ATTENDING PHYSICIAN NOTE: I WAS PHYSICALLY PRESENT ER PHYSICIAN, BUT I WAS NOT INVOLVED IN ANY DECISION MAKING OR ANY CARE OF THIS PATIENT, AND I AM NOT COLLABORATING PHYSICIAN. (SYED ROSS DO) PATRICIO CORNELIUS Mar 06, 2023 20:45 SYED ROSS DO Mar 07, 2023 19:11
[2023-03-06 21:03] VITALS: BP 129/52
== END 2023-03-06 21:03 | disposition home or self-care (01) ==
LOC: EDUNIT# 20:23 → ER 20:27
DX: L02.416 Cutaneous abscess of left lower limb (principal)
CPT/HCPCS: 99282